=== PATIENT | male | born 1940 | race Caucasian/White ===

== ENCOUNTER 2016-07-15 13:26 | Emergency (ER) | payer MEDICARE, OTHER ==
[2016-07-15 13:46] VITALS: BP 129/63
[2016-07-15] MEDS ORDERED: Levofloxacin 250 MG Tab PO ONE (15:21)
--- NOTE | 2016-07-15 15:31 | EDM.PDOC ---
ED HPI GENERAL MEDICAL PROBLEM - General Chief Complaint: Respiratory Problem Stated Complaint: COUGHING UP BLOOD/FEVER/SOB Time Seen by Provider: 07/15/16 13:35 Source of Information: Reports: Patient, RN Notes Reviewed - History of Present Illness INITIAL COMMENTS - FREE TEXT/NARRATIVE: 76-year-old male comes in with cough, chills, possible low-grade fever. He states she's had no energy for the last 2 or 3 days. The coughing did start about 3 days ago occasionally productive of yellowish colored phlegm. He states she's had a lot of bronchitis in the past and sounds like he also has had some pneumonia in the past. He feels mildly short of breath with exertion but otherwise doing okay with that. No chest pain. No major nasal or sinus congestion. He denies sore throat. - Related Data Allergies Allergy/AdvReac Type Severity Reaction Status Date / Time Penicillins Allergy Swelling Verified 07/15/16 13:35 Home Meds: Home Meds Ezetimibe [Zetia] 10 mg PO DAILY 07/25/14 [History] Tiotropium [Spiriva HandiHaler] 1 cap INH DAILY 07/25/14 [History] amLODIPine [Norvasc] 10 mg PO DAILY 07/25/14 [History] atorvaSTATin [Lipitor] 20 mg PO DAILY 07/25/14 [History] Albuterol Sulfate 2.5 mg IH Q6HR 03/18/15 [History] sitaGLIPtin Phos/Metformin HCl [Janumet 50-500 MG] 50 - 500 mg PO ACDINNER 03/18 [History] Aspirin/Calcium Carbonate/Mag [Aspirin Buffered 325 mg Tab] 1 tab PO DAILY 02/09 [History] Benazepril HCl [Lotensin] 40 mg PO DAILY 02/10/16 [History] Hydrochlorothiazide 12.5 mg PO DAILY 02/10/16 [History] Kelp 1 tab PO DAILY 02/10/16 [History] Levalbuterol Tartrate [Xopenex Hfa] 15 gm IH Q4HR PRN 02/10/16 [History] Metoprolol Succinate 25 mg PO DAILY 02/10/16 [History] Tresiba 46 units SQ DAILY 02/10/16 [History] Past Medical History HEENT History: Reports: Hard of Hearing, Impaired Vision Cardiovascular History: Reports: High Cholesterol, Hypertension Respiratory History: Reports: COPD Gastrointestinal History: Reports: Chronic Constipation, Hemorrhoids Genitourinary History: Reports: Urinary Incontinence Musculoskeletal History: Reports: Osteoarthritis Other Musculoskeletal History: Hx. fx ribs; shoulder blade;hairline cervical fx. ;rt. thumb & wrist (casted); & coccyx. Neurological History: Reports: CVA, Other (See Below) Other Neuro History: hosp. last mar. for CVA symptoms; [facility] ([place]); question whether TIA vs CVA Psychiatric History: Reports: None Endocrine/Metabolic History: Reports: Diabetes, Type II Hematologic History: Reports: None Immunologic History: Reports: None Oncologic (Cancer) History: Reports: Prostate Dermatologic History: Reports: None - Infectious Disease History Infectious Disease History: Reports: Chicken Pox - Past Surgical History Head Surgeries/Procedures: Reports: None Dermatological Surgical History: Reports: None Social & Family History - Family History Family Medical History: Noncontributory - Tobacco Use Smoking Status *Q: Former Smoker Years of Tobacco use: 30 Packs/Tins Daily: 2 Used Tobacco, but Quit: Yes Month Tobacco Last Used: 1985 Second Hand Smoke Exposure: No - Caffeine Use Caffeine Use: Reports: Coffee, Soda - Recreational Drug Use Recreational Drug Use: No - Living Situation & Occupation Living situation: Reports: , with Spouse Occupation: Retired ED ROS GENERAL - Review of Systems Review Of Systems: See Below Constitutional: Reports: Fever, Chills HEENT: Denies: Sinus Problem, Throat Pain Respiratory: Reports: Shortness of Breath (Exertional), Wheezing (Okay she), Cough (Frequent for the past few days), Sputum Cardiovascular: Reports: Dyspnea on Exertion. Denies: Chest Pain, Edema Endocrine: Reports: Fatigue GI/Abdominal: Denies: Abdominal Pain, Nausea, Vomiting Musculoskeletal: Reports: No Symptoms Skin: Reports: No Symptoms Neurological: Reports: No Symptoms ED EXAM, GENERAL - Physical Exam Exam: See Below General Appearance: Alert, No Apparent Distress Nose: Normal Inspection Throat/Mouth: Normal Inspection, Normal Oropharynx Head: No: Facial Swelling Neck: Supple, Full Range of Motion, Other (No JVD) Respiratory/Chest: Lungs Clear. No: Rales, Rhonchi, Wheezing Cardiovascular: Regular Rate, Rhythm GI/Abdominal: Soft, Non-Tender Extremities: No: Pedal Edema, Leg Pain Neurological: Alert, Oriented, No Motor/Sensory Deficits Skin Exam: Warm, Dry, Normal Color Course - Vital Signs Last Recorded V/S: Last Vital Signs Temp 98.0 F 07/15/16 13:42 Pulse 80 07/15/16 13:42 Resp 20 07/15/16 13:42 BP 129/63 07/15/16 13:42 Pulse Ox 95 07/15/16 13:42 - Orders/Labs/Meds Orders: Active Orders 24 hr Category Date Time Status CXR [Chest 2V] [CR] Stat Exams 07/15/16 14:01 Taken Labs: Laboratory Tests 07/15/16 07/15/16 Range/Units 14:20 14:20 WBC 13.10 H (4.23-9.07) K/mm3 RBC 4.28 L (4.63-6.08) M/mm3 Hgb 12.7 L (13.7-17.5) gm/L Hct 38.9 L (40.1-51.0) % MCV 90.9 (79.0-92.2) fl MCH 29.7 (25.7-32.2) pg MCHC 32.6 (32.2-35.5) g/dl RDW Std Deviation 45.9 H (35.1-43.9) fL Plt Count 143 L (163-337) K/mm3 MPV 11.2 (9.4-12.3) fl Neut % (Auto) 77.9 H (34.0-67.9) % Lymph % (Auto) 13.7 L (21.8-53.1) % [place] % (Auto) 6.8 (5.3-12.2) % Eos % (Auto) 1.2 (0.8-7.0) Baso % (Auto) 0.2 (0.1-1.2) % Neut # (Auto) 10.19 H (1.78-5.38) K/mm3 Lymph # (Auto) 1.80 (1.32-3.57) K/mm3 [place] # (Auto) 0.89 H (0.30-0.82) K/mm3 Eos # (Auto) 0.16 (0.04-0.54) K/mm3 Baso # (Auto) 0.03 (0.01-0.08) K/mm3 C-Reactive Protein 20.2 H* (<1.0) mg/dL Meds: Medications Discontinued Medications Generic Name Dose Route Start Last Admin Trade Name Gaurang PRN Reason Stop Dose Admin Levofloxacin 750 mg 07/15/16 15:21 07/15/16 15:29 Levaquin PO 07/15/16 15:22 750 mg ONETIME ONE Administration - Re-Assessments/Exams Free Text/Narrative Re-Assessment/Exam: 07/15/16 15:29 Chest x-ray shows a small left lower lobe infiltrate. White blood count and C- reactive protein are elevated to support that diagnosis along with his current symptoms. His sats are good. He is resting and breathing comfortably. He does not want to be in the hospital. We will give him Levaquin 750 mg orally now and then have him continue 500 mg orally for 10 days. That prescription has been called to [place] [facility]. He will continue working with his nebulizer as needed and continue other meds as prescribed Departure - Departure Time of Disposition: 15:32 Disposition: Home, Self-Care 01 Condition: fair Clinical Impression: Pneumonia Qualifiers: Pneumonia type: due to unspecified organism Laterality: left Lung location: lower lobe of lung Qualified Code(s): J18.1 - Lobar pneumonia, unspecified organism - Discharge Information Referrals: Mary Augustin CARD FEEDER [Primary Care Provider] - Forms: ED Department Discharge Additional Instructions: Levaquin antibiotic as prescribed. He'll been giving her initial 750 mg dose orally while here in the ED today. Continue that 500 mg daily for the next 10 days. Your next dose should be around noon tomorrow. Continue with the nebulizer as needed. Continue other medications as prescribed. Rest. Drink 20 of water to maintain hydration. Followup clinic early next week for recheck, call for appointment. Return to ED as needed if symptoms worsening in any way. - My Orders Last 24 Hours: My Active Orders 07/15/16 14:01 CXR [Chest 2V] [CR] Stat - Assessment/Plan Last 24 Hours: My Active Orders 07/15/16 14:01 CXR [Chest 2V] [CR] Stat
--- NOTE | 2016-07-16 08:42 | CR ---
Chest: Two views of the chest were obtained. Comparison: Previous chest x-ray of 02/12/16. Increased density within the left lung base is seen. This appears fairly stable from prior study presumably chronic. Lungs otherwise are clear. Heart size and mediastinum are normal. Lungs are hyperinflated compatible with emphysematous change. Mild degenerative spurring noted within the spine and within both acromioclavicular joints. Impression: 1. Increased density within the left lung base which appears fairly stable from prior exam presumably representing scarring. Findings could also represent reappearance of pneumonia within the same area. 2. Other incidental findings. Diagnostic code #3
== END 2016-07-15 15:43 | disposition home or self-care (01) ==
LOC: JD.ED 13:26
DX: J18.9 Pneumonia, unspecified organism (principal); I10 Essential (primary) hypertension; E78.00 Pure hypercholesterolemia, unspecified; J44.9 Chronic obstructive pulmonary disease, unspecified; M19.90 Unspecified osteoarthritis, unspecified site; Z86.73 Personal history of transient ischemic attack (TIA), and cerebral infarction without residual deficits; E11.9 Type 2 diabetes mellitus without complications; Z85.46 Personal history of malignant neoplasm of prostate; Z87.891 Personal history of nicotine dependence; Z79.82 Long term (current) use of aspirin; Z79.899 Other long term (current) drug therapy; Z88.0 Allergy status to penicillin
CPT/HCPCS: 36415; 71020; 85025; 86140; 99283; A9270; 99284

== ENCOUNTER 2017-04-09 09:58 | Emergency (ER) | payer MEDICARE, OTHER ==
[2017-04-09] MEDS ORDERED: Albuterol/Ipratropium 3.0-0.5 MG/3 ML Neb Soln NEB ONE ×2 (10:20→11:34)
[2017-04-09] MEDS ORDERED: methylPREDNISolone Sodium Succinate 125 MG/2 ML SDV IVPUSH ONE (10:27)
[2017-04-09] MEDS ORDERED: Albuterol 0.083% 2.5 MG/3 ML Neb Soln NEB ONE (11:40)
[2017-04-09 12:38] VITALS: BP 97/53
--- NOTE | 2017-04-09 13:08 | EDM.PDOC ---
ED HPI GENERAL MEDICAL PROBLEM - General Chief Complaint: Respiratory Problem Stated Complaint: SOB Time Seen by Provider: 04/09/17 10:19 Source of Information: Reports: Patient, RN Notes Reviewed - History of Present Illness INITIAL COMMENTS - FREE TEXT/NARRATIVE: 77-year-old male comes in with cough, wheezing, difficulty breathing. 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 He does have chronic cough but became more ill about 45 days ago with some nasal and sinus congestion, worsening cough. He was seen [facility] at the [facility], started on Levaquin 750 mg daily 3 days ago. The cough continues, occasionally productive of colored phlegm. He feels very short of breath at rest and states he can hardly walk across a room due to the severe difficulty breathing and that is what brings him in this morning. He is on various inhalers at home and also does use nebulizer as needed. He's had some chills. No definite fever. No chest pain. No abdominal pain nausea or vomiting. Treatments ENTRY LEVEL ELECTRICIAN: Reports: Other (see below) Other Treatments ENTRY LEVEL ELECTRICIAN: antibiotic - Related Data Allergies Allergy/AdvReac Type Severity Reaction Status Date / Time Penicillins Allergy Swelling Verified 04/09/17 10:10 Home Meds: Home Meds Ezetimibe [Zetia] 10 mg PO DAILY 07/25/14 [History] Tiotropium [Spiriva HandiHaler] 1 cap INH DAILY 07/25/14 [History] amLODIPine [Norvasc] 15 mg PO DAILY 07/25/14 [History] atorvaSTATin [Lipitor] 20 mg PO DAILY 07/25/14 [History] Albuterol Sulfate 2.5 mg IH Q6HR 03/18/15 [History] sitaGLIPtin Phos/Metformin HCl [Janumet 50-500 MG] 50 - 500 mg PO ACDINNER 03/18 [History] Aspirin/Calcium Carbonate/Mag [Aspirin Buffered 325 mg Tab] 1 tab PO DAILY 02/09 [History] Benazepril HCl [Lotensin] 40 mg PO DAILY 02/10/16 [History] Hydrochlorothiazide 12.5 mg PO DAILY 02/10/16 [History] Levalbuterol Tartrate [Xopenex Hfa] 15 gm IH Q4HR PRN 02/10/16 [History] Metoprolol Succinate 25 mg PO DAILY 02/10/16 [History] Tresiba 46 units SQ DAILY 02/10/16 [History] Benzonatate 100 mg PO TID PRN 04/09/17 [History] Fexofenadine HCl [Marychuy Allergy] 60 mg PO DAILY 04/09/17 [History] Fluticasone/Vilanterol [Breo Ellipta 100-25 MCG Inhalation Kit] 1 each IH DAILY 04/09/17 [History] Levofloxacin [Levaquin] 750 mg PO ASDIRECTED 04/09/17 [History] guaiFENesin [Mucinex] 600 mg PO BID 04/09/17 [History] Past Medical History HEENT History: Reports: Hard of Hearing, Impaired Vision Cardiovascular History: Reports: High Cholesterol, Hypertension, SOB on Exertion Respiratory History: Reports: COPD, Other (See Below) Other Respiratory History: emphysema Gastrointestinal History: Reports: Chronic Constipation, Hemorrhoids Genitourinary History: Reports: Urinary Incontinence Musculoskeletal History: Reports: Osteoarthritis Other Musculoskeletal History: Hx. fx ribs, shoulder blade, hairline cervical fx , rt. thumb & wrist (casted) & coccyx. Neurological History: Reports: CVA, Other (See Below) Other Neuro History: hosp. mar 2016 for CVA symptoms, [facility] ([place]) question whether TIA vs CVA Psychiatric History: Reports: None Endocrine/Metabolic History: Reports: Diabetes, Type II Hematologic History: Reports: None Immunologic History: Reports: None Oncologic (Cancer) History: Reports: Prostate Dermatologic History: Reports: None - Infectious Disease History Infectious Disease History: Reports: Chicken Pox - Past Surgical History Head Surgeries/Procedures: Reports: None Dermatological Surgical History: Reports: None Social & Family History - Family History Family Medical History: Noncontributory - Tobacco Use Smoking Status *Q: Former Smoker Years of Tobacco use: 30 Packs/Tins Daily: 2 Used Tobacco, but Quit: Yes Month Tobacco Last Used: 1985 Second Hand Smoke Exposure: No - Caffeine Use Caffeine Use: Reports: Coffee - Recreational Drug Use Recreational Drug Use: No - Living Situation & Occupation Living situation: Reports: , with Spouse Occupation: Retired ED ROS GENERAL - Review of Systems Review Of Systems: See Below Constitutional: Reports: Chills. Denies: Fever HEENT: Reports: Sinus Problem (He does have nasal and sinus congestion, no major drainage), Throat Pain Respiratory: Reports: Shortness of Breath (Chronically, he does feel more short of breath today both at rest and with walking) Cardiovascular: Denies: Chest Pain GI/Abdominal: Denies: Abdominal Pain, Diarrhea, Nausea, Vomiting Musculoskeletal: Reports: Joint Pain (Chronic) Neurological: Reports: Dizziness (With ambulation). Denies: Trouble Speaking ED EXAM, GENERAL - Physical Exam Exam: See Below General Appearance: Alert, No Apparent Distress Throat/Mouth: Normal Inspection. No: Inflammation Head: Atraumatic Neck: Supple, Full Range of Motion, Other (No JVD) Respiratory/Chest: Respiratory Distress (Moderate tachypnea even at rest with oxygen), Wheezing (Mild). No: Rales, Rhonchi Cardiovascular: Regular Rate, Rhythm GI/Abdominal: Soft, Non-Tender Back Exam: No: CVA Tenderness (L), CVA Tenderness (R) Extremities: Normal Inspection. No: Pedal Edema, Leg Pain, Increased Warmth, Redness Neurological: Oriented, No Motor/Sensory Deficits Skin Exam: Warm, Dry, Normal Color Course - Vital Signs Last Recorded V/S: Last Vital Signs Temp 98.2 F 04/09/17 10:00 Pulse 74 04/09/17 12:37 Resp 18 04/09/17 12:37 BP 97/53 L 04/09/17 12:37 Pulse Ox 90 L 04/09/17 12:37 - Orders/Labs/Meds Labs: Laboratory Tests 04/09/17 04/09/17 04/09/17 Range/Units 10:20 10:20 10:20 WBC 7.20 (4.23-9.07) K/mm3 RBC 4.38 L (4.63-6.08) M/mm3 Hgb 13.0 L (13.7-17.5) gm/L Hct 39.3 L (40.1-51.0) % MCV 89.7 (79.0-92.2) fl MCH 29.7 (25.7-32.2) pg MCHC 33.1 (32.2-35.5) g/dl RDW Std Deviation 45.4 H (35.1-43.9) fL Plt Count 141 L (163-337) K/mm3 MPV 10.2 (9.4-12.3) fl Neut % (Auto) 68.0 H (34.0-67.9) % Lymph % (Auto) 17.2 L (21.8-53.1) % [place] % (Auto) 12.6 H (5.3-12.2) % Eos % (Auto) 1.5 (0.8-7.0) Baso % (Auto) 0.3 (0.1-1.2) % Neut # (Auto) 4.89 (1.78-5.38) K/mm3 Lymph # (Auto) 1.24 L (1.32-3.57) K/mm3 [place] # (Auto) 0.91 H (0.30-0.82) K/mm3 Eos # (Auto) 0.11 (0.04-0.54) K/mm3 Baso # (Auto) 0.02 (0.01-0.08) K/mm3 Sodium 137 (136-145) mEq/L Potassium 4.6 (3.5-5.1) mEq/L Chloride 100 (98-107) mEq/L Carbon Dioxide 25 (21-32) mEq/L Anion Gap 16.6 H (5-15) BUN 24 H (7-18) mg/dL Creatinine 1.3 (0.7-1.3) mg/dL Est Cr Clr Drug Dosing 52.23 mL/min Estimated GFR (MDRD) 54 (>60) mL/min BUN/Creatinine Ratio 18.5 H (14-18) Glucose 145 H (83-115) mg/dL Calcium 8.7 (8.5-10.1) mg/dL Total Bilirubin 0.6 (0.2-1.0) mg/dL AST 24 (15-37) U/L ALT 41 (16-63) U/L Alkaline Phosphatase 59 (46-116) U/L C-Reactive Protein 2.9 H* (<1.0) mg/dL NT-Pro-B Natriuret Pep 144 (0-450) pg/mL Total Protein 7.0 (6.4-8.2) g/dl Albumin 3.2 L (3.4-5.0) g/dl Globulin 3.8 gm/dL Albumin/Globulin Ratio 0.8 L (1-2) Meds: Medications Discontinued Medications Generic Name Dose Route Start Last Admin Trade Name Gaurang PRN Reason Stop Dose Admin Albuterol 2.5 mg 04/09/17 11:40 04/09/17 11:49 Proventil Neb Soln NEB 04/09/17 11:41 2.5 mg ONETIME ONE Administration Albuterol/Ipratropium 3 ml 04/09/17 10:20 04/09/17 10:31 Duoneb 3.0-0.5 Mg/3 Ml NEB 04/09/17 10:21 3 ml ONETIME ONE Administration Albuterol/Ipratropium 3 ml 04/09/17 11:34 04/09/17 11:50 Duoneb 3.0-0.5 Mg/3 Ml NEB 04/09/17 11:35 Not Given ONETIME ONE Methylprednisolone Sodium Succinate 125 mg 04/09/17 10:27 04/09/17 10:39 Solu-Medrol IVPUSH 04/09/17 10:28 125 mg ONETIME ONE Administration - Re-Assessments/Exams Free Text/Narrative Re-Assessment/Exam: 04/09/17 13:40 Chest x-ray does not show acute infiltrate or any sign for CHF. Labs are as documented. Sats were in the mid 80s on arrival room air. With oxygen and after 2 neb treatments he is running in the low 90s at 2 L nasal cannula. When we turned his oxygen off he dropped his sats back down to 84-86 sitting, resting. Ambulation he dropped to 82-83%, became very short of breath. Chest x- ray does not show pneumonia. White blood count was fine, C-reactive protein only very mildly elevated. He does not have pneumonia at this time. Not need hospital admission. He needs oxygen. We have called [employer] to help get him set up for home oxygen. Departure - Departure Time of Disposition: 12:59 Disposition: Home, Self-Care 01 Condition: Fair Clinical Impression: COPD exacerbation, Hypoxia, Bronchitis - Discharge Information Instructions: Chronic Obstructive Pulmonary Disease Exacerbation, [id number] , Acute Bronchitis, Adult Referrals: Mary Augustin SALVAGE DETERMINER [Primary Care Provider] - Forms: ED Department Discharge Additional Instructions: Portable oxygen concentrator, run that at 2-3 L 24/7 for now. As discussed your oxygen sats were only running in the mid 80s while here in the ED on room air which is too low. Chest x-ray does not show pneumonia, white blood count was normal. Continue the Levaquin antibiotic as prescribed. You have been given 1 dose of steroid medication, Solu-Medrol 125 mg IV while here in the ED so that should also help you. Continue albuterol neb treatments and other indications as previously prescribed. He Mary Tuesday at clinic for follow-up, call Tuesday morning for appointment. Return to ED as needed.
--- NOTE | 2017-04-09 14:04 | CR ---
Chest: Portable view of the chest was obtained. Comparison: Prior chest x-ray of 07/15/16. Prior chest CT of 02/10/16 was also utilized. Heart size and mediastinum are within normal limits. Incidental note of atherosclerotic calcification within the aortic knob. Lungs appear clear without acute parenchymal densities. Bony structures show degenerative endplate spurring within the spine. Slight deformity to several left-sided ribs are seen most likely due to old healed fractures. Impression: 1. Incidental findings. Nothing acute is identified on portable chest x-ray. Diagnostic code #2
== END 2017-04-09 14:40 | disposition home or self-care (01) ==
LOC: JD.ED 09:58
DX: J44.1 Chronic obstructive pulmonary disease with (acute) exacerbation (principal); E11.9 Type 2 diabetes mellitus without complications; E78.00 Pure hypercholesterolemia, unspecified; M19.90 Unspecified osteoarthritis, unspecified site; Z87.891 Personal history of nicotine dependence; Z79.82 Long term (current) use of aspirin; Z79.899 Other long term (current) drug therapy; Z88.0 Allergy status to penicillin
CPT/HCPCS: 36415; 71045; 80053; 83880; 85025; 86140; 87804; 94640; 96374; 99285; J2930; 99284

== ENCOUNTER 2017-10-06 09:33 | Emergency (ER) | payer MEDICARE, OTHER ==
[2017-10-06 09:54] VITALS: BP 133/59
[2017-10-06] MEDS ORDERED: Sodium Chloride 0.9% 10 ML Syringe FLUSH PRN (09:56)
[2017-10-06] MEDS ORDERED: Sodium Chloride 0.9% 1,000 ML IV SCH (10:00)
[2017-10-06] MEDS ORDERED: Albuterol/Ipratropium 3.0-0.5 MG/3 ML Neb Soln NEB ONE (10:38)
--- NOTE | 2017-10-06 11:45 | EDM.PDOC ---
ED HPI GENERAL MEDICAL PROBLEM - General Chief Complaint: Cardiovascular Problem Stated Complaint: LEG CRAMPS Time Seen by Provider: 10/06/17 09:50 Source of Information: Reports: Patient History Limitations: Reports: No Limitations - History of Present Illness INITIAL COMMENTS - FREE TEXT/NARRATIVE: The patient presents with leg cramps. This started last night. This happened about every hour last night. He took many potassium pills to help stop it. He says this has happened before but not this bad. He has some low back pain with it but that is chronic. He thinks he has been drinking enough. He has no fever , chills, chest pain, abdominal pain, nausea or vomiting. He has some cough and shortness of breath. He has COPD and has had a upper respiratory infection recently. He has no changes in his meds. Onset: Gradual Duration: Day(s): (Last night) Location: Reports: Lower Extremity, Left, Lower Extremity, Right Quality: Reports: Other (Cramping) Severity: Moderate Improves with: Reports: None Worsens with: Reports: None Associated Symptoms: Reports: Cough, Shortness of Breath - Related Data Allergies Allergy/AdvReac Type Severity Reaction Status Date / Time Penicillins Allergy Swelling Verified 10/06/17 09:49 Home Meds: Home Meds Ezetimibe [Zetia] 10 mg PO DAILY 07/25/14 [History] Tiotropium [Spiriva HandiHaler] 1 cap INH DAILY 07/25/14 [History] amLODIPine [Norvasc] 15 mg PO DAILY 07/25/14 [History] atorvaSTATin [Lipitor] 20 mg PO DAILY 07/25/14 [History] Albuterol Sulfate 2.5 mg IH Q6HR 03/18/15 [History] sitaGLIPtin Phos/Metformin HCl [Janumet 50-500 MG] 50 - 500 mg PO ACDINNER 03/18 [History] Aspirin/Calcium Carbonate/Mag [Aspirin Buffered 325 mg Tab] 1 tab PO DAILY 02/09 [History] Benazepril HCl [Lotensin] 40 mg PO DAILY 02/10/16 [History] Hydrochlorothiazide 12.5 mg PO DAILY 02/10/16 [History] Metoprolol Succinate 25 mg PO DAILY 02/10/16 [History] Tresiba 46 units SQ DAILY 02/10/16 [History] Fluticasone/Vilanterol [Breo Ellipta 100-25 MCG Inhalation Kit] 1 puff IH DAILY 04/09/17 [History] Cyclobenzaprine [Flexeril] 5 mg PO TID PRN #10 tab 10/06/17 [Rx] Past Medical History HEENT History: Reports: Hard of Hearing, Impaired Vision Cardiovascular History: Reports: High Cholesterol, Hypertension, SOB on Exertion Respiratory History: Reports: COPD, Other (See Below) Other Respiratory History: emphysema Gastrointestinal History: Reports: Chronic Constipation, Hemorrhoids Genitourinary History: Reports: Urinary Incontinence Musculoskeletal History: Reports: Osteoarthritis Other Musculoskeletal History: Hx. fx ribs, shoulder blade, hairline cervical fx , rt. thumb & wrist (casted) & coccyx. Neurological History: Reports: CVA, Other (See Below) Other Neuro History: hosp. mar 2016 for CVA symptoms, [facility] ([place]) question whether TIA vs CVA Psychiatric History: Reports: None Endocrine/Metabolic History: Reports: Diabetes, Type II Hematologic History: Reports: None Immunologic History: Reports: None Oncologic (Cancer) History: Reports: Prostate Dermatologic History: Reports: None - Infectious Disease History Infectious Disease History: Reports: Chicken Pox - Past Surgical History Head Surgeries/Procedures: Reports: None Dermatological Surgical History: Reports: None Social & Family History - Family History Family Medical History: Noncontributory - Tobacco Use Smoking Status *Q: Former Smoker Used Tobacco, but Quit: Yes Month/Year Tobacco Last Used: 1985 - Caffeine Use Caffeine Use: Reports: Coffee - Living Situation & Occupation Living situation: Reports: , with Spouse Occupation: Retired ED ROS GENERAL - Review of Systems Review Of Systems: See Below Constitutional: Reports: No Symptoms HEENT: Reports: No Symptoms Respiratory: Reports: Shortness of Breath, Cough Cardiovascular: Reports: No Symptoms Endocrine: Reports: No Symptoms GI/Abdominal: Reports: No Symptoms : Reports: No Symptoms Musculoskeletal: Reports: No Symptoms ED EXAM, GENERAL - Physical Exam Exam: See Below Exam Limited By: No Limitations General Appearance: Alert, No Apparent Distress Ears: Normal External Exam Nose: Normal Inspection Head: Atraumatic, Normocephalic Neck: Normal Inspection Respiratory/Chest: No Respiratory Distress, Decreased Breath Sounds Cardiovascular: Regular Rate, Rhythm, No Edema, No Murmur GI/Abdominal: Soft, Non-Tender, No Organomegaly, No Mass Back Exam: Normal Inspection Extremities: Normal Inspection Course - Vital Signs Last Recorded V/S: Last Vital Signs Temp 97.9 F 10/06/17 09:50 Pulse 68 10/06/17 09:50 Resp 18 10/06/17 09:50 BP 133/59 L 10/06/17 09:50 Pulse Ox 91 L 10/06/17 10:38 - Orders/Labs/Meds Orders: Active Orders 24 hr Category Date Time Status Cardiac Monitoring [RC] . DIRECTED Care 10/06/17 09:56 Active EKG Documentation Completion [RC] ASDIRECTED Care 10/06/17 09:57 Active Peripheral IV Care [RC] . DIRECTED Care 10/06/17 09:56 Active RT Aerosol Therapy [RC] ASDIRECTED Care 10/06/17 10:38 Active Chest 2V [CR] Stat Exams 10/06/17 09:56 Taken Sodium Chloride 0.9% [Normal Saline] 1,000 ml Med 10/06/17 10:00 Active IV ASDIRECTED Sodium Chloride 0.9% [Saline Flush] Med 10/06/17 09:56 Active 10 ml FLUSH ASDIRECTED PRN Peripheral IV Insertion Adult [OM.PC] Stat Oth 10/06/17 09:56 Ordered EKG 12 Lead [EK] Stat Ther 10/06/17 09:57 Ordered Medication Orders Sodium Chloride (Normal Saline) 1,000 mls @ 125 mls/hr IV ASDIRECTED SAY Last Admin: 10/06/17 10:15 Dose: 125 mls/hr Sodium Chloride (Saline Flush) 10 ml FLUSH ASDIRECTED PRN PRN Reason: Keep Vein Open Last Admin: 10/06/17 10:15 Dose: 10 ml Labs: Laboratory Tests 10/06/17 10/06/17 Range/Units 10:10 10:10 WBC 8.78 (4.23-9.07) K/mm3 RBC 4.80 (4.63-6.08) M/mm3 Hgb 14.3 (13.7-17.5) gm/L Hct 43.1 (40.1-51.0) % MCV 89.8 (79.0-92.2) fl MCH 29.8 (25.7-32.2) pg MCHC 33.2 (32.2-35.5) g/dl RDW Std Deviation 44.0 H (35.1-43.9) fL Plt Count 238 (163-337) K/mm3 MPV 10.4 (9.4-12.3) fl Neut % (Auto) 69.4 H (34.0-67.9) % Lymph % (Auto) 18.7 L (21.8-53.1) % [place] % (Auto) 6.8 (5.3-12.2) % Eos % (Auto) 3.9 (0.8-7.0) Baso % (Auto) 0.6 (0.1-1.2) % Neut # (Auto) 6.10 H (1.78-5.38) K/mm3 Lymph # (Auto) 1.64 (1.32-3.57) K/mm3 [place] # (Auto) 0.60 (0.30-0.82) K/mm3 Eos # (Auto) 0.34 (0.04-0.54) K/mm3 Baso # (Auto) 0.05 (0.01-0.08) K/mm3 Sodium 138 (136-145) mEq/L Potassium 4.9 (3.5-5.1) mEq/L Chloride 102 (98-107) mEq/L Carbon Dioxide 27 (21-32) mEq/L Anion Gap 13.9 (5-15) BUN 24 H (7-18) mg/dL Creatinine 1.1 (0.7-1.3) mg/dL Est Cr Clr Drug Dosing 61.73 mL/min Estimated GFR (MDRD) > 60 (>60) mL/min BUN/Creatinine Ratio 21.8 H (14-18) Glucose 120 H (83-115) mg/dL Calcium 9.3 (8.5-10.1) mg/dL Magnesium 2.1 (1.8-2.4) mg/dl Total Bilirubin 0.6 (0.2-1.0) mg/dL AST 39 H (15-37) U/L ALT 54 (16-63) U/L Alkaline Phosphatase 65 (46-116) U/L Creatine Kinase 258 (39-308) U/L Total Protein 7.4 (6.4-8.2) g/dl Albumin 3.3 L (3.4-5.0) g/dl Globulin 4.1 gm/dL Albumin/Globulin Ratio 0.8 L (1-2) Meds: Medications Generic Name Dose Route Start Last Admin Trade Name Freq PRN Reason Stop Dose Admin Sodium Chloride 1,000 mls @ 125 mls/hr 10/06/17 10:00 10/06/17 10:15 Normal Saline IV 125 mls/hr ASDIRECTED SAY Administration Sodium Chloride 10 ml 10/06/17 09:56 10/06/17 10:15 Saline Flush FLUSH 10 ml ASDIRECTED PRN Administration Keep Vein Open Discontinued Medications Generic Name Dose Route Start Last Admin Trade Name Freq PRN Reason Stop Dose Admin Albuterol/Ipratropium 3 ml 10/06/17 10:38 10/06/17 10:50 Duoneb 3.0-0.5 Mg/3 Ml NEB 10/06/17 10:39 3 ml ONETIME ONE Administration - Re-Assessments/Exams Free Text/Narrative Re-Assessment/Exam: 10/06/17 11:47 I ordered an IV NS at 150mL/hr, CXR and labs. His CXR shows no infiltrated. His CBC looks good. His BUN was elevated at 24. His BUN/creatinine ratio is elevated at 21.8. His glucose was 120. His AST was slightly elevated at 39. His oxygen saturations were a little low. I gave him a duoneb treatment and he did better. I will discharge him home. With some flexeril. Departure - Departure Time of Disposition: 11:50 Disposition: Home, Self-Care 01 Condition: Good Clinical Impression: Leg cramps Prescriptions: Cyclobenzaprine [Flexeril] 5 mg PO TID PRN #10 tab PRN Reason: Pain Referrals: Mary Augustin, [facility] [Primary Care Provider] - 1 Week Additional Instructions: Drink plenty of fluids. You should try to drink about 8 glasses of water per day or until you have pale yellow urine. Take the flexeril as needed for muscle cramps. Please return if you are worse. - My Orders Last 24 Hours: My Active Orders 10/06/17 09:56 Cardiac Monitoring [RC] . DIRECTED Peripheral IV Care [RC] . DIRECTED Chest 2V [CR] Stat Sodium Chloride 0.9% [Saline Flush] 10 ml FLUSH ASDIRECTED PRN Peripheral IV Insertion Adult [OM.PC] Stat 10/06/17 09:57 EKG Documentation Completion [RC] ASDIRECTED EKG 12 Lead [EK] Stat 10/06/17 10:00 Sodium Chloride 0.9% [Normal Saline] 1,000 ml IV ASDIRECTED 10/06/17 10:38 RT Aerosol Therapy [RC] ASDIRECTED - Assessment/Plan Last 24 Hours: My Active Orders 10/06/17 09:56 Cardiac Monitoring [RC] . DIRECTED Peripheral IV Care [RC] . DIRECTED Chest 2V [CR] Stat Sodium Chloride 0.9% [Saline Flush] 10 ml FLUSH ASDIRECTED PRN Peripheral IV Insertion Adult [OM.PC] Stat 10/06/17 09:57 EKG Documentation Completion [RC] ASDIRECTED EKG 12 Lead [EK] Stat 10/06/17 10:00 Sodium Chloride 0.9% [Normal Saline] 1,000 ml IV ASDIRECTED 10/06/17 10:38 RT Aerosol Therapy [RC] ASDIRECTED
--- NOTE | 2017-10-06 15:00 | CR ---
Chest: Two views of the chest were obtained. Comparison: Prior chest x-ray of 04/09/17. Heart size is normal. Tortuous thoracic aorta is seen. Degenerative spurring is noted within the spine. Diaphragms are slightly flattened suggesting emphysematous change. No acute parenchymal change is appreciated. Impression: 1. Probable emphysematous change. 2. Other incidental findings. Nothing acute is appreciated. Diagnostic code #2
== END 2017-10-06 12:13 | disposition home or self-care (01) ==
LOC: JD.ED 09:33
DX: R25.2 Cramp and spasm (principal); I10 Essential (primary) hypertension; E78.00 Pure hypercholesterolemia, unspecified; J44.9 Chronic obstructive pulmonary disease, unspecified; E11.9 Type 2 diabetes mellitus without complications; Z79.82 Long term (current) use of aspirin; Z79.899 Other long term (current) drug therapy; Z87.891 Personal history of nicotine dependence; Z88.0 Allergy status to penicillin
CPT/HCPCS: 36415; 71046; 80053; 82550; 83735; 85025; 93005; 94640; 96360; 96361; 99284; J7040; J7050; J7620-GY

== ENCOUNTER 2018-05-08 11:48 | Emergency (ER) | payer MEDICARE, OTHER ==
[2018-05-08 12:48] VITALS: BP 141/71
--- NOTE | 2018-05-08 13:00 | EDM.PDOC ---
ED HPI GENERAL MEDICAL PROBLEM - General Chief Complaint: General Stated Complaint: DULL HEADACHE NO ENERGY BODY ACHE X 5 DAYS Time Seen by Provider: 05/08/18 12:56 Source of Information: Reports: Patient History Limitations: Reports: No Limitations - History of Present Illness INITIAL COMMENTS - FREE TEXT/NARRATIVE: Patient is a 78-year-old male with a history of emphysema COPD who presents ED complaining of shortness of breath for the past 5 days with feeling rundown, feverish at times, low energy, and worsening productive cough. He has a history of pneumonia in the past. States she's had a poor appetite. Has been drinking plenty of fluids. Has not noticed an increase in weight or swelling to lower extremities. Has been no recent sick exposures or recent hospitalization. Denies any dysuria, rash, nuchal rigidity, headache, or red/hot/swollen joints, pain or swelling to lower extremities, or any additional complaints. He denies any chest pain or shortness of breath at rest. No PND or orthopnea. Headache Pain Score (Numeric/FACES): 2 - Related Data Allergies Allergy/AdvReac Type Severity Reaction Status Date / Time Penicillins Allergy Swelling Verified 05/08/18 12:53 Home Meds: Home Meds Ezetimibe [Zetia] 10 mg PO DAILY 07/25/14 [History] Tiotropium [Spiriva HandiHaler] 1 cap INH DAILY 07/25/14 [History] amLODIPine [Norvasc] 15 mg PO DAILY 07/25/14 [History] atorvaSTATin [Lipitor] 20 mg PO DAILY 07/25/14 [History] Albuterol Sulfate 2.5 mg IH Q6HR 03/18/15 [History] sitaGLIPtin Phos/Metformin HCl [Janumet 50-500 MG] 50 - 500 mg PO ACDINNER 03/18 [History] Aspirin/Calcium Carbonate/Mag [Aspirin Buffered 325 mg Tab] 1 tab PO DAILY 02/09 [History] Benazepril HCl [Lotensin] 40 mg PO DAILY 02/10/16 [History] Hydrochlorothiazide 12.5 mg PO DAILY 02/10/16 [History] Metoprolol Succinate 25 mg PO DAILY 02/10/16 [History] Tresiba 46 units SQ DAILY 02/10/16 [History] Fluticasone/Vilanterol [Breo Ellipta 100-25 MCG Inhalation Kit] 1 puff IH DAILY 04/09/17 [History] Cyclobenzaprine [Flexeril] 5 mg PO TID PRN #10 tab 10/06/17 [Rx] levoFLOXacin [Levaquin] 500 mg PO DAILY #10 tab 11/21/17 [Rx] levoFLOXacin [Levaquin] 750 mg PO DAILY #6 tab 05/08/18 [Rx] Past Medical History HEENT History: Reports: Hard of Hearing, Impaired Vision Cardiovascular History: Reports: High Cholesterol, Hypertension, SOB on Exertion Respiratory History: Reports: COPD, Other (See Below) Other Respiratory History: emphysema Gastrointestinal History: Reports: Chronic Constipation, Hemorrhoids Genitourinary History: Reports: Urinary Incontinence, Other (See Below) Musculoskeletal History: Reports: Osteoarthritis Other Musculoskeletal History: Hx. fx ribs, shoulder blade, hairline cervical fx , rt. thumb & wrist (casted) & coccyx. Neurological History: Reports: CVA, Other (See Below) Other Neuro History: hosp. mar 2016 for CVA symptoms, [facility] ([place]) question whether TIA vs CVA Psychiatric History: Reports: None Endocrine/Metabolic History: Reports: Diabetes, Type II Hematologic History: Reports: None Immunologic History: Reports: None Oncologic (Cancer) History: Reports: Prostate Dermatologic History: Reports: None - Infectious Disease History Infectious Disease History: Reports: Chicken Pox - Past Surgical History Head Surgeries/Procedures: Reports: None GI Surgical History: Reports: Cholecystectomy Male Surgical History: Reports: Prostatectomy Dermatological Surgical History: Reports: None Social & Family History - Family History Family Medical History: Noncontributory - Tobacco Use Smoking Status *Q: Never Smoker - Caffeine Use Caffeine Use: Reports: Coffee - Recreational Drug Use Recreational Drug Use: No - Living Situation & Occupation Living situation: Reports: , with Spouse Occupation: Retired ED ROS GENERAL - Review of Systems Review Of Systems: ROS reveals no pertinent complaints other than HPI. ED EXAM, GENERAL - Physical Exam Exam: See Below Exam Limited By: No Limitations General Appearance: Alert, WD/WN, No Apparent Distress Eye Exam: Bilateral Eye: Normal Inspection Ears: Hearing Grossly Normal Nose: Normal Inspection Throat/Mouth: Normal Inspection, Normal Oropharynx, Normal Voice, No Airway Compromise Head: Atraumatic, Normocephalic Neck: Normal Inspection, Supple, Non-Tender, Full Range of Motion Respiratory/Chest: No Respiratory Distress, Lungs Clear, Normal Breath Sounds, No Accessory Muscle Use, Chest Non-Tender Cardiovascular: Normal Peripheral Pulses, Regular Rate, Rhythm, Systolic Murmur (Faint) Peripheral Pulses: 2+: Radial (L), Radial (R) GI/Abdominal: Normal Bowel Sounds, Soft, Non-Tender, No Organomegaly, No Distention Extremities: Normal Inspection, Normal Range of Motion, Non-Tender. No: No Pedal Edema (Trace edema) Neurological: Alert, Oriented, CN II-XII Intact, Normal Cognition, No Motor/ Sensory Deficits Psychiatric: Normal Affect, Normal Mood Skin Exam: Warm, Dry, Intact, Normal Color, No Rash Course - Vital Signs Last Recorded V/S: Last Vital Signs Temp 98.6 F 05/08/18 12:47 Pulse 73 05/08/18 12:47 Resp 20 05/08/18 12:47 BP 141/71 H 05/08/18 12:47 Pulse Ox 90 L 05/08/18 12:47 - Orders/Labs/Meds Orders: Active Orders 24 hr Category Date Time Status EKG 12 Lead [EKG Documentation Completion] [RC] STAT Care 05/08/18 12:59 Active CULTURE BLOOD [BC] Stat Lab 05/08/18 13:20 Received CULTURE BLOOD [BC] Stat Lab 05/08/18 13:20 Received Blood Culture x2 Reflex Set [OM.PC] Stat Oth 05/08/18 12:59 Ordered Labs: Laboratory Tests 05/08/18 05/08/18 05/08/18 Range/Units 13:20 13:20 13:20 WBC 10.93 H (4.23-9.07) K/mm3 RBC 4.51 L (4.63-6.08) M/mm3 Hgb 13.4 L (13.7-17.5) gm/L Hct 41.1 (40.1-51.0) % MCV 91.1 (79.0-92.2) fl MCH 29.7 (25.7-32.2) pg MCHC 32.6 (32.2-35.5) g/dl RDW Std Deviation 45.1 H (35.1-43.9) fL Plt Count 221 (163-337) K/mm3 MPV 10.0 (9.4-12.3) fl Neutrophils % (Manual) 71 H (40-60) % Band Neutrophils % 6 (0-10) % Lymphocytes % (Manual) 15 L (20-40) % Atypical Lymphs % 0 % Monocytes % (Manual) 6 (2-10) % Eosinophils % (Manual) 2 (0.8-7.0) % Basophils % (Manual) 0 L (0.2-1.2) Platelet Estimate Adequate Poikilocytosis 2+ moderate Anisocytosis 2+ moderate RBC Morph Comment Not Reportable Sodium 138 (136-145) mEq/L Potassium 4.2 (3.5-5.1) mEq/L Chloride 102 (98-107) mEq/L Carbon Dioxide 26 (21-32) mEq/L Anion Gap 14.2 (5-15) BUN 20 H (7-18) mg/dL Creatinine 1.0 (0.7-1.3) mg/dL Est Cr Clr Drug Dosing 66.82 mL/min Estimated GFR (MDRD) > 60 (>60) mL/min BUN/Creatinine Ratio 20.0 H (14-18) Glucose 143 H (83-115) mg/dL Lactic Acid (0.4-2.0) mmol/L Calcium 9.5 (8.5-10.1) mg/dL Total Bilirubin 0.5 (0.2-1.0) mg/dL AST 25 (15-37) U/L ALT 40 (16-63) U/L Alkaline Phosphatase 64 (46-116) U/L Troponin I < 0.017 (0.00-0.056) ng/mL C-Reactive Protein 7.8 H* (<1.0) mg/dL NT-Pro-B Natriuret Pep 169 (0-450) pg/mL Total Protein 7.5 (6.4-8.2) g/dl Albumin 3.1 L (3.4-5.0) g/dl Globulin 4.4 gm/dL Albumin/Globulin Ratio 0.7 L (1-2) Mycoplasma pneumon IgM Negative (NEGATIVE) 05/08/18 Range/Units 13:20 WBC (4.23-9.07) K/mm3 RBC (4.63-6.08) M/mm3 Hgb (13.7-17.5) gm/L Hct (40.1-51.0) % MCV (79.0-92.2) fl MCH (25.7-32.2) pg MCHC (32.2-35.5) g/dl RDW Std Deviation (35.1-43.9) fL Plt Count (163-337) K/mm3 MPV (9.4-12.3) fl Neutrophils % (Manual) (40-60) % Band Neutrophils % (0-10) % Lymphocytes % (Manual) (20-40) % Atypical Lymphs % % Monocytes % (Manual) (2-10) % Eosinophils % (Manual) (0.8-7.0) % Basophils % (Manual) (0.2-1.2) Platelet Estimate Poikilocytosis Anisocytosis RBC Morph Comment Sodium (136-145) mEq/L Potassium (3.5-5.1) mEq/L Chloride (98-107) mEq/L Carbon Dioxide (21-32) mEq/L Anion Gap (5-15) BUN (7-18) mg/dL Creatinine (0.7-1.3) mg/dL Est Cr Clr Drug Dosing mL/min Estimated GFR (MDRD) (>60) mL/min BUN/Creatinine Ratio (14-18) Glucose (83-115) mg/dL Lactic Acid 0.9 (0.4-2.0) mmol/L Calcium (8.5-10.1) mg/dL Total Bilirubin (0.2-1.0) mg/dL AST (15-37) U/L ALT (16-63) U/L Alkaline Phosphatase (46-116) U/L Troponin I (0.00-0.056) ng/mL C-Reactive Protein (<1.0) mg/dL NT-Pro-B Natriuret Pep (0-450) pg/mL Total Protein (6.4-8.2) g/dl Albumin (3.4-5.0) g/dl Globulin gm/dL Albumin/Globulin Ratio (1-2) Mycoplasma pneumon IgM (NEGATIVE) Meds: Medications Discontinued Medications Generic Name Dose Route Start Last Admin Trade Name Freq PRN Reason Stop Dose Admin Levofloxacin/Dextrose 750 mg/ 150 mls @ 100 mls/hr 05/08/18 14:26 05/08/18 15 :06 Premix IV 05/08/18 15:55 100 mls/hr ONETIME ONE Administration - Re-Assessments/Exams Free Text/Narrative Re-Assessment/Exam: Patient complains of feeling rundown feverish at times. Slightly increase in shortness of breath with productive cough. Cough is chronic only slight worsening as of recent. He's had body aches, headache, and some chills noted as well. Vital signs are stable as documented. SPO2 92% on room air. EKG indicated sinus rhythm at a rate of [address] changes noted. X-ray of the chest did revealed a area of concern for possible infiltrate to the left lower lung. IV will be established. Initial labs and studies include: CBC, chem 14, blood cultures 2, influenza screen, lactic acid, mycoplasma, proBNP, troponin, chest x-ray, EKG. Labs reviewed: White blood cell count mildly elevated 10.93, hemoglobin 13.4, neutrophil percent is 71, bands 6. Sodium and potassium within normal limits. BUN mildly elevated at 20. Creatinine 1.0. Lactic acid 0.9. CRP elevated at 7.8. ProBNP was 69. Troponin normal. Influenza screen was negative. Mycoplasma was negative as well. I have ordered Levaquin 750 mg IV. Once completed patient will be discharged home with instructions for pneumonia. I have offered to admit the patient to the hospital to which he has refused. Return precautions were discussed with the patient. He had no further questions or concerns and agreed with plan. Departure - Departure Time of Disposition: 16:44 Disposition: Home, Self-Care 01 Condition: Good Clinical Impression: Pneumonia Qualifiers: Pneumonia type: due to unspecified organism Laterality: left Lung location: lower lobe of lung Qualified Code(s): J18.1 - Lobar pneumonia, unspecified organism - Discharge Information Prescriptions: levoFLOXacin [Levaquin] 750 mg PO DAILY #6 tab Instructions: Community-Acquired Pneumonia, Adult Referrals: PCP,None [Primary Care Provider] - Forms: ED Department Discharge Additional Instructions: Continue taking all your home medications as prescribed. In addition take Mucinex 600 mg one tab twice a day. Push the fluids. Will placeon Levaquin 750 mg by mouth. Take complete dose. See your PCP in the next 3 days for reevaluation. Please return back to the ED if you develop any new or worsening symptoms. - My Orders Last 24 Hours: My Active Orders 05/08/18 12:59 EKG 12 Lead [EKG Documentation Completion] [RC] STAT Blood Culture x2 Reflex Set [OM.PC] Stat 05/08/18 13:20 CULTURE BLOOD [BC] Stat CULTURE BLOOD [BC] Stat - Assessment/Plan Last 24 Hours: My Active Orders 05/08/18 12:59 EKG 12 Lead [EKG Documentation Completion] [RC] STAT Blood Culture x2 Reflex Set [OM.PC] Stat 05/08/18 13:20 CULTURE BLOOD [BC] Stat CULTURE BLOOD [BC] Stat
--- NOTE | 2018-05-08 13:47 | CR ---
Chest: Two views of the chest were obtained. Comparison: Prior chest x-ray of 10/06/17. Patchy increased lung markings are seen within the left mid and lower lung. Lungs otherwise are clear. Heart size and mediastinum are within normal limits. Diaphragms are flattened on the lateral view compatible with emphysematous change. Slight degenerative endplate spurring is scattered within the spine. Impression: 1. Findings suspicious for mild area of early pneumonia within the left base. 2. Emphysematous change and other incidental findings. Diagnostic code #3
[2018-05-08] MEDS ORDERED: Levofloxacin/Dextrose 5%-Water 750 MG in Premix Bag 1 BAG IV ONE (14:26)
== END 2018-05-08 17:08 | disposition home or self-care (01) ==
LOC: JD.ED 11:48
DX: J18.1 Lobar pneumonia, unspecified organism (principal); I10 Essential (primary) hypertension; E11.9 Type 2 diabetes mellitus without complications; Z86.73 Personal history of transient ischemic attack (TIA), and cerebral infarction without residual deficits; M19.90 Unspecified osteoarthritis, unspecified site; Z79.82 Long term (current) use of aspirin; Z79.899 Other long term (current) drug therapy; Z90.49 Acquired absence of other specified parts of digestive tract; Z88.0 Allergy status to penicillin
CPT/HCPCS: 36415; 71046; 80053; 83605; 83880; 84484; 85007; 85027; 86140; 86738; 87040; 87804; 93005; 96365; 99284; J1956

== ENCOUNTER 2018-06-01 10:14 | Emergency (ER) | payer MEDICARE, OTHER ==
[2018-06-01 10:24] VITALS: BP 144/68
--- NOTE | 2018-06-01 11:16 | EDM.PDOC ---
ED HPI GENERAL MEDICAL PROBLEM - General Chief Complaint: General Stated Complaint: SEVERE SORE THRAOT/STUFFED HEAD/SPEECH SLUR Time Seen by Provider: 06/01/18 10:27 Source of Information: Reports: Patient, Old Records History Limitations: Reports: No Limitations - History of Present Illness INITIAL COMMENTS - FREE TEXT/NARRATIVE: 78 yo M with PMH Impaired hearing/vision, HTN, HLD, COPD, OA, DM2, Prostate CA who comes in today for complaints of sore throat, MUNOZ, congestion and productive cough. He also states he has noticed his blood sugar has been "running rampant" all week (highest 186 and 132 this AM), even though he is watching his diet, so he knows this is a sign of illness for him. He was treated recently for PNA in the ED last month (05/08/18) with similar symptoms, was offered to be admitted but refused, received IV Levaquin x 1 and given Levaquin prescription, finished the entire prescription, felt better until today. He states he just got back last night from [place] for a and was most likely surrounded by other sick people, but he's unsure. He did not take a flight out to [place]. He is currently 88-90% on RA, unsure of baseline. He currently c/o dull MUNOZ "all over" , weakness, fatigue, productive cough (unsure of color), sore throat, pain with swallowing, runny nose with clear mucous, congestion, SOB, intermittent nausea. He denies F/C, sneezing, CP, V/D, constipation, abdominal pain, any GI/ symptoms. He is unsure if he has seasonal/environmental allergies, but "was told to start Marychuy", which he does take, but he states he feels it doesn't make a difference. He also tried [place] plus at home with some relief. Nothing seems to make his symptoms worse. He is a previous smoker; quit back in 1985. He did not have his flu shot this year. He does not currently have a PCP. He is a Full Code. Throat Pain Score (Numeric/FACES): 2 - Related Data Allergies Allergy/AdvReac Type Severity Reaction Status Date / Time Penicillins Allergy Swelling Verified 06/01/18 10:25 Home Meds: Home Meds Ezetimibe [Zetia] 10 mg PO DAILY 06/11/15 [History] Tiotropium [Spiriva HandiHaler] 1 cap INH DAILY 07/25/14 [History] amLODIPine [Norvasc] 15 mg PO DAILY 07/25/14 [History] atorvaSTATin [Lipitor] 20 mg PO DAILY 07/25/14 [History] Albuterol Sulfate 2.5 mg IH Q6HR 03/18/15 [History] sitaGLIPtin Phos/Metformin HCl [Janumet 50-500 MG] 50 - 500 mg PO ACDINNER 03/18 [History] Aspirin/Calcium Carbonate/Mag [Aspirin Buffered 325 mg Tab] 1 tab PO DAILY 02/09 [History] Benazepril HCl [Lotensin] 40 mg PO DAILY 02/10/16 [History] Hydrochlorothiazide 12.5 mg PO DAILY 02/10/16 [History] Metoprolol Succinate 25 mg PO DAILY 02/10/16 [History] Tresiba 46 units SQ DAILY 02/10/16 [History] Fluticasone/Vilanterol [Breo Ellipta 100-25 MCG Inhalation Kit] 1 puff IH DAILY 04/09/17 [History] Cyclobenzaprine [Flexeril] 5 mg PO TID PRN #10 tab 10/06/17 [Rx] Levofloxacin [Levaquin] 750 mg PO DAILY 6 Days #6 tablet 06/01/18 [Rx] Past Medical History HEENT History: Reports: Hard of Hearing, Impaired Vision Cardiovascular History: Reports: High Cholesterol, Hypertension, SOB on Exertion Respiratory History: Reports: COPD, Other (See Below) Other Respiratory History: emphysema Gastrointestinal History: Reports: Chronic Constipation, Hemorrhoids Genitourinary History: Reports: Urinary Incontinence, Other (See Below) Musculoskeletal History: Reports: Osteoarthritis Other Musculoskeletal History: Hx. fx ribs, shoulder blade, hairline cervical fx , rt. thumb & wrist (casted) & coccyx. Neurological History: Reports: CVA, Other (See Below) Other Neuro History: hosp. mar 2016 for CVA symptoms, [facility] question whether TIA vs CVA Psychiatric History: Reports: None Endocrine/Metabolic History: Reports: Diabetes, Type II Hematologic History: Reports: None Immunologic History: Reports: None Oncologic (Cancer) History: Reports: Prostate Dermatologic History: Reports: None - Infectious Disease History Infectious Disease History: Reports: Chicken Pox - Past Surgical History Head Surgeries/Procedures: Reports: None GI Surgical History: Reports: Cholecystectomy Male Surgical History: Reports: Prostatectomy Dermatological Surgical History: Reports: None Social & Family History - Family History Family Medical History: Noncontributory - Tobacco Use Smoking Status *Q: Former Smoker Used Tobacco, but Quit: Yes Month/Year Tobacco Last Used: 1985 - Caffeine Use Caffeine Use: Reports: Coffee, Soda - Recreational Drug Use Recreational Drug Use: No - Living Situation & Occupation Living situation: Reports: , with Spouse Occupation: Retired ED ROS GENERAL - Review of Systems Review Of Systems: See Below Constitutional: Reports: Weakness, Fatigue. Denies: Fever, Chills HEENT: Reports: Other (Wears hearing aids) Respiratory: Reports: Shortness of Breath, Cough, Sputum (unsure of color). Denies: Pleuritic Chest Pain, Hemoptysis Cardiovascular: Reports: Blood Pressure Problem, Orthopnea. Denies: Chest Pain , Edema Endocrine: Reports: Fatigue, High Glucose GI/Abdominal: Reports: Difficulty Swallowing (pain with swallowing). Denies: Abdominal Pain, Bloody Stool, Constipation, Diarrhea, Nausea, Vomiting : Reports: No Symptoms Musculoskeletal: Reports: No Symptoms Skin: Reports: No Symptoms Neurological: Reports: Headache (dull and "all over" head), Weakness. Denies: Confusion, Dizziness, Numbness, Trouble Speaking, Change in Speech, Gait Disturbance Psychiatric: Reports: No Symptoms Hematologic/Lymphatic: Reports: No Symptoms Immunologic: Reports: Environmental Allergy (possible; "told to take Marychuy"), Seasonal Allergy (possible; "told to take Marychuy") ED EXAM, GENERAL - Physical Exam Exam: See Below Exam Limited By: No Limitations General Appearance: Alert, WD/WN, No Apparent Distress Eye Exam: Bilateral Eye: EOMI, Normal Inspection, PERRL Ears: Normal External Exam, Normal Canal. No: Normal TMs (unable to see d/t impacted cerumen) Ear Exam: Bilateral Ear: Auricle Normal, Canal Normal Nose: Normal Inspection, Normal Mucosa, No Blood, Clear Rhinorrhea Throat/Mouth: Normal Inspection, Normal Lips, Normal Teeth, Normal Gums, Normal Oropharynx, Normal Voice, No Airway Compromise Head: Atraumatic, Normocephalic Neck: Normal Inspection, Supple, Non-Tender, Full Range of Motion Respiratory/Chest: No Respiratory Distress, Normal Breath Sounds, No Accessory Muscle Use, Chest Non-Tender, Rhonchi (throughout lung villanueva) Cardiovascular: Normal Peripheral Pulses, Regular Rate, Rhythm, No Edema, No Gallop, No JVD, No Murmur, No Rub Peripheral Pulses: 2+: Posterior Tibial (L), Posterior Tibial (R), Dorsalis Pedis (L), Dorsalis Pedis (R) GI/Abdominal: Normal Bowel Sounds, Soft, Non-Tender, No Organomegaly, No Distention, No Abnormal Bruit, No Mass Back Exam: Normal Inspection Extremities: Normal Inspection, Normal Range of Motion, Non-Tender, Normal Capillary Refill, No Pedal Edema Neurological: Alert, Oriented, CN II-XII Intact, Normal Cognition, Normal Gait, Normal Reflexes, No Motor/Sensory Deficits Psychiatric: Normal Affect, Normal Mood Skin Exam: Warm, Dry, Intact, Normal Color, No Rash Course - Vital Signs Last Recorded V/S: Last Vital Signs Temp 98.3 F 06/01/18 10:21 Pulse 77 06/01/18 10:21 Resp 18 06/01/18 10:21 BP 144/68 H 06/01/18 10:21 Pulse Ox 99 06/01/18 13:17 - Orders/Labs/Meds Orders: Active Orders 24 hr Category Date Time Status Oxygen Therapy, ED [RC] ASDIRECTED Care 06/01/18 11:27 Active RT Aerosol Therapy [RC] ASDIRECTED Care 06/01/18 11:59 Active RT Aerosol Therapy [RC] ASDIRECTED Care 06/01/18 13:17 Active CULTURE SPUTUM + SMEAR [RM] Stat Lab 06/01/18 11:03 Ordered Rapid Strep w/culture conf [STREP SCRN A RAPID W CULT Lab 06/01/18 11:25 Results CONF] [] Stat Labs: Laboratory Tests 06/01/18 06/01/18 Range/Units 11:18 11:18 WBC 10.14 H (4.23-9.07) K/mm3 RBC 4.50 L (4.63-6.08) M/mm3 Hgb 13.5 L (13.7-17.5) gm/L Hct 41.2 (40.1-51.0) % MCV 91.6 (79.0-92.2) fl MCH 30.0 (25.7-32.2) pg MCHC 32.8 (32.2-35.5) g/dl RDW Std Deviation 47.3 H (35.1-43.9) fL Plt Count 138 L (163-337) K/mm3 MPV 10.8 (9.4-12.3) fl Neut % (Auto) 78.5 H (34.0-67.9) % Lymph % (Auto) 11.5 L (21.8-53.1) % [place] % (Auto) 6.9 (5.3-12.2) % Eos % (Auto) 2.6 (0.8-7.0) Baso % (Auto) 0.3 (0.1-1.2) % Neut # (Auto) 7.96 H (1.78-5.38) K/mm3 Lymph # (Auto) 1.17 L (1.32-3.57) K/mm3 [place] # (Auto) 0.70 (0.30-0.82) K/mm3 Eos # (Auto) 0.26 (0.04-0.54) K/mm3 Baso # (Auto) 0.03 (0.01-0.08) K/mm3 Sodium 140 (136-145) mEq/L Potassium 4.2 (3.5-5.1) mEq/L Chloride 104 (98-107) mEq/L Carbon Dioxide 26 (21-32) mEq/L Anion Gap 14.2 (5-15) BUN 24 H (7-18) mg/dL Creatinine 1.0 (0.7-1.3) mg/dL Est Cr Clr Drug Dosing 66.82 mL/min Estimated GFR (MDRD) > 60 (>60) mL/min BUN/Creatinine Ratio 24.0 H (14-18) Glucose 146 H (83-115) mg/dL Calcium 9.1 (8.5-10.1) mg/dL Total Bilirubin 0.5 (0.2-1.0) mg/dL AST 21 (15-37) U/L ALT 38 (16-63) U/L Alkaline Phosphatase 45 L (46-116) U/L C-Reactive Protein 1.4 H* (<1.0) mg/dL Total Protein 6.8 (6.4-8.2) g/dl Albumin 3.3 L (3.4-5.0) g/dl Globulin 3.5 gm/dL Albumin/Globulin Ratio 0.9 L (1-2) Mycoplasma pneumon IgM Negative (NEGATIVE) Meds: Medications Discontinued Medications Generic Name Dose Route Start Last Admin Trade Name Freq PRN Reason Stop Dose Admin Albuterol/Ipratropium 3 ml 06/01/18 11:59 06/01/18 12:09 Duoneb 3.0-0.5 Mg/3 Ml NEB 06/01/18 12:00 3 ml ONETIME ONE Administration Albuterol/Ipratropium 3 ml 06/01/18 13:17 06/01/18 13:41 Duoneb 3.0-0.5 Mg/3 Ml NEB 06/01/18 13:18 3 ml ONETIME ONE Administration - Re-Assessments/Exams Free Text/Narrative Re-Assessment/Exam: 06/01/18 11:05 Ordered CBC, CMP, CRP, Sputum Culture, Mycoplasma, Strep Pneumonia, Influenza, Strep screen CXR 2V also ordered O2 sat 88-90% RA--> per previous records, he was O2 sat 92% on RA on 05/08/18. Will Give O2 via NC. 06/01/18 12:03 CBC remarkable for WBC 10.14, RBC 4.5, Hgb 13.5, RDW 47.5, Plt 138, Neut 78.5%, Lymph 11.5% CMP remarkable for BUN 24, Glu 146, Alk Phos 45, Albumin 3.3 CRP 1.4 CXR reviewed by myself and Dr. Payton. Seems improved from previous CXR, nothing acute seen. O2 sat 95-96% on 2.5L O2. Have ordered Duoneb treatment. Mycoplasma, Strep Pneumo, Influenza and Strep screen pending. 06/01/18 13:18 Mycoplasma, Influenza, and Strep screen negative. Pt has yet to urinate for Strep Pneumo test and cannot produce a sputum culture. 97% on 2.5L O2 after 1 Duoneb. Will order another Duoneb. CURB 65 Score is 2 points; moderate risk, 6.8% 30-day mortality. Consider inpt treatment or outpt with close followup. Currently trying to wean pt off O2. Offered admission,but he would like to go home. This may be COPD exacerbation vs. Bronchitis vs. PNA. Will consider giving Abx at discharge. 06/01/18 14:00 Dr. Kendrick has read the CXR as: 1. Improved parenchymal density within the left base with prior CXR 2. Emphysematous change 3. Nothing acute is appreciated 06/01/18 14:23 Pt states he is feeling much better after the 2nd nebulizer treatment. He also states he has this at home and can use it there if needed. Will take the O2 off to see how he does. If he is able to maintain 92% on RA, he will be discharged home. 06/01/18 14:32 He is now 94% on RA. Will D/C home. To cover for possible PNA, as pt states he does feel sick and has elevated WBC, will follow guidelines for PNA with recent antibiotic use and give Levaquin 750mg PO here and send home with Levaquin 750mg Daily for 6 days. Departure - Departure Time of Disposition: 14:32 Disposition: Home, Self-Care 01 Condition: Good Clinical Impression: Pneumonia, COPD exacerbation - Discharge Information *PRESCRIPTION DRUG MONITORING PROGRAM REVIEWED*: Not Applicable *COPY OF PRESCRIPTION DRUG MONITORING REPORT IN PATIENT BRANDYN: Not Applicable Prescriptions: Levofloxacin [Levaquin] 750 mg PO DAILY 6 Days #6 tablet Instructions: Community-Acquired Pneumonia, Adult, Chronic Obstructive Pulmonary Disease Exacerbation, [id number], How to Use a Nebulizer, Adult Referrals: PCP,None [Primary Care Provider] - Forms: ED Department Discharge Additional Instructions: You were seen in the ED today for congestion, sore throat, headache and productive cough. You also had low oxygen saturation while here and were given oxygen and nebulizing treatments x2 with improvement. At this time, your labs show that you may have a slight infection, but they look much better than your last visit when you were diagnosed with pneumonia. Influenza, Strep, and viral PNA were negative. Your Chest Xray also looks improved. However, due to your labs, low oxygen, recent pneumonia, recent travel, and feeling sick, we will go ahead and treat you with antibiotics. You will receive one dose of Levaquin here and will be sent home with a prescription for Levaquin for 6 more days. Please take all pills as prescribed. Recommend follow up with primary care provider. Please return to ED if new or worsening symptoms. - My Orders Last 24 Hours: My Active Orders 06/01/18 11:03 CULTURE SPUTUM + SMEAR [RM] Stat 06/01/18 11:25 Rapid Strep w/culture conf [STREP SCRN A RAPID W CULT CONF] [RM] Stat 06/01/18 11:27 Oxygen Therapy, ED [RC] ASDIRECTED 06/01/18 11:59 RT Aerosol Therapy [RC] ASDIRECTED 06/01/18 13:17 RT Aerosol Therapy [RC] ASDIRECTED - Assessment/Plan Last 24 Hours: My Active Orders 06/01/18 11:03 CULTURE SPUTUM + SMEAR [RM] Stat 06/01/18 11:25 Rapid Strep w/culture conf [STREP SCRN A RAPID W CULT CONF] [RM] Stat 06/01/18 11:27 Oxygen Therapy, ED [RC] ASDIRECTED 06/01/18 11:59 RT Aerosol Therapy [RC] ASDIRECTED 06/01/18 13:17 RT Aerosol Therapy [RC] ASDIRECTED
[2018-06-01] MEDS ORDERED: Albuterol/Ipratropium 3.0-0.5 MG/3 ML Neb Soln NEB ONE ×2 (11:59→13:17)
--- NOTE | 2018-06-01 13:57 | CR ---
Chest: Two views of the chest were obtained. Comparison: Prior chest x-ray of 05/08/18. Improved appearance of the left base from previous chest x-ray. Lungs otherwise are clear. Heart size and mediastinum are normal. Bony structures appear within normal limits for the patient's age. Diaphragms are flattened compatible with emphysematous change. Impression: 1. Improved parenchymal density within the left base with prior chest x-ray. 2. Emphysematous change. 3. Nothing acute is appreciated. Diagnostic code #2
[2018-06-01] MEDS ORDERED: cefTRIAXone 1 GM Vial IM ONE (14:06)
[2018-06-01] MEDS ORDERED: Lidocaine 1% PF 2 ML SDV INJECT ONE (14:11)
[2018-06-01] MEDS ORDERED: Levofloxacin 750 MG Tab PO ONE (14:16)
== END 2018-06-01 14:40 | disposition home or self-care (01) ==
LOC: JD.ED 10:14
DX: J18.9 Pneumonia, unspecified organism (principal); J44.1 Chronic obstructive pulmonary disease with (acute) exacerbation; E78.00 Pure hypercholesterolemia, unspecified; I10 Essential (primary) hypertension; E11.9 Type 2 diabetes mellitus without complications; Z87.891 Personal history of nicotine dependence; Z88.0 Allergy status to penicillin; Z79.899 Other long term (current) drug therapy
CPT/HCPCS: 36415; 71046; 80053; 85025; 86140; 86738; 87081; 87430; 87804; 94640; 99283; A9270; 99284; J7620-GY

== ENCOUNTER 2018-07-17 16:44 | Observation (INO) | payer MEDICARE, OTHER ==
[2018-07-17] MEDS ORDERED: Albuterol 0.083% 2.5 MG/3 ML Neb Soln NEB ONE (17:38)
[2018-07-17] MEDS ORDERED: guaiFENesin 600 MG Tab.ER PO ONE (17:47)
--- NOTE | 2018-07-17 17:47 | EDM.PDOC ---
ED HPI GENERAL MEDICAL PROBLEM - General Chief Complaint: Respiratory Problem Stated Complaint: MIGHT HAVE PNEUMONIA Time Seen by Provider: 07/17/18 17:24 Source of Information: Reports: Patient History Limitations: Reports: No Limitations - History of Present Illness INITIAL COMMENTS - FREE TEXT/NARRATIVE: Patient is a 78-year-old male presents ED complaining of shortness of breath, productive cough, and increased blood sugars. Patient states he feels like he is getting pneumonia again. States symptoms started approximate 4 days ago and have progressively got worse. He has felt warm at times. There has been no nausea or vomiting although there is has been a few episodes of diarrhea. No chest pain, no increased swelling to lower extremities, no PND, and/or orthopnea. He carries a history of COPD, hypercholesteremia, hypertension, shortness of breath with exertion, type 2 diabetes, and CVA. Patient states he's had no changes to his current medication regimen. - Related Data Allergies Allergy/AdvReac Type Severity Reaction Status Date / Time Penicillins Allergy Swelling Verified 07/17/18 17:05 Home Meds: Home Meds Ezetimibe [Zetia] 10 mg PO DAILY 07/25/14 [History] atorvaSTATin [Lipitor] 20 mg PO DAILY 07/25/14 [History] sitaGLIPtin Phos/Metformin HCl [Janumet 50-500 MG] 50 - 500 mg PO DAILY [History] Tresiba 54 units SQ BEDTIME 02/10/16 [History] Aspirin [Aspirin EC] 325 mg PO DAILY 07/17/18 [History] Benazepril HCl [Lotensin] 40 tab PO DAILY 07/17/18 [History] Dextromethorphan/guaiFENesin [Mucinex DM ER 600-30 MG] 1 tab PO DAILY 07/17/18 [ History] Fexofenadine HCl [Marychuy Allergy] 100 mg PO DAILY 07/17/18 [History] Metoprolol Succinate [Toprol Xl] 25 mg PO DAILY 07/17/18 [History] Non-Formulary Medication [NF Drug] 1 puff INH Q6HR PRN 07/17/18 [History] Non-Formulary Medication [NF Drug] 1 puff INH Q6HR PRN 07/17/18 [History] Tiotropium [Spiriva HandiHaler] 1 inh INH DAILY 07/17/18 [History] amLODIPine Besylate [Amlodipine Besylate] 10 mg PO DAILY 07/17/18 [History] Albuterol [Proventil Neb Soln] 2.5 mg NEB Q6HRRT neb 07/18/18 [Rx] levoFLOXacin [Levaquin] 500 mg PO DAILY 07/18/18 [History] levoFLOXacin [Levaquin] 500 mg PO DAILY 14 Days #14 tab 07/18/18 [Rx] predniSONE 10 mg PO .TAPER 6 Days tab 07/18/18 [Rx] Past Medical History HEENT History: Reports: Hard of Hearing, Impaired Vision Cardiovascular History: Reports: High Cholesterol, Hypertension, SOB on Exertion Respiratory History: Reports: COPD, Other (See Below) Other Respiratory History: emphysema Gastrointestinal History: Reports: Chronic Constipation, Hemorrhoids Genitourinary History: Reports: Urinary Incontinence, Other (See Below) Musculoskeletal History: Reports: Osteoarthritis Other Musculoskeletal History: Hx. fx ribs, shoulder blade, hairline cervical fx , rt. thumb & wrist (casted) & coccyx. Neurological History: Reports: CVA, Other (See Below) Other Neuro History: hosp. mar 2016 for CVA symptoms, [facility] ([place] question whether TIA vs CVA Psychiatric History: Reports: None Endocrine/Metabolic History: Reports: Diabetes, Type II Hematologic History: Reports: None Immunologic History: Reports: None Oncologic (Cancer) History: Reports: Prostate Dermatologic History: Reports: None - Infectious Disease History Infectious Disease History: Reports: Chicken Pox - Past Surgical History Head Surgeries/Procedures: Reports: None GI Surgical History: Reports: Cholecystectomy Male Surgical History: Reports: Prostatectomy Dermatological Surgical History: Reports: None Social & Family History - Family History Family Medical History: Noncontributory - Tobacco Use Smoking Status *Q: Never Smoker - Caffeine Use Caffeine Use: Reports: Coffee, Soda - Recreational Drug Use Recreational Drug Use: No - Living Situation & Occupation Living situation: Reports: , with Spouse Occupation: Retired ED ROS GENERAL - Review of Systems Review Of Systems: ROS reveals no pertinent complaints other than HPI. ED EXAM, GENERAL - Physical Exam Exam: See Below Exam Limited By: No Limitations General Appearance: Alert, WD/WN, No Apparent Distress Ears: Hearing Grossly Normal Nose: Normal Inspection Throat/Mouth: Normal Voice, No Airway Compromise Head: Atraumatic, Normocephalic Neck: Normal Inspection, Supple Respiratory/Chest: No Accessory Muscle Use, Chest Non-Tender, Rhonchi ( throughout all lung villanueva), Wheezing (throughout all lung villanueva), Prolonged Expiration Cardiovascular: Normal Peripheral Pulses, Regular Rate, Rhythm, No Murmur Peripheral Pulses: 2+: Radial (L), Radial (R), Posterior Tibial (L), Posterior Tibial (R) GI/Abdominal: Normal Bowel Sounds, Soft, Non-Tender, No Organomegaly, No Distention Extremities: Normal Inspection, Normal Range of Motion, Non-Tender, Pedal Edema (trace) Neurological: Alert, Oriented, CN II-XII Intact, Normal Cognition, No Motor/ Sensory Deficits Psychiatric: Normal Affect, Normal Mood Skin Exam: Warm, Dry, Intact, Normal Color, No Rash Course - Vital Signs Last Recorded V/S: Last Vital Signs Temp 98.1 F 07/18/18 08:16 Pulse 71 07/18/18 08:16 Resp 16 07/18/18 08:16 BP 156/57 H 07/18/18 08:16 Pulse Ox 94 L 07/18/18 08:22 - Orders/Labs/Meds Labs: Laboratory Tests 07/17/18 07/17/18 07/17/18 Range/Units 17:20 17:20 17:20 WBC 8.82 (4.23-9.07) K/mm3 RBC 4.42 L (4.63-6.08) M/mm3 Hgb 13.3 L (13.7-17.5) gm/L Hct 41.4 (40.1-51.0) % MCV 93.7 H (79.0-92.2) fl MCH 30.1 (25.7-32.2) pg MCHC 32.1 L (32.2-35.5) g/dl RDW Std Deviation 47.5 H (35.1-43.9) fL Plt Count 176 (163-337) K/mm3 MPV 10.9 (9.4-12.3) fl Neut % (Auto) 71.5 H (34.0-67.9) % Lymph % (Auto) 17.9 L (21.8-53.1) % [place] % (Auto) 6.9 (5.3-12.2) % Eos % (Auto) 3.2 (0.8-7.0) Baso % (Auto) 0.3 (0.1-1.2) % Neut # (Auto) 6.30 H (1.78-5.38) K/mm3 Lymph # (Auto) 1.58 (1.32-3.57) K/mm3 [place] # (Auto) 0.61 (0.30-0.82) K/mm3 Eos # (Auto) 0.28 (0.04-0.54) K/mm3 Baso # (Auto) 0.03 (0.01-0.08) K/mm3 Sodium 140 (136-145) mEq/L Potassium 4.5 (3.5-5.1) mEq/L Chloride 105 (98-107) mEq/L Carbon Dioxide 26 (21-32) mEq/L Anion Gap 13.5 (5-15) BUN 22 H (7-18) mg/dL Creatinine 1.3 (0.7-1.3) mg/dL Est Cr Clr Drug Dosing 51.40 mL/min Estimated GFR (MDRD) 53 (>60) mL/min BUN/Creatinine Ratio 16.9 (14-18) Glucose 266 H (83-115) mg/dL Calcium 9.0 (8.5-10.1) mg/dL Total Bilirubin 0.4 (0.2-1.0) mg/dL AST 23 (15-37) U/L ALT 40 (16-63) U/L Alkaline Phosphatase 61 (46-116) U/L Troponin I < 0.017 (0.00-0.056) ng/mL C-Reactive Protein 2.3 H* (<1.0) mg/dL Total Protein 6.7 (6.4-8.2) g/dl Albumin 3.5 (3.4-5.0) g/dl Globulin 3.2 gm/dL Albumin/Globulin Ratio 1.1 (1-2) Mycoplasma pneumon IgM Negative (NEGATIVE) Meds: Medications Discontinued Medications Generic Name Dose Route Start Last Admin Trade Name Freq PRN Reason Stop Dose Admin Albuterol 2.5 mg 07/17/18 17:38 07/17/18 17:50 Proventil Neb Soln NEB 07/17/18 17:39 2.5 mg ONETIME ONE Administration Albuterol 2.5 mg 07/18/18 03:00 07/18/18 08:20 Proventil Neb Soln NEB 2.5 mg Q6HRRT SAY Administration Albuterol/Ipratropium 3 ml 07/17/18 17:48 07/17/18 18:05 Duoneb 3.0-0.5 Mg/3 Ml NEB 3 ml ONETIME PRN Administration Dyspnea Guaifenesin 1,200 mg 07/17/18 17:47 07/17/18 18:17 Mucinex PO 07/17/18 17:48 1,200 mg ONETIME ONE Administration Levofloxacin/Dextrose 750 mg/ 150 mls @ 100 mls/hr 07/17/18 19:22 07/17/18 19 :29 Premix IV 07/17/18 20:51 100 mls/hr ONETIME ONE Administration Insulin Human Lispro 0 unit 07/17/18 22:00 07/18/18 14:09 Humalog SUBCUT Not Given [facility] Protocol Levofloxacin 500 mg 07/18/18 12:00 07/18/18 11:43 Levaquin PO 500 mg Q24H SAY Administration Methylprednisolone Sodium Succinate 125 mg 07/17/18 19:22 07/17/18 19:30 Solu-Medrol IVPUSH 07/17/18 19:23 125 mg ONETIME ONE Administration - Re-Assessments/Exams Free Text/Narrative Re-Assessment/Exam: Reviewed previous ED visit 06/01/2018: Chest x-ray revealed improved with equal density within the left base with prior chest x-ray. Patient was treated for COPD exacerbation and pneumonia with Levaquin 750 mg by mouth. Patient states he has a trip planned for [place] this tuesday that he cannot miss it. Vital signs blood pressure 143/59, heart rate 76, temperature 100.6, O2 sats 85% on room air. Patient was placed on O2 via nasal cannula 2 L/ m and sating at 95%. Temperature recheck was 99.2 F. IV has been established. Initial labs and studies will include: CBC, chem 14, CRP, mycoplasma, troponin, EKG, and chest x-ray two-view. I also ordered for albuterol neb treatment and Mucinex 1200 mg by mouth. There is also order for DuoNeb when necessary 1. 07/17/18 17:[address] Friedman. Reviewed previous CXR's from May and April. No significant findings. EKG: Sinus rhythm rate 71 with [place] interval 196 and QTC 400. No acute ST changes noted. Labs reviewed: White blood cell count 8.82, hemoglobin 13.3, platelet count 176 , neutrophil percentage is 71.5 with lymphocyte percentage of 17.9 neutrophil number of 6.3. Sodium and potassium are normal. Creatinine 1.3. Glucose 266. Troponin less than 0.017. CRP normal. Mycoplasma negative. Patient continues to requires supplemental O2 to maintain O2 sats >90%. I believe patient would benefit to be admitted for further management of exacerbation of COPD. Per Up To Date recommends fluoroquinole with history of hospitalization or abx within the past 3 months. I have ordered Levaquin 750mg IV. Patient is in agreement for admission. I will speak with Dr. Wilkes aircraft avionics technician Hospitalists. Dr. Rubio has agreed to admit patient. Bridge orders completed. Departure - Departure Time of Disposition: 18:48 Disposition: Refer to Observation Condition: Fair Clinical Impression: COPD exacerbation, Hypoxia - Discharge Information
[2018-07-17] MEDS ORDERED: Albuterol/Ipratropium 3.0-0.5 MG/3 ML Neb Soln NEB PRN (17:48)
[2018-07-17] MEDS ORDERED: methylPREDNISolone Sodium Succinate 125 MG/2 ML SDV IVPUSH ONE (19:22)
[2018-07-17] MEDS ORDERED: Levofloxacin/Dextrose 5%-Water 750 MG in Premix Bag 1 BAG IV ONE (19:22)
[2018-07-17] MEDS: Insulin Lispro 100 Units/ML 3 ML Vial SUBCUT SCH (23:23)
[2018-07-18] MEDS: Albuterol 0.083% 2.5 MG/3 ML Neb Soln NEB SCH ×2 (02:45→08:20)
[2018-07-18 08:18] VITALS: BP 156/57
[2018-07-18] MEDS: Insulin Lispro 100 Units/ML 3 ML Vial SUBCUT SCH ×2 (08:33→14:09)
--- NOTE | 2018-07-18 09:48 | CR ---
Chest: Two views of the chest were obtained. Comparison: Prior chest x-ray at 06/01/18. Heart size and mediastinum are within normal limits. Slight scarring is seen within the left base. No acute parenchymal change is appreciated. Lungs are slightly hyperinflated compatible with emphysematous change. Mild scoliosis is noted within the spine with mild degenerative change. Impression: 1. Nothing acute is appreciated. Findings as noted above. Diagnostic code #2
--- NOTE | 2018-07-18 09:58 | PCM.DCSUM1 ---
Discharge Summary - Hospital Course HPI Initial Comments: 78 yo WM with h/o COPD admitted through ED with 5 days h/o diarrhea, cough with sputum and hypoxia recorded in ED. Improved overnight. D/c in good condition with steroid taper and 14 days of levofloxacin. Diagnosis: Stroke: No - Discharge Data Discharge Date: 07/18/18 Discharge Disposition: Home, Self-Care 01 Condition: Good - Patient Instructions Diet: Heart Healthy Diet Activity: As Tolerated Driving: May Drive Today Showering/Bathing: May Shower - Discharge Plan *PRESCRIPTION DRUG MONITORING PROGRAM REVIEWED*: No *COPY OF PRESCRIPTION DRUG MONITORING REPORT IN PATIENT BRANDYN: No Home Medications: Home Meds Ezetimibe [Zetia] 10 mg PO DAILY 07/25/14 [History] atorvaSTATin [Lipitor] 20 mg PO DAILY 07/25/14 [History] sitaGLIPtin Phos/Metformin HCl [Janumet 50-500 MG] 50 - 500 mg PO DAILY [History] Tresiba 54 units SQ BEDTIME 02/10/16 [History] Aspirin [Aspirin EC] 1 tab OP DAILY 07/17/18 [History] Benazepril HCl [Lotensin] 1 tab PO DAILY 07/17/18 [History] Dextromethorphan/guaiFENesin [Mucinex DM ER 600-30 MG] 1 tab PO DAILY 07/17/18 [ History] Fexofenadine HCl [Marychuy Allergy] 100 mg PO DAILY 07/17/18 [History] Metoprolol Succinate [Toprol Xl] 25 mg PO DAILY 07/17/18 [History] Non-Formulary Medication [NF Drug] 1 puff INH Q6HR PRN 07/17/18 [History] Non-Formulary Medication [NF Drug] 1 puff INH Q6HR PRN 07/17/18 [History] Tiotropium [Spiriva HandiHaler] 1 inh INH DAILY 07/17/18 [History] amLODIPine Besylate [Amlodipine Besylate] 10 mg PO DAILY 07/17/18 [History] Albuterol [Proventil Neb Soln] 2.5 mg NEB Q6HRRT neb 07/18/18 [Rx] Insulin Lispro [HumaLOG] 0 unit SUBCUT QIDACANDBED vial 07/18/18 [Rx] Forms: ED Department Discharge Referrals: PCP,None [Primary Care Provider] - - Discharge Summary/Plan Comment DC Time >30 min.: No - Patient Data Vitals - Most Recent: Last Vital Signs Temp 98.1 F 07/18/18 08:16 Pulse 71 07/18/18 08:16 Resp 16 07/18/18 08:16 BP 156/57 H 07/18/18 08:16 Pulse Ox 94 L 07/18/18 08:22 Weight - Most Recent: 242 lb 4.8 oz I&O - Last 24 hours: Intake & Output 07/17/18 07/18/18 07/18/18 19:59 03:59 11:59 Intake Total 300 Output Total 700 Balance -700 300 Lab Results - Last 24 hrs: Laboratory Results - last 24 hr 07/17/18 07/17/18 07/17/18 Range/Units 17:20 17:20 17:20 WBC 8.82 (4.23-9.07) K/mm3 RBC 4.42 L (4.63-6.08) M/mm3 Hgb 13.3 L (13.7-17.5) gm/L Hct 41.4 (40.1-51.0) % MCV 93.7 H (79.0-92.2) fl MCH 30.1 (25.7-32.2) pg MCHC 32.1 L (32.2-35.5) g/dl RDW Std Deviation 47.5 H (35.1-43.9) fL Plt Count 176 (163-337) K/mm3 MPV 10.9 (9.4-12.3) fl Neut % (Auto) 71.5 H (34.0-67.9) % Lymph % (Auto) 17.9 L (21.8-53.1) % [place] % (Auto) 6.9 (5.3-12.2) % Eos % (Auto) 3.2 (0.8-7.0) Baso % (Auto) 0.3 (0.1-1.2) % Neut # (Auto) 6.30 H (1.78-5.38) K/mm3 Lymph # (Auto) 1.58 (1.32-3.57) K/mm3 [place] # (Auto) 0.61 (0.30-0.82) K/mm3 Eos # (Auto) 0.28 (0.04-0.54) K/mm3 Baso # (Auto) 0.03 (0.01-0.08) K/mm3 Sodium 140 (136-145) mEq/L Potassium 4.5 (3.5-5.1) mEq/L Chloride 105 (98-107) mEq/L Carbon Dioxide 26 (21-32) mEq/L Anion Gap 13.5 (5-15) BUN 22 H (7-18) mg/dL Creatinine 1.3 (0.7-1.3) mg/dL Est Cr Clr Drug Dosing 51.40 mL/min Estimated GFR (MDRD) 53 (>60) mL/min BUN/Creatinine Ratio 16.9 (14-18) Glucose 266 H (83-115) mg/dL POC Glucose (83-110) mg/dL Calcium 9.0 (8.5-10.1) mg/dL Total Bilirubin 0.4 (0.2-1.0) mg/dL AST 23 (15-37) U/L ALT 40 (16-63) U/L Alkaline Phosphatase 61 (46-116) U/L Troponin I < 0.017 (0.00-0.056) ng/mL C-Reactive Protein 2.3 H* (<1.0) mg/dL Total Protein 6.7 (6.4-8.2) g/dl Albumin 3.5 (3.4-5.0) g/dl Globulin 3.2 gm/dL Albumin/Globulin Ratio 1.1 (1-2) Mycoplasma pneumon IgM Negative (NEGATIVE) 07/17/18 07/17/18 07/18/18 Range/Units 21:13 22:51 06:10 WBC (4.23-9.07) K/mm3 RBC (4.63-6.08) M/mm3 Hgb (13.7-17.5) gm/L Hct (40.1-51.0) % MCV (79.0-92.2) fl MCH (25.7-32.2) pg MCHC (32.2-35.5) g/dl RDW Std Deviation (35.1-43.9) fL Plt Count (163-337) K/mm3 MPV (9.4-12.3) fl Neut % (Auto) (34.0-67.9) % Lymph % (Auto) (21.8-53.1) % [place] % (Auto) (5.3-12.2) % Eos % (Auto) (0.8-7.0) Baso % (Auto) (0.1-1.2) % Neut # (Auto) (1.78-5.38) K/mm3 Lymph # (Auto) (1.32-3.57) K/mm3 [place] # (Auto) (0.30-0.82) K/mm3 Eos # (Auto) (0.04-0.54) K/mm3 Baso # (Auto) (0.01-0.08) K/mm3 Sodium (136-145) mEq/L Potassium (3.5-5.1) mEq/L Chloride (98-107) mEq/L Carbon Dioxide (21-32) mEq/L Anion Gap (5-15) BUN (7-18) mg/dL Creatinine (0.7-1.3) mg/dL Est Cr Clr Drug Dosing mL/min Estimated GFR (MDRD) (>60) mL/min BUN/Creatinine Ratio (14-18) Glucose (83-115) mg/dL POC Glucose 270 H 230 H 295 H (83-110) mg/dL Calcium (8.5-10.1) mg/dL Total Bilirubin (0.2-1.0) mg/dL AST (15-37) U/L ALT (16-63) U/L Alkaline Phosphatase (46-116) U/L Troponin I (0.00-0.056) ng/mL C-Reactive Protein (<1.0) mg/dL Total Protein (6.4-8.2) g/dl Albumin (3.4-5.0) g/dl Globulin gm/dL Albumin/Globulin Ratio (1-2) Mycoplasma pneumon IgM (NEGATIVE) Med Orders - Current: Current Medications Albuterol (Proventil Neb Soln) 2.5 mg NEB Q6HRRT [facility] Last Admin: 07/18/18 08:20 Dose: 2.5 mg Insulin Human Lispro (Humalog) 0 unit SUBCUT QIDACANDBED [facility]; Protocol Last Admin: 07/18/18 08:33 Dose: 3 units Discontinued Medications Albuterol (Proventil Neb Soln) 2.5 mg NEB ONETIME ONE Stop: 07/17/18 17:39 Last Admin: 07/17/18 17:50 Dose: 2.5 mg Albuterol/Ipratropium (Duoneb 3.0-0.5 Mg/3 Ml) 3 ml NEB ONETIME PRN PRN Reason: Dyspnea Last Admin: 07/17/18 18:05 Dose: 3 ml Guaifenesin (Mucinex) 1,200 mg PO ONETIME ONE Stop: 07/17/18 17:48 Last Admin: 07/17/18 18:17 Dose: 1,200 mg Levofloxacin/Dextrose 750 mg/ (Premix) 150 mls @ 100 mls/hr IV ONETIME ONE Stop: 07/17/18 20:51 Last Admin: 07/17/18 19:29 Dose: 100 mls/hr Methylprednisolone Sodium Succinate (Solu-Medrol) 125 mg IVPUSH ONETIME ONE Stop: 07/17/18 19:23 Last Admin: 07/17/18 19:30 Dose: 125 mg
[2018-07-18] MEDS ORDERED: Levofloxacin 500 MG Tab PO SCH (12:00)
--- NOTE | 2018-07-18 12:18 | PCM.SN ---
- Free Text/Narrative Note: 1215 I was contacted by the Utilization Review Nurse in regards to this patient's level of care. I reviewed the patient medical record and recommend that outpatient services is the appropriate level of care. I contacted the admitting physician and discussed with him this recommendation. Dr. Morrison is in agreement. The utilization review nurse was notified to proceed with patient notification as outlined in our code 44 policy. Pamela Banks MD
== END 2018-07-18 12:30 ==
LOC: JD.ED 16:44 → INTOOBSV 20:33 → JD.MS 20:33
PROVIDERS: ADMIT Internal Medicine; ATTEND Internal Medicine
DX: J43.9 Emphysema, unspecified (principal); R09.02 Hypoxemia; R19.7 Diarrhea, unspecified; I10 Essential (primary) hypertension; E11.9 Type 2 diabetes mellitus without complications; E78.00 Pure hypercholesterolemia, unspecified; Z88.0 Allergy status to penicillin; Z86.73 Personal history of transient ischemic attack (TIA), and cerebral infarction without residual deficits; Z79.82 Long term (current) use of aspirin; Z79.4 Long term (current) use of insulin; Z79.899 Other long term (current) drug therapy
CPT/HCPCS: 36415; 71046; 80053; 82962; 84484; 85025; 86140; 86738; 93005; 94640; 94760; 96365; 96375; 99285; A9270; J1815; J1956; J2930; J7620-GY

== ENCOUNTER 2018-11-02 09:05 | Emergency (ER) | payer MEDICARE, OTHER ==
[2018-11-02 09:19] VITALS: BP 127/54; PULSE 75
[2018-11-02] MEDS ORDERED: Acetaminophen 325 MG Tab PO ONE (09:29)
--- NOTE | 2018-11-02 09:29 | EDM.PDOC ---
ED HPI GENERAL MEDICAL PROBLEM - General Chief Complaint: Respiratory Problem Stated Complaint: SOB,CHILLS Time Seen by Provider: 11/02/18 09:23 Source of Information: Reports: Patient History Limitations: Reports: No Limitations - History of Present Illness INITIAL COMMENTS - FREE TEXT/NARRATIVE: 78-year-old male presents to the ED in the accompaniment of his . He said he developed fairly sudden worsening shortness of breath yesterday morning with an increased productive cough of yellowish sputum. Overnight she developed fever and chills to the point that he had rigors or teeth cheek shaking. Blood sugars are elevated this morning as well. Patient states he believes he had pneumonia about 3 months ago. He was treated with a course of Levaquin which worked well for him. On examination this morning he does have a fever. He's not eaten yet today and taken any medications. Patient does not use oxygen at home. He has a home nebulizer but he rarely uses it. Onset: Sudden Onset Date: 11/01/18 Duration: Day(s):, Getting Worse Location: Reports: Chest (Productive sounding cough shortness of breath wheezing and dyspnea on minimal exertion.) Quality: Reports: Other (Feels weak.) Severity: Moderate (Feels diffusely achy. Decreased appetite) Improves with: Reports: None Worsens with: Reports: Other Context: Denies: Activity, Exercise (Worse on exertion.), Sick Contact, Trauma, Other Associated Symptoms: Reports: Cough, cough w sputum, Fever/Chills, Loss of Appetite, Malaise, Shortness of Breath, Weakness. Denies: No Other Symptoms, Confusion (No pleuritic chest pain), Chest Pain, Diaphoresis, Headaches, Nausea/ Vomiting, Rash, Seizure, Syncope Treatments ROUNDSMAN: Reports: Other (see below) (None at home.) - Related Data Allergies Allergy/AdvReac Type Severity Reaction Status Date / Time Penicillins Allergy Swelling Verified 11/02/18 09:20 Home Meds: Home Meds Ezetimibe [Zetia] 10 mg PO DAILY 07/25/14 [History] atorvaSTATin [Lipitor] 20 mg PO DAILY 07/25/14 [History] sitaGLIPtin Phos/Metformin HCl [Janumet 50-500 MG] 1 tab PO DAILY 03/18/15 [ History] Aspirin [Aspirin EC] 325 mg PO DAILY 07/17/18 [History] Benazepril HCl [Lotensin] 40 tab PO DAILY 07/17/18 [History] Fexofenadine HCl [Marychuy Allergy] 100 mg PO DAILY 07/17/18 [History] Metoprolol Succinate [Toprol Xl] 25 mg PO DAILY 07/17/18 [History] Tiotropium [Spiriva HandiHaler] 1 inh INH DAILY 07/17/18 [History] amLODIPine Besylate [Amlodipine Besylate] 10 mg PO DAILY 07/17/18 [History] Fluticasone/Vilanterol [Breo Ellipta 100-25 MCG Inhalation Kit] 1 puff INH DAILY 09/13/18 [History] Hydrochlorothiazide [Microzide] 12.5 mg PO DAILY 09/13/18 [History] Insulin Degludec [Tresiba] 50 unit SQ DAILY 09/13/18 [History] Albuterol/Ipratropium [DuoNeb 3.0-0.5 MG/3 ML] 3 ml .XX QID #30 neb 11/02/18 [Rx ] levoFLOXacin [Levaquin] 500 mg PO DAILY #9 tab 11/02/18 [Rx] Past Medical History HEENT History: Reports: Hard of Hearing, Impaired Vision Other HEENT History: Wears hearing aides bilaterally, and reading glasses Cardiovascular History: Reports: High Cholesterol, Hypertension, SOB on Exertion Respiratory History: Reports: COPD, Other (See Below) Other Respiratory History: emphysema Gastrointestinal History: Reports: Chronic Constipation, Hemorrhoids Genitourinary History: Reports: Urinary Incontinence, Other (See Below) Other Genitourinary History: Minimal incontinence noted Musculoskeletal History: Reports: Osteoarthritis Other Musculoskeletal History: Hx. fx ribs, shoulder blade, hairline cervical fx , rt. thumb & wrist (casted) & coccyx. Neurological History: Reports: CVA, Other (See Below) Other Neuro History: hosp. mar 2016 for CVA symptoms, [facility] ([place]) question whether TIA vs CVA Psychiatric History: Reports: None Endocrine/Metabolic History: Reports: Diabetes, Type II Hematologic History: Reports: None Immunologic History: Reports: None Oncologic (Cancer) History: Reports: Prostate Dermatologic History: Reports: None - Infectious Disease History Infectious Disease History: Reports: Chicken Pox - Past Surgical History Head Surgeries/Procedures: Reports: None GI Surgical History: Reports: Cholecystectomy Male Surgical History: Reports: Prostatectomy Dermatological Surgical History: Reports: None Social & Family History - Family History Family Medical History: Noncontributory - Tobacco Use Smoking Status *Q: Never Smoker - Caffeine Use Caffeine Use: Reports: Coffee, Soda Other Caffeine Use: diet Caffeine Use Comment: 6-8 cups per day, 1-2 cans pop per dy - Recreational Drug Use Recreational Drug Use: No - Living Situation & Occupation Living situation: Reports: , with Spouse Occupation: Retired ED ROS GENERAL - Review of Systems Review Of Systems: See Below Constitutional: Reports: Fever, Chills, Malaise, Weakness, Fatigue, Decreased Appetite, Other (Fever and chills during the night. Associated rigors.). Denies : Weight Loss HEENT: Reports: No Symptoms Respiratory: Reports: Shortness of Breath, Wheezing, Sputum. Denies: Hemoptysis , Other Cardiovascular: Reports: Dyspnea on Exertion. Denies: Chest Pain, Blood Pressure Problem, Claudication, Edema, Lightheadedness, Orthopnea, Palpitations Endocrine: Reports: Fatigue GI/Abdominal: Reports: Decreased Appetite : Reports: Frequency, Other (Nocturia 2 or 3 years.) Musculoskeletal: Reports: Back Pain, Joint Pain (Easing up since neck at times.) Skin: Reports: No Symptoms Neurological: Reports: No Symptoms Psychiatric: Reports: No Symptoms Hematologic/Lymphatic: Reports: No Symptoms Immunologic: Reports: No Symptoms ED EXAM, GENERAL - Physical Exam Exam: See Below Exam Limited By: No Limitations General Appearance: Alert, WD/WN, No Apparent Distress, Other (Does feel warm to palpation. O2 sats only 80% on room air. Respiratory to 20 BP 03/12/53 pulse is 75 temperatures 37.3.) Eye Exam: Bilateral Eye: Normal Inspection Ears: Normal TMs Throat/Mouth: Normal Inspection, Normal Lips, Normal Oropharynx Head: Atraumatic, Normocephalic Neck: Normal Inspection, Supple, Non-Tender, Full Range of Motion. No: Lymphadenopathy (L), Lymphadenopathy (R) Respiratory/Chest: Chest Non-Tender, Respiratory Distress (Mild tachypnea at rest with O2 sats of 80% on room air.), Decreased Breath Sounds (Breath sounds are diminished to the lower 30% of lung villanueva bilaterally.), Rhonchi, Wheezing (Chi both upper lobes of lungs worse on the right as compared to the left. Scattered wheezing particularly from left lung base.) Cardiovascular: Regular Rate, Rhythm, No Edema, No Gallop, No Murmur, No Rub Peripheral Pulses: 1+: Posterior Tibial (L), Posterior Tibial (R), Dorsalis Pedis (L), Dorsalis Pedis (R) GI/Abdominal: Normal Bowel Sounds, Soft, Non-Tender, No Abnormal Bruit (Mildly obese), No Mass, Other Extremities: Normal Inspection, Normal Range of Motion, Non-Tender Neurological: Alert, Oriented, CN II-XII Intact, Normal Cognition Psychiatric: Normal Affect, Normal Mood Skin Exam: Warm, Dry, Intact, Normal Color, No Rash EKG INTERPRETATION EKG Date: 11/02/18 Time: 09:32 Rhythm: NSR Rate (Beats/Min): 71 [place]: Normal P-Wave: Present QRS: Normal ST-T: Normal QT: Normal EKG Interpretation Comments: Normal ECG Course - Vital Signs Last Recorded V/S: Last Vital Signs Temp 37.3 C 11/02/18 09:49 Pulse 75 11/02/18 09:15 Resp 20 11/02/18 09:15 BP 127/54 L 11/02/18 09:15 Pulse Ox 93 L 11/02/18 09:59 - Orders/Labs/Meds Orders: Active Orders 24 hr Category Date Time Status EKG Documentation Completion [RC] STAT Care 11/02/18 09:30 Active Oxygen Therapy [RC] ASDIRECTED Care 11/02/18 09:30 Active RT Aerosol Therapy [RC] ASDIRECTED Care 11/02/18 09:35 Active Chest 1V Frontal [CR] Stat Exams 11/02/18 09:29 Taken CULTURE BLOOD [BC] Stat Lab 11/02/18 09:50 Received CULTURE BLOOD [BC] Stat Lab 11/02/18 09:50 Received Blood Culture x2 Reflex Set [OM.PC] Stat Oth 11/02/18 09:30 Ordered Labs: Laboratory Tests 11/02/18 11/02/18 11/02/18 Range/Units 09:46 09:46 09:46 WBC 21.79 H (4.23-9.07) K/mm3 RBC 4.51 L (4.63-6.08) M/mm3 Hgb 13.9 (13.7-17.5) gm/dl Hct 40.8 (40.1-51.0) % MCV 90.5 D (79.0-92.2) fl MCH 30.8 (25.7-32.2) pg MCHC 34.1 (32.2-35.5) g/dl RDW Std Deviation 44.7 H (35.1-43.9) fL Plt Count 150 L (163-337) K/mm3 MPV 10.8 (9.4-12.3) fl Neutrophils % (Manual) 77 H (40-60) % Band Neutrophils % 5 (0-10) % Lymphocytes % (Manual) 10 L (20-40) % Atypical Lymphs % 0 % Monocytes % (Manual) 7 (2-10) % Eosinophils % (Manual) 0 L (0.8-7.0) % Basophils % (Manual) 1 (0.2-1.2) Platelet Estimate Adequate RBC Morph Comment Normal PT 11.2 (9.7-12.0) SECONDS INR 1.03 Sodium 137 (136-145) mEq/L Potassium 4.0 (3.5-5.1) mEq/L Chloride 102 (98-107) mEq/L Carbon Dioxide 25 (21-32) mEq/L Anion Gap 14.0 (5-15) BUN 24 H (7-18) mg/dL Creatinine 1.2 (0.7-1.3) mg/dL Est Cr Clr Drug Dosing 55.69 mL/min Estimated GFR (MDRD) 59 (>60) mL/min BUN/Creatinine Ratio 20.0 H (14-18) Glucose 144 H (83-115) mg/dL Lactic Acid (0.4-2.0) mmol/L Calcium 9.3 (8.5-10.1) mg/dL Magnesium 1.8 (1.8-2.4) mg/dl Total Bilirubin 1.1 H (0.2-1.0) mg/dL AST 15 (15-37) U/L ALT 38 (16-63) U/L Alkaline Phosphatase 50 (46-116) U/L Troponin I < 0.017 (0.00-0.056) ng/mL C-Reactive Protein 11.2 H* (<1.0) mg/dL NT-Pro-B Natriuret Pep (0-450) pg/mL Total Protein 7.0 (6.4-8.2) g/dl Albumin 3.5 (3.4-5.0) g/dl Globulin 3.5 gm/dL Albumin/Globulin Ratio 1.0 (1-2) 11/02/18 11/02/18 Range/Units 09:46 09:46 WBC (4.23-9.07) K/mm3 RBC (4.63-6.08) M/mm3 Hgb (13.7-17.5) gm/dl Hct (40.1-51.0) % MCV (79.0-92.2) fl MCH (25.7-32.2) pg MCHC (32.2-35.5) g/dl RDW Std Deviation (35.1-43.9) fL Plt Count (163-337) K/mm3 MPV (9.4-12.3) fl Neutrophils % (Manual) (40-60) % Band Neutrophils % (0-10) % Lymphocytes % (Manual) (20-40) % Atypical Lymphs % % Monocytes % (Manual) (2-10) % Eosinophils % (Manual) (0.8-7.0) % Basophils % (Manual) (0.2-1.2) Platelet Estimate RBC Morph Comment PT (9.7-12.0) SECONDS INR Sodium (136-145) mEq/L Potassium (3.5-5.1) mEq/L Chloride (98-107) mEq/L Carbon Dioxide (21-32) mEq/L Anion Gap (5-15) BUN (7-18) mg/dL Creatinine (0.7-1.3) mg/dL Est Cr Clr Drug Dosing mL/min Estimated GFR (MDRD) (>60) mL/min BUN/Creatinine Ratio (14-18) Glucose (83-115) mg/dL Lactic Acid 1.0 (0.4-2.0) mmol/L Calcium (8.5-10.1) mg/dL Magnesium (1.8-2.4) mg/dl Total Bilirubin (0.2-1.0) mg/dL AST (15-37) U/L ALT (16-63) U/L Alkaline Phosphatase (46-116) U/L Troponin I (0.00-0.056) ng/mL C-Reactive Protein (<1.0) mg/dL NT-Pro-B Natriuret Pep 168 (0-450) pg/mL Total Protein (6.4-8.2) g/dl Albumin (3.4-5.0) g/dl Globulin gm/dL Albumin/Globulin Ratio (1-2) Meds: Medications Discontinued Medications Generic Name Dose Route Start Last Admin Trade Name Gaurang PRN Reason Stop Dose Admin Acetaminophen 975 mg 11/02/18 09:29 11/02/18 09:49 Tylenol PO 11/02/18 09:30 975 mg ONETIME ONE Administration Albuterol/Ipratropium 3 ml 11/02/18 09:35 11/02/18 09:55 Duoneb 3.0-0.5 Mg/3 Ml NEB 11/02/18 09:36 3 ml ONETIME ONE Administration Sodium Chloride 1,000 mls @ 150 mls/hr 11/02/18 09:30 11/02/18 09:49 Normal Saline IV 150 mls/hr ASDIRECTED SAY Administration Levofloxacin/Dextrose 750 mg/ 150 mls @ 100 mls/hr 11/02/18 10:26 11/02/18 10 :30 Premix IV 11/02/18 11:55 100 mls/hr ONETIME ONE Administration - Radiology Interpretation Free Text/Narrative:: 70-year-old male attends the ED due to development of gradually worsening dyspnea over the last 2 days. Associated fever chills and rigors developing during the night. Pneumonia about 3 months ago. He has known COPD but does not use home oxygen therapy. He does have a home nebulizer which he does not use. He was treated for pneumonia about 3 months ago with Levaquin. Has a very productive sounding cough. O2 sats only 88% on room air. Plan DuoNeb. Chest x- ray. ECG. Routine labs including blood cultures 2. He will be given Tylenol 975 mg by mouth for fever relief. Oxygen was started at 2 L/m by nasal cannula. - Re-Assessments/Exams Free Text/Narrative Re-Assessment/Exam: 11/02/18 10:27 chest x-ray done portably suggests an infiltrate developing throughout the right middle lobe and right lower lobe and left lower lobe likely bilateral pneumonia. Patient will be given Levaquin 750 mg IV at this time. O2 sats are 92% on 2 L/m. 11/02/18 11:06 Labs are back and reveal a markedly elevated white count at 21.79. Differential is 77% neutrophils and 5% bands. Hemoglobin is 13.9 with hematocrit of 40.8. MCV is slightly elevated and 90.5. Platelet count 150,000. PT is 11.2 and INR is 1.03. Sodium 137 with potassium of 4.0. Chloride 102 with a bicarbonate 25. Anion gap is 14.0. BUN is 24. Creatinine is 1.2. GFR is 59. Glucose is 144. Lactic acid is 1.0. Calcium is 9.3. Magnesium is 1.8. Total bilirubin minimally elevated at 1.1. Liver function otherwise normal. Troponin I is less than 0.017. C-reactive protein is 11.2 --markedly elevated. BNP is 168. Total protein is 7.0 with albumin fraction of 3.5. 11/02/18 11:45: Discussed the findings with the patient today and he adamantly refuses to stay in the hospital. He has oxygen at home and advised that he will need two liters at all times and 3 L at nighttime to sleep. Has a home nebulizer and I'm going to place him on DuoNeb 4 times daily for the next week. He will be placed on antibiotic Levaquin 500 mg once daily every morning for the next 9 days. Ice follow-up with his personal care physician in 10 days' time. Can always come back into the hospital if he feels he is getting worse. Departure - Departure Time of Disposition: 11:57 Disposition: Home, Self-Care 01 Condition: Poor Clinical Impression: Hypoxemia requiring supplemental oxygen Bilateral pneumonia Qualifiers: Pneumonia type: due to unspecified organism Lung location: lower lobe of lung Qualified Code(s): J18.1 - Lobar pneumonia, unspecified organism - Discharge Information *PRESCRIPTION DRUG MONITORING PROGRAM REVIEWED*: Not Applicable *COPY OF PRESCRIPTION DRUG MONITORING REPORT IN PATIENT BRANDYN: Not Applicable Prescriptions: Albuterol/Ipratropium [DuoNeb 3.0-0.5 MG/3 ML] 3 ml .XX QID #30 neb levoFLOXacin [Levaquin] 500 mg PO DAILY #9 tab Instructions: Community-Acquired Pneumonia, Adult, Chkg-qs-Mibd Referrals: Alena Singh MD [Primary Care Provider] - Forms: ED Department Discharge Additional Instructions: Evaluation the emergency room this morning in regards to development of gradually worsening shortness of breath over the last 48 hours with development of productive cough ,fever and chills with rigors earlier this morning. O2 sats only 88% on arrival arrival. He will therefore require oxygen supplementation. Suggest 2 L at all times during the day and 3 L at nighttime for the next 3-5 days. Suggest use of nebulizer with DuoNeb treatment 1 albuterol 4 times daily for the next 7 days to help make sure the phlegm comes up on a lungs. Initial dose of antibiotic was given in the ED Levaquin 750 mg. You need a tablet of 500 mg once daily every morning for the next 9 days. Suggest Tylenol 650 mg every 4-6 hours needed for fever relief. Encourage plenty of fluids and diet as tolerated. He can return to the hospital at any time if you feel your condition is worsening. Suggest follow-up with her personal care physician in 10 days' time. Sooner if any other problems occur. - My Orders Last 24 Hours: My Active Orders 11/02/18 09:29 Chest 1V Frontal [CR] Stat 11/02/18 09:30 EKG Documentation Completion [RC] STAT Oxygen Therapy [RC] ASDIRECTED Blood Culture x2 Reflex Set [OM.PC] Stat 11/02/18 09:35 RT Aerosol Therapy [RC] ASDIRECTED 11/02/18 09:50 CULTURE BLOOD [BC] Stat CULTURE BLOOD [BC] Stat - Assessment/Plan Last 24 Hours: My Active Orders 11/02/18 09:29 Chest 1V Frontal [CR] Stat 11/02/18 09:30 EKG Documentation Completion [RC] STAT Oxygen Therapy [RC] ASDIRECTED Blood Culture x2 Reflex Set [OM.PC] Stat 11/02/18 09:35 RT Aerosol Therapy [RC] ASDIRECTED 11/02/18 09:50 CULTURE BLOOD [BC] Stat CULTURE BLOOD [BC] Stat
[2018-11-02] MEDS ORDERED: Sodium Chloride 0.9% 1,000 ML IV SCH (09:30)
[2018-11-02] MEDS ORDERED: Albuterol/Ipratropium 3.0-0.5 MG/3 ML Neb Soln NEB ONE (09:35)
[2018-11-02] MEDS ORDERED: Levofloxacin/Dextrose 5%-Water 750 MG in Premix Bag 1 BAG IV ONE (10:26)
--- NOTE | 2018-11-03 09:25 | CR ---
Chest: Portable view of the chest was obtained. Comparison: Prior chest x-ray of 07/17/18. Linear densities are noted within both lung bases. Lungs otherwise are clear. Bony structures are grossly intact. Impression: 1. Linear densities within both lung bases most likely representing areas of atelectasis. Diagnostic code #3
== END 2018-11-02 12:23 | disposition home or self-care (01) ==
LOC: JD.ED 09:05
DX: J18.1 Lobar pneumonia, unspecified organism (principal); R09.02 Hypoxemia; I10 Essential (primary) hypertension; E78.00 Pure hypercholesterolemia, unspecified; E11.9 Type 2 diabetes mellitus without complications; M19.90 Unspecified osteoarthritis, unspecified site; Z88.0 Allergy status to penicillin; Z79.4 Long term (current) use of insulin; Z79.82 Long term (current) use of aspirin; Z79.899 Other long term (current) drug therapy; Z90.49 Acquired absence of other specified parts of digestive tract; Z86.73 Personal history of transient ischemic attack (TIA), and cerebral infarction without residual deficits
CPT/HCPCS: 36415; 71045; 80053; 83605; 83735; 83880; 84484; 85007; 85027; 85610; 86140; 87040; 93005; 94640; 94762; 96361; 96365; 99285; A9270; J1956; J7040; 93010; J7620-GY

== ENCOUNTER 2019-02-20 14:33 | Emergency (ER) | payer MEDICARE, OTHER ==
--- NOTE | 2019-02-20 15:24 | EDM.PDOC ---
ED HPI GENERAL MEDICAL PROBLEM - General Chief Complaint: Respiratory Problem Stated Complaint: POSS PNEUMONIA Time Seen by Provider: 02/20/19 15:24 - History of Present Illness INITIAL COMMENTS - FREE TEXT/NARRATIVE: 79-year-old male presents the emergency room with a worsening cough. This started a couple of days ago over the last 24 hours the cough became productive bringing up off colored sputum and he started to notice some chills. Patient states he gets pneumonia periodically. He also has a history of COPD. Patient denies any high fevers. No nausea no vomiting no other symptoms at this point he is not having any chest pain chest pressure and he does not believe he is short of breath at this time. - Related Data Allergies Allergy/AdvReac Type Severity Reaction Status Date / Time Penicillins Allergy Swelling Verified 11/02/18 09:20 Home Meds: Home Meds Ezetimibe [Zetia] 10 mg PO DAILY 07/25/14 [History] atorvaSTATin [Lipitor] 20 mg PO DAILY 07/25/14 [History] sitaGLIPtin Phos/Metformin HCl [Janumet 50-500 MG] 1 tab PO DAILY 03/18/15 [ History] Aspirin [Aspirin EC] 325 mg PO DAILY 07/17/18 [History] Benazepril HCl [Lotensin] 40 tab PO DAILY 07/17/18 [History] Fexofenadine HCl [Marychuy Allergy] 100 mg PO DAILY 07/17/18 [History] Metoprolol Succinate [Toprol Xl] 25 mg PO DAILY 07/17/18 [History] Tiotropium [Spiriva HandiHaler] 1 inh INH DAILY 07/17/18 [History] amLODIPine Besylate [Amlodipine Besylate] 10 mg PO DAILY 07/17/18 [History] Fluticasone/Vilanterol [Breo Ellipta 100-25 MCG Inhalation Kit] 1 puff INH DAILY 09/13/18 [History] Hydrochlorothiazide [Microzide] 12.5 mg PO DAILY 09/13/18 [History] Insulin Degludec [Tresiba] 50 unit SQ DAILY 09/13/18 [History] Albuterol/Ipratropium [DuoNeb 3.0-0.5 MG/3 ML] 3 ml .XX QID #30 neb 11/02/18 [Rx ] Albuterol [Ventolin HFA] 2 puff .XX Q4H #1 inhaler 02/20/19 [Rx] Doxycycline Hyclate 100 mg PO Q12H #14 capsule 02/20/19 [Rx] Past Medical History HEENT History: Reports: Hard of Hearing, Impaired Vision Other HEENT History: Wears hearing aides bilaterally, and reading glasses Cardiovascular History: Reports: High Cholesterol, Hypertension, SOB on Exertion Respiratory History: Reports: COPD, Other (See Below) Other Respiratory History: emphysema Gastrointestinal History: Reports: Chronic Constipation, Hemorrhoids Genitourinary History: Reports: Urinary Incontinence, Other (See Below) Other Genitourinary History: Minimal incontinence noted Musculoskeletal History: Reports: Osteoarthritis Other Musculoskeletal History: Hx. fx ribs, shoulder blade, hairline cervical fx , rt. thumb & wrist (casted) & coccyx. Neurological History: Reports: CVA, Other (See Below) Other Neuro History: hosp. mar 2016 for CVA symptoms, [facility] ([place]) question whether TIA vs CVA Psychiatric History: Reports: None Endocrine/Metabolic History: Reports: Diabetes, Type II Hematologic History: Reports: None Immunologic History: Reports: None Oncologic (Cancer) History: Reports: Prostate Dermatologic History: Reports: None - Infectious Disease History Infectious Disease History: Reports: Chicken Pox - Past Surgical History Head Surgeries/Procedures: Reports: None GI Surgical History: Reports: Cholecystectomy Male Surgical History: Reports: Prostatectomy Dermatological Surgical History: Reports: None Social & Family History - Family History Family Medical History: Noncontributory - Tobacco Use Smoking Status *Q: Former Smoker Used Tobacco, but Quit: Yes Month/Year Tobacco Last Used: 33 yrs - Caffeine Use Caffeine Use: Reports: Coffee, Soda Other Caffeine Use: diet soda Caffeine Use Comment: 6-8 cups per day, 1-2 cans pop per dy - Recreational Drug Use Recreational Drug Use: No - Living Situation & Occupation Living situation: Reports: , with Spouse Occupation: Retired ED ROS GENERAL - Review of Systems Review Of Systems: See Below Constitutional: Reports: No Symptoms HEENT: Reports: No Symptoms Respiratory: Reports: Cough, Sputum. Denies: No Symptoms, Shortness of Breath, Wheezing Cardiovascular: Reports: No Symptoms Endocrine: Reports: No Symptoms GI/Abdominal: Reports: No Symptoms ED EXAM, GENERAL - Physical Exam Exam: See Below Exam Limited By: No Limitations General Appearance: Alert, No Apparent Distress Eye Exam: Bilateral Eye: Normal Inspection Ears: Normal External Exam, Normal Canal, Hearing Grossly Normal Nose: Normal Inspection, Normal Mucosa, No Blood Throat/Mouth: Normal Inspection, Normal Lips, Normal Teeth, Normal Gums, Normal Oropharynx, Normal Voice Head: Atraumatic, Normocephalic Neck: Normal Inspection, Supple, Non-Tender, Full Range of Motion. No: Lymphadenopathy (L), Lymphadenopathy (R) Respiratory/Chest: No Respiratory Distress, Other (The patient has bibasilar crackles fairly mild worse on the left compared to the right) Cardiovascular: Regular Rate, Rhythm, No Edema, Bradycardia GI/Abdominal: Normal Bowel Sounds, Soft, Non-Tender Course - Vital Signs Last Recorded V/S: Last Vital Signs Temp 36.6 C 02/20/19 14:47 Pulse 61 02/20/19 14:47 Resp 14 02/20/19 14:47 BP 158/64 H 02/20/19 14:47 Pulse Ox 91 L 02/20/19 14:47 - Re-Assessments/Exams Free Text/Narrative Re-Assessment/Exam: 02/20/19 16:22 Recommended labs and chest x-ray the patient declines this at this point will give him an albuterol inhaler he is not sure if he has one at home and given a prescription for doxycycline. Departure - Departure Time of Disposition: 16:22 Disposition: Home, Self-Care 01 Clinical Impression: Pneumonia Qualifiers: Pneumonia type: due to unspecified organism Laterality: left Lung location: lower lobe of lung Qualified Code(s): J18.1 - Lobar pneumonia, unspecified organism - Discharge Information Prescriptions: Albuterol [Ventolin HFA] 2 puff .XX Q4H #1 inhaler Doxycycline Hyclate 100 mg PO Q12H #14 capsule Referrals: Alena Singh MD [Primary Care Provider] - Forms: ED Department Discharge Additional Instructions: Return to the emergency room with any questions problems or worsening symptoms. Follow-up in the clinic early next week, sooner if needed. Take medications as directed. Sepsis Event Note - Evaluation Sepsis Screening Result: No Definite Risk - Focused Exam Vital Signs: Vital Signs Temp Pulse Resp BP Pulse Ox 02/20/19 14:47 36.6 C 61 14 158/64 H 91 L Date Exam was Performed: 02/20/19 Time Exam was Performed: 16:00
[2019-02-20 16:52] VITALS: BP 150/63; PULSE 59
== END 2019-02-20 16:45 | disposition home or self-care (01) ==
LOC: JD.ED 14:33
DX: J18.9 Pneumonia, unspecified organism (principal); J43.9 Emphysema, unspecified; I10 Essential (primary) hypertension; E11.9 Type 2 diabetes mellitus without complications; E78.00 Pure hypercholesterolemia, unspecified; Z79.4 Long term (current) use of insulin; Z79.51 Long term (current) use of inhaled steroids; Z79.82 Long term (current) use of aspirin; Z79.899 Other long term (current) drug therapy; Z88.0 Allergy status to penicillin; Z86.73 Personal history of transient ischemic attack (TIA), and cerebral infarction without residual deficits; Z87.891 Personal history of nicotine dependence
CPT/HCPCS: 99283; 99283-25

== ENCOUNTER 2019-04-30 11:00 | Emergency (ER) | payer MEDICARE, OTHER ==
[2019-04-30 11:45] VITALS: BP 101/56; PULSE 69
[2019-04-30] MEDS ORDERED: Sodium Chloride 0.9% 10 ML Syringe FLUSH PRN (11:56)
[2019-04-30] MEDS ORDERED: Albuterol/Ipratropium 3.0-0.5 MG/3 ML Neb Soln NEB ONE (11:57)
--- NOTE | 2019-04-30 13:37 | CT ---
CT chest Technique: Multiple axial sections through the chest were obtained. Intravenous contrast was not utilized. Comparison: Previous chest x-ray of 11/13/18. Chest CT of 11/01/12. Findings: Scattered lymph nodes within the mediastinum are seen which are felt to be stable from previous exam. Atherosclerotic change is noted within the thoracic aorta without aneurysm. Coronary artery calcification is seen. No pericardial thickening is seen. Visualized upper abdominal structures show prior cholecystectomy. Increased interstitial change is noted within the right middle lobe and within both lung bases as well as lingula from prior chest CT. Diffuse emphysematous change is noted. Bone window settings show scattered degenerative change within the spine. No acute osseous finding is appreciated. Impression: 1. Scattered lymph nodes with the mediastinum which are felt to be stable from prior chest CT. 2. Increasing interstitial change within both lung bases as well as right middle lobe and lingula. Findings most likely represent pneumonia. 3. Emphysematous change. Diagnostic code #3 This report was dictated in MDT
--- NOTE | 2019-04-30 13:51 | EDM.PDOC ---
ED HPI GENERAL MEDICAL PROBLEM - General Chief Complaint: General Stated Complaint: CHILLS,DIARRHEA,COUGH Time Seen by Provider: 04/30/19 11:44 Source of Information: Reports: Patient History Limitations: Reports: No Limitations - History of Present Illness INITIAL COMMENTS - FREE TEXT/NARRATIVE: The patient presents with a cough, diarrhea and chills. This started yesterday. He has a productive cough. He has no fever that he knows of. He has no dysuria, abdominal pain, nausea or vomiting. He is coughing up some blood at times. Onset: Gradual Duration: Day(s): Severity: Moderate Improves with: Reports: None Worsens with: Reports: None Associated Symptoms: Reports: Cough, Fever/Chills, Shortness of Breath. Denies : Chest Pain, Headaches, Nausea/Vomiting - Related Data Allergies Allergy/AdvReac Type Severity Reaction Status Date / Time Penicillins Allergy Swelling Verified 11/02/18 09:20 Home Meds: Home Meds Ezetimibe [Zetia] 10 mg PO DAILY 07/25/14 [History] atorvaSTATin [Lipitor] 20 mg PO DAILY 07/25/14 [History] sitaGLIPtin Phos/Metformin HCl [Janumet 50-500 MG] 1 tab PO DAILY 03/18/15 [ History] Aspirin [Aspirin EC] 325 mg PO DAILY 07/17/18 [History] Benazepril HCl [Lotensin] 40 tab PO DAILY 07/17/18 [History] Fexofenadine HCl [Marychuy Allergy] 100 mg PO DAILY 07/17/18 [History] Metoprolol Succinate [Toprol Xl] 25 mg PO DAILY 07/17/18 [History] Tiotropium [Spiriva HandiHaler] 1 inh INH DAILY 07/17/18 [History] amLODIPine Besylate [Amlodipine Besylate] 10 mg PO DAILY 07/17/18 [History] Fluticasone/Vilanterol [Breo Ellipta 100-25 MCG Inhalation Kit] 1 puff INH DAILY 09/13/18 [History] Insulin Degludec [Tresiba] 50 unit SQ DAILY 09/13/18 [History] hydroCHLOROthiazide [Microzide] 12.5 mg PO DAILY 09/13/18 [History] Albuterol/Ipratropium [DuoNeb 3.0-0.5 MG/3 ML] 3 ml .XX QID #30 neb 11/02/18 [Rx ] Albuterol [Ventolin HFA] 2 puff .XX Q4H #1 inhaler 02/20/19 [Rx] Doxycycline Hyclate 100 mg PO Q12H #14 capsule 02/20/19 [Rx] Doxycycline [Vibramycin] 100 mg PO BID #14 cap 04/30/19 [Rx] Past Medical History HEENT History: Reports: Hard of Hearing, Impaired Vision Other HEENT History: Wears hearing aides bilaterally, and reading glasses Cardiovascular History: Reports: High Cholesterol, Hypertension, SOB on Exertion Respiratory History: Reports: COPD, Other (See Below) Other Respiratory History: emphysema Gastrointestinal History: Reports: Chronic Constipation, Hemorrhoids Genitourinary History: Reports: Urinary Incontinence, Other (See Below) Other Genitourinary History: Minimal incontinence noted Musculoskeletal History: Reports: Osteoarthritis Other Musculoskeletal History: Hx. fx ribs, shoulder blade, hairline cervical fx , rt. thumb & wrist (casted) & coccyx. Neurological History: Reports: CVA, Other (See Below) Other Neuro History: hosp. mar 2016 for CVA symptoms, [facility] ([place]) question whether TIA vs CVA Psychiatric History: Reports: None Endocrine/Metabolic History: Reports: Diabetes, Type II Hematologic History: Reports: None Immunologic History: Reports: None Oncologic (Cancer) History: Reports: Prostate Dermatologic History: Reports: None - Infectious Disease History Infectious Disease History: Reports: Chicken Pox - Past Surgical History Head Surgeries/Procedures: Reports: None GI Surgical History: Reports: Cholecystectomy Male Surgical History: Reports: Prostatectomy Dermatological Surgical History: Reports: None Social & Family History - Family History Family Medical History: Noncontributory - Tobacco Use Smoking Status *Q: Former Smoker Used Tobacco, but Quit: Yes Month/Year Tobacco Last Used: 33 yrs - Caffeine Use Caffeine Use: Reports: Coffee, Soda Other Caffeine Use: diet soda Caffeine Use Comment: 6-8 cups per day, 1-2 cans pop per dy - Recreational Drug Use Recreational Drug Use: No - Living Situation & Occupation Living situation: Reports: , with Spouse Occupation: Retired ED ROS GENERAL - Review of Systems Review Of Systems: See Below Constitutional: Reports: Chills. Denies: Fever HEENT: Reports: No Symptoms Respiratory: Reports: Shortness of Breath, Cough Cardiovascular: Reports: No Symptoms Endocrine: Reports: No Symptoms GI/Abdominal: Reports: Diarrhea. Denies: Abdominal Pain, Nausea, Vomiting : Reports: No Symptoms Musculoskeletal: Reports: No Symptoms ED EXAM, GENERAL - Physical Exam Exam: See Below Exam Limited By: No Limitations General Appearance: Alert, No Apparent Distress Ears: Normal External Exam Nose: Normal Inspection Head: Atraumatic, Normocephalic Neck: Normal Inspection Respiratory/Chest: No Respiratory Distress, Rhonchi Cardiovascular: Regular Rate, Rhythm, No Edema, No Murmur GI/Abdominal: Soft, Non-Tender, No Organomegaly, No Mass Back Exam: Normal Inspection Extremities: Normal Inspection Course - Vital Signs Last Recorded V/S: Last Vital Signs Temp 97.8 F 04/30/19 11:43 Pulse 69 04/30/19 11:43 Resp 20 04/30/19 11:43 BP 101/56 L 04/30/19 11:43 Pulse Ox 95 04/30/19 11:57 - Orders/Labs/Meds Orders: Active Orders 24 hr Category Date Time Status Cardiac Monitoring [RC] . DIRECTED Care 04/30/19 11:56 Active Oxygen Therapy [RC] PRN Care 04/30/19 11:56 Active Peripheral IV Care [RC] . DIRECTED Care 04/30/19 11:57 Active RT Aerosol Therapy [RC] ASDIRECTED Care 04/30/19 11:57 Active Sodium Chloride 0.9% [Saline Flush] Med 04/30/19 11:56 Active 10 ml FLUSH ASDIRECTED PRN Isolation [COMM] Routine Oth 04/30/19 12:13 Ordered Peripheral IV Insertion Adult [OM.PC] Stat Oth 04/30/19 11:56 Ordered Medication Orders Sodium Chloride (Saline Flush) 10 ml FLUSH ASDIRECTED PRN PRN Reason: Keep Vein Open Labs: Laboratory Tests 04/30/19 04/30/19 04/30/19 Range/Units 12:11 12:11 12:11 WBC 18.14 H (4.23-9.07) K/mm3 RBC 4.29 L (4.63-6.08) M/mm3 Hgb 13.0 L (13.7-17.5) gm/dl Hct 40.4 (40.1-51.0) % MCV 94.2 H D (79.0-92.2) fl MCH 30.3 (25.7-32.2) pg MCHC 32.2 (32.2-35.5) g/dl RDW Std Deviation 48.2 H (35.1-43.9) fL Plt Count 157 L (163-337) K/mm3 MPV 10.6 (9.4-12.3) fl Neut % (Auto) 84.5 H (34.0-67.9) % Lymph % (Auto) 9.8 L (21.8-53.1) % Dickenson % (Auto) 5.1 L (5.3-12.2) % Eos % (Auto) 0.1 L (0.8-7.0) Baso % (Auto) 0.1 (0.1-1.2) % Neut # (Auto) 15.34 H (1.78-5.38) K/mm3 Lymph # (Auto) 1.78 (1.32-3.57) K/mm3 Dickenson # (Auto) 0.92 H (0.30-0.82) K/mm3 Eos # (Auto) 0.02 L (0.04-0.54) K/mm3 Baso # (Auto) 0.01 (0.01-0.08) K/mm3 Manual Slide Review Normal smear PT 11.0 (9.7-12.0) SECONDS INR 1.01 APTT 29 (22-31) SECONDS Sodium 139 (136-145) mEq/L Potassium 4.9 (3.5-5.1) mEq/L Chloride 103 (98-107) mEq/L Carbon Dioxide 25 (21-32) mEq/L Anion Gap 15.9 H (5-15) BUN 31 H (7-18) mg/dL Creatinine 1.6 H (0.7-1.3) mg/dL Est Cr Clr Drug Dosing 41.09 mL/min Estimated GFR (MDRD) 42 (>60) mL/min BUN/Creatinine Ratio 19.4 H (14-18) Glucose 108 (83-115) mg/dL Lactic Acid (0.4-2.0) mmol/L Calcium 9.1 (8.5-10.1) mg/dL Total Bilirubin 0.7 (0.2-1.0) mg/dL AST 32 (15-37) U/L ALT 45 (16-63) U/L Alkaline Phosphatase 43 L (46-116) U/L C-Reactive Protein 10.0 H* (<1.0) mg/dL Total Protein 6.9 (6.4-8.2) g/dl Albumin 3.5 (3.4-5.0) g/dl Globulin 3.4 gm/dL Albumin/Globulin Ratio 1.0 (1-2) 04/30/19 Range/Units 12:28 WBC (4.23-9.07) K/mm3 RBC (4.63-6.08) M/mm3 Hgb (13.7-17.5) gm/dl Hct (40.1-51.0) % MCV (79.0-92.2) fl MCH (25.7-32.2) pg MCHC (32.2-35.5) g/dl RDW Std Deviation (35.1-43.9) fL Plt Count (163-337) K/mm3 MPV (9.4-12.3) fl Neut % (Auto) (34.0-67.9) % Lymph % (Auto) (21.8-53.1) % Dickenson % (Auto) (5.3-12.2) % Eos % (Auto) (0.8-7.0) Baso % (Auto) (0.1-1.2) % Neut # (Auto) (1.78-5.38) K/mm3 Lymph # (Auto) (1.32-3.57) K/mm3 Dickenson # (Auto) (0.30-0.82) K/mm3 Eos # (Auto) (0.04-0.54) K/mm3 Baso # (Auto) (0.01-0.08) K/mm3 Manual Slide Review PT (9.7-12.0) SECONDS INR APTT (22-31) SECONDS Sodium (136-145) mEq/L Potassium (3.5-5.1) mEq/L Chloride (98-107) mEq/L Carbon Dioxide (21-32) mEq/L Anion Gap (5-15) BUN (7-18) mg/dL Creatinine (0.7-1.3) mg/dL Est Cr Clr Drug Dosing mL/min Estimated GFR (MDRD) (>60) mL/min BUN/Creatinine Ratio (14-18) Glucose (83-115) mg/dL Lactic Acid 1.5 (0.4-2.0) mmol/L Calcium (8.5-10.1) mg/dL Total Bilirubin (0.2-1.0) mg/dL AST (15-37) U/L ALT (16-63) U/L Alkaline Phosphatase (46-116) U/L C-Reactive Protein (<1.0) mg/dL Total Protein (6.4-8.2) g/dl Albumin (3.4-5.0) g/dl Globulin gm/dL Albumin/Globulin Ratio (1-2) Meds: Medications Generic Name Dose Route Start Last Admin Trade Name Freq PRN Reason Stop Dose Admin Sodium Chloride 10 ml 04/30/19 11:56 Saline Flush FLUSH ASDIRECTED PRN Keep Vein Open Discontinued Medications Generic Name Dose Route Start Last Admin Trade Name Freq PRN Reason Stop Dose Admin Albuterol/Ipratropium 3 ml 04/30/19 11:57 04/30/19 12:11 Duoneb 3.0-0.5 Mg/3 Ml NEB 04/30/19 11:58 3 ml ONETIME ONE Administration - Re-Assessments/Exams Free Text/Narrative Re-Assessment/Exam: 04/30/19 13:48 I ordered an IV saline lock, labs, and a CT of his chest. His WBC was elevated at 18.14. His PT and INR look good. His creatinine is elevated at 1.6. His CRP is 10. his CT shows scattered lymph nodes with the mediastinum which are felt to be stable from prior chest CT. Increasing interstitial change within both lung bases as well as right middle lobe and lingula. Findings most likely represent pneumonia. Emphysematous change. 04/30/19 13:53 He has pneumonia. He would like to go home. I will get him on some doxycycline. He does have oxygen at home. Departure - Departure Time of Disposition: 13:55 Disposition: Home, Self-Care 01 Condition: Good Clinical Impression: Pneumonia, Hypoxia - Discharge Information *PRESCRIPTION DRUG MONITORING PROGRAM REVIEWED*: Not Applicable *COPY OF PRESCRIPTION DRUG MONITORING REPORT IN PATIENT BRANDYN: Not Applicable Prescriptions: Doxycycline [Vibramycin] 100 mg PO BID #14 cap Referrals: Alena Singh MD [Primary Care Provider] - 1 Week Forms: ED Department Discharge Additional Instructions: Take your medication as prescribed. Take the doxycycline 2 times per day for 7 days. Use your oxygen at home. Please return if you are worse. Sepsis Event Note - Evaluation Sepsis Screening Result: No Definite Risk - Focused Exam Vital Signs: Vital Signs Temp Pulse Resp BP Pulse Ox Pulse Ox 04/30/19 11:57 95 04/30/19 11:43 97.8 F 69 20 101/56 L 87 L Date Exam was Performed: 04/30/19 Time Exam was Performed: 13:53 - My Orders Last 24 Hours: My Active Orders 04/30/19 11:56 Cardiac Monitoring [RC] . DIRECTED Oxygen Therapy [RC] PRN Sodium Chloride 0.9% [Saline Flush] 10 ml FLUSH ASDIRECTED PRN Peripheral IV Insertion Adult [OM.PC] Stat 04/30/19 11:57 Peripheral IV Care [RC] . DIRECTED RT Aerosol Therapy [RC] ASDIRECTED 04/30/19 12:13 Isolation [COMM] Routine - Assessment/Plan Last 24 Hours: My Active Orders 04/30/19 11:56 Cardiac Monitoring [RC] . DIRECTED Oxygen Therapy [RC] PRN Sodium Chloride 0.9% [Saline Flush] 10 ml FLUSH ASDIRECTED PRN Peripheral IV Insertion Adult [OM.PC] Stat 04/30/19 11:57 Peripheral IV Care [RC] . DIRECTED RT Aerosol Therapy [RC] ASDIRECTED 04/30/19 12:13 Isolation [COMM] Routine
== END 2019-04-30 14:35 | disposition home or self-care (01) ==
LOC: JD.ED 11:00
DX: J18.9 Pneumonia, unspecified organism (principal); R09.02 Hypoxemia; I10 Essential (primary) hypertension; E78.00 Pure hypercholesterolemia, unspecified; J44.9 Chronic obstructive pulmonary disease, unspecified; M19.90 Unspecified osteoarthritis, unspecified site; Z86.73 Personal history of transient ischemic attack (TIA), and cerebral infarction without residual deficits; E11.9 Type 2 diabetes mellitus without complications; Z90.49 Acquired absence of other specified parts of digestive tract; Z87.891 Personal history of nicotine dependence; Z79.899 Other long term (current) drug therapy; Z79.82 Long term (current) use of aspirin; Z79.4 Long term (current) use of insulin; Z88.0 Allergy status to penicillin
CPT/HCPCS: 36415; 71250; 71250-26; 80053; 83605; 85025; 85610; 85730; 86140; 94640; 99285-25; J7620-GY

== ENCOUNTER 2019-08-21 16:55 | Emergency (ER) | payer MEDICARE, OTHER ==
[2019-08-21] MEDS ORDERED: Lidocaine 1% 10 ML MDV INJECT ONE (18:35)
--- NOTE | 2019-08-21 18:43 | EDM.PDOC ---
<Geremias Ortiz - Last Filed: 08/21/19 18:50> ED HPI GENERAL MEDICAL PROBLEM - General Chief Complaint: Lower Extremity Injury/Pain Stated Complaint: L FOOT TOE PROBLEM Time Seen by Provider: 08/21/19 18:15 Source of Information: Reports: Patient History Limitations: Reports: No Limitations - History of Present Illness INITIAL COMMENTS - FREE TEXT/NARRATIVE: Mateusz is a 79 YO male that presents to the ED with an injury to the toenail of the first digit of the left foot. He states that the toenail was intact this morning but when he took his boot off this afternoon he noticed bleeding. Experiencing associated intermittent stabbing pain when toenail is touched. Admits to being unable to bend over to perform hygiene on his feet. Denies memorable injury or event to the effected digit. Onset: Today, Sudden Onset Date: 08/21/19 Duration: Hour(s): Location: Reports: Lower Extremity, Left Quality: Reports: Stabbing Severity: Mild Improves with: Reports: Rest Worsens with: Reports: Movement Associated Symptoms: Reports: No Other Symptoms Left Toe-Hailux Pain Score (Numeric/FACES): 0 - Related Data Allergies Allergy/AdvReac Type Severity Reaction Status Date / Time Penicillins Allergy Swelling Verified 11/02/18 09:20 Home Meds: Home Meds Ezetimibe [Zetia] 10 mg PO DAILY 07/25/14 [History] atorvaSTATin [Lipitor] 20 mg PO DAILY 07/25/14 [History] sitaGLIPtin Phos/Metformin HCl [Janumet 50-500 MG] 1 tab PO DAILY 03/18/15 [History] Aspirin [Aspirin EC] 325 mg PO DAILY 07/17/18 [History] Benazepril HCl [Lotensin] 40 tab PO DAILY 07/17/18 [History] Fexofenadine HCl [Marychuy Allergy] 100 mg PO DAILY 07/17/18 [History] Metoprolol Succinate [Toprol Xl] 25 mg PO DAILY 07/17/18 [History] Tiotropium [Spiriva HandiHaler] 1 inh INH DAILY 07/17/18 [History] amLODIPine Besylate [Amlodipine Besylate] 10 mg PO DAILY 07/17/18 [History] Fluticasone/Vilanterol [Breo Ellipta 100-25 MCG Inhalation Kit] 1 puff INH DAILY 09/13/18 [History] Insulin Degludec [Tresiba] 50 unit SQ DAILY 09/13/18 [History] hydroCHLOROthiazide [Microzide] 12.5 mg PO DAILY 09/13/18 [History] Albuterol/Ipratropium [DuoNeb 3.0-0.5 MG/3 ML] 3 ml .XX QID #30 neb 11/02/18 [Rx] Albuterol [Ventolin HFA] 2 puff .XX Q4H #1 inhaler 02/20/19 [Rx] Doxycycline Hyclate 100 mg PO Q12H #14 capsule 02/20/19 [Rx] Doxycycline [Vibramycin] 100 mg PO BID #14 cap 04/30/19 [Rx] cephALEXin [Keflex] 500 mg PO QID #28 capsule 08/21/19 [Rx] Past Medical History HEENT History: Reports: Hard of Hearing, Impaired Vision Other HEENT History: Wears hearing aides bilaterally, and reading glasses Cardiovascular History: Reports: High Cholesterol, Hypertension, SOB on Exertion Respiratory History: Reports: COPD, Other (See Below) Other Respiratory History: emphysema Gastrointestinal History: Reports: Chronic Constipation, Hemorrhoids Genitourinary History: Reports: Urinary Incontinence, Other (See Below) Other Genitourinary History: Minimal incontinence noted Musculoskeletal History: Reports: Osteoarthritis Other Musculoskeletal History: Hx. fx ribs, shoulder blade, hairline cervical fx, rt. thumb & wrist (casted) & coccyx. Neurological History: Reports: CVA, Other (See Below) Other Neuro History: hosp. mar 2016 for CVA symptoms, [facility] ([place]) question whether TIA vs CVA Psychiatric History: Reports: None Endocrine/Metabolic History: Reports: Diabetes, Type II Hematologic History: Reports: None Immunologic History: Reports: None Oncologic (Cancer) History: Reports: Prostate Dermatologic History: Reports: None - Infectious Disease History Infectious Disease History: Reports: Chicken Pox - Past Surgical History Head Surgeries/Procedures: Reports: None GI Surgical History: Reports: Cholecystectomy Male Surgical History: Reports: Prostatectomy Dermatological Surgical History: Reports: None Social & Family History - Family History Family Medical History: Noncontributory - Tobacco Use Smoking Status *Q: Never Smoker Second Hand Smoke Exposure: No - Caffeine Use Caffeine Use: Reports: Coffee, Soda Other Caffeine Use: diet soda Caffeine Use Comment: 6-8 cups per day, 1-2 cans pop per dy - Living Situation & Occupation Living situation: Reports: , with Spouse Occupation: Retired Review of Systems - Review of Systems Review Of Systems: See Below Musculoskeletal: Reports: Foot Pain ED EXAM, GENERAL - Physical Exam Exam: See Below Exam Limited By: No Limitations General Appearance: Alert, No Apparent Distress Extremities: Other (Toe nail on first digit of left foot avulsed to middle of nail bed. Bruising and blood noted at the eponychium.) Departure - Departure Disposition: Home, Self-Care 01 Clinical Impression: Nail avulsion, toe Qualifiers: Encounter type: initial encounter Qualified Code(s): S91.209A - Unspecified open wound of unspecified toe(s) with damage to nail, initial encounter - Discharge Information Prescriptions: cephALEXin [Keflex] 500 mg PO QID #28 capsule Referrals: Alena Singh MD [Primary Care Provider] - 1 Week Forms: ED Department Discharge Additional Instructions: Soak your foot in warm soapy water 2 times per day and apply antibiotic ointment after for about 5 days. Please return if you are worse. Sepsis Event Note (ED) - Evaluation Sepsis Screening Result: No Definite Risk <Dusty Payton - Last Filed: 08/21/19 20:16> Course - Vital Signs Last Recorded V/S: Last Vital Signs Temp 98.0 F 08/21/19 17:30 Pulse 64 08/21/19 17:30 Resp 16 08/21/19 17:30 BP 134/46 L 08/21/19 17:30 Pulse Ox 92 L 08/21/19 17:30 - Orders/Labs/Meds Meds: Medications Discontinued Medications Generic Name Dose Route Start Last Admin Trade Name Freq PRN Reason Stop Dose Admin Lidocaine HCl 10 ml 08/21/19 18:35 08/21/19 19:06 Xylocaine 1% INJECT 08/21/19 18:36 10 ml ONETIME ONE Administration - Re-Assessments/Exams Free Text/Narrative Re-Assessment/Exam: 08/21/19 20:09 I examined the patient and I agree with Geremias's assessment and plan. 08/21/19 20:12 I used lidocaine to do a ring block on his right great toe. I then removed his nail. There was some purelent drainage. I will get him on some keflex. Departure - Departure Time of Disposition: 20:15 Condition: Good - Discharge Information *PRESCRIPTION DRUG MONITORING PROGRAM REVIEWED*: Not Applicable *COPY OF PRESCRIPTION DRUG MONITORING REPORT IN PATIENT BRANDYN: Not Applicable Sepsis Event Note (ED) - Focused Exam Vital Signs: Vital Signs Temp Pulse Resp BP Pulse Ox 08/21/19 17:30 98.0 F 64 16 134/46 L 92 L
[2019-08-21 20:45] VITALS: BP 141/70; PULSE 67
== END 2019-08-21 20:40 | disposition home or self-care (01) ==
LOC: JD.ED 16:55
DX: S91.202A Unspecified open wound of left great toe with damage to nail, initial encounter (principal); E78.00 Pure hypercholesterolemia, unspecified; I10 Essential (primary) hypertension; J44.9 Chronic obstructive pulmonary disease, unspecified; M19.90 Unspecified osteoarthritis, unspecified site; E11.9 Type 2 diabetes mellitus without complications; Z79.82 Long term (current) use of aspirin; Z79.4 Long term (current) use of insulin; Z79.899 Other long term (current) drug therapy; Z88.0 Allergy status to penicillin; Z86.73 Personal history of transient ischemic attack (TIA), and cerebral infarction without residual deficits; X58.XXXA Exposure to other specified factors, initial encounter
CPT/HCPCS: 11730; 99283; J2001

== ENCOUNTER 2020-02-11 11:27 | Inpatient (IN) | payer MEDICARE, OTHER ==
[2020-02-11] MEDS ORDERED: Sodium Chloride 0.9% 10 ML Syringe FLUSH PRN (12:06)
--- NOTE | 2020-02-11 12:12 | EDM.PDOC ---
ED HPI GENERAL MEDICAL PROBLEM - General Chief Complaint: Fever Stated Complaint: COVID + Time Seen by Provider: 02/11/20 11:56 Source of Information: Reports: Patient, RN Notes Reviewed History Limitations: Reports: No Limitations - History of Present Illness INITIAL COMMENTS - FREE TEXT/NARRATIVE: Patient is a 79-year-old male who presents to the ED for his ongoing COVID-19 s ymptoms. Patient was diagnosed with Covid 5 days ago, but notes he was sick 2 days prior to the diagnosis. He notes since then he has not been feeling well, with fevers, cough, nausea/gas/diarrhea and brain fog. Patient's O2 sats while being evaluated in the room, are 87% on room air. This is while he was sitting in a calm quiet state. They range from 87-90 on room air. Respiratory rate is roughly 16 breaths minute, blood pressure is 106/74, temperature is 98.1 F, pulse is 71 bpm. He is not complaining of any chest pain. He states that he is been trying to eat and drink as much as he can to keep himself hydrated. But he just feels rather "crummy". Patient has a history of prior lung disease, and diabetes, he is obese. His primary care provider is Dr. Alena Singh. - Related Data Allergies Allergy/AdvReac Type Severity Reaction Status Date / Time Penicillins Allergy Swelling Verified 11/02/18 09:20 Home Meds: Home Meds Ezetimibe [Zetia] 10 mg PO DAILY 07/25/14 [History] atorvaSTATin [Lipitor] 20 mg PO DAILY 07/25/14 [History] sitaGLIPtin Phos/Metformin HCl [Janumet 50-500 MG] 1 tab PO DAILY 03/18/15 [History] Aspirin [Aspirin EC] 325 mg PO DAILY 07/17/18 [History] Benazepril HCl [Lotensin] 40 tab PO DAILY 07/17/18 [History] Fexofenadine HCl [Marychuy Allergy] 100 mg PO DAILY 07/17/18 [History] Metoprolol Succinate [Toprol Xl] 25 mg PO DAILY 07/17/18 [History] Tiotropium [Spiriva HandiHaler] 1 inh INH DAILY 07/17/18 [History] amLODIPine Besylate [Amlodipine Besylate] 10 mg PO DAILY 07/17/18 [History] Fluticasone/Vilanterol [Breo Ellipta 100-25 MCG Inhalation Kit] 1 puff INH DAILY 09/13/18 [History] Insulin Degludec [Tresiba] 50 unit SQ DAILY 09/13/18 [History] hydroCHLOROthiazide [Microzide] 12.5 mg PO DAILY 09/13/18 [History] Albuterol/Ipratropium [DuoNeb 3.0-0.5 MG/3 ML] 3 ml .XX QID #30 neb 11/02/18 [Rx] Albuterol [Ventolin HFA] 2 puff .XX Q4H #1 inhaler 02/20/19 [Rx] Doxycycline Hyclate 100 mg PO Q12H #14 capsule 02/20/19 [Rx] Doxycycline [Vibramycin] 100 mg PO BID #14 cap 04/30/19 [Rx] cephALEXin [Keflex] 500 mg PO QID #28 capsule 08/21/19 [Rx] Past Medical History HEENT History: Reports: Hard of Hearing, Impaired Vision Other HEENT History: Wears hearing aides bilaterally, and reading glasses Cardiovascular History: Reports: High Cholesterol, Hypertension, SOB on Exertion Respiratory History: Reports: COPD (emphysema) Gastrointestinal History: Reports: Chronic Constipation, Hemorrhoids Genitourinary History: Reports: Urinary Incontinence, Other (See Below) Other Genitourinary History: Minimal incontinence noted Musculoskeletal History: Reports: Osteoarthritis Other Musculoskeletal History: Hx. fx ribs, shoulder blade, hairline cervical fx, rt. thumb & wrist (casted) & coccyx. Neurological History: Reports: CVA, Other (See Below) Other Neuro History: hosp. mar 2016 for CVA symptoms, [facility] ([place]) question whether TIA vs CVA Endocrine/Metabolic History: Reports: Diabetes, Type II, Obesity/BMI 30+ Oncologic (Cancer) History: Reports: Prostate - Infectious Disease History Infectious Disease History: Reports: Chicken Pox - Past Surgical History GI Surgical History: Reports: Cholecystectomy Male Surgical History: Reports: Prostatectomy Other Oncologic Surgeries/Procedures: Prostatectomy Social & Family History - Family History Family Medical History: No Pertinent Family History - Tobacco Use Tobacco Use Status *Q: Former Tobacco User Used Tobacco, but Quit: Yes Month/Year Tobacco Last Used: 1985 - Caffeine Use Caffeine Use: Reports: Coffee Other Caffeine Use: diet soda Caffeine Use Comment: 6-8 cups per day, 1-2 cans pop per dy - Recreational Drug Use Recreational Drug Use: No - Living Situation & Occupation Living situation: Reports: , with Spouse Occupation: Retired ED ROS GENERAL - Review of Systems Review Of Systems: Comprehensive ROS is negative, except as noted in HPI. ED EXAM, GENERAL - Physical Exam Exam: See Below Exam Limited By: No Limitations General Appearance: Alert, WD/WN, No Apparent Distress Respiratory/Chest: No Respiratory Distress, Lungs Clear, Normal Breath Sounds, No Accessory Muscle Use, Chest Non-Tender Cardiovascular: Normal Peripheral Pulses, Regular Rate, Rhythm, No Edema Peripheral Pulses: 2+: Radial (L), Radial (R) GI/Abdominal: Normal Bowel Sounds, Soft, Non-Tender, No Distention, No Mass Extremities: Normal Inspection, Normal Capillary Refill Neurological: Alert, Oriented, Normal Cognition, No Motor/Sensory Deficits Psychiatric: Normal Affect, Normal Mood Skin Exam: Warm, Dry, Intact, Normal Color, No Rash #1 Interpretation EKG Date: 02/11/20 Time: 11:50 Rhythm: NSR Rate (Beats/Min): 71 [place]: Normal P-Wave: Present QRS: Normal ST-T: Normal QT: Normal Comparison: No Change (reviwed from 11/02/18) EKG Interpretation Comments: No obvious ischemia or acute ST changes noted, reviewed by myself and Dr. Dayana myles. Course - Vital Signs Last Recorded V/S: Last Vital Signs Temp 98.1 F 02/11/20 11:49 Pulse 67 02/11/20 13:15 Resp 14 02/11/20 13:15 BP 78/45 L 02/11/20 13:30 Pulse Ox 88 L 02/11/20 13:25 - Orders/Labs/Meds Orders: Active Orders 24 hr Category Date Time Status Admission Status [Patient Status] [ADT] Routine ADT 02/11/20 14:00 Ordered EKG 12 Lead [EKG Documentation Completion] [RC] ROUTINE Care 02/11/20 11:50 Active Peripheral IV Care [RC] . DIRECTED Care 02/11/20 12:06 Active Sodium Chloride 0.9% [Saline Flush] Med 02/11/20 12:06 Active 10 ml FLUSH ASDIRECTED PRN Peripheral IV Insertion Adult [OM.PC] Routine Oth 02/11/20 12:06 Ordered Medication Orders Sodium Chloride (Saline Flush) 10 ml FLUSH ASDIRECTED PRN PRN Reason: Keep Vein Open Last Admin: 02/11/20 12:12 Dose: 10 ml Documented by: BRADLEY Labs: Laboratory Tests 02/11/20 02/11/20 02/11/20 Range/Units 12:30 12:30 12:30 WBC 7.85 (4.23-9.07) K/mm3 RBC 4.56 L (4.63-6.08) M/mm3 Hgb 13.5 L (13.7-17.5) gm/dl Hct 41.6 (40.1-51.0) % MCV 91.2 (79.0-92.2) fl MCH 29.6 (25.7-32.2) pg MCHC 32.5 (32.2-35.5) g/dl RDW Std Deviation 47.0 H (35.1-43.9) fL Plt Count 192 (163-337) K/mm3 MPV 10.8 (9.4-12.3) fl Neutrophils % (Manual) 74 H (40-60) % Band Neutrophils % 0 (0-10) % Lymphocytes % (Manual) 17 L (20-40) % Atypical Lymphs % 0 % Monocytes % (Manual) 9 (2-10) % Eosinophils % (Manual) 0 L (0.8-7.0) % Basophils % (Manual) 0 L (0.2-1.2) Platelet Estimate Adequate RBC Morph Comment Normal PT 11.1 (9.7-12.0) SECONDS INR 1.04 APTT 29.1 (21.7-31.4) SECONDS D-Dimer, Quantitative 0.81 H (0.19-0.50) mg/L Puncture Site ABG pH (7.35-7.45) ABG pCO2 (35.0-45.0) mmHg ABG pO2 (80.0-100.0) mmHg ABG HCO3 (22.0-26.0) meq/L ABG O2 Saturation (96.0-97.0) % ABG Base Excess (-2-2.0) Micky Test A-a Gradient mmHg O2 Delivery Device Oxygen Flow Rate FiO2 (21.00-100.00) % Sodium (136-145) mEq/L Potassium (3.5-5.1) mEq/L Chloride (98-107) mEq/L Carbon Dioxide (21-32) mEq/L Anion Gap (5-15) BUN (7-18) mg/dL Creatinine (0.7-1.3) mg/dL Est Cr Clr Drug Dosing mL/min Estimated GFR (MDRD) (>60) mL/min BUN/Creatinine Ratio (14-18) Glucose (83-115) mg/dL Lactic Acid (0.4-2.0) mmol/L Calcium (8.5-10.1) mg/dL Magnesium (1.8-2.4) mg/dl Ferritin (26-388) ng/ml Total Bilirubin (0.2-1.0) mg/dL AST (15-37) U/L ALT (16-63) U/L Alkaline Phosphatase (46-116) U/L Lactate Dehydrogenase (85-227) U/L Troponin I (0.00-0.056) ng/mL C-Reactive Protein 4.2 H* (<1.0) mg/dL NT-Pro-B Natriuret Pep (0-450) pg/mL Total Protein (6.4-8.2) g/dl Albumin (3.4-5.0) g/dl Globulin gm/dL Albumin/Globulin Ratio (1-2) 02/11/20 02/11/20 02/11/20 Range/Units 12:30 12:30 12:30 WBC (4.23-9.07) K/mm3 RBC (4.63-6.08) M/mm3 Hgb (13.7-17.5) gm/dl Hct (40.1-51.0) % MCV (79.0-92.2) fl MCH (25.7-32.2) pg MCHC (32.2-35.5) g/dl RDW Std Deviation (35.1-43.9) fL Plt Count (163-337) K/mm3 MPV (9.4-12.3) fl Neutrophils % (Manual) (40-60) % Band Neutrophils % (0-10) % Lymphocytes % (Manual) (20-40) % Atypical Lymphs % % Monocytes % (Manual) (2-10) % Eosinophils % (Manual) (0.8-7.0) % Basophils % (Manual) (0.2-1.2) Platelet Estimate RBC Morph Comment PT (9.7-12.0) SECONDS INR APTT (21.7-31.4) SECONDS D-Dimer, Quantitative (0.19-0.50) mg/L Puncture Site ABG pH (7.35-7.45) ABG pCO2 (35.0-45.0) mmHg ABG pO2 (80.0-100.0) mmHg ABG HCO3 (22.0-26.0) meq/L ABG O2 Saturation (96.0-97.0) % ABG Base Excess (-2-2.0) Micky Test A-a Gradient mmHg O2 Delivery Device Oxygen Flow Rate FiO2 (21.00-100.00) % Sodium 133 L (136-145) mEq/L Potassium 4.9 (3.5-5.1) mEq/L Chloride 99 (98-107) mEq/L Carbon Dioxide 22 (21-32) mEq/L Anion Gap 16.9 H (5-15) BUN 53 H (7-18) mg/dL Creatinine 2.4 H D (0.7-1.3) mg/dL Est Cr Clr Drug Dosing 27.39 mL/min Estimated GFR (MDRD) 26 (>60) mL/min BUN/Creatinine Ratio 22.1 H (14-18) Glucose 174 H (83-115) mg/dL Lactic Acid (0.4-2.0) mmol/L Calcium 9.1 (8.5-10.1) mg/dL Magnesium 2.1 (1.8-2.4) mg/dl Ferritin (26-388) ng/ml Total Bilirubin 0.6 (0.2-1.0) mg/dL AST 51 H (15-37) U/L ALT 49 (16-63) U/L Alkaline Phosphatase 70 (46-116) U/L Lactate Dehydrogenase 297 H (85-227) U/L Troponin I 0.018 (0.00-0.056) ng/mL C-Reactive Protein (<1.0) mg/dL NT-Pro-B Natriuret Pep 110 (0-450) pg/mL Total Protein 7.5 (6.4-8.2) g/dl Albumin 3.0 L (3.4-5.0) g/dl Globulin 4.5 gm/dL Albumin/Globulin Ratio 0.7 L (1-2) 02/11/20 02/11/20 Range/Units 12:30 12:43 WBC (4.23-9.07) K/mm3 RBC (4.63-6.08) M/mm3 Hgb (13.7-17.5) gm/dl Hct (40.1-51.0) % MCV (79.0-92.2) fl MCH (25.7-32.2) pg MCHC (32.2-35.5) g/dl RDW Std Deviation (35.1-43.9) fL Plt Count (163-337) K/mm3 MPV (9.4-12.3) fl Neutrophils % (Manual) (40-60) % Band Neutrophils % (0-10) % Lymphocytes % (Manual) (20-40) % Atypical Lymphs % % Monocytes % (Manual) (2-10) % Eosinophils % (Manual) (0.8-7.0) % Basophils % (Manual) (0.2-1.2) Platelet Estimate RBC Morph Comment PT (9.7-12.0) SECONDS INR APTT (21.7-31.4) SECONDS D-Dimer, Quantitative (0.19-0.50) mg/L Puncture Site Lt radial ABG pH 7.39 (7.35-7.45) ABG pCO2 33.9 L (35.0-45.0) mmHg ABG pO2 63.0 L (80.0-100.0) mmHg ABG HCO3 20.0 L (22.0-26.0) meq/L ABG O2 Saturation 88.3 L (96.0-97.0) % ABG Base Excess -3.7 L (-2-2.0) Micky Test Positive A-a Gradient 44 mmHg O2 Delivery Device Room air Oxygen Flow Rate 0.0 FiO2 21.00 (21.00-100.00) % Sodium (136-145) mEq/L Potassium (3.5-5.1) mEq/L Chloride (98-107) mEq/L Carbon Dioxide (21-32) mEq/L Anion Gap (5-15) BUN (7-18) mg/dL Creatinine (0.7-1.3) mg/dL Est Cr Clr Drug Dosing mL/min Estimated GFR (MDRD) (>60) mL/min BUN/Creatinine Ratio (14-18) Glucose (83-115) mg/dL Lactic Acid 1.4 (0.4-2.0) mmol/L Calcium (8.5-10.1) mg/dL Magnesium (1.8-2.4) mg/dl Ferritin (26-388) ng/ml Total Bilirubin (0.2-1.0) mg/dL AST (15-37) U/L ALT (16-63) U/L Alkaline Phosphatase (46-116) U/L Lactate Dehydrogenase (85-227) U/L Troponin I (0.00-0.056) ng/mL C-Reactive Protein (<1.0) mg/dL NT-Pro-B Natriuret Pep (0-450) pg/mL Total Protein (6.4-8.2) g/dl Albumin (3.4-5.0) g/dl Globulin gm/dL Albumin/Globulin Ratio (1-2) Meds: Medications Generic Name Dose Route Start Last Admin Trade Name Freq PRN Reason Stop Dose Admin Sodium Chloride 10 ml 02/11/20 12:06 02/11/20 12:12 Saline Flush FLUSH 10 ml ASDIRECTED PRN Administration Keep Vein Open Discontinued Medications Generic Name Dose Route Start Last Admin Trade Name Freq PRN Reason Stop Dose Admin Sodium Chloride Confirm 02/11/20 12:43 02/11/20 12:54 Normal Saline Administered 02/11/20 12:44 Not Given Dose 1,000 mls @ as directed .ROUTE .STK-MED ONE Sodium Chloride 500 mls @ 1,000 mls/hr 02/11/20 12:43 02/11/20 12:45 Normal Saline IV 02/11/20 13:12 1,000 mls/hr .BOLUS ONE Administration - Re-Assessments/Exams Free Text/Narrative Re-Assessment/Exam: 02/11/20 12:11 Patient presents to the ED for his ongoing COVID-19 symptoms. Due to his oxygen saturations being lowto borderline low on room air, it is likely that he will need hospitalization due to his underlying lung disease, diabetes, obesity. We are going to get chest x-ray, baseline labs for evaluation with the hopes to admit to the hospital for IV therapy. 12/28/20 13:06 The patient's chest x-ray has been performed, there were no acute changes noted by Dr. Kendrick, the blood gas shows a PO2 of 63 on room air, but his O2 sats have been steadily again in the high 80s. Nurse reported that the patient's blood pressure was a little bit low at the last recheck at 80 systolically, he will get a 500 mill fluid bolus for ongoing management. 02/11/20 14:01 As blood pressure has still remained low, he did get the second 500 mL for fluid bolus. Nurse has placed him on 2 L nasal oxygen and his O2 sats are 94%. With this information, I did call Dr. Sotomayor and he graciously accepted for admission to the hospital for ongoing hypoxia/Covid 19 disease/hypotension. Departure - Departure Time of Disposition: 14:02 Disposition: Home, Self-Care 01 Condition: Fair Clinical Impression: COVID-19, Hypoxia Hypotension Qualifiers: Hypotension type: other hypotension type Qualified Code(s): I95.89 - Other hypotension - Discharge Information Forms: ED Department Discharge Sepsis Event Note (ED) - Evaluation Sepsis Screening Result: No Definite Risk - Focused Exam Vital Signs: Vital Signs Temp Pulse Resp BP Pulse Ox 02/11/20 13:30 78/45 L 02/11/20 13:25 88 L 02/11/20 13:15 67 14 100/45 L 89 L 02/11/20 12:45 69 18 90/41 L 89 L 02/11/20 11:49 98.1 F 71 13 106/74 92 L - My Orders Last 24 Hours: My Active Orders 02/11/20 11:50 EKG 12 Lead [EKG Documentation Completion] [RC] ROUTINE 02/11/20 12:06 Peripheral IV Care [RC] . DIRECTED Sodium Chloride 0.9% [Saline Flush] 10 ml FLUSH ASDIRECTED PRN Peripheral IV Insertion Adult [OM.PC] Routine 02/11/20 14:00 Admission Status [Patient Status] [ADT] Routine - Assessment/Plan Last 24 Hours: My Active Orders 02/11/20 11:50 EKG 12 Lead [EKG Documentation Completion] [RC] ROUTINE 02/11/20 12:06 Peripheral IV Care [RC] . DIRECTED Sodium Chloride 0.9% [Saline Flush] 10 ml FLUSH ASDIRECTED PRN Peripheral IV Insertion Adult [OM.PC] Routine 02/11/20 14:00 Admission Status [Patient Status] [ADT] Routine
[2020-02-11] MEDS ORDERED: Sodium Chloride 0.9% 500 ML IV ONE (12:43)
[2020-02-11] MEDS ORDERED: Sodium Chloride 0.9% 1,000 ML ONE (12:43)
--- NOTE | 2020-02-11 12:54 | CR ---
Chest: Portable view of the chest was obtained. Comparison: Prior chest x-ray of 11/13/18. Findings: Heart size and mediastinum are within normal limits. Lung markings are slightly increased which appear to be chronic. No acute parenchymal change is appreciated. Bony structures show nothing acute. Impression: 1. Nothing acute is appreciated on current portable chest x-ray. Diagnostic code #2
--- NOTE | 2020-02-11 14:49 | PCM.HP.2 ---
H&P History of Present Illness - General Date of Service: 02/11/20 Admit Problem/Dx: Admission Diagnosis/Problem Admission Diagnosis/Problem Hypoxia Source of Information: Patient, Old Records, Provider, RN, RN Notes Reviewed History Limitations: Reports: No Limitations - History of Present Illness Initial Comments - Free Text/Narative: This is a 79 yo male who presents to ED on 02/11/2020 with fevers, cough, nausea, diarrhea, brain fog, and generalized feelings of unwell. He is noted to be 87% on room air. Respiratory rate is 16 breaths/min and blood pressure is 106/72. Temperature is 98.1 and pulse is 71 bpm. He states he has been trying to eat and drink as much as he can try to keep himself hydrated but he has not been feeling well. He reports prior lung disease and diabetes. He is also noted to be obese. He reports he was diagnosed with Covid approximately 5 days prior although he reports he had symptoms 2 days before diagnoses. In the ED twelve-lead EKG is obtained showing sinus rhythm at 71 bpm with no change from prior twelve-lead EKG obtained on 11/02/2018. Vital signs are as noted above. Labs are obtained showing a WBC of 7.5. Hemoglobin 13.5. Hematocrit 41.6. Platelets 192. Neutrophils are elevated at 74%. There is no bandemia. PT is 11.1. INR is 1.04. aPTT is 29.1. D-dimer is mildly elevated at 0.81. CRP is 4.2. Sodium is low at 133. Potassium 4.9. Chloride 99. Carbon dioxide 22. Anion gap is high at 16.9. BUN is high at 53. Creatinine is high at 2.4. GFR is low at 26. Glucose is high at 174. Calcium is 9.1. Ma gnesium 2.1. Bilirubin is 0.6. AST is 51, ALT 49, alkaline phosphatase 70. LDH is 297. Troponin 0 0.018. proBNP is 110. Protein 7.5. Albumin 3.0. Lactic acid is 1.4. ABG is obtained in the left radial showing a pH of 7.39 with a PCO2 of 33.9, PO2 of 63, HCO3 of 20, O2 saturation of 88.3. A-a gradient 44. This is obtained on room air. Chest x-ray is obtained showing nothing acute. He is noted to have a blood pressure of 80 systolic on recheck and is given a 500 mL fluid bolus. He is given a second 500 mL fluid bolus and placed on 2 L of oxygen which improved saturations to 94%. He carries a history of HLD, HTN, COPD, chronic constipation, urinary incontinence, osteoarthritis, CVA, type II DM, obesity, prostate cancer. He is a former smoker. He is a full code. He subsequently admitted to the medical floor on telemetry for continuing management of his COVID-19 symptoms and hypovolemia. - Related Data Allergies/Adverse Reactions: Allergies Allergy/AdvReac Type Severity Reaction Status Date / Time Penicillins Allergy Swelling Verified 02/11/20 15:47 Home Medications: Home Meds Ezetimibe [Zetia] 10 mg PO DAILY 07/25/14 [History] atorvaSTATin [Lipitor] 20 mg PO DAILY 07/25/14 [History] sitaGLIPtin Phos/Metformin HCl [Janumet 50-500 MG] 1 tab PO BID 03/18/15 [History] Aspirin [Aspirin EC] 325 mg PO DAILY 07/17/18 [History] Benazepril HCl [Lotensin] 40 tab PO DAILY 07/17/18 [History] Fexofenadine HCl [Marychuy Allergy] 100 mg PO DAILY 07/17/18 [History] Metoprolol Succinate [Toprol Xl] 25 mg PO DAILY 07/17/18 [History] Tiotropium [Spiriva HandiHaler] 1 inh INH DAILY 07/17/18 [History] amLODIPine Besylate [Amlodipine Besylate] 10 mg PO DAILY 07/17/18 [History] Insulin Degludec [Tresiba] 50 unit SQ DAILY 09/13/18 [History] hydroCHLOROthiazide [Microzide] 12.5 mg PO DAILY 09/13/18 [History] Albuterol/Ipratropium [DuoNeb 3.0-0.5 MG/3 ML] 3 ml .XX QID #30 neb 11/02/18 [Rx] Albuterol [Ventolin HFA] 2 puff .XX Q4H #1 inhaler 02/20/19 [Rx] Ergocalciferol (Vitamin D2) [Vitamin D2] 1 tab PO ASDIRECTED 02/11/20 [History] Fluticasone/Vilanterol [Breo Ellipta 200-25 MCG Inhalation Kit] 1 inhalation IH DAILY 02/11/20 [History] Insulin Degludec [Tresiba] 70 units SQ DAILY 02/11/20 [History] Past Medical History HEENT History: Reports: Hard of Hearing, Impaired Vision Other HEENT History: Wears hearing aides bilaterally, and reading glasses Cardiovascular History: Reports: High Cholesterol, Hypertension, SOB on Exertion Respiratory History: Reports: COPD (emphysema) Other Respiratory History: emphysema Gastrointestinal History: Reports: Chronic Constipation, Hemorrhoids Genitourinary History: Reports: Urinary Incontinence, Other (See Below) Other Genitourinary History: Minimal incontinence noted Musculoskeletal History: Reports: Osteoarthritis Other Musculoskeletal History: Hx. fx ribs, shoulder blade, hairline cervical fx, rt. thumb & wrist (casted) & coccyx. Neurological History: Reports: CVA, Other (See Below) Other Neuro History: hosp. mar 2016 for CVA symptoms, [facility] ([place]) question whether TIA vs CVA Psychiatric History: Reports: None Endocrine/Metabolic History: Reports: Diabetes, Type II, Obesity/BMI 30+ Hematologic History: Reports: None Immunologic History: Reports: None Oncologic (Cancer) History: Reports: Prostate Dermatologic History: Reports: None - Infectious Disease History Infectious Disease History: Reports: Chicken Pox - Past Surgical History GI Surgical History: Reports: Cholecystectomy Male Surgical History: Reports: Prostatectomy Other Oncologic Surgeries/Procedures: Prostatectomy Social & Family History - Family History Family Medical History: No Pertinent Family History - Tobacco Use Tobacco Use Status *Q: Former Tobacco User Used Tobacco, but Quit: Yes Month/Year Tobacco Last Used: 1985 - Caffeine Use Caffeine Use: Reports: Coffee Other Caffeine Use: diet soda Caffeine Use Comment: 6-8 cups per day, 1-2 cans pop per dy - Recreational Drug Use Recreational Drug Use: No - Living Situation & Occupation Living situation: Reports: , with Spouse Occupation: Retired H&P Review of Systems - Review of Systems: Review Of Systems: See Below General: Reports: No Symptoms, Fever, Malaise, Weakness, Fatigue, Decreased Appetite. Denies: Chills, Night Sweats HEENT: Reports: No Symptoms. Denies: Headaches, Sore Throat Pulmonary: Reports: Shortness of Breath, Cough, Sputum. Denies: Wheezing, Pleuritic Chest Pain Cardiovascular: Reports: No Symptoms, Dyspnea on Exertion. Denies: Chest Pain, Edema, Lightheadedness Gastrointestinal: Reports: Diarrhea, Flatus, Nausea, Vomiting. Denies: Ab dominal Pain, Constipation Genitourinary: Reports: Incontinence (chronic ) Musculoskeletal: Reports: No Symptoms Skin: Reports: No Symptoms. Denies: Cyanosis Psychiatric: Reports: No Symptoms. Denies: Confusion Neurological: Reports: Weakness. Denies: Confusion, Pre-Existing Deficit, Difficulty Walking, Gait Disturbance Hematologic/Lymphatic: Reports: No Symptoms Immunologic: Reports: No Symptoms Exam - Exam Exam: See Below - Vital Signs Vital Signs: Last Vital Signs Temp 98.1 F 02/11/20 11:49 Pulse 66 02/11/20 14:00 Resp 14 02/11/20 14:00 BP 95/52 L 02/11/20 14:00 Pulse Ox 95 02/11/20 14:00 Weight: 255 lb - Exam Quality Assessment: Supplemental Oxygen (2L), DVT Prophylaxis. No: Urinary Catheter General: Alert, Oriented, Cooperative. No: Mild Distress HEENT: Conjunctiva Clear, EACs Clear, Mucosa Moist & [place] Neck: Supple, Trachea Midline Lungs: Clear to Auscultation, Normal Respiratory Effort, Decreased Breath Sounds Cardiovascular: Regular Rate, Regular Rhythm GI/Abdominal Exam: Normal Bowel Sounds, Soft, Non-Tender, No Distention (Male) Exam: Deferred Rectal (Males) Exam: Deferred Back Exam: Normal Inspection, Full Range of Motion Extremities: Normal Inspection, Normal Range of Motion, Non-Tender, No Pedal Edema, Normal Capillary Refill Skin: Warm, Dry, Intact Neurological: Cranial Nerves Intact (grossly ) Neuro Extensive - Mental Status: Alert, Oriented x3, Normal Mood/Affect - Patient Data Lab Results Last 24 hrs: Laboratory Results - last 24 hr 02/11/20 02/11/20 02/11/20 Range/Units 12:30 12:30 12:30 WBC 7.85 (4.23-9.07) K/mm3 RBC 4.56 L (4.63-6.08) M/mm3 Hgb 13.5 L (13.7-17.5) gm/dl Hct 41.6 (40.1-51.0) % MCV 91.2 (79.0-92.2) fl MCH 29.6 (25.7-32.2) pg MCHC 32.5 (32.2-35.5) g/dl RDW Std Deviation 47.0 H (35.1-43.9) fL Plt Count 192 (163-337) K/mm3 MPV 10.8 (9.4-12.3) fl Neutrophils % (Manual) 74 H (40-60) % Band Neutrophils % 0 (0-10) % Lymphocytes % (Manual) 17 L (20-40) % Atypical Lymphs % 0 % Monocytes % (Manual) 9 (2-10) % Eosinophils % (Manual) 0 L (0.8-7.0) % Basophils % (Manual) 0 L (0.2-1.2) Platelet Estimate Adequate RBC Morph Comment Normal PT 11.1 (9.7-12.0) SECONDS INR 1.04 APTT 29.1 (21.7-31.4) SECONDS D-Dimer, Quantitative 0.81 H (0.19-0.50) mg/L Puncture Site ABG pH (7.35-7.45) ABG pCO2 (35.0-45.0) mmHg ABG pO2 (80.0-100.0) mmHg ABG HCO3 (22.0-26.0) meq/L ABG O2 Saturation (96.0-97.0) % ABG Base Excess (-2-2.0) Micky Test A-a Gradient mmHg O2 Delivery Device Oxygen Flow Rate FiO2 (21.00-100.00) % Sodium (136-145) mEq/L Potassium (3.5-5.1) mEq/L Chloride (98-107) mEq/L Carbon Dioxide (21-32) mEq/L Anion Gap (5-15) BUN (7-18) mg/dL Creatinine (0.7-1.3) mg/dL Est Cr Clr Drug Dosing mL/min Estimated GFR (MDRD) (>60) mL/min BUN/Creatinine Ratio (14-18) Glucose (83-115) mg/dL Lactic Acid (0.4-2.0) mmol/L Calcium (8.5-10.1) mg/dL Magnesium (1.8-2.4) mg/dl Ferritin (26-388) ng/ml Total Bilirubin (0.2-1.0) mg/dL AST (15-37) U/L ALT (16-63) U/L Alkaline Phosphatase (46-116) U/L Lactate Dehydrogenase (85-227) U/L Troponin I (0.00-0.056) ng/mL C-Reactive Protein 4.2 H* (<1.0) mg/dL NT-Pro-B Natriuret Pep (0-450) pg/mL Total Protein (6.4-8.2) g/dl Albumin (3.4-5.0) g/dl Globulin gm/dL Albumin/Globulin Ratio (1-2) 02/11/20 02/11/20 02/11/20 Range/Units 12:30 12:30 12:30 WBC (4.23-9.07) K/mm3 RBC (4.63-6.08) M/mm3 Hgb (13.7-17.5) gm/dl Hct (40.1-51.0) % MCV (79.0-92.2) fl MCH (25.7-32.2) pg MCHC (32.2-35.5) g/dl RDW Std Deviation (35.1-43.9) fL Plt Count (163-337) K/mm3 MPV (9.4-12.3) fl Neutrophils % (Manual) (40-60) % Band Neutrophils % (0-10) % Lymphocytes % (Manual) (20-40) % Atypical Lymphs % % Monocytes % (Manual) (2-10) % Eosinophils % (Manual) (0.8-7.0) % Basophils % (Manual) (0.2-1.2) Platelet Estimate RBC Morph Comment PT (9.7-12.0) SECONDS INR APTT (21.7-31.4) SECONDS D-Dimer, Quantitative (0.19-0.50) mg/L Puncture Site ABG pH (7.35-7.45) ABG pCO2 (35.0-45.0) mmHg ABG pO2 (80.0-100.0) mmHg ABG HCO3 (22.0-26.0) meq/L ABG O2 Saturation (96.0-97.0) % ABG Base Excess (-2-2.0) Micky Test A-a Gradient mmHg O2 Delivery Device Oxygen Flow Rate FiO2 (21.00-100.00) % Sodium 133 L (136-145) mEq/L Potassium 4.9 (3.5-5.1) mEq/L Chloride 99 (98-107) mEq/L Carbon Dioxide 22 (21-32) mEq/L Anion Gap 16.9 H (5-15) BUN 53 H (7-18) mg/dL Creatinine 2.4 H D (0.7-1.3) mg/dL Est Cr Clr Drug Dosing 27.39 mL/min Estimated GFR (MDRD) 26 (>60) mL/min BUN/Creatinine Ratio 22.1 H (14-18) Glucose 174 H (83-115) mg/dL Lactic Acid (0.4-2.0) mmol/L Calcium 9.1 (8.5-10.1) mg/dL Magnesium 2.1 (1.8-2.4) mg/dl Ferritin 1836 H (26-388) ng/ml Total Bilirubin 0.6 (0.2-1.0) mg/dL AST 51 H (15-37) U/L ALT 49 (16-63) U/L Alkaline Phosphatase 70 (46-116) U/L Lactate Dehydrogenase 297 H (85-227) U/L Troponin I 0.018 (0.00-0.056) ng/mL C-Reactive Protein (<1.0) mg/dL NT-Pro-B Natriuret Pep 110 (0-450) pg/mL Total Protein 7.5 (6.4-8.2) g/dl Albumin 3.0 L (3.4-5.0) g/dl Globulin 4.5 gm/dL Albumin/Globulin Ratio 0.7 L (1-2) 02/11/20 02/11/20 Range/Units 12:30 12:43 WBC (4.23-9.07) K/mm3 RBC (4.63-6.08) M/mm3 Hgb (13.7-17.5) gm/dl Hct (40.1-51.0) % MCV (79.0-92.2) fl MCH (25.7-32.2) pg MCHC (32.2-35.5) g/dl RDW Std Deviation (35.1-43.9) fL Plt Count (163-337) K/mm3 MPV (9.4-12.3) fl Neutrophils % (Manual) (40-60) % Band Neutrophils % (0-10) % Lymphocytes % (Manual) (20-40) % Atypical Lymphs % % Monocytes % (Manual) (2-10) % Eosinophils % (Manual) (0.8-7.0) % Basophils % (Manual) (0.2-1.2) Platelet Estimate RBC Morph Comment PT (9.7-12.0) SECONDS INR APTT (21.7-31.4) SECONDS D-Dimer, Quantitative (0.19-0.50) mg/L Puncture Site Lt radial ABG pH 7.39 (7.35-7.45) ABG pCO2 33.9 L (35.0-45.0) mmHg ABG pO2 63.0 L (80.0-100.0) mmHg ABG HCO3 20.0 L (22.0-26.0) meq/L ABG O2 Saturation 88.3 L (96.0-97.0) % ABG Base Excess -3.7 L (-2-2.0) Micky Test Positive A-a Gradient 44 mmHg O2 Delivery Device Room air Oxygen Flow Rate 0.0 FiO2 21.00 (21.00-100.00) % Sodium (136-145) mEq/L Potassium (3.5-5.1) mEq/L Chloride (98-107) mEq/L Carbon Dioxide (21-32) mEq/L Anion Gap (5-15) BUN (7-18) mg/dL Creatinine (0.7-1.3) mg/dL Est Cr Clr Drug Dosing mL/min Estimated GFR (MDRD) (>60) mL/min BUN/Creatinine Ratio (14-18) Glucose (83-115) mg/dL Lactic Acid 1.4 (0.4-2.0) mmol/L Calcium (8.5-10.1) mg/dL Magnesium (1.8-2.4) mg/dl Ferritin (26-388) ng/ml Total Bilirubin (0.2-1.0) mg/dL AST (15-37) U/L ALT (16-63) U/L Alkaline Phosphatase (46-116) U/L Lactate Dehydrogenase (85-227) U/L Troponin I (0.00-0.056) ng/mL C-Reactive Protein (<1.0) mg/dL NT-Pro-B Natriuret Pep (0-450) pg/mL Total Protein (6.4-8.2) g/dl Albumin (3.4-5.0) g/dl Globulin gm/dL Albumin/Globulin Ratio (1-2) Result Diagrams: 02/11/20 12:30 02/11/20 12:30 Sepsis Event Note - Evaluation Sepsis Screening Result: No Definite Risk - Focused Exam Vital Signs: Vital Signs Temp Pulse Resp BP Pulse Ox 02/11/20 14:00 66 14 95/52 L 95 02/11/20 13:30 78/45 L 02/11/20 13:25 88 L 02/11/20 13:15 67 14 100/45 L 89 L 02/11/20 12:45 69 18 90/41 L 89 L 02/11/20 11:49 98.1 F 71 13 106/74 92 L - Problem List (1) COVID-19 SNOMED Code(s): 528133284 ICD Code: U07.1 - COVID-19 Status: Acute Priority: High Current Visit: Yes (2) Hypotension SNOMED Code(s): 09232939 ICD Code: I95.9 - HYPOTENSION, UNSPECIFIED Status: Acute Priority: High Current Visit: Yes Qualifiers: Hypotension type: other hypotension type Qualified Code(s): I95.89 - Other hypotension (3) Hypoxemia requiring supplemental oxygen SNOMED Code(s): 527018376 ICD Code: R09.02 - HYPOXEMIA; Z99.81 - DEPENDENCE ON SUPPLEMENTAL OXYGEN Status: Acute Priority: High Current Visit: Yes (4) Generalized weakness SNOMED Code(s): 18697167 ICD Code: R53.1 - WEAKNESS Status: Acute Priority: High Current Visit: Yes (5) COPD (chronic obstructive pulmonary disease) SNOMED Code(s): 57087931 ICD Code: J44.9 - CHRONIC OBSTRUCTIVE PULMONARY DISEASE, UNSPECIFIED Status: Chronic Priority: Medium Current Visit: No Qualifiers: COPD type: emphysema Emphysema type: unspecified Qualified Code(s): J43.9 - Emphysema, unspecified (6) Type II diabetes mellitus SNOMED Code(s): 13711492 ICD Code: E11.9 - TYPE 2 DIABETES MELLITUS WITHOUT COMPLICATIONS Status: Chronic Priority: Medium Current Visit: No Qualifiers: Diabetes mellitus intermediate insulin use: with rat exterminator use Diabetes mellitus complication status: with other specified complication Qualified Code(s): E11.69 - Type 2 diabetes mellitus with other specified complication; Z79.4 - MCC (current) use of insulin Problem List Initiated/Reviewed/Updated: Yes Orders Last 24hrs: Active Orders 24 hr Category Date Time Status Admission Status [Patient Status] [ADT] Routine ADT 02/11/20 14:00 Active EKG 12 Lead [EKG Documentation Completion] [RC] ROUTINE Care 02/11/20 11:50 Active Peripheral IV Care [RC] . DIRECTED Care 02/11/20 12:06 Active UA W/MICROSCOPIC [URIN] Stat Lab 02/11/20 14:02 Ordered Sodium Chloride 0.9% [Saline Flush] Med 02/11/20 12:06 Active 10 ml FLUSH ASDIRECTED PRN Peripheral IV Insertion Adult [OM.PC] Routine Oth 02/11/20 12:06 Ordered Medication Orders Sodium Chloride (Saline Flush) 10 ml FLUSH ASDIRECTED PRN PRN Reason: Keep Vein Open Last Admin: 02/11/20 12:12 Dose: 10 ml Documented by: BRADLEY Assessment/Plan Comment:: Assessment: Day of admission 02/11/2020 * 79 yo male who presents to the ED with weakness, fevers, cough, nausea, gas, diarrhea, brain fog, and general unwell feeling * Reportedly diagnosed with COVID-19 on 02/06/2020 - reports symptoms began 2 days prior * Oxygen saturations of 87% on RA in ED - started on 2L oxygen * History of emphysema and diabetes * Noted to have episode of hypotension in ED with BP of 80s systolic * Given 500ml fluid bolus x2 * 12-Lead EKG in ED shows sinus rhythm at 71 BPM with no signs of ischemia * 1-view chest x-ray in ED shows nothing acute * Labs in ED: * WBC 7.85 * Hgb 13.5 * Plt 192 * Neutrophils elevated at 74% with no bandemia * INR 1.04 * D-dimer 0.81 * CRP 4.2 * Sodium 133 * Potassium 4.9 * Anion gap 16.9 * BUN 53 * Creatinine 2.4 * GFR 26 * Magnesium 2.1 * Pro-BNP 110 * Troponin 0.018 * Lactic acid 1.4 * AGB: pH 7.39, PCO2 33.9, PO2 63, HCO3 20, O2 saturation 88.3, base excess -3.7, A-a 44 * UA: Concentrated urine with 2+ protein, trace ketones, 1+ bilirubin, 5-10 squamous epithelial cells, few amorphous sediment, many bacteria * Admitted to hospital floor on telemetry for management of COVID-19 symptoms, hypoxia, and hypotension PLAN: COVID-19 Hypotension Hypoxemia requiring supplemental oxygen Generalized weakness COPD (chronic obstructive pulmonary disease) * IS/Acapella * Start dexamethasone 6mg day 02/23 * RT consultation * O2 as needed - attempt to wean * PT/OT * CM/SW for discharge planning * IV fluids as ordered - caution with COVID-19 * Continuous pulse ox * Telemetry * Encourage proning and ambulating in room * Airborne and droplet precautions * Tylenol as needed for pain/fever * Daily labs as ordered * D-Dimer Q48 hours * Check procalcitonin * Check Vitamin D * Supplement zinc and vitamin D if needed * Home medications as ordered * Start famotidine BID Type II diabetes mellitus * Hold home Tresiba and Janumet * Start p.o. alogliptin * Sliding scale insulin as ordered * Monitor blood sugars 4 times daily before meals and bedtime * Diabetic diet * Obtain A1c PCP: Dr. Alena Singh DVT prophylaxis: Heparin Code status: Full code [place] Disposition: Patient admitted to M/S/P with telemetry for management of COVID-19 symptoms, hypoxia, hypotension. LOS anticipated 3-4 days Prognosis: Good - Mortality Measure Prognosis:: Good
[2020-02-11] MEDS ORDERED: Acetaminophen 325 MG Tab PO PRN (15:10)
[2020-02-11] MEDS ORDERED: Ondansetron 4 MG/2 ML SDV IV PRN (15:10)
[2020-02-11] MEDS ORDERED: Cholecalciferol (Vitamin D3) 5,000 UNIT Cap PO SCH (15:30)
[2020-02-11] MEDS ORDERED: Dexamethasone 4 MG Tab PO SCH (15:30)
[2020-02-11] MEDS ORDERED: Zinc Sulfate 220 MG Cap PO SCH (15:30)
[2020-02-11] MEDS ORDERED: Lactated Ringers 1,000 ML IV SCH (15:30)
[2020-02-11 15:50] LABS: HEMOGLOBIN A1C 7.1 % (4.50-6.20)
[2020-02-11] MEDS ORDERED: Albuterol 6.7 GM Inhaler INH PRN (17:03)
[2020-02-11] MEDS: Zinc Sulfate 220 MG Cap PO SCH (17:32)
[2020-02-11] MEDS: Dexamethasone 4 MG Tab PO SCH (17:33)
[2020-02-11] MEDS: Heparin Sodium 5,000 Units/ML Vial SUBCUT SCH (17:34)
[2020-02-11] MEDS ORDERED: Famotidine 20 MG Tab PO SCH (21:00)
[2020-02-12] MEDS: Heparin Sodium 5,000 Units/ML Vial SUBCUT SCH ×3 (00:31→16:52)
--- NOTE | 2020-02-12 07:41 | PCM.PN ---
- General Info Date of Service: 02/12/20 Admission Dx/Problem (Free Text): Admission Diagnosis/Problem Admission Diagnosis/Problem Hypoxia Functional Status: Reports: Pain Controlled, Tolerating Diet, Ambulating, Urinating, Incentive Spirometry, Other (acapella ). Denies: New Symptoms - Review of Systems General: Reports: Weakness (improved ), Fatigue (improved ). Denies: Fever, Malaise, Chills HEENT: Denies: Headaches, Sore Throat Pulmonary: Reports: Shortness of Breath (improved ), Cough. Denies: Pleuritic Chest Pain, Sputum, Wheezing Cardiovascular: Reports: Dyspnea on Exertion, Orthopnea. Denies: Chest Pain, Palpitations, Edema, Lightheadedness Gastrointestinal: Reports: No Symptoms. Denies: Abdominal Pain, Constipation, Diarrhea, Nausea, Vomiting Genitourinary: Reports: No Symptoms. Denies: Pain Musculoskeletal: Reports: No Symptoms Skin: Reports: No Symptoms Neurological: Reports: No Symptoms. Denies: Confusion, Dizziness, Headache, Numbness, Tingling, Difficulty Walking, Weakness, Gait Disturbance Psychiatric: Reports: No Symptoms - Patient Data Vitals - Most Recent: Last Vital Signs Temp 97.0 F 02/12/20 04:04 Pulse 51 L 02/12/20 04:04 Resp 16 02/12/20 04:04 BP 116/47 L 02/12/20 04:04 Pulse Ox 94 L 02/12/20 06:11 Weight - Most Recent: 239 lb 14.4 oz I&O - Last 24 Hours: Intake & Output 02/11/20 02/12/20 02/12/20 22:59 06:59 14:59 Intake Total 900 Output Total 500 Balance -500 900 Lab Results Last 24 Hours: Laboratory Results - last 24 hr 02/11/20 02/11/20 02/11/20 Range/Units 12:30 12:30 12:30 WBC 7.85 (4.23-9.07) K/mm3 RBC 4.56 L (4.63-6.08) M/mm3 Hgb 13.5 L (13.7-17.5) gm/dl Hct 41.6 (40.1-51.0) % MCV 91.2 (79.0-92.2) fl MCH 29.6 (25.7-32.2) pg MCHC 32.5 (32.2-35.5) g/dl RDW Std Deviation 47.0 H (35.1-43.9) fL Plt Count 192 (163-337) K/mm3 MPV 10.8 (9.4-12.3) fl Neut % (Auto) (34.0-67.9) % Lymph % (Auto) (21.8-53.1) % [place] % (Auto) (5.3-12.2) % Eos % (Auto) (0.8-7.0) Baso % (Auto) (0.1-1.2) % Neut # (Auto) (1.78-5.38) K/mm3 Lymph # (Auto) (1.32-3.57) K/mm3 [place] # (Auto) (0.30-0.82) K/mm3 Eos # (Auto) (0.04-0.54) K/mm3 Baso # (Auto) (0.01-0.08) K/mm3 Neutrophils % (Manual) 74 H (40-60) % Band Neutrophils % 0 (0-10) % Lymphocytes % (Manual) 17 L (20-40) % Atypical Lymphs % 0 % Monocytes % (Manual) 9 (2-10) % Eosinophils % (Manual) 0 L (0.8-7.0) % Basophils % (Manual) 0 L (0.2-1.2) Manual Slide Review Platelet Estimate Adequate RBC Morph Comment Normal PT 11.1 (9.7-12.0) SECONDS INR 1.04 APTT 29.1 (21.7-31.4) SECONDS D-Dimer, Quantitative 0.81 H (0.19-0.50) mg/L Puncture Site ABG pH (7.35-7.45) ABG pCO2 (35.0-45.0) mmHg ABG pO2 (80.0-100.0) mmHg ABG HCO3 (22.0-26.0) meq/L ABG O2 Saturation (96.0-97.0) % ABG Base Excess (-2-2.0) Micky Test A-a Gradient mmHg O2 Delivery Device Oxygen Flow Rate FiO2 (21.00-100.00) % Sodium (136-145) mEq/L Potassium (3.5-5.1) mEq/L Chloride (98-107) mEq/L Carbon Dioxide (21-32) mEq/L Anion Gap (5-15) BUN (7-18) mg/dL Creatinine (0.7-1.3) mg/dL Est Cr Clr Drug Dosing mL/min Estimated GFR (MDRD) (>60) mL/min BUN/Creatinine Ratio (14-18) Glucose (83-115) mg/dL POC Glucose (83-110) mg/dL Hemoglobin A1c (4.50-6.20) % Lactic Acid (0.4-2.0) mmol/L Calcium (8.5-10.1) mg/dL Magnesium (1.8-2.4) mg/dl Ferritin (26-388) ng/ml Total Bilirubin (0.2-1.0) mg/dL AST (15-37) U/L ALT (16-63) U/L Alkaline Phosphatase (46-116) U/L Lactate Dehydrogenase (85-227) U/L Troponin I (0.00-0.056) ng/mL C-Reactive Protein 4.2 H* (<1.0) mg/dL NT-Pro-B Natriuret Pep (0-450) pg/mL Total Protein (6.4-8.2) g/dl Albumin (3.4-5.0) g/dl Globulin gm/dL Albumin/Globulin Ratio (1-2) Vitamin D 25-Hydroxy (30.0-100.0) ng/ml Urine Color (Yellow) Urine Appearance (Clear) Urine pH (5.0-8.0) Ur Specific [place] (1.005-1.030) Urine Protein (Negative) Urine Glucose (UA) (Negative) Urine Ketones (Negative) Urine Occult Blood (Negative) Urine Nitrite (Negative) Urine Bilirubin (Negative) Urine Urobilinogen (0.2-1.0) Ur Leukocyte Esterase (Negative) U Hyaline Cast (Auto) (0-5) /lpf Urine RBC (0-5) /hpf Urine WBC (0-5) /hpf Ur Squamous Epith Cells (0-5) /hpf Amorphous Sediment (NOT SEEN) /hpf Urine Bacteria (FEW) /hpf Urine Mucus (FEW) /hpf 02/11/20 02/11/20 02/11/20 Range/Units 12:30 12:30 12:30 WBC (4.23-9.07) K/mm3 RBC (4.63-6.08) M/mm3 Hgb (13.7-17.5) gm/dl Hct (40.1-51.0) % MCV (79.0-92.2) fl MCH (25.7-32.2) pg MCHC (32.2-35.5) g/dl RDW Std Deviation (35.1-43.9) fL Plt Count (163-337) K/mm3 MPV (9.4-12.3) fl Neut % (Auto) (34.0-67.9) % Lymph % (Auto) (21.8-53.1) % [place] % (Auto) (5.3-12.2) % Eos % (Auto) (0.8-7.0) Baso % (Auto) (0.1-1.2) % Neut # (Auto) (1.78-5.38) K/mm3 Lymph # (Auto) (1.32-3.57) K/mm3 [place] # (Auto) (0.30-0.82) K/mm3 Eos # (Auto) (0.04-0.54) K/mm3 Baso # (Auto) (0.01-0.08) K/mm3 Neutrophils % (Manual) (40-60) % Band Neutrophils % (0-10) % Lymphocytes % (Manual) (20-40) % Atypical Lymphs % % Monocytes % (Manual) (2-10) % Eosinophils % (Manual) (0.8-7.0) % Basophils % (Manual) (0.2-1.2) Manual Slide Review Platelet Estimate RBC Morph Comment PT (9.7-12.0) SECONDS INR APTT (21.7-31.4) SECONDS D-Dimer, Quantitative (0.19-0.50) mg/L Puncture Site ABG pH (7.35-7.45) ABG pCO2 (35.0-45.0) mmHg ABG pO2 (80.0-100.0) mmHg ABG HCO3 (22.0-26.0) meq/L ABG O2 Saturation (96.0-97.0) % ABG Base Excess (-2-2.0) Micky Test A-a Gradient mmHg O2 Delivery Device Oxygen Flow Rate FiO2 (21.00-100.00) % Sodium 133 L (136-145) mEq/L Potassium 4.9 (3.5-5.1) mEq/L Chloride 99 (98-107) mEq/L Carbon Dioxide 22 (21-32) mEq/L Anion Gap 16.9 H (5-15) BUN 53 H (7-18) mg/dL Creatinine 2.4 H D (0.7-1.3) mg/dL Est Cr Clr Drug Dosing 27.39 mL/min Estimated GFR (MDRD) 26 (>60) mL/min BUN/Creatinine Ratio 22.1 H (14-18) Glucose 174 H (83-115) mg/dL POC Glucose (83-110) mg/dL Hemoglobin A1c (4.50-6.20) % Lactic Acid (0.4-2.0) mmol/L Calcium 9.1 (8.5-10.1) mg/dL Magnesium 2.1 (1.8-2.4) mg/dl Ferritin 1836 H (26-388) ng/ml Total Bilirubin 0.6 (0.2-1.0) mg/dL AST 51 H (15-37) U/L ALT 49 (16-63) U/L Alkaline Phosphatase 70 (46-116) U/L Lactate Dehydrogenase 297 H (85-227) U/L Troponin I 0.018 (0.00-0.056) ng/mL C-Reactive Protein (<1.0) mg/dL NT-Pro-B Natriuret Pep 110 (0-450) pg/mL Total Protein 7.5 (6.4-8.2) g/dl Albumin 3.0 L (3.4-5.0) g/dl Globulin 4.5 gm/dL Albumin/Globulin Ratio 0.7 L (1-2) Vitamin D 25-Hydroxy (30.0-100.0) ng/ml Urine Color (Yellow) Urine Appearance (Clear) Urine pH (5.0-8.0) Ur Specific [place] (1.005-1.030) Urine Protein (Negative) Urine Glucose (UA) (Negative) Urine Ketones (Negative) Urine Occult Blood (Negative) Urine Nitrite (Negative) Urine Bilirubin (Negative) Urine Urobilinogen (0.2-1.0) Ur Leukocyte Esterase (Negative) U Hyaline Cast (Auto) (0-5) /lpf Urine RBC (0-5) /hpf Urine WBC (0-5) /hpf Ur Squamous Epith Cells (0-5) /hpf Amorphous Sediment (NOT SEEN) /hpf Urine Bacteria (FEW) /hpf Urine Mucus (FEW) /hpf 02/11/20 02/11/20 02/11/20 Range/Units 12:30 12:30 12:30 WBC (4.23-9.07) K/mm3 RBC (4.63-6.08) M/mm3 Hgb (13.7-17.5) gm/dl Hct (40.1-51.0) % MCV (79.0-92.2) fl MCH (25.7-32.2) pg MCHC (32.2-35.5) g/dl RDW Std Deviation (35.1-43.9) fL Plt Count (163-337) K/mm3 MPV (9.4-12.3) fl Neut % (Auto) (34.0-67.9) % Lymph % (Auto) (21.8-53.1) % [place] % (Auto) (5.3-12.2) % Eos % (Auto) (0.8-7.0) Baso % (Auto) (0.1-1.2) % Neut # (Auto) (1.78-5.38) K/mm3 Lymph # (Auto) (1.32-3.57) K/mm3 [place] # (Auto) (0.30-0.82) K/mm3 Eos # (Auto) (0.04-0.54) K/mm3 Baso # (Auto) (0.01-0.08) K/mm3 Neutrophils % (Manual) (40-60) % Band Neutrophils % (0-10) % Lymphocytes % (Manual) (20-40) % Atypical Lymphs % % Monocytes % (Manual) (2-10) % Eosinophils % (Manual) (0.8-7.0) % Basophils % (Manual) (0.2-1.2) Manual Slide Review Platelet Estimate RBC Morph Comment PT (9.7-12.0) SECONDS INR APTT (21.7-31.4) SECONDS D-Dimer, Quantitative (0.19-0.50) mg/L Puncture Site ABG pH (7.35-7.45) ABG pCO2 (35.0-45.0) mmHg ABG pO2 (80.0-100.0) mmHg ABG HCO3 (22.0-26.0) meq/L ABG O2 Saturation (96.0-97.0) % ABG Base Excess (-2-2.0) Micky Test A-a Gradient mmHg O2 Delivery Device Oxygen Flow Rate FiO2 (21.00-100.00) % Sodium (136-145) mEq/L Potassium (3.5-5.1) mEq/L Chloride (98-107) mEq/L Carbon Dioxide (21-32) mEq/L Anion Gap (5-15) BUN (7-18) mg/dL Creatinine (0.7-1.3) mg/dL Est Cr Clr Drug Dosing mL/min Estimated GFR (MDRD) (>60) mL/min BUN/Creatinine Ratio (14-18) Glucose (83-115) mg/dL POC Glucose (83-110) mg/dL Hemoglobin A1c 7.10 H (4.50-6.20) % Lactic Acid 1.4 (0.4-2.0) mmol/L Calcium (8.5-10.1) mg/dL Magnesium (1.8-2.4) mg/dl Ferritin (26-388) ng/ml Total Bilirubin (0.2-1.0) mg/dL AST (15-37) U/L ALT (16-63) U/L Alkaline Phosphatase (46-116) U/L Lactate Dehydrogenase (85-227) U/L Troponin I (0.00-0.056) ng/mL C-Reactive Protein (<1.0) mg/dL NT-Pro-B Natriuret Pep (0-450) pg/mL Total Protein (6.4-8.2) g/dl Albumin (3.4-5.0) g/dl Globulin gm/dL Albumin/Globulin Ratio (1-2) Vitamin D 25-Hydroxy 75.7 (30.0-100.0) ng/ml Urine Color (Yellow) Urine Appearance (Clear) Urine pH (5.0-8.0) Ur Specific [place] (1.005-1.030) Urine Protein (Negative) Urine Glucose (UA) (Negative) Urine Ketones (Negative) Urine Occult Blood (Negative) Urine Nitrite (Negative) Urine Bilirubin (Negative) Urine Urobilinogen (0.2-1.0) Ur Leukocyte Esterase (Negative) U Hyaline Cast (Auto) (0-5) /lpf Urine RBC (0-5) /hpf Urine WBC (0-5) /hpf Ur Squamous Epith Cells (0-5) /hpf Amorphous Sediment (NOT SEEN) /hpf Urine Bacteria (FEW) /hpf Urine Mucus (FEW) /hpf 02/11/20 02/11/20 02/11/20 Range/Units 12:43 14:30 17:19 WBC (4.23-9.07) K/mm3 RBC (4.63-6.08) M/mm3 Hgb (13.7-17.5) gm/dl Hct (40.1-51.0) % MCV (79.0-92.2) fl MCH (25.7-32.2) pg MCHC (32.2-35.5) g/dl RDW Std Deviation (35.1-43.9) fL Plt Count (163-337) K/mm3 MPV (9.4-12.3) fl Neut % (Auto) (34.0-67.9) % Lymph % (Auto) (21.8-53.1) % [place] % (Auto) (5.3-12.2) % Eos % (Auto) (0.8-7.0) Baso % (Auto) (0.1-1.2) % Neut # (Auto) (1.78-5.38) K/mm3 Lymph # (Auto) (1.32-3.57) K/mm3 [place] # (Auto) (0.30-0.82) K/mm3 Eos # (Auto) (0.04-0.54) K/mm3 Baso # (Auto) (0.01-0.08) K/mm3 Neutrophils % (Manual) (40-60) % Band Neutrophils % (0-10) % Lymphocytes % (Manual) (20-40) % Atypical Lymphs % % Monocytes % (Manual) (2-10) % Eosinophils % (Manual) (0.8-7.0) % Basophils % (Manual) (0.2-1.2) Manual Slide Review Platelet Estimate RBC Morph Comment PT (9.7-12.0) SECONDS INR APTT (21.7-31.4) SECONDS D-Dimer, Quantitative (0.19-0.50) mg/L Puncture Site Lt radial ABG pH 7.39 (7.35-7.45) ABG pCO2 33.9 L (35.0-45.0) mmHg ABG pO2 63.0 L (80.0-100.0) mmHg ABG HCO3 20.0 L (22.0-26.0) meq/L ABG O2 Saturation 88.3 L (96.0-97.0) % ABG Base Excess -3.7 L (-2-2.0) Micky Test Positive A-a Gradient 44 mmHg O2 Delivery Device Room air Oxygen Flow Rate 0.0 FiO2 21.00 (21.00-100.00) % Sodium (136-145) mEq/L Potassium (3.5-5.1) mEq/L Chloride (98-107) mEq/L Carbon Dioxide (21-32) mEq/L Anion Gap (5-15) BUN (7-18) mg/dL Creatinine (0.7-1.3) mg/dL Est Cr Clr Drug Dosing mL/min Estimated GFR (MDRD) (>60) mL/min BUN/Creatinine Ratio (14-18) Glucose (83-115) mg/dL POC Glucose 111 H (83-110) mg/dL Hemoglobin A1c (4.50-6.20) % Lactic Acid (0.4-2.0) mmol/L Calcium (8.5-10.1) mg/dL Magnesium (1.8-2.4) mg/dl Ferritin (26-388) ng/ml Total Bilirubin (0.2-1.0) mg/dL AST (15-37) U/L ALT (16-63) U/L Alkaline Phosphatase (46-116) U/L Lactate Dehydrogenase (85-227) U/L Troponin I (0.00-0.056) ng/mL C-Reactive Protein (<1.0) mg/dL NT-Pro-B Natriuret Pep (0-450) pg/mL Total Protein (6.4-8.2) g/dl Albumin (3.4-5.0) g/dl Globulin gm/dL Albumin/Globulin Ratio (1-2) Vitamin D 25-Hydroxy (30.0-100.0) ng/ml Urine Color Dark yellow (Yellow) Urine Appearance Slt cloudy H (Clear) Urine pH 5.5 (5.0-8.0) Ur Specific [place] > or = 1.030 (1.005-1.030) Urine Protein 2+ H (Negative) Urine Glucose (UA) Negative (Negative) Urine Ketones Trace H (Negative) Urine Occult Blood Negative (Negative) Urine Nitrite Negative (Negative) Urine Bilirubin 1+ H (Negative) Urine Urobilinogen 0.2 (0.2-1.0) Ur Leukocyte Esterase Negative (Negative) U Hyaline Cast (Auto) 0-5 (0-5) /lpf Urine RBC 0-5 (0-5) /hpf Urine WBC 0-5 (0-5) /hpf Ur Squamous Epith Cells 5-10 H (0-5) /hpf Amorphous Sediment Few H (NOT SEEN) /hpf Urine Bacteria Many H (FEW) /hpf Urine Mucus Few (FEW) /hpf 02/11/20 02/12/20 02/12/20 Range/Units 21:20 05:37 06:40 WBC 4.55 (4.23-9.07) K/mm3 RBC 4.43 L (4.63-6.08) M/mm3 Hgb 13.0 L (13.7-17.5) gm/dl Hct 40.5 (40.1-51.0) % MCV 91.4 (79.0-92.2) fl MCH 29.3 (25.7-32.2) pg MCHC 32.1 L (32.2-35.5) g/dl RDW Std Deviation 46.8 H (35.1-43.9) fL Plt Count 185 (163-337) K/mm3 MPV 11.0 (9.4-12.3) fl Neut % (Auto) 78.1 H (34.0-67.9) % Lymph % (Auto) 15.8 L (21.8-53.1) % [place] % (Auto) 5.5 (5.3-12.2) % Eos % (Auto) 0.2 L (0.8-7.0) Baso % (Auto) 0.2 (0.1-1.2) % Neut # (Auto) 3.55 (1.78-5.38) K/mm3 Lymph # (Auto) 0.72 L (1.32-3.57) K/mm3 [place] # (Auto) 0.25 L (0.30-0.82) K/mm3 Eos # (Auto) 0.01 L (0.04-0.54) K/mm3 Baso # (Auto) 0.01 (0.01-0.08) K/mm3 Neutrophils % (Manual) (40-60) % Band Neutrophils % (0-10) % Lymphocytes % (Manual) (20-40) % Atypical Lymphs % % Monocytes % (Manual) (2-10) % Eosinophils % (Manual) (0.8-7.0) % Basophils % (Manual) (0.2-1.2) Manual Slide Review Normal smear Platelet Estimate RBC Morph Comment PT (9.7-12.0) SECONDS INR APTT (21.7-31.4) SECONDS D-Dimer, Quantitative (0.19-0.50) mg/L Puncture Site ABG pH (7.35-7.45) ABG pCO2 (35.0-45.0) mmHg ABG pO2 (80.0-100.0) mmHg ABG HCO3 (22.0-26.0) meq/L ABG O2 Saturation (96.0-97.0) % ABG Base Excess (-2-2.0) Micky Test A-a Gradient mmHg O2 Delivery Device Oxygen Flow Rate FiO2 (21.00-100.00) % Sodium (136-145) mEq/L Potassium (3.5-5.1) mEq/L Chloride (98-107) mEq/L Carbon Dioxide (21-32) mEq/L Anion Gap (5-15) BUN (7-18) mg/dL Creatinine (0.7-1.3) mg/dL Est Cr Clr Drug Dosing mL/min Estimated GFR (MDRD) (>60) mL/min BUN/Creatinine Ratio (14-18) Glucose (83-115) mg/dL POC Glucose 221 H 210 H (83-110) mg/dL Hemoglobin A1c (4.50-6.20) % Lactic Acid (0.4-2.0) mmol/L Calcium (8.5-10.1) mg/dL Magnesium (1.8-2.4) mg/dl Ferritin (26-388) ng/ml Total Bilirubin (0.2-1.0) mg/dL AST (15-37) U/L ALT (16-63) U/L Alkaline Phosphatase (46-116) U/L Lactate Dehydrogenase (85-227) U/L Troponin I (0.00-0.056) ng/mL C-Reactive Protein (<1.0) mg/dL NT-Pro-B Natriuret Pep (0-450) pg/mL Total Protein (6.4-8.2) g/dl Albumin (3.4-5.0) g/dl Globulin gm/dL Albumin/Globulin Ratio (1-2) Vitamin D 25-Hydroxy (30.0-100.0) ng/ml Urine Color (Yellow) Urine Appearance (Clear) Urine pH (5.0-8.0) Ur Specific [place] (1.005-1.030) Urine Protein (Negative) Urine Glucose (UA) (Negative) Urine Ketones (Negative) Urine Occult Blood (Negative) Urine Nitrite (Negative) Urine Bilirubin (Negative) Urine Urobilinogen (0.2-1.0) Ur Leukocyte Esterase (Negative) U Hyaline Cast (Auto) (0-5) /lpf Urine RBC (0-5) /hpf Urine WBC (0-5) /hpf Ur Squamous Epith Cells (0-5) /hpf Amorphous Sediment (NOT SEEN) /hpf Urine Bacteria (FEW) /hpf Urine Mucus (FEW) /hpf Med Orders - Current: Current Medications Acetaminophen (Tylenol) 650 mg PO Q4H PRN PRN Reason: Pain (Mild 1-3)/fever Albuterol (Proventil Hfa) 0 gm INH Q6H PRN PRN Reason: SOB/Wheezine Alogliptin Benzoate (Alogliptin) 25 mg PO DAILY [facility] Dexamethasone (Dexamethasone) 6 mg PO DAILY@1700 [facility] Stop: 02/20/20 17:01 Last Admin: 02/11/20 17:33 Dose: 6 mg Documented by: Ezetimibe (Zetia) 10 mg PO DAILY [facility] Famotidine (Pepcid) 20 mg PO BID [facility] Last Admin: 02/11/20 21:28 Dose: 20 mg Documented by: Heparin Sodium (Porcine) (Heparin Sodium) 5,000 units SUBCUT Q8H [facility] Last Admin: 02/12/20 00:31 Dose: 5,000 units Documented by: Insulin Human Lispro (Humalog) 0 unit SUBCUT QIDACANDBED [facility]; Protocol Last Admin: 02/11/20 21:28 Dose: 2 units Documented by: Metoprolol Succinate (Toprol Xl) 25 mg PO DAILY [facility] Mometasone Furoate/Formoterol Fumar (Dulera 200-5 Mcg) 2 puff IH BID [facility] Ondansetron HCl (Zofran) 4 mg IV Q6H PRN PRN Reason: Nausea/Vomiting Simvastatin (Zocor) 20 mg PO BEDTIME [facility] Sodium Chloride (Saline Flush) 10 ml FLUSH ASDIRECTED PRN PRN Reason: Keep Vein Open Last Admin: 02/11/20 12:12 Dose: 10 ml Documented by: Tiotropium [place] (Spiriva Respimat) 0 gm INH DAILY [facility] Zinc Sulfate (Zincate) 220 mg PO DAILY@1700 [facility] Last Admin: 02/11/20 17:32 Dose: 220 mg Documented by: Discontinued Medications Cholecalciferol (Vitamin D3) 5,000 unit PO DAILY [facility] Last Admin: 02/11/20 17:10 Dose: Not Given Documented by: Dexamethasone (Dexamethasone) 6 mg PO DAILY [facility] Stop: 02/20/20 09:01 Last Admin: 02/11/20 17:10 Dose: Not Given Documented by: Sodium Chloride (Normal Saline) Confirm Administered Dose 1,000 mls @ as directed .ROUTE .STK-MED ONE Stop: 02/11/20 12:44 Last Admin: 02/11/20 12:54 Dose: Not Given Documented by: Sodium Chloride (Normal Saline) 500 mls @ 1,000 mls/hr IV .BOLUS ONE Stop: 02/11/20 13:12 Last Admin: 02/11/20 12:45 Dose: 1,000 mls/hr Documented by: Lactated Ringer's (Ringers, Lactated) 1,000 mls @ 75 mls/hr IV ASDIRECTED [facility] Stop: 02/12/20 04:49 Last Admin: 02/11/20 17:52 Dose: 75 mls/hr Documented by: Zinc Sulfate (Zincate) 220 mg PO DAILY [facility] Last Admin: 02/11/20 17:11 Dose: Not Given Documented by: - Exam Quality Assessment: DVT Prophylaxis General: Alert, Oriented, Cooperative, No Acute Distress HEENT: Pupils Reactive, Mucous Membr. Moist/[place] Neck: Supple, Trachea Midline Lungs: Clear to Auscultation, Normal Respiratory Effort, Decreased Breath Sounds Cardiovascular: Regular Rate, Regular Rhythm GI/Abdominal Exam: Normal Bowel Sounds, Soft, Non-Tender, No Distention (Male) Exam: Deferred Back Exam: Normal Inspection, Full Range of Motion Extremities: Normal Inspection, Normal Range of Motion, Non-Tender, No Pedal Edema, Normal Capillary Refill Skin: Warm, Dry, Intact Neurological: No New Focal Deficit Psy/Mental Status: Alert Sepsis Event Note - Evaluation Sepsis Screening Result: No Definite Risk - Focused Exam Vital Signs: Vital Signs Temp Pulse Resp BP Pulse Ox Pulse Ox 02/12/20 06:11 94 L 02/12/20 04:04 97.0 F 51 L 16 116/47 L 84 L 02/11/20 23:45 98.8 F 58 L 16 141/60 H 92 L 02/11/20 19:48 99.0 F 63 16 101/36 L 93 L - Problem List & Annotations (1) COVID-19 SNOMED Code(s): 432788075 Code(s): U07.1 - COVID-19 Status: Acute Priority: High Current Visit: Yes (2) Hypotension SNOMED Code(s): 95928743 Code(s): I95.9 - HYPOTENSION, UNSPECIFIED Status: Acute Priority: High Current Visit: Yes Qualifiers: Hypotension type: other hypotension type Qualified Code(s): I95.89 - Other hypotension (3) Hypoxemia requiring supplemental oxygen SNOMED Code(s): 521436274 Code(s): R09.02 - HYPOXEMIA; Z99.81 - DEPENDENCE ON SUPPLEMENTAL OXYGEN Status: Acute Priority: High Current Visit: Yes (4) Generalized weakness SNOMED Code(s): 72850573 Code(s): R53.1 - WEAKNESS Status: Acute Priority: High Current Visit: Yes (5) COPD (chronic obstructive pulmonary disease) SNOMED Code(s): 01678619 Code(s): J44.9 - CHRONIC OBSTRUCTIVE PULMONARY DISEASE, UNSPECIFIED Status: Chronic Priority: Medium Current Visit: No Qualifiers: COPD type: emphysema Emphysema type: unspecified Qualified Code(s): J43.9 - Emphysema, unspecified (6) Type II diabetes mellitus SNOMED Code(s): 39447886 Code(s): E11.9 - TYPE 2 DIABETES MELLITUS WITHOUT COMPLICATIONS Status: Chronic Priority: Medium Current Visit: No Qualifiers: Diabetes mellitus predatory animal exterminator insulin use: with predatory animal exterminator use Diabetes mellitus complication status: with other specified complication Qualified Code (s): E11.69 - Type 2 diabetes mellitus with other specified complication; Z79.4 - senior living (current) use of insulin - Problem List Review Problem List Initiated/Reviewed/Updated: Yes - My Orders Last 24 Hours: My Active Orders 02/11/20 Lunch Consistent Carbohydrate Diet [DIET] 02/11/20 12:30 PROCALCITONIN [REF] Routine 02/11/20 15:10 Cardiac Monitoring [RC] CONTINUOUS Height and Weight [RC] 06 Intake and Output [RC] 04,16 Oxygen Therapy [RC] PRN Pulse Oximetry [RC] CONTINUOUS Up With Assistance [RC] BID VTE/DVT Education [RC] DAILY Vital Signs [RC] Q4HR Consult to Case Management/Fulfillment Representative [CONS] Routine OT Evaluation and Treatment [CONS] Routine PT Evaluation and Treatment [CONS] Routine Respiratory Care Assess and Treatment [CONS] Routine Acetaminophen [TylenoL] 650 mg PO Q4H PRN Ondansetron [Zofran] 4 mg IV Q6H PRN 02/11/20 15:12 Nurse Communication: Isolation [RC] ASDIRECTED Isolation [COMM] Routine 02/11/20 15:18 Accu Check [Blood Glucose Check, Bedside] [RC] QIDACANDBED 02/11/20 15:19 Positioning, Patient [RC] ASDIRECTED RT Incentive Spirometry [RC] ASDIRECTED 02/11/20 16:27 Code Status [Resuscitation Status] Routine 02/11/20 17:00 Heparin Sodium 5,000 units SUBCUT Q8H Insulin Lispro [HumaLOG] See Protocol SUBCUT QIDACANDBED Zinc Sulfate [Zincate] 220 mg PO DAILY@1700 dexAMETHasone 6 mg PO DAILY@1700 02/11/20 17:03 Albuterol [Proventil HFA] See Dose Instructions INH Q6H PRN 02/11/20 17:04 RT Post Treatment Assessment [RC] Click to Edit RT Pre-Treatment Assessment [RC] Click to Edit 02/11/20 21:00 Famotidine [Pepcid] 20 mg PO BID 02/12/20 06:40 CMP [COMPREHENSIVE METABOLIC PN,CMP] [CHEM] AM CRP [C-REACTIVE PROTEIN] [CHEM] AM MAGNESIUM [CHEM] AM PHOSPHORUS [CHEM] AM 02/12/20 09:00 Alogliptin Benzoate [Alogliptin] 25 mg PO DAILY Ezetimibe [Zetia] 10 mg PO DAILY Metoprolol Succinate [Toprol XL] 25 mg PO DAILY Mometasone/Formoterol [Dulera 200-5 MCG] 2 puff IH BID Tiotropium [place] [Spiriva Respimat] 0 gm INH DAILY 02/12/20 21:00 Simvastatin [Zocor] 20 mg PO BEDTIME 02/13/20 05:11 CBC WITH AUTO DIFF [HEME] AM CMP [COMPREHENSIVE METABOLIC PN,CMP] [CHEM] AM CRP [C-REACTIVE PROTEIN] [CHEM] AM MAGNESIUM [CHEM] AM 02/13/20 15:14 DD [D-DIMER QUANTITATIVE] [COAG] Q24H 02/14/20 05:11 CBC WITH AUTO DIFF [HEME] AM CMP [COMPREHENSIVE METABOLIC PN,CMP] [CHEM] AM CRP [C-REACTIVE PROTEIN] [CHEM] AM MAGNESIUM [CHEM] AM 02/14/20 15:14 DD [D-DIMER QUANTITATIVE] [COAG] Q24H 02/15/20 05:11 CBC WITH AUTO DIFF [HEME] AM CMP [COMPREHENSIVE METABOLIC PN,CMP] [CHEM] AM CRP [C-REACTIVE PROTEIN] [CHEM] AM MAGNESIUM [CHEM] AM - Assessment Assessment:: Assessment: Day of admission 02/11/2020 * 79 yo male who presents to the ED with weakness, fevers, cough, nausea, gas, diarrhea, brain fog, and general unwell feeling * Reportedly diagnosed with COVID-19 on 02/06/2020 - reports symptoms began 2 days prior * Oxygen saturations of 87% on RA in ED - started on 2L oxygen * History of emphysema and diabetes * Noted to have episode of hypotension in ED with BP of 80s systolic * Given 500ml fluid bolus x2 * 12-Lead EKG in ED shows sinus rhythm at 71 BPM with no signs of ischemia * 1-view chest x-ray in ED shows nothing acute * Labs in ED: * WBC 7.85 * Hgb 13.5 * Plt 192 * Neutrophils elevated at 74% with no bandemia * INR 1.04 * D-dimer 0.81 * CRP 4.2 * Sodium 133 * Potassium 4.9 * Anion gap 16.9 * BUN 53 * Creatinine 2.4 * GFR 26 * Magnesium 2.1 * Pro-BNP 110 * Troponin 0.018 * Lactic acid 1.4 * AGB: pH 7.39, PCO2 33.9, PO2 63, HCO3 20, O2 saturation 88.3, base excess - 3.7, A-a 44 * UA: Concentrated urine with 2+ protein, trace ketones, 1+ bilirubin, 5-10 squamous epithelial cells, few amorphous sediment, many bacteria * Admitted to hospital floor on telemetry for management of COVID-19 symptoms, hypoxia, and hypotension 02/12/2020 * Reports he feels much better * On 2L but SpO2 is 97% - will work on weaning down * Has been utilizing IS and acapella in room * Moved insulin protocol from low to medium intensity * Labs: * WBC 4.55 * Hemoglobin 13.0 * Platelet 185 * Neutrophils 78.1% * Sodium 136 * Potassium 4.9 * Anion gap 13.9 * BUN 48 * Creatinine 1.8 * GFR 37 * CRP 5.7 * Albumin 2.7 * Vitamin D 75.7 * A1C 7.10 * Vital signs remain stable * Continue to attempt to wean oxygen * Hopeful for discharge in next 24-48 hours. - Plan Plan:: COVID-19 Hypotension Hypoxemia requiring supplemental oxygen Generalized weakness COPD (chronic obstructive pulmonary disease) * IS/Acapella * Dexamethasone 6mg day 03/26 * RT consultation * O2 as needed - attempt to wean * PT/OT * CM/SW for discharge planning * Continuous pulse ox * Telemetry * Encourage proning and ambulating in room * Airborne and droplet precautions * Tylenol as needed for pain/fever * Daily labs as ordered * D-Dimer Q48 hours * Check procalcitonin * Supplement zinc and vitamin D if needed * Home medications as ordered * Start famotidine BID Type II diabetes mellitus * Hold home Tresiba and Janumet * Start p.o. alogliptin * Sliding scale insulin as ordered * Monitor blood sugars 4 times daily before meals and bedtime * Diabetic diet PCP: Dr. lAena Singh DVT prophylaxis: Heparin Code status: Full code [place] Disposition: Patient admitted to M/S/P with telemetry for management of COVID-19 symptoms, hypoxia, hypotension. LOS anticipated 3-4 days Prognosis: Good
[2020-02-12] MEDS: Tiotropium Bromide 4 GM Inhalation Spray (2.5mcg/1 dose; 10 doses) INH SCH (08:31)
[2020-02-12] MEDS: Formoterol/Mometasone 200-5 MCG 8.8 GM Inhaler IH SCH ×2 (08:31→20:59)
[2020-02-12] MEDS: Metoprolol Succinate 25 MG Tab.ER PO SCH (08:55)
[2020-02-12] MEDS: Ezetimibe 10 MG Tab PO SCH (08:55)
[2020-02-12] MEDS: Dexamethasone 4 MG Tab PO SCH (16:53)
[2020-02-12] MEDS: Zinc Sulfate 220 MG Cap PO SCH (16:53)
[2020-02-12] MEDS ORDERED: Famotidine 20 MG Tab PO SCH (21:00)
[2020-02-12] MEDS ORDERED: Simvastatin 20 MG Tab PO SCH (21:00)
[2020-02-13] MEDS: Heparin Sodium 5,000 Units/ML Vial SUBCUT SCH ×2 (01:21→08:07)
--- NOTE | 2020-02-13 07:11 | PCM.PN ---
- General Info Date of Service: 02/13/20 Admission Dx/Problem (Free Text): Admission Diagnosis/Problem Admission Diagnosis/Problem Hypoxia - Patient Data Vitals - Most Recent: Last Vital Signs Temp 98.1 F 02/13/20 06:06 Pulse 60 02/13/20 06:06 Resp 14 02/13/20 06:06 BP 134/56 L 02/13/20 06:06 Pulse Ox 93 L 02/13/20 06:06 Weight - Most Recent: 235 lb 14.4 oz I&O - Last 24 Hours: Intake & Output 02/12/20 02/13/20 02/13/20 22:59 06:59 14:59 Intake Total 1556 300 Output Total 500 Balance 1056 300 Lab Results Last 24 Hours: Laboratory Results - last 24 hr 02/11/20 02/12/20 02/12/20 Range/Units 12:30 06:40 06:40 WBC (4.23-9.07) K/mm3 RBC (4.63-6.08) M/mm3 Hgb (13.7-17.5) gm/dl Hct (40.1-51.0) % MCV (79.0-92.2) fl MCH (25.7-32.2) pg MCHC (32.2-35.5) g/dl RDW Std Deviation (35.1-43.9) fL Plt Count (163-337) K/mm3 MPV (9.4-12.3) fl Neut % (Auto) (34.0-67.9) % Lymph % (Auto) (21.8-53.1) % Saunders % (Auto) (5.3-12.2) % Eos % (Auto) (0.8-7.0) Baso % (Auto) (0.1-1.2) % Neut # (Auto) (1.78-5.38) K/mm3 Lymph # (Auto) (1.32-3.57) K/mm3 Saunders # (Auto) (0.30-0.82) K/mm3 Eos # (Auto) (0.04-0.54) K/mm3 Baso # (Auto) (0.01-0.08) K/mm3 Manual Slide Review Normal smear D-Dimer, Quantitative (0.19-0.50) mg/L Sodium 136 (136-145) mEq/L Potassium 4.9 (3.5-5.1) mEq/L Chloride 103 (98-107) mEq/L Carbon Dioxide 24 (21-32) mEq/L Anion Gap 13.9 (5-15) BUN 48 H (7-18) mg/dL Creatinine 1.8 H (0.7-1.3) mg/dL Est Cr Clr Drug Dosing 38.69 mL/min Estimated GFR (MDRD) 37 (>60) mL/min BUN/Creatinine Ratio 26.7 H (14-18) Glucose 208 H (83-115) mg/dL POC Glucose (83-110) mg/dL Calcium 8.9 (8.5-10.1) mg/dL Phosphorus 4.3 (2.6-4.7) mg/dL Magnesium 2.2 (1.8-2.4) mg/dl Total Bilirubin 0.5 (0.2-1.0) mg/dL AST 37 (15-37) U/L ALT 39 (16-63) U/L Alkaline Phosphatase 63 (46-116) U/L C-Reactive Protein 5.7 H* (<1.0) mg/dL Total Protein 7.1 (6.4-8.2) g/dl Albumin 2.7 L (3.4-5.0) g/dl Globulin 4.4 gm/dL Albumin/Globulin Ratio 0.6 L (1-2) Procalcitonin 0.14 H ng/mL 02/12/20 02/12/20 02/12/20 Range/Units 11:48 16:50 20:34 WBC (4.23-9.07) K/mm3 RBC (4.63-6.08) M/mm3 Hgb (13.7-17.5) gm/dl Hct (40.1-51.0) % MCV (79.0-92.2) fl MCH (25.7-32.2) pg MCHC (32.2-35.5) g/dl RDW Std Deviation (35.1-43.9) fL Plt Count (163-337) K/mm3 MPV (9.4-12.3) fl Neut % (Auto) (34.0-67.9) % Lymph % (Auto) (21.8-53.1) % Saunders % (Auto) (5.3-12.2) % Eos % (Auto) (0.8-7.0) Baso % (Auto) (0.1-1.2) % Neut # (Auto) (1.78-5.38) K/mm3 Lymph # (Auto) (1.32-3.57) K/mm3 Saunders # (Auto) (0.30-0.82) K/mm3 Eos # (Auto) (0.04-0.54) K/mm3 Baso # (Auto) (0.01-0.08) K/mm3 Manual Slide Review D-Dimer, Quantitative (0.19-0.50) mg/L Sodium (136-145) mEq/L Potassium (3.5-5.1) mEq/L Chloride (98-107) mEq/L Carbon Dioxide (21-32) mEq/L Anion Gap (5-15) BUN (7-18) mg/dL Creatinine (0.7-1.3) mg/dL Est Cr Clr Drug Dosing mL/min Estimated GFR (MDRD) (>60) mL/min BUN/Creatinine Ratio (14-18) Glucose (83-115) mg/dL POC Glucose 301 H 188 H 196 H (83-110) mg/dL Calcium (8.5-10.1) mg/dL Phosphorus (2.6-4.7) mg/dL Magnesium (1.8-2.4) mg/dl Total Bilirubin (0.2-1.0) mg/dL AST (15-37) U/L ALT (16-63) U/L Alkaline Phosphatase (46-116) U/L C-Reactive Protein (<1.0) mg/dL Total Protein (6.4-8.2) g/dl Albumin (3.4-5.0) g/dl Globulin gm/dL Albumin/Globulin Ratio (1-2) Procalcitonin ng/mL 02/13/20 02/13/20 02/13/20 Range/Units 05:50 05:50 05:50 WBC 7.71 (4.23-9.07) K/mm3 RBC 4.37 L (4.63-6.08) M/mm3 Hgb 12.8 L (13.7-17.5) gm/dl Hct 39.6 L (40.1-51.0) % MCV 90.6 (79.0-92.2) fl MCH 29.3 (25.7-32.2) pg MCHC 32.3 (32.2-35.5) g/dl RDW Std Deviation 44.7 H (35.1-43.9) fL Plt Count 216 (163-337) K/mm3 MPV 11.2 (9.4-12.3) fl Neut % (Auto) 86.3 H (34.0-67.9) % Lymph % (Auto) 8.8 L (21.8-53.1) % Saunders % (Auto) 4.5 L (5.3-12.2) % Eos % (Auto) 0 L (0.8-7.0) Baso % (Auto) 0.1 (0.1-1.2) % Neut # (Auto) 6.65 H (1.78-5.38) K/mm3 Lymph # (Auto) 0.68 L (1.32-3.57) K/mm3 Saunders # (Auto) 0.35 (0.30-0.82) K/mm3 Eos # (Auto) 0.00 L (0.04-0.54) K/mm3 Baso # (Auto) 0.01 (0.01-0.08) K/mm3 Manual Slide Review Normal smear D-Dimer, Quantitative 0.61 H (0.19-0.50) mg/L Sodium 136 (136-145) mEq/L Potassium 4.8 (3.5-5.1) mEq/L Chloride 102 (98-107) mEq/L Carbon Dioxide 22 (21-32) mEq/L Anion Gap 16.8 H (5-15) BUN 40 H (7-18) mg/dL Creatinine 1.4 H (0.7-1.3) mg/dL Est Cr Clr Drug Dosing 46.96 mL/min Estimated GFR (MDRD) 49 (>60) mL/min BUN/Creatinine Ratio 28.6 H (14-18) Glucose 267 H (83-115) mg/dL POC Glucose (83-110) mg/dL Calcium 9.0 (8.5-10.1) mg/dL Phosphorus (2.6-4.7) mg/dL Magnesium 2.2 (1.8-2.4) mg/dl Total Bilirubin 0.4 (0.2-1.0) mg/dL AST 27 (15-37) U/L ALT 38 (16-63) U/L Alkaline Phosphatase 58 (46-116) U/L C-Reactive Protein 3.1 H* (<1.0) mg/dL Total Protein 7.0 (6.4-8.2) g/dl Albumin 2.7 L (3.4-5.0) g/dl Globulin 4.3 gm/dL Albumin/Globulin Ratio 0.6 L (1-2) Procalcitonin ng/mL 02/13/20 Range/Units 06:09 WBC (4.23-9.07) K/mm3 RBC (4.63-6.08) M/mm3 Hgb (13.7-17.5) gm/dl Hct (40.1-51.0) % MCV (79.0-92.2) fl MCH (25.7-32.2) pg MCHC (32.2-35.5) g/dl RDW Std Deviation (35.1-43.9) fL Plt Count (163-337) K/mm3 MPV (9.4-12.3) fl Neut % (Auto) (34.0-67.9) % Lymph % (Auto) (21.8-53.1) % Saunders % (Auto) (5.3-12.2) % Eos % (Auto) (0.8-7.0) Baso % (Auto) (0.1-1.2) % Neut # (Auto) (1.78-5.38) K/mm3 Lymph # (Auto) (1.32-3.57) K/mm3 Saunders # (Auto) (0.30-0.82) K/mm3 Eos # (Auto) (0.04-0.54) K/mm3 Baso # (Auto) (0.01-0.08) K/mm3 Manual Slide Review D-Dimer, Quantitative (0.19-0.50) mg/L Sodium (136-145) mEq/L Potassium (3.5-5.1) mEq/L Chloride (98-107) mEq/L Carbon Dioxide (21-32) mEq/L Anion Gap (5-15) BUN (7-18) mg/dL Creatinine (0.7-1.3) mg/dL Est Cr Clr Drug Dosing mL/min Estimated GFR (MDRD) (>60) mL/min BUN/Creatinine Ratio (14-18) Glucose (83-115) mg/dL POC Glucose 259 H (83-110) mg/dL Calcium (8.5-10.1) mg/dL Phosphorus (2.6-4.7) mg/dL Magnesium (1.8-2.4) mg/dl Total Bilirubin (0.2-1.0) mg/dL AST (15-37) U/L ALT (16-63) U/L Alkaline Phosphatase (46-116) U/L C-Reactive Protein (<1.0) mg/dL Total Protein (6.4-8.2) g/dl Albumin (3.4-5.0) g/dl Globulin gm/dL Albumin/Globulin Ratio (1-2) Procalcitonin ng/mL Med Orders - Current: Current Medications Acetaminophen (Tylenol) 650 mg PO Q4H PRN PRN Reason: Pain (Mild 1-3)/fever Albuterol (Proventil Hfa) 0 gm INH Q6H PRN PRN Reason: SOB/Wheezine Alogliptin Benzoate (Alogliptin) 12.5 mg PO DAILY [facility] Last Admin: 02/12/20 08:53 Dose: 12.5 mg Documented by: Dexamethasone (Dexamethasone) 6 mg PO DAILY@1700 [facility] Stop: 02/20/20 17:01 Last Admin: 02/12/20 16:53 Dose: 6 mg Documented by: Ezetimibe (Zetia) 10 mg PO DAILY [facility] Last Admin: 02/12/20 08:55 Dose: 10 mg Documented by: Famotidine (Pepcid) 20 mg PO BEDTIME [facility] Last Admin: 02/12/20 20:37 Dose: 20 mg Documented by: Heparin Sodium (Porcine) (Heparin Sodium) 5,000 units SUBCUT Q8H [facility] Last Admin: 02/13/20 01:21 Dose: 5,000 units Documented by: Insulin Human Lispro (Humalog) 0 unit SUBCUT QIDACANDBED [facility]; Protocol Last Admin: 02/12/20 21:04 Dose: 2 units Documented by: Metoprolol Succinate (Toprol Xl) 25 mg PO DAILY [facility] Last Admin: 02/12/20 08:55 Dose: 25 mg Documented by: Mometasone Furoate/Formoterol Fumar (Dulera 200-5 Mcg) 2 puff IH BID [facility] Last Admin: 02/12/20 20:59 Dose: 2 inhalation Documented by: Ondansetron HCl (Zofran) 4 mg IV Q6H PRN PRN Reason: Nausea/Vomiting Simvastatin (Zocor) 20 mg PO BEDTIME [facility] Last Admin: 02/12/20 20:37 Dose: 20 mg Documented by: Sodium Chloride (Saline Flush) 10 ml FLUSH ASDIRECTED PRN PRN Reason: Keep Vein Open Last Admin: 02/11/20 12:12 Dose: 10 ml Documented by: Tiotropium Anthony (Spiriva Respimat) 0 gm INH DAILY [facility] Last Admin: 02/12/20 08:31 Dose: 4 gm Documented by: Zinc Sulfate (Zincate) 220 mg PO DAILY@1700 [facility] Last Admin: 02/12/20 16:53 Dose: 220 mg Documented by: Discontinued Medications Cholecalciferol (Vitamin D3) 5,000 unit PO DAILY [facility] Last Admin: 02/11/20 17:10 Dose: Not Given Documented by: Dexamethasone (Dexamethasone) 6 mg PO DAILY [facility] Stop: 02/20/20 09:01 Last Admin: 02/11/20 17:10 Dose: Not Given Documented by: Famotidine (Pepcid) 20 mg PO BID [facility] Last Admin: 02/11/20 21:28 Dose: 20 mg Documented by: Sodium Chloride (Normal Saline) Confirm Administered Dose 1,000 mls @ as directed .ROUTE .STK-MED ONE Stop: 02/11/20 12:44 Last Admin: 02/11/20 12:54 Dose: Not Given Documented by: Sodium Chloride (Normal Saline) 500 mls @ 1,000 mls/hr IV .BOLUS ONE Stop: 02/11/20 13:12 Last Admin: 02/11/20 12:45 Dose: 1,000 mls/hr Documented by: Lactated Ringer's (Ringers, Lactated) 1,000 mls @ 75 mls/hr IV ASDIRECTED [facility] Stop: 02/12/20 04:49 Last Admin: 02/11/20 17:52 Dose: 75 mls/hr Documented by: Zinc Sulfate (Zincate) 220 mg PO DAILY [facility] Last Admin: 02/11/20 17:11 Dose: Not Given Documented by: Sepsis Event Note - Evaluation Sepsis Screening Result: No Definite Risk - Focused Exam Vital Signs: Vital Signs Temp Pulse Resp BP Pulse Ox Pulse Ox 02/13/20 06:06 98.1 F 60 14 134/56 L 93 L 02/13/20 01:23 98.4 F 62 16 119/65 94 L 02/12/20 21:00 96 02/12/20 20:35 98.8 F 62 16 148/83 H 93 L - Problem List & Annotations (1) COVID-19 SNOMED Code(s): 376246413 Code(s): U07.1 - COVID-19 Status: Acute Priority: High Current Visit: Yes (2) Hypotension SNOMED Code(s): 76632225 Code(s): I95.9 - HYPOTENSION, UNSPECIFIED Status: Acute Priority: High Current Visit: Yes Qualifiers: Hypotension type: other hypotension type Qualified Code(s): I95.89 - Other hypotension (3) Hypoxemia requiring supplemental oxygen SNOMED Code(s): 716174598 Code(s): R09.02 - HYPOXEMIA; Z99.81 - DEPENDENCE ON SUPPLEMENTAL OXYGEN Status: Acute Priority: High Current Visit: Yes (4) Generalized weakness SNOMED Code(s): 78719191 Code(s): R53.1 - WEAKNESS Status: Acute Priority: High Current Visit: Yes (5) COPD (chronic obstructive pulmonary disease) SNOMED Code(s): 05135167 Code(s): J44.9 - CHRONIC OBSTRUCTIVE PULMONARY DISEASE, UNSPECIFIED Status: Chronic Priority: Medium Current Visit: No Qualifiers: COPD type: emphysema Emphysema type: unspecified Qualified Code(s): J43.9 - Emphysema, unspecified (6) Type II diabetes mellitus SNOMED Code(s): 23972595 Code(s): E11.9 - TYPE 2 DIABETES MELLITUS WITHOUT COMPLICATIONS Status: Chronic Priority: Medium Current Visit: No Qualifiers: Diabetes mellitus terminal clerk insulin use: with terminal clerk use Diabetes mellitus complication status: with other specified complication Qualified Code(s): E11.69 - Type 2 diabetes mellitus with other specified complication; Z79.4 - joint terminal attack controller (current) use of insulin - My Orders Last 24 Hours: My Active Orders 02/12/20 09:00 Alogliptin Benzoate [Alogliptin] 12.5 mg PO DAILY Ezetimibe [Zetia] 10 mg PO DAILY Metoprolol Succinate [Toprol XL] 25 mg PO DAILY Mometasone/Formoterol [Dulera 200-5 MCG] 2 puff IH BID Tiotropium Anthony [Spiriva Respimat] 0 gm INH DAILY 02/12/20 Dinner Consistent Carbohydrate Diet [DIET] 02/12/20 21:00 Famotidine [Pepcid] 20 mg PO BEDTIME Simvastatin [Zocor] 20 mg PO BEDTIME 02/14/20 05:11 CBC WITH AUTO DIFF [HEME] AM CMP [COMPREHENSIVE METABOLIC PN,CMP] [CHEM] AM CRP [C-REACTIVE PROTEIN] [CHEM] AM MAGNESIUM [CHEM] AM 02/14/20 15:14 DD [D-DIMER QUANTITATIVE] [COAG] Q24H 02/15/20 05:11 CBC WITH AUTO DIFF [HEME] AM CMP [COMPREHENSIVE METABOLIC PN,CMP] [CHEM] AM CRP [C-REACTIVE PROTEIN] [CHEM] AM MAGNESIUM [CHEM] AM - Assessment Assessment:: Assessment: Day of admission 02/11/2020 * 79 yo male who presents to the ED with weakness, fevers, cough, nausea, gas, diarrhea, brain fog, and general unwell feeling * Reportedly diagnosed with COVID-19 on 02/06/2020 - reports symptoms began 2 days prior * Oxygen saturations of 87% on RA in ED - started on 2L oxygen * History of emphysema and diabetes * Noted to have episode of hypotension in ED with BP of 80s systolic * Given 500ml fluid bolus x2 * 12-Lead EKG in ED shows sinus rhythm at 71 BPM with no signs of ischemia * 1-view chest x-ray in ED shows nothing acute * Labs in ED: * WBC 7.85 * Hgb 13.5 * Plt 192 * Neutrophils elevated at 74% with no bandemia * INR 1.04 * D-dimer 0.81 * CRP 4.2 * Sodium 133 * Potassium 4.9 * Anion gap 16.9 * BUN 53 * Creatinine 2.4 * GFR 26 * Magnesium 2.1 * Pro-BNP 110 * Troponin 0.018 * Lactic acid 1.4 * AGB: pH 7.39, PCO2 33.9, PO2 63, HCO3 20, O2 saturation 88.3, base excess - 3.7, A-a 44 * UA: Concentrated urine with 2+ protein, trace ketones, 1+ bilirubin, 5-10 squamous epithelial cells, few amorphous sediment, many bacteria * Admitted to hospital floor on telemetry for management of COVID-19 symptoms, hypoxia, and hypotension 02/12/2020 * Reports he feels much better * On 2L but SpO2 is 97% - will work on weaning down * Has been utilizing IS and acapella in room * Moved insulin protocol from low to medium intensity * Labs: * WBC 4.55 * Hemoglobin 13.0 * Platelet 185 * Neutrophils 78.1% * Sodium 136 * Potassium 4.9 * Anion gap 13.9 * BUN 48 * Creatinine 1.8 * GFR 37 * CRP 5.7 * Albumin 2.7 * Vitamin D 75.7 * A1C 7.10 * Vital signs remain stable * Continue to attempt to wean oxygen * Hopeful for discharge in next 24-48 hours. - Plan Plan:: COVID-19 Hypotension Hypoxemia requiring supplemental oxygen Generalized weakness COPD (chronic obstructive pulmonary disease) * IS/Acapella * Dexamethasone 6mg day 03/26 * RT consultation * O2 as needed - attempt to wean * PT/OT * CM/SW for discharge planning * Continuous pulse ox * Telemetry * Encourage proning and ambulating in room * Airborne and droplet precautions * Tylenol as needed for pain/fever * Daily labs as ordered * D-Dimer Q48 hours * Check procalcitonin * Supplement zinc and vitamin D if needed * Home medications as ordered * Start famotidine BID Type II diabetes mellitus * Hold home Tresiba and Janumet * Start p.o. alogliptin * Sliding scale insulin as ordered * Monitor blood sugars 4 times daily before meals and bedtime * Diabetic diet PCP: Dr. Alena Singh DVT prophylaxis: Heparin Code status: Full code [place] Disposition: Patient admitted to M/S/P with telemetry for management of COVID-19 symptoms, hypoxia, hypotension. LOS anticipated 3-4 days Prognosis: Good
[2020-02-13] MEDS: Metoprolol Succinate 25 MG Tab.ER PO SCH (08:08)
[2020-02-13] MEDS: Ezetimibe 10 MG Tab PO SCH (08:08)
[2020-02-13 08:10] VITALS: BP 141/72; PULSE 69
[2020-02-13] MEDS: Formoterol/Mometasone 200-5 MCG 8.8 GM Inhaler IH SCH (08:35)
[2020-02-13] MEDS: Tiotropium Bromide 4 GM Inhalation Spray (2.5mcg/1 dose; 10 doses) INH SCH (08:36)
--- NOTE | 2020-02-13 09:57 | PCM.DCSUM1 ---
<Dick Camarillo - Last Filed: 02/13/20 14:34> Discharge Summary - Hospital Course HPI Initial Comments: This is a 79 yo male who presents to ED on 02/11/2020 with fevers, cough, nausea, diarrhea, brain fog, and generalized feelings of unwell. He is noted to be 87% on room air. Respiratory rate is 16 breaths/min and blood pressure is 106/72. Temperature is 98.1 and pulse is 71 bpm. He states he has been trying to eat and drink as much as he can try to keep himself hydrated but he has not been feeling well. He reports prior lung disease and diabetes. He is also noted to be obese. He reports he was diagnosed with Covid approximately 5 days prior although he reports he had symptoms 2 days before diagnoses. In the ED twelve-lead EKG is obtained showing sinus rhythm at 71 bpm with no change from prior twelve-lead EKG obtained on 11/02/2018. Vital signs are as noted above. Labs are obtained showing a WBC of 7.5. Hemoglobin 13.5. Hematocrit 41.6. Platelets 192. Neutrophils are elevated at 74%. There is no bandemia. PT is 11.1. INR is 1.04. aPTT is 29.1. D-dimer is mildly elevated at 0.81. CRP is 4.2. Sodium is low at 133. Potassium 4.9. Chloride 99. Carbon dioxide 22. Anion gap is high at 16.9. BUN is high at 53. Creatinine is high at 2.4. GFR is low at 26. Glucose is high at 174. Calcium is 9.1. Magnesium 2.1. Bilirubin is 0.6. AST is 51, ALT 49, alkaline phosphatase 70. LDH is 297. Troponin 0 0.018. proBNP is 110. Protein 7.5. Albumin 3.0. Lactic acid is 1.4. ABG is obtained in the left radial showing a pH of 7.39 with a PCO2 of 33.9, PO2 of 63, HCO3 of 20, O2 saturation of 88.3. A-a gradient 44. This is obtained on room air. Chest x-ray is obtained showing nothing acute. He is noted to have a blood pressure of 80 systolic on recheck and is given a 500 mL fluid bolus. He is given a second 500 mL fluid bolus and placed on 2 L of oxygen which improved saturations to 94%. He carries a history of HLD, HTN, COPD, chronic constipation, urinary incontinence, osteoarthritis, CVA, type II DM, obesity, prostate cancer. He is a former smoker. He is a full code. He subsequently admitted to the medical floor on telemetry for continuing management of his COVID-19 symptoms and hypovolemia. Diagnosis: Stroke: No - Discharge Data Discharge Date: 02/13/20 (Admit date: 02/11/2020) Discharge Disposition: Home, Self-Care 01 Condition: Good - Referral to Home Health Primary Care Physician: PCP None - Discharge Diagnosis/Problem(s) (1) COVID-19 SNOMED Code(s): 353023824 ICD Code: U07.1 - COVID-19 Status: Acute Priority: High (2) Hypotension SNOMED Code(s): 26509123 ICD Code: I95.9 - HYPOTENSION, UNSPECIFIED Status: Acute Priority: High Qualifiers: Hypotension type: other hypotension type Qualified Code(s): I95.89 - Other hypotension (3) Hypoxemia requiring supplemental oxygen SNOMED Code(s): 433716894 ICD Code: R09.02 - HYPOXEMIA; Z99.81 - DEPENDENCE ON SUPPLEMENTAL OXYGEN Status: Acute Priority: High (4) Generalized weakness SNOMED Code(s): 85083292 ICD Code: R53.1 - WEAKNESS Status: Acute Priority: High (5) COPD (chronic obstructive pulmonary disease) SNOMED Code(s): 33975601 ICD Code: J44.9 - CHRONIC OBSTRUCTIVE PULMONARY DISEASE, UNSPECIFIED Status: Chronic Priority: Medium Qualifiers: COPD type: emphysema Emphysema type: unspecified Qualified Code(s): J43.9 - Emphysema, unspecified (6) Type II diabetes mellitus SNOMED Code(s): 69446099 ICD Code: E11.9 - TYPE 2 DIABETES MELLITUS WITHOUT COMPLICATIONS Status: Chronic Priority: Medium Qualifiers: Diabetes mellitus intermission coordinator insulin use: with intermission coordinator use Diabetes mellitus complication status: with other specified complication Qualified Code(s): E11.69 - Type 2 diabetes mellitus with other specified complication; Z 79.4 - skilled nursing (current) use of insulin - Patient Summary/Data Consults: Consultations 02/11/20 15:10 Consult to Case Management/[employer] [CONS] Routine OT Evaluation and Treatment [CONS] Routine PT Evaluation and Treatment [CONS] Routine Respiratory Care Assess and Treatment [CONS] Routine Labs Pending at D/C: None Recommended Follow-up Testing/Procedures: Follow-up with primary care provider within 7-10 days of discharge, sooner if needed. Hospital Course: Mateusz was admitted to the hospital floor due to continued COVID-19 symptoms including weakness, fever, cough, nausea, gas, diarrhea, brain fog and generalized feeling of unwell. He was formally diagnosed with Covid on 02/06/2020 although he reports symptoms began approximately 2 days prior. Saturations in the ED were noted to be 87% and he was started on 2 L. He was also noted to be hypotensive and he was given IV fluids. On the floor he was started on 6 mg dexamethasone. He was encouraged to prone and ambulate around the room. He was utilizing incentive spirometer and Acapella frequently. He was able to be weaned off of oxygen and reported that he felt much better. Labs remained grossly stable. D-dimer was very minimal at 0.8 and this trended down to 0.6. CRP trended down as well. Procalcitonin was obtained and was 0.14. ET/OT evaluated the patient and determined him safe to return home independently. He was instructed to continue isolation for 20 days, with day 1 being onset of symptoms. He was notified that he may be contacted by the [facility] regarding his infection, as they often have caseworkers follow- up with the patient. Instructed to follow there rules should it be different. He was prescribed 3 more days of 6 mg p.o. dexamethasone, due to concerns over patient's baseline diabetes. He was prescribed 20 days of p.o. zinc supplementation. Instructed to follow-up with his primary care provider within 7 to 10 days of discharge, sooner if needed. Recommend recheck CBC, CMP, magnesium, and consider chest x-ray at that visit. He was instructed to continue to utilize his incentive spirometer and Acapella for 1 to 2 weeks or until symptoms resolve. We did discuss concerns over him spreading the virus to his , who lives with him and is quite frail. He was advised to follow-up with his primary care provider or return the emergency room should symptoms return or worsen. Discharged home today. No change in prior home medications with the exception of new dexamethasone and zinc as noted prior. - Patient Instructions Diet: Diabetic Diet Activity: As Tolerated Driving: Do Not Drive (today) Showering/Bathing: May Shower Notify Provider of: Fever, Increased Pain, Nausea and/or Vomiting Other/Special Instructions: Follow-up with primary care provider within 7-10 days of discharge, sooner if needed. Resume home medications as prescribed. Take your blood sugar readings three times a day before meals and at bedtime. Continue to utilize your incentive spirometer (clear/blue device you inhale through) and acapella (green tube you blow through) for 1-2 more weeks or until symptoms develop. Continue to isolate/quarantine for a total of 20 days from symptom onset. You may recieve a call from the [facility]. If so, follow their insturctions. Take all new medicatoins as prescribed. Should symptoms return or worsen contact primary care provider or return to the Emergency Department. - Discharge Plan *PRESCRIPTION DRUG MONITORING PROGRAM REVIEWED*: No *COPY OF PRESCRIPTION DRUG MONITORING REPORT IN PATIENT BRANDYN: No Prescriptions/Med Rec: dexAMETHasone [Dexamethasone] 6 mg PO DAILY@1700 #3 tablet Zinc Sulfate [Zincate] 220 mg PO DAILY@1700 #20 cap Home Medications: Home Meds Ezetimibe [Zetia] 10 mg PO DAILY 07/25/14 [History] atorvaSTATin [Lipitor] 20 mg PO DAILY 07/25/14 [History] sitaGLIPtin Phos/Metformin HCl [Janumet 50-500 MG] 1 tab PO BID 03/18/15 [History] Aspirin [Aspirin EC] 325 mg PO DAILY 07/17/18 [History] Benazepril HCl [Lotensin] 40 tab PO DAILY 07/17/18 [History] Fexofenadine HCl [Marychuy Allergy] 100 mg PO DAILY 07/17/18 [History] Metoprolol Succinate [Toprol Xl] 25 mg PO DAILY 07/17/18 [History] Tiotropium [Spiriva HandiHaler] 1 inh INH DAILY 07/17/18 [History] amLODIPine Besylate [Amlodipine Besylate] 10 mg PO DAILY 07/17/18 [History] Insulin Degludec [Tresiba] 50 unit SQ DAILY 09/13/18 [History] hydroCHLOROthiazide [Microzide] 12.5 mg PO DAILY 09/13/18 [History] Ergocalciferol (Vitamin D2) [Vitamin D2] 1 tab PO ASDIRECTED 02/11/20 [History] Fluticasone/Vilanterol [Breo Ellipta 200-25 MCG Inhalation Kit] 1 inhalation IH DAILY 02/11/20 [History] Insulin Degludec [Tresiba] 70 units SQ DAILY 02/11/20 [History] Albuterol [Ventolin HFA] 2 puff INH Q4H PRN 02/12/20 [History] Albuterol/Ipratropium [DuoNeb 3.0-0.5 MG/3 ML] 3 ml NEB QID PRN 02/12/20 [History] Zinc Sulfate [Zincate] 220 mg PO DAILY@1700 #20 cap 02/13/20 [Rx] dexAMETHasone [Dexamethasone] 6 mg PO DAILY@1700 #3 tablet 02/13/20 [Rx] Oxygen Therapy Mode: Room Air Patient Handouts: COVID-19 Frequently Asked Questions, Diabetes Mellitus and Sick Day Management, COVID-19: How to Protect Yourself and Others - CDC, Type 2 Diabetes Mellitus, Self Care, Adult, [id number], Diabetes Mellitus and Exercise, Prevent the Spread of COVID-19 if You Are Sick - CDC, Sepsis, Self Care, Adult Referrals: Alena Singh MD [Physician] - 02/21/20 10:30 am - Discharge Summary/Plan Comment DC Time >30 min.: Yes (45 mins ) - General Info Date of Service: 02/13/20 Functional Status: Reports: Pain Controlled, Tolerating Diet, Ambulating, Urin ating, Incentive Spirometry, Other (Acapella ). Denies: New Symptoms - Review of Systems General: Reports: No Symptoms. Denies: Fever, Weakness, Fatigue, Malaise, Chills HEENT: Reports: No Symptoms. Denies: Headaches, Sore Throat Pulmonary: Reports: No Symptoms. Denies: Shortness of Breath, Cough, Sputum, Wheezing Cardiovascular: Reports: No Symptoms. Denies: Chest Pain, Palpitations, Dyspnea on Exertion Gastrointestinal: Reports: No Symptoms. Denies: Abdominal Pain, Constipation, Diarrhea, Nausea, Vomiting Genitourinary: Reports: No Symptoms. Denies: Pain Musculoskeletal: Reports: No Symptoms Skin: Reports: No Symptoms. Denies: Cyanosis Neurological: Reports: No Symptoms. Denies: Confusion, Numbness, Pre-Existing Deficit, Tingling, Difficulty Walking, Weakness, Gait Disturbance Psychiatric: Reports: No Symptoms - Patient Data Vitals - Most Recent: Last Vital Signs Temp 98.1 F 02/13/20 06:06 Pulse 69 02/13/20 08:08 Resp 20 02/13/20 08:01 BP 141/72 H 02/13/20 08:08 Pulse Ox 99 02/13/20 08:36 Weight - Most Recent: 107.002 kg I&O - Last 24 hours: Intake & Output 02/12/20 02/13/20 02/13/20 22:59 06:59 14:59 Intake Total 2176 300 Output Total 500 Balance 1676 300 Lab Results - Last 24 hrs: Laboratory Results - last 24 hr 02/11/20 02/12/20 02/12/20 Range/Units 12:30 11:48 16:50 WBC (4.23-9.07) K/mm3 RBC (4.63-6.08) M/mm3 Hgb (13.7-17.5) gm/dl Hct (40.1-51.0) % MCV (79.0-92.2) fl MCH (25.7-32.2) pg MCHC (32.2-35.5) g/dl RDW Std Deviation (35.1-43.9) fL Plt Count (163-337) K/mm3 MPV (9.4-12.3) fl Neut % (Auto) (34.0-67.9) % Lymph % (Auto) (21.8-53.1) % Bladen % (Auto) (5.3-12.2) % Eos % (Auto) (0.8-7.0) Baso % (Auto) (0.1-1.2) % Neut # (Auto) (1.78-5.38) K/mm3 Lymph # (Auto) (1.32-3.57) K/mm3 Bladen # (Auto) (0.30-0.82) K/mm3 Eos # (Auto) (0.04-0.54) K/mm3 Baso # (Auto) (0.01-0.08) K/mm3 Manual Slide Review D-Dimer, Quantitative (0.19-0.50) mg/L Sodium (136-145) mEq/L Potassium (3.5-5.1) mEq/L Chloride (98-107) mEq/L Carbon Dioxide (21-32) mEq/L Anion Gap (5-15) BUN (7-18) mg/dL Creatinine (0.7-1.3) mg/dL Est Cr Clr Drug Dosing mL/min Estimated GFR (MDRD) (>60) mL/min BUN/Creatinine Ratio (14-18) Glucose (83-115) mg/dL POC Glucose 301 H 188 H (83-110) mg/dL Calcium (8.5-10.1) mg/dL Magnesium (1.8-2.4) mg/dl Total Bilirubin (0.2-1.0) mg/dL AST (15-37) U/L ALT (16-63) U/L Alkaline Phosphatase (46-116) U/L C-Reactive Protein (<1.0) mg/dL Total Protein (6.4-8.2) g/dl Albumin (3.4-5.0) g/dl Globulin gm/dL Albumin/Globulin Ratio (1-2) Procalcitonin 0.14 H ng/mL 02/12/20 02/13/20 02/13/20 Range/Units 20:34 05:50 05:50 WBC 7.71 (4.23-9.07) K/mm3 RBC 4.37 L (4.63-6.08) M/mm3 Hgb 12.8 L (13.7-17.5) gm/dl Hct 39.6 L (40.1-51.0) % MCV 90.6 (79.0-92.2) fl MCH 29.3 (25.7-32.2) pg MCHC 32.3 (32.2-35.5) g/dl RDW Std Deviation 44.7 H (35.1-43.9) fL Plt Count 216 (163-337) K/mm3 MPV 11.2 (9.4-12.3) fl Neut % (Auto) 86.3 H (34.0-67.9) % Lymph % (Auto) 8.8 L (21.8-53.1) % Bladen % (Auto) 4.5 L (5.3-12.2) % Eos % (Auto) 0 L (0.8-7.0) Baso % (Auto) 0.1 (0.1-1.2) % Neut # (Auto) 6.65 H (1.78-5.38) K/mm3 Lymph # (Auto) 0.68 L (1.32-3.57) K/mm3 Bladen # (Auto) 0.35 (0.30-0.82) K/mm3 Eos # (Auto) 0.00 L (0.04-0.54) K/mm3 Baso # (Auto) 0.01 (0.01-0.08) K/mm3 Manual Slide Review Normal smear D-Dimer, Quantitative (0.19-0.50) mg/L Sodium 136 (136-145) mEq/L Potassium 4.8 (3.5-5.1) mEq/L Chloride 102 (98-107) mEq/L Carbon Dioxide 22 (21-32) mEq/L Anion Gap 16.8 H (5-15) BUN 40 H (7-18) mg/dL Creatinine 1.4 H (0.7-1.3) mg/dL Est Cr Clr Drug Dosing 46.96 mL/min Estimated GFR (MDRD) 49 (>60) mL/min BUN/Creatinine Ratio 28.6 H (14-18) Glucose 267 H (83-115) mg/dL POC Glucose 196 H (83-110) mg/dL Calcium 9.0 (8.5-10.1) mg/dL Magnesium 2.2 (1.8-2.4) mg/dl Total Bilirubin 0.4 (0.2-1.0) mg/dL AST 27 (15-37) U/L ALT 38 (16-63) U/L Alkaline Phosphatase 58 (46-116) U/L C-Reactive Protein 3.1 H* (<1.0) mg/dL Total Protein 7.0 (6.4-8.2) g/dl Albumin 2.7 L (3.4-5.0) g/dl Globulin 4.3 gm/dL Albumin/Globulin Ratio 0.6 L (1-2) Procalcitonin ng/mL 02/13/20 02/13/20 Range/Units 05:50 06:09 WBC (4.23-9.07) K/mm3 RBC (4.63-6.08) M/mm3 Hgb (13.7-17.5) gm/dl Hct (40.1-51.0) % MCV (79.0-92.2) fl MCH (25.7-32.2) pg MCHC (32.2-35.5) g/dl RDW Std Deviation (35.1-43.9) fL Plt Count (163-337) K/mm3 MPV (9.4-12.3) fl Neut % (Auto) (34.0-67.9) % Lymph % (Auto) (21.8-53.1) % Bladen % (Auto) (5.3-12.2) % Eos % (Auto) (0.8-7.0) Baso % (Auto) (0.1-1.2) % Neut # (Auto) (1.78-5.38) K/mm3 Lymph # (Auto) (1.32-3.57) K/mm3 Bladen # (Auto) (0.30-0.82) K/mm3 Eos # (Auto) (0.04-0.54) K/mm3 Baso # (Auto) (0.01-0.08) K/mm3 Manual Slide Review D-Dimer, Quantitative 0.61 H (0.19-0.50) mg/L Sodium (136-145) mEq/L Potassium (3.5-5.1) mEq/L Chloride (98-107) mEq/L Carbon Dioxide (21-32) mEq/L Anion Gap (5-15) BUN (7-18) mg/dL Creatinine (0.7-1.3) mg/dL Est Cr Clr Drug Dosing mL/min Estimated GFR (MDRD) (>60) mL/min BUN/Creatinine Ratio (14-18) Glucose (83-115) mg/dL POC Glucose 259 H (83-110) mg/dL Calcium (8.5-10.1) mg/dL Magnesium (1.8-2.4) mg/dl Total Bilirubin (0.2-1.0) mg/dL AST (15-37) U/L ALT (16-63) U/L Alkaline Phosphatase (46-116) U/L C-Reactive Protein (<1.0) mg/dL Total Protein (6.4-8.2) g/dl Albumin (3.4-5.0) g/dl Globulin gm/dL Albumin/Globulin Ratio (1-2) Procalcitonin ng/mL Med Orders - Current: Current Medications Acetaminophen (Tylenol) 650 mg PO Q4H PRN PRN Reason: Pain (Mild 1-3)/fever Albuterol (Proventil Hfa) 0 gm INH Q6H PRN PRN Reason: SOB/Wheezine Alogliptin Benzoate (Alogliptin) 12.5 mg PO DAILY [facility] Last Admin: 02/13/20 08:08 Dose: 12.5 mg Documented by: Dexamethasone (Dexamethasone) 6 mg PO DAILY@1700 [facility] Stop: 02/20/20 17:01 Last Admin: 02/12/20 16:53 Dose: 6 mg Documented by: Ezetimibe (Zetia) 10 mg PO DAILY [facility] Last Admin: 02/13/20 08:08 Dose: 10 mg Documented by: Famotidine (Pepcid) 20 mg PO BEDTIME [facility] Last Admin: 02/12/20 20:37 Dose: 20 mg Documented by: Heparin Sodium (Porcine) (Heparin Sodium) 5,000 units SUBCUT Q8H [facility] Last Admin: 02/13/20 08:07 Dose: 5,000 units Documented by: Insulin Human Lispro (Humalog) 0 unit SUBCUT QIDACANDBED [facility]; Protocol Last Admin: 02/13/20 08:06 Dose: 6 units Documented by: Metoprolol Succinate (Toprol Xl) 25 mg PO DAILY [facility] Last Admin: 02/13/20 08:08 Dose: 25 mg Documented by: Mometasone Furoate/Formoterol Fumar (Dulera 200-5 Mcg) 2 puff IH BID [facility] Last Admin: 02/13/20 08:35 Dose: 2 inhalation Documented by: Ondansetron HCl (Zofran) 4 mg IV Q6H PRN PRN Reason: Nausea/Vomiting Simvastatin (Zocor) 20 mg PO BEDTIME [facility] Last Admin: 02/12/20 20:37 Dose: 20 mg Documented by: Sodium Chloride (Saline Flush) 10 ml FLUSH ASDIRECTED PRN PRN Reason: Keep Vein Open Last Admin: 02/11/20 12:12 Dose: 10 ml Documented by: Tiotropium [place] (Spiriva Respimat) 0 gm INH DAILY [facility] Last Admin: 02/13/20 08:36 Dose: 4 gm Documented by: Zinc Sulfate (Zincate) 220 mg PO DAILY@1700 [facility] Last Admin: 02/12/20 16:53 Dose: 220 mg Documented by: Discontinued Medications Cholecalciferol (Vitamin D3) 5,000 unit PO DAILY [facility] Last Admin: 02/11/20 17:10 Dose: Not Given Documented by: Dexamethasone (Dexamethasone) 6 mg PO DAILY [facility] Stop: 02/20/20 09:01 Last Admin: 02/11/20 17:10 Dose: Not Given Documented by: Famotidine (Pepcid) 20 mg PO BID [facility] Last Admin: 02/11/20 21:28 Dose: 20 mg Documented by: Sodium Chloride (Normal Saline) Confirm Administered Dose 1,000 mls @ as directed .ROUTE .STK-MED ONE Stop: 02/11/20 12:44 Last Admin: 02/11/20 12:54 Dose: Not Given Documented by: Sodium Chloride (Normal Saline) 500 mls @ 1,000 mls/hr IV .BOLUS ONE Stop: 02/11/20 13:12 Last Admin: 02/11/20 12:45 Dose: 1,000 mls/hr Documented by: Lactated Ringer's (Ringers, Lactated) 1,000 mls @ 75 mls/hr IV ASDIRECTED [facility] Stop: 02/12/20 04:49 Last Admin: 02/11/20 17:52 Dose: 75 mls/hr Documented by: Zinc Sulfate (Zincate) 220 mg PO DAILY [facility] Last Admin: 02/11/20 17:11 Dose: Not Given Documented by: - Exam Quality Assessment: Reports: DVT Prophylaxis. Denies: Supplemental Oxygen, Urine Catheter General: Reports: Alert, Oriented, Cooperative, No Acute Distress HEENT: Reports: Pupils Equal, Pupils Reactive, Mucous Membr. Moist/[place] Neck: Reports: Supple, Trachea Midline Lungs: Reports: Clear to Auscultation, Normal Respiratory Effort, Decreased Breath Sounds Cardiovascular: Reports: Regular Rate, Regular Rhythm GI/Abdominal Exam: Normal Bowel Sounds, Soft, Non-Tender, No Distention (Male) Exam: Deferred Rectal (Males) Exam: Deferred Back Exam: Reports: Normal Inspection, Full Range of Motion Extremities: Normal Inspection, Normal Range of Motion, Non-Tender, No Pedal Edema, Normal Capillary Refill Skin: Reports: Warm, Dry, Intact Neurological: Reports: No New Focal Deficit Psy/Mental Status: Reports: Alert, Normal Affect, Normal Mood <Sam Timmons - Last Filed: 02/13/20 16:16> Discharge Summary - Referral to Home Health Primary Care Physician: PCP None - Patient Summary/Data Consults: Consultations 02/11/20 15:10 Consult to Case Management/[employer] [CONS] Routine OT Evaluation and Treatment [CONS] Routine PT Evaluation and Treatment [CONS] Routine Respiratory Care Assess and Treatment [CONS] Routine Hospital Course: I have seen and evaluated the patient independently of Dick Camarillo PA-C. I have reviewed and agree with the plan of care as outlined by him for this patient. Please see orders. - Patient Data Vitals - Most Recent: Last Vital Signs Temp 36.7 C 02/13/20 06:06 Pulse 69 02/13/20 08:08 Resp 20 02/13/20 08:01 BP 141/72 H 02/13/20 08:08 Pulse Ox 99 02/13/20 08:36 I&O - Last 24 hours: Intake & Output 02/13/20 02/13/20 02/13/20 06:59 14:59 22:59 Intake Total 300 180 Balance 300 180 Lab Results - Last 24 hrs: Laboratory Results - last 24 hr 02/11/20 02/12/20 02/12/20 Range/Units 12:30 16:50 20:34 WBC (4.23-9.07) K/mm3 RBC (4.63-6.08) M/mm3 Hgb (13.7-17.5) gm/dl Hct (40.1-51.0) % MCV (79.0-92.2) fl MCH (25.7-32.2) pg MCHC (32.2-35.5) g/dl RDW Std Deviation (35.1-43.9) fL Plt Count (163-337) K/mm3 MPV (9.4-12.3) fl Neut % (Auto) (34.0-67.9) % Lymph % (Auto) (21.8-53.1) % Bladen % (Auto) (5.3-12.2) % Eos % (Auto) (0.8-7.0) Baso % (Auto) (0.1-1.2) % Neut # (Auto) (1.78-5.38) K/mm3 Lymph # (Auto) (1.32-3.57) K/mm3 Bladen # (Auto) (0.30-0.82) K/mm3 Eos # (Auto) (0.04-0.54) K/mm3 Baso # (Auto) (0.01-0.08) K/mm3 Manual Slide Review D-Dimer, Quantitative (0.19-0.50) mg/L Sodium (136-145) mEq/L Potassium (3.5-5.1) mEq/L Chloride (98-107) mEq/L Carbon Dioxide (21-32) mEq/L Anion Gap (5-15) BUN (7-18) mg/dL Creatinine (0.7-1.3) mg/dL Est Cr Clr Drug Dosing mL/min Estimated GFR (MDRD) (>60) mL/min BUN/Creatinine Ratio (14-18) Glucose (83-115) mg/dL POC Glucose 188 H 196 H (83-110) mg/dL Calcium (8.5-10.1) mg/dL Magnesium (1.8-2.4) mg/dl Total Bilirubin (0.2-1.0) mg/dL AST (15-37) U/L ALT (16-63) U/L Alkaline Phosphatase (46-116) U/L C-Reactive Protein (<1.0) mg/dL Total Protein (6.4-8.2) g/dl Albumin (3.4-5.0) g/dl Globulin gm/dL Albumin/Globulin Ratio (1-2) Procalcitonin 0.14 H ng/mL 02/13/20 02/13/20 02/13/20 Range/Units 05:50 05:50 05:50 WBC 7.71 (4.23-9.07) K/mm3 RBC 4.37 L (4.63-6.08) M/mm3 Hgb 12.8 L (13.7-17.5) gm/dl Hct 39.6 L (40.1-51.0) % MCV 90.6 (79.0-92.2) fl MCH 29.3 (25.7-32.2) pg MCHC 32.3 (32.2-35.5) g/dl RDW Std Deviation 44.7 H (35.1-43.9) fL Plt Count 216 (163-337) K/mm3 MPV 11.2 (9.4-12.3) fl Neut % (Auto) 86.3 H (34.0-67.9) % Lymph % (Auto) 8.8 L (21.8-53.1) % Bladen % (Auto) 4.5 L (5.3-12.2) % Eos % (Auto) 0 L (0.8-7.0) Baso % (Auto) 0.1 (0.1-1.2) % Neut # (Auto) 6.65 H (1.78-5.38) K/mm3 Lymph # (Auto) 0.68 L (1.32-3.57) K/mm3 Bladen # (Auto) 0.35 (0.30-0.82) K/mm3 Eos # (Auto) 0.00 L (0.04-0.54) K/mm3 Baso # (Auto) 0.01 (0.01-0.08) K/mm3 Manual Slide Review Normal smear D-Dimer, Quantitative 0.61 H (0.19-0.50) mg/L Sodium 136 (136-145) mEq/L Potassium 4.8 (3.5-5.1) mEq/L Chloride 102 (98-107) mEq/L Carbon Dioxide 22 (21-32) mEq/L Anion Gap 16.8 H (5-15) BUN 40 H (7-18) mg/dL Creatinine 1.4 H (0.7-1.3) mg/dL Est Cr Clr Drug Dosing 46.96 mL/min Estimated GFR (MDRD) 49 (>60) mL/min BUN/Creatinine Ratio 28.6 H (14-18) Glucose 267 H (83-115) mg/dL POC Glucose (83-110) mg/dL Calcium 9.0 (8.5-10.1) mg/dL Magnesium 2.2 (1.8-2.4) mg/dl Total Bilirubin 0.4 (0.2-1.0) mg/dL AST 27 (15-37) U/L ALT 38 (16-63) U/L Alkaline Phosphatase 58 (46-116) U/L C-Reactive Protein 3.1 H* (<1.0) mg/dL Total Protein 7.0 (6.4-8.2) g/dl Albumin 2.7 L (3.4-5.0) g/dl Globulin 4.3 gm/dL Albumin/Globulin Ratio 0.6 L (1-2) Procalcitonin ng/mL 02/13/20 Range/Units 06:09 WBC (4.23-9.07) K/mm3 RBC (4.63-6.08) M/mm3 Hgb (13.7-17.5) gm/dl Hct (40.1-51.0) % MCV (79.0-92.2) fl MCH (25.7-32.2) pg MCHC (32.2-35.5) g/dl RDW Std Deviation (35.1-43.9) fL Plt Count (163-337) K/mm3 MPV (9.4-12.3) fl Neut % (Auto) (34.0-67.9) % Lymph % (Auto) (21.8-53.1) % Bladen % (Auto) (5.3-12.2) % Eos % (Auto) (0.8-7.0) Baso % (Auto) (0.1-1.2) % Neut # (Auto) (1.78-5.38) K/mm3 Lymph # (Auto) (1.32-3.57) K/mm3 Bladen # (Auto) (0.30-0.82) K/mm3 Eos # (Auto) (0.04-0.54) K/mm3 Baso # (Auto) (0.01-0.08) K/mm3 Manual Slide Review D-Dimer, Quantitative (0.19-0.50) mg/L Sodium (136-145) mEq/L Potassium (3.5-5.1) mEq/L Chloride (98-107) mEq/L Carbon Dioxide (21-32) mEq/L Anion Gap (5-15) BUN (7-18) mg/dL Creatinine (0.7-1.3) mg/dL Est Cr Clr Drug Dosing mL/min Estimated GFR (MDRD) (>60) mL/min BUN/Creatinine Ratio (14-18) Glucose (83-115) mg/dL POC Glucose 259 H (83-110) mg/dL Calcium (8.5-10.1) mg/dL Magnesium (1.8-2.4) mg/dl Total Bilirubin (0.2-1.0) mg/dL AST (15-37) U/L ALT (16-63) U/L Alkaline Phosphatase (46-116) U/L C-Reactive Protein (<1.0) mg/dL Total Protein (6.4-8.2) g/dl Albumin (3.4-5.0) g/dl Globulin gm/dL Albumin/Globulin Ratio (1-2) Procalcitonin ng/mL Med Orders - Current: Current Medications Discontinued Medications Acetaminophen (Tylenol) 650 mg PO Q4H PRN PRN Reason: Pain (Mild 1-3)/fever Albuterol (Proventil Hfa) 0 gm INH Q6H PRN PRN Reason: SOB/Wheezine Alogliptin Benzoate (Alogliptin) 12.5 mg PO DAILY [facility] Last Admin: 02/13/20 08:08 Dose: 12.5 mg Documented by: Cholecalciferol (Vitamin D3) 5,000 unit PO DAILY [facility] Last Admin: 02/11/20 17:10 Dose: Not Given Documented by: Dexamethasone (Dexamethasone) 6 mg PO DAILY [facility] Stop: 02/20/20 09:01 Last Admin: 02/11/20 17:10 Dose: Not Given Documented by: Dexamethasone (Dexamethasone) 6 mg PO DAILY@1700 [facility] Stop: 02/20/20 17:01 Last Admin: 02/12/20 16:53 Dose: 6 mg Documented by: Ezetimibe (Zetia) 10 mg PO DAILY [facility] Last Admin: 02/13/20 08:08 Dose: 10 mg Documented by: Famotidine (Pepcid) 20 mg PO BID [facility] Last Admin: 02/11/20 21:28 Dose: 20 mg Documented by: Famotidine (Pepcid) 20 mg PO BEDTIME [facility] Last Admin: 02/12/20 20:37 Dose: 20 mg Documented by: Heparin Sodium (Porcine) (Heparin Sodium) 5,000 units SUBCUT Q8H [facility] Last Admin: 02/13/20 08:07 Dose: 5,000 units Documented by: Sodium Chloride (Normal Saline) Confirm Administered Dose 1,000 mls @ as directed .ROUTE .STK-MED ONE Stop: 02/11/20 12:44 Last Admin: 02/11/20 12:54 Dose: Not Given Documented by: Sodium Chloride (Normal Saline) 500 mls @ 1,000 mls/hr IV .BOLUS ONE Stop: 02/11/20 13:12 Last Admin: 02/11/20 12:45 Dose: 1,000 mls/hr Documented by: Lactated Ringer's (Ringers, Lactated) 1,000 mls @ 75 mls/hr IV ASDIRECTED [facility] Stop: 02/12/20 04:49 Last Admin: 02/11/20 17:52 Dose: 75 mls/hr Documented by: Insulin Human Lispro (Humalog) 0 unit SUBCUT QIDACANDBED [facility]; Protocol Last Admin: 02/13/20 12:04 Dose: Not Given Documented by: Metoprolol Succinate (Toprol Xl) 25 mg PO DAILY [facility] Last Admin: 02/13/20 08:08 Dose: 25 mg Documented by: Mometasone Furoate/Formoterol Fumar (Dulera 200-5 Mcg) 2 puff IH BID [facility] Last Admin: 02/13/20 08:35 Dose: 2 inhalation Documented by: Ondansetron HCl (Zofran) 4 mg IV Q6H PRN PRN Reason: Nausea/Vomiting Simvastatin (Zocor) 20 mg PO BEDTIME [facility] Last Admin: 02/12/20 20:37 Dose: 20 mg Documented by: Sodium Chloride (Saline Flush) 10 ml FLUSH ASDIRECTED PRN PRN Reason: Keep Vein Open Last Admin: 02/11/20 12:12 Dose: 10 ml Documented by: Tiotropium [place] (Spiriva Respimat) 0 gm INH DAILY [facility] Last Admin: 02/13/20 08:36 Dose: 4 gm Documented by: Zinc Sulfate (Zincate) 220 mg PO DAILY [facility] Last Admin: 02/11/20 17:11 Dose: Not Given Documented by: Zinc Sulfate (Zincate) 220 mg PO DAILY@1700 [facility] Last Admin: 02/12/20 16:53 Dose: 220 mg Documented by:
== END 2020-02-13 13:25 | disposition home or self-care (01) | DRG 178 ==
LOC: JD.ED 11:27 → JD.MS 14:00
PROVIDERS: ADMIT Family Medicine; ATTEND Family Medicine
PROC: 8E0ZXY6 Isolation (ICD-10-PCS; principal; 2020-02-11)
DX: U07.1 COVID-19 (principal); N17.9 Acute kidney failure, unspecified; I95.89 Other hypotension; J43.9 Emphysema, unspecified; H91.93 Unspecified hearing loss, bilateral; R09.02 Hypoxemia; K59.09 Other constipation; R32 Unspecified urinary incontinence; H91.90 Unspecified hearing loss, unspecified ear; H54.7 Unspecified visual loss; E78.00 Pure hypercholesterolemia, unspecified; E86.1 Hypovolemia; E66.9 Obesity, unspecified; N18.30 Chronic kidney disease, stage 3 unspecified; I12.9 Hypertensive chronic kidney disease with stage 1 through stage 4 chronic kidney disease, or unspecified chronic kidney disease; E11.22 Type 2 diabetes mellitus with diabetic chronic kidney disease; M19.90 Unspecified osteoarthritis, unspecified site; Z86.73 Personal history of transient ischemic attack (TIA), and cerebral infarction without residual deficits; Z87.891 Personal history of nicotine dependence; Z85.46 Personal history of malignant neoplasm of prostate; Z88.0 Allergy status to penicillin; Z79.82 Long term (current) use of aspirin; Z79.4 Long term (current) use of insulin; Z79.899 Other long term (current) drug therapy; Z99.81 Dependence on supplemental oxygen; Z90.49 Acquired absence of other specified parts of digestive tract; Z68.32 Body mass index [BMI] 32.0-32.9, adult
CPT/HCPCS: 36415; 36600; 71045; 80053; 82306; 82728; 82803; 83036; 83605; 83615; 83735; 83880; 84145; 84484; 85007; 85027; 85379; 85610; 85730; 86140; 93005; 99285; J7030; 81001; 82962; 84100; 85025; 93010; 94640; 94667; 94668; 94761; 97110-GP; 97162-GP; 97165-GO; 99222; 99232; 99239; 99284; A9270-GY; J1644; J1815-GY; J7120; J8540

== ENCOUNTER 2020-02-22 15:57 | Emergency (ER) | payer MEDICARE, OTHER ==
[2020-02-22] MEDS ORDERED: Sodium Chloride 0.9% 500 ML IV STA ×2 (16:48→17:50)
[2020-02-22] MEDS ORDERED: Ketorolac 30 MG/ML SDV IVPUSH ONE (16:52)
--- NOTE | 2020-02-22 18:11 | EDM.PDOC ---
ED HPI GENERAL MEDICAL PROBLEM - General Chief Complaint: Lower Extremity Injury/Pain Stated Complaint: KNEE PAIN Time Seen by Provider: 02/22/20 16:05 Source of Information: Reports: Patient, RN Notes Reviewed History Limitations: Reports: No Limitations - History of Present Illness INITIAL COMMENTS - FREE TEXT/NARRATIVE: Patient is an 80-year-old male presenting to the emergency department complaints of left knee pain. He states that this morning he was walking and became "winded "and fell to his knee. Initially he was doing quite well, however as the day went on he had increasing pain. After the fall, he went out to check traps in the field. He did not do excessive amount of walking but states he was moving around quite a bit. Patient is post Covid. States that he still has ongoing shortness of breath with exertion. He was seen by his primary care provider, Dr. Singh, in the clinic yesterday and stated that everything has been going well. She did start him on home oxygen that he may use as needed. He did not have his oxygen on at the time of the fall. On triage, his blood pressure was noted to be slightly lower than it is normally. Blood pressure was 104/48. Blood pressures for him normally range in the 130s to 140s. States he did take his blood pressure medications today but admits that he has not drinking much fluid throughout the day. He does occasionally get lightheaded upon standing, but states that if he stands for moment this resolves. He denies any chest pain, shortness of breath at rest, fever, chills, nausea, vomiting, or diarrhea. He has no headache. Treatments [employer]ACEUTICAL PLANT OPERATOR: Reports: Other (see below) Other Treatments [employer]ARMACEUTICAL PLANT OPERATOR: 3 xtra strength tylenol Left Knee Pain Score (Numeric/FACES): 7 - Related Data Allergies Allergy/AdvReac Type Severity Reaction Status Date / Time Penicillins Allergy Severe Swelling Verified 02/22/20 16:22 Home Meds: Home Meds Ezetimibe [Zetia] 10 mg PO DAILY 07/25/14 [History] atorvaSTATin [Lipitor] 20 mg PO DAILY 07/25/14 [History] sitaGLIPtin Phos/Metformin HCl [Janumet 50-500 MG] 1 tab PO BID 03/18/15 [History] Aspirin [Aspirin EC] 325 mg PO DAILY 07/17/18 [History] Benazepril HCl [Lotensin] 40 tab PO DAILY 07/17/18 [History] Fexofenadine HCl [Marychuy Allergy] 100 mg PO DAILY 07/17/18 [History] Metoprolol Succinate [Toprol Xl] 25 mg PO DAILY 07/17/18 [History] Tiotropium [Spiriva HandiHaler] 1 inh INH DAILY 07/17/18 [History] amLODIPine Besylate [Amlodipine Besylate] 10 mg PO DAILY 07/17/18 [History] Insulin Degludec [Tresiba] 50 unit SQ DAILY 09/13/18 [History] hydroCHLOROthiazide [Microzide] 12.5 mg PO DAILY 09/13/18 [History] Ergocalciferol (Vitamin D2) [Vitamin D2] 1 tab PO ASDIRECTED 02/11/20 [History] Fluticasone/Vilanterol [Breo Ellipta 200-25 MCG Inhalation Kit] 1 inhalation IH DAILY 02/11/20 [History] Insulin Degludec [Tresiba] 70 units SQ DAILY 02/11/20 [History] Albuterol [Ventolin HFA] 2 puff INH Q4H PRN 02/12/20 [History] Albuterol/Ipratropium [DuoNeb 3.0-0.5 MG/3 ML] 3 ml NEB QID PRN 02/12/20 [History] Zinc Sulfate [Zincate] 220 mg PO DAILY@1700 #20 cap 02/13/20 [Rx] dexAMETHasone [Dexamethasone] 6 mg PO DAILY@1700 #3 tablet 02/13/20 [Rx] Past Medical History HEENT History: Reports: Hard of Hearing, Impaired Vision Other HEENT History: Wears hearing aides bilaterally, and reading glasses Cardiovascular History: Reports: High Cholesterol, Hypertension, SOB on Exertion Respiratory History: Reports: COPD Other Respiratory History: emphysema Gastrointestinal History: Reports: Chronic Constipation, Hemorrhoids Genitourinary History: Reports: Urinary Incontinence, Other (See Below) Other Genitourinary History: Minimal incontinence noted Musculoskeletal History: Reports: Osteoarthritis Other Musculoskeletal History: Hx. fx ribs, shoulder blade, hairline cervical fx, rt. thumb & wrist (casted) & coccyx. Neurological History: Reports: CVA, Other (See Below) Other Neuro History: hosp. mar 2016 for CVA symptoms, [facility] ([place]) question whether TIA vs CVA Psychiatric History: Reports: None Endocrine/Metabolic History: Reports: Diabetes, Type II, Obesity/BMI 30+ Hematologic History: Reports: None Immunologic History: Reports: None Oncologic (Cancer) History: Reports: Prostate Dermatologic History: Reports: None - Infectious Disease History Infectious Disease History: Reports: Chicken Pox, Novel Coronavirus, Other (See Below) Other Infectious Disease History: Covid-19 - Past Surgical History Head Surgeries/Procedures: Reports: None HEENT Surgical History: Reports: None Cardiovascular Surgical History: Reports: None Respiratory Surgical History: Reports: None GI Surgical History: Reports: Cholecystectomy Male Surgical History: Reports: Prostatectomy Endocrine Surgical History: Reports: None Neurological Surgical History: Reports: None Musculoskeletal Surgical History: Reports: None Oncologic Surgical History: Reports: None Other Oncologic Surgeries/Procedures: Prostatectomy Dermatological Surgical History: Reports: None Social & Family History - Family History Family Medical History: No Pertinent Family History - Tobacco Use Tobacco Use Status *Q: Former Tobacco User Used Tobacco, but Quit: Yes Month/Year Tobacco Last Used: 1985 - Caffeine Use Caffeine Use: Reports: Coffee, Soda Other Caffeine Use: diet soda Caffeine Use Comment: 6-8 cups per day, 1-2 cans pop per dy - Recreational Drug Use Recreational Drug Use: No - Living Situation & Occupation Living situation: Reports: , with Spouse Occupation: Retired Review of Systems - Review of Systems Review Of Systems: See Below Constitutional: Reports: Weakness. Denies: Chills Eyes: Reports: No Symptoms Ears: Reports: No Symptoms Nose: Reports: No Symptoms Mouth/Throat: Reports: No Symptoms Respiratory: Reports: Shortness of Breath (With exertion). Denies: Pleuritic Chest Pain, Cough Cardiovascular: Denies: Chest Pain, Palpitations, Syncope GI/Abdominal: Reports: No Symptoms Genitourinary: Reports: No Symptoms Musculoskeletal: Reports: Other (Left knee pain) Skin: Reports: No Symptoms Neurological: Reports: No Symptoms. Denies: Confusion, Dizziness, Headache Psychiatric: Reports: No Symptoms ED EXAM, GENERAL - Physical Exam Exam: See Below General Appearance: Alert, WD/WN, No Apparent Distress Respiratory/Chest: No Respiratory Distress, Lungs Clear, Normal Breath Sounds, No Accessory Muscle Use, Chest Non-Tender Cardiovascular: Normal Peripheral Pulses, Regular Rate, Rhythm, No Edema, No Gallop, No JVD, No Murmur, No Rub GI/Abdominal: Normal Bowel Sounds, Soft, Non-Tender, No Organomegaly, No Distention, No Abnormal Bruit, No Mass Extremities: Normal Inspection, Normal Range of Motion, No Pedal Edema, Normal Capillary Refill, Other (Tenderness to the anterior portion of the left knee overlying the patella. No redness, warmth, swelling, or deformity noted.) Neurological: Alert, Oriented, CN II-XII Intact, Normal Cognition, Normal Gait, Normal Reflexes, No Motor/Sensory Deficits Psychiatric: Normal Affect, Normal Mood Skin Exam: Warm, Dry, Intact, Normal Color, No Rash #1 Interpretation EKG Date: 02/22/20 Time: 17:10 Rhythm: NSR Rate (Beats/Min): 61 [place]: Normal P-Wave: Present QRS: Normal ST-T: Normal QT: Normal Course - Vital Signs Last Recorded V/S: Last Vital Signs Temp 97.7 F 02/22/20 16:23 Pulse 62 02/22/20 18:15 Resp 18 02/22/20 18:15 BP 124/53 L 02/22/20 18:15 Pulse Ox 93 L 02/22/20 18:15 Orthostatic Blood Pressure [ 89/49 Standing] Orthostatic Blood Pressure [ 111/56 Sitting] Orthostatic Blood Pressure [ 109/49 Supine] - Orders/Labs/Meds Orders: Active Orders 24 hr Category Date Time Status Chest 1V Frontal [CR] Stat Exams 02/22/20 16:49 Taken Knee 3V Lt [CR] Stat Exams 02/22/20 16:40 Taken Labs: Laboratory Tests 02/22/20 02/22/20 02/22/20 Range/Units 17:00 17:00 18:06 WBC 13.23 H (4.23-9.07) K/mm3 RBC 3.93 L (4.63-6.08) M/mm3 Hgb 11.6 L (13.7-17.5) gm/dl Hct 36.2 L (40.1-51.0) % MCV 92.1 (79.0-92.2) fl MCH 29.5 (25.7-32.2) pg MCHC 32.0 L (32.2-35.5) g/dl RDW Std Deviation 45.4 H (35.1-43.9) fL Plt Count 232 (163-337) K/mm3 MPV 10.7 (9.4-12.3) fl Neut % (Auto) 81.6 H (34.0-67.9) % Lymph % (Auto) 9.4 L (21.8-53.1) % [place] % (Auto) 7.6 (5.3-12.2) % Eos % (Auto) 0.5 L (0.8-7.0) Baso % (Auto) 0.1 (0.1-1.2) % Neut # (Auto) 10.79 H (1.78-5.38) K/mm3 Lymph # (Auto) 1.24 L (1.32-3.57) K/mm3 [place] # (Auto) 1.01 H (0.30-0.82) K/mm3 Eos # (Auto) 0.07 (0.04-0.54) K/mm3 Baso # (Auto) 0.01 (0.01-0.08) K/mm3 Manual Slide Review Abnormal smear Sodium 136 (136-145) mEq/L Potassium 4.6 (3.5-5.1) mEq/L Chloride 102 (98-107) mEq/L Carbon Dioxide 25 (21-32) mEq/L Anion Gap 13.6 (5-15) BUN 32 H (7-18) mg/dL Creatinine 2.2 H (0.7-1.3) mg/dL Est Cr Clr Drug Dosing 29.39 mL/min Estimated GFR (MDRD) 29 (>60) mL/min BUN/Creatinine Ratio 14.5 (14-18) Glucose 104 (83-115) mg/dL Calcium 9.4 (8.5-10.1) mg/dL Total Bilirubin 0.5 (0.2-1.0) mg/dL AST 18 (15-37) U/L ALT 34 (16-63) U/L Alkaline Phosphatase 62 (46-116) U/L Troponin I < 0.017 (0.00-0.056) ng/mL C-Reactive Protein 5.1 H* (<1.0) mg/dL Total Protein 6.9 (6.4-8.2) g/dl Albumin 2.7 L (3.4-5.0) g/dl Globulin 4.2 gm/dL Albumin/Globulin Ratio 0.6 L (1-2) Urine Color Dark yellow (Yellow) Urine Appearance Clear (Clear) Urine pH 5.0 (5.0-8.0) Ur Specific [place] > or = 1.030 (1.005-1.030) Urine Protein 1+ H (Negative) Urine Glucose (UA) Negative (Negative) Urine Ketones 1+ H (Negative) Urine Occult Blood Negative (Negative) Urine Nitrite Negative (Negative) Urine Bilirubin 1+ H (Negative) Urine Urobilinogen 0.2 (0.2-1.0) Ur Leukocyte Esterase Negative (Negative) U Hyaline Cast (Auto) 30-40 H (0-5) /lpf Urine RBC 0-5 (0-5) /hpf Urine WBC 0-5 (0-5) /hpf Ur Squamous Epith Cells 0-5 (0-5) /hpf Urine Bacteria Few (FEW) /hpf Urine Mucus Few (FEW) /hpf Meds: Medications Discontinued Medications Generic Name Dose Route Start Last Admin Trade Name Gaurang PRN Reason Stop Dose Admin Sodium Chloride 500 mls @ 999 mls/hr 02/22/20 16:48 02/22/20 17:14 Normal Saline IV 02/22/20 17:18 999 mls/hr NOW STA Administration Sodium Chloride 500 mls @ 999 mls/hr 02/22/20 17:50 02/22/20 17:53 Normal Saline IV 02/22/20 18:20 999 mls/hr NOW STA Administration Ketorolac Tromethamine 30 mg 02/22/20 16:52 02/22/20 17:14 Toradol IVPUSH 02/22/20 16:53 30 mg ONETIME ONE Administration - Re-Assessments/Exams Free Text/Narrative Re-Assessment/Exam: Patient is an 80-year-old male presenting to the emergency department with complaints of left knee pain after falling onto his knee earlier this morning. Pain has been getting progressively worse throughout the day. Denies any history of previous injuries or surgeries to this knee. Patient is post Covid and was recently started on oxygen that he may use at home as needed. His blood pressure in the ER today is lower than it normally is. Initial blood pressure in triage was 104/48, however subsequent blood pressure was 98/52. I have ordered orthostatic blood pressures. We will do a cardiac work-up noting CBC, CMP, CRP, troponin, chest x-ray, EKG, and a 3 view x-ray of his left knee. We will give him a 500 ml bolus of normal saline as well as Toradol 30 mg IV for pain. 02/22/20 18:23 Hematology was significant for a WBC elevated at 13.23, hemoglobin low at 11.6, BUN 32, creatinine 2.2, CRP 5.1. Urinalysis was negative for infection. Patient's kidney function is decreased from yesterday, likely due to dehydration. He has received a 1 L bolus of normal saline. Blood pressure has improved to 124/53. Of applied a Yayo wrap to his left knee. He will go home with a walker. Recommend routine Tylenol administration as well as icing. Follow-up with his primary care if pain not improved by Tuesday. Return to ER as needed. Discharge instructions as documented. Departure - Departure Time of Disposition: 18:36 Disposition: Home, Self-Care 01 Condition: Good Clinical Impression: Contusion of knee - Discharge Information *PRESCRIPTION DRUG MONITORING PROGRAM REVIEWED*: No *COPY OF PRESCRIPTION DRUG MONITORING REPORT IN PATIENT BRANDYN: No Instructions: Contusion, [id number] Referrals: Alena Singh MD [Primary Care Provider] - Forms: ED Department Discharge Additional Instructions: You were seen in the emergency department today for left knee pain after falling on the knee earlier today. X-rays are completed and showed no evidence of acute fracture. You do have significant arthritis in that knee however. You have likely bruised the knee and aggravated your arthritis. While in the ER, you did receive a liter of IV fluids because your blood pressure was slightly low. This did improve your blood pressure. Labs were completed and were found to be overall normal and consistent with lab work done yesterday. Recommend that you ensure you are taking an adequate amount of fluid. An Yayo wrap has been applied to the knee for comfort. Wear this for the next few days as needed. You have been provided with a walker. Recommend minimal weightbearing the leg until pain improves. You may use Tylenol 1000 mg every 6 hours for pain. Do not exceed 4000 mg in a 24-hour period. Recommend ice and elevation of the extremity intermittently for the next few days. If you are still having significant pain by early next week, recommend follow-up with your primary care provider or return to the ER as needed. Sepsis Event Note (ED) - Evaluation Sepsis Screening Result: No Definite Risk - Focused Exam Vital Signs: Vital Signs Temp Pulse Resp BP Pulse Ox 02/22/20 18:15 62 18 124/53 L 93 L 02/22/20 16:23 97.7 F 66 16 104/48 L 91 L - My Orders Last 24 Hours: My Active Orders 02/22/20 16:40 Knee 3V Lt [CR] Stat 02/22/20 16:49 Chest 1V Frontal [CR] Stat - Assessment/Plan Last 24 Hours: My Active Orders 02/22/20 16:40 Knee 3V Lt [CR] Stat 02/22/20 16:49 Chest 1V Frontal [CR] Stat
[2020-02-22 18:33] VITALS: BP 124/53; PULSE 62
--- NOTE | 2020-02-23 14:45 | CR ---
Left knee: AP, lateral and slight oblique view was obtained. Comparison: No prior knee study is available. Severe medial joint space narrowing is seen. Mild lateral joint space narrowing is noted. There is small joint effusion present. Osteophytes are noted off the patella as well as off the medial tibia. No definite acute bony abnormality is appreciated. Impression: 1. Degenerative change as noted above. 2. Joint effusion. Diagnostic code #3
--- NOTE | 2020-02-23 14:45 | CR ---
Chest: Portable view of the chest was obtained. Comparison: Prior chest x-ray of 02/21/20. Heart size and mediastinum are within normal limits for portable technique. Lungs are clear with no acute parenchymal change. No acute bony abnormality is appreciated. Impression: 1. Nothing acute is seen on portable chest x-ray. Diagnostic code #1
== END 2020-02-22 19:15 | disposition home or self-care (01) ==
LOC: JD.ED 15:57
DX: S80.02XA Contusion of left knee, initial encounter (principal); E78.00 Pure hypercholesterolemia, unspecified; I10 Essential (primary) hypertension; J44.9 Chronic obstructive pulmonary disease, unspecified; M19.90 Unspecified osteoarthritis, unspecified site; E11.9 Type 2 diabetes mellitus without complications; E66.9 Obesity, unspecified; Z68.32 Body mass index [BMI] 32.0-32.9, adult; Z88.0 Allergy status to penicillin; Z79.82 Long term (current) use of aspirin; Z86.73 Personal history of transient ischemic attack (TIA), and cerebral infarction without residual deficits; Z87.891 Personal history of nicotine dependence; W19.XXXA Unspecified fall, initial encounter
CPT/HCPCS: 36415; 71045; 73562; 80053; 81001; 84484; 85025; 86140; 93005; 96374; 99285; J1885; J7030; 99282

== ENCOUNTER 2020-07-16 10:06 | Emergency (ER) | payer MEDICARE, OTHER ==
[2020-07-16 10:20] VITALS: BP 154/74; PULSE 77
[2020-07-16] MEDS ORDERED: Sodium Chloride 0.9% 10 ML Syringe FLUSH PRN (10:33)
[2020-07-16] MEDS ORDERED: Albuterol/Ipratropium 3.0-0.5 MG/3 ML Neb Soln NEB ONE (10:35)
[2020-07-16] MEDS ORDERED: methylPREDNISolone Sodium Succinate 125 MG/2 ML SDV IVPUSH ONE (10:35)
--- NOTE | 2020-07-16 11:16 | CR ---
Chest: Portable view of the chest was obtained. Comparison: Prior chest x-ray of 02/22/20. Heart size and mediastinum are normal. Lungs are clear with no acute parenchymal change. Inferior spurring is noted within the right acromioclavicular joint. Endplate spurring is also noted within the thoracic spine. Impression: 1. Findings as noted above. 2. Nothing acute is seen on portable chest x-ray. Diagnostic code #2
--- NOTE | 2020-07-16 11:43 | EDM.PDOC ---
ED HPI GENERAL MEDICAL PROBLEM - General Chief Complaint: General Stated Complaint: WEAK/MUSCLE CRAMPS Time Seen by Provider: 07/16/20 10:15 Source of Information: Reports: Patient History Limitations: Reports: No Limitations - History of Present Illness INITIAL COMMENTS - FREE TEXT/NARRATIVE: The patient presents with lightheadedness, shortness of breath and muscle pain. This started a few days ago. He rested all day and did fine. It started again a few days ago. He has no chest pain. He has a slight cough. He denies having a fever or chills. He did have COVID 19 in January and for a couple weeks after he felt like this and needed oxygen at home. He still has oxygen but has not needed it since January. He has no abdominal pain, nausea or vomiting. He says at times it feels like he is going to pass out. He lays down and it goes away. Onset: Gradual Duration: Week(s): Severity: Moderate Improves with: Reports: None Worsens with: Reports: None Associated Symptoms: Reports: Cough, Shortness of Breath. Denies: Chest Pain, Fever/Chills, Headaches, Nausea/Vomiting - Related Data Allergies Allergy/AdvReac Type Severity Reaction Status Date / Time Penicillins Allergy Severe Swelling Verified 07/16/20 10:20 Home Meds: Home Meds Ezetimibe [Zetia] 10 mg PO DAILY 07/25/14 [History] atorvaSTATin [Lipitor] 20 mg PO DAILY 07/25/14 [History] sitaGLIPtin Phos/Metformin HCl [Janumet 50-500 MG] 1 tab PO BID 03/18/15 [History] Aspirin [Aspirin EC] 325 mg PO DAILY 07/17/18 [History] Benazepril HCl [Lotensin] 40 tab PO DAILY 07/17/18 [History] Fexofenadine HCl [Marychuy Allergy] 100 mg PO DAILY 07/17/18 [History] Metoprolol Succinate [Toprol Xl] 25 mg PO DAILY 07/17/18 [History] Tiotropium [Spiriva HandiHaler] 1 inh INH DAILY 07/17/18 [History] amLODIPine Besylate [Amlodipine Besylate] 10 mg PO DAILY 07/17/18 [History] hydroCHLOROthiazide [Microzide] 12.5 mg PO DAILY 09/13/18 [History] Ergocalciferol (Vitamin D2) [Vitamin D2] 1 tab PO ASDIRECTED 02/11/20 [History] Fluticasone/Vilanterol [Breo Ellipta 200-25 MCG Inhalation Kit] 1 inhalation IH DAILY 02/11/20 [History] Insulin Degludec [Tresiba] 70 units SQ DAILY 02/11/20 [History] Albuterol [Ventolin HFA] 2 puff INH Q4H PRN 02/12/20 [History] Albuterol/Ipratropium [DuoNeb 3.0-0.5 MG/3 ML] 3 ml NEB QID PRN 02/12/20 [History] Zinc Sulfate [Zincate] 220 mg PO DAILY@1700 #20 cap 02/13/20 [Rx] Dapagliflozin Propanediol [Farxiga] 10 mg PO DAILY 07/16/20 [History] Ergocalciferol (Vitamin D2) [Vitamin D2] 1 cap PO ASDIRECTED 07/16/20 [History] predniSONE [Prednisone] 40 mg PO DAILY #10 tablet 07/16/20 [Rx] Past Medical History HEENT History: Reports: Hard of Hearing, Impaired Vision Other HEENT History: Wears hearing aides bilaterally, and reading glasses Cardiovascular History: Reports: High Cholesterol, Hypertension, SOB on Exertion Respiratory History: Reports: COPD Other Respiratory History: emphysema Gastrointestinal History: Reports: Chronic Constipation, Hemorrhoids Genitourinary History: Reports: Urinary Incontinence, Other (See Below) Other Genitourinary History: Minimal incontinence noted Musculoskeletal History: Reports: Osteoarthritis Other Musculoskeletal History: Hx. fx ribs, shoulder blade, hairline cervical fx, rt. thumb & wrist (casted) & coccyx. Neurological History: Reports: CVA, Other (See Below) Other Neuro History: hosp. mar 2016 for CVA symptoms, [facility] ([place]) question whether TIA vs CVA Psychiatric History: Reports: None Endocrine/Metabolic History: Reports: Diabetes, Type II, Obesity/BMI 30+ Hematologic History: Reports: None Immunologic History: Reports: None Oncologic (Cancer) History: Reports: Prostate Dermatologic History: Reports: None - Infectious Disease History Infectious Disease History: Reports: Chicken Pox, Novel Coronavirus, Other (See Below) Other Infectious Disease History: Covid-19 - Past Surgical History Head Surgeries/Procedures: Reports: None HEENT Surgical History: Reports: None Cardiovascular Surgical History: Reports: None Respiratory Surgical History: Reports: None GI Surgical History: Reports: Cholecystectomy Male Surgical History: Reports: Prostatectomy Endocrine Surgical History: Reports: None Neurological Surgical History: Reports: None Musculoskeletal Surgical History: Reports: None Oncologic Surgical History: Reports: None Other Oncologic Surgeries/Procedures: Prostatectomy Dermatological Surgical History: Reports: None Social & Family History - Family History Family Medical History: No Pertinent Family History - Tobacco Use Tobacco Use Status *Q: Former Tobacco User Used Tobacco, but Quit: Yes Month/Year Tobacco Last Used: 07/1985 - Caffeine Use Caffeine Use: Reports: Coffee Other Caffeine Use: diet soda Caffeine Use Comment: 6-8 cups per day, 1-2 cans pop per dy - Recreational Drug Use Recreational Drug Use: No - Living Situation & Occupation Living situation: Reports: , with Spouse Occupation: Retired ED ROS GENERAL - Review of Systems Review Of Systems: See Below Constitutional: Reports: No Symptoms HEENT: Reports: No Symptoms Respiratory: Reports: Shortness of Breath, Cough Cardiovascular: Reports: Lightheadedness. Denies: Chest Pain Endocrine: Reports: No Symptoms GI/Abdominal: Reports: No Symptoms : Reports: No Symptoms ED EXAM, GENERAL - Physical Exam Exam: See Below Exam Limited By: No Limitations General Appearance: Alert, No Apparent Distress Ears: Normal External Exam Nose: Normal Inspection Head: Atraumatic, Normocephalic Neck: Normal Inspection Respiratory/Chest: No Respiratory Distress, Decreased Breath Sounds, Wheezing Cardiovascular: Regular Rate, Rhythm, No Edema, No Murmur GI/Abdominal: Soft, Non-Tender, No Organomegaly, No Mass Back Exam: Normal Inspection Extremities: Normal Inspection Neurological: Alert, Oriented, No Motor/Sensory Deficits #1 Interpretation EKG Date: 07/16/20 Time: 11:12 Rhythm: NSR Rate (Beats/Min): 65 [place]: Normal P-Wave: Present QRS: Normal ST-T: Elevated (slight elevation lateral leads) QT: Normal Comparison: No Change Course - Vital Signs Last Recorded V/S: Last Vital Signs Temp 97.5 F 07/16/20 10:15 Pulse 77 07/16/20 10:15 Resp 18 07/16/20 10:15 BP 154/74 H 07/16/20 10:15 Pulse Ox 96 07/16/20 10:35 - Orders/Labs/Meds Orders: Active Orders 24 hr Category Date Time Status Cardiac Monitoring [RC] . DIRECTED Care 07/16/20 10:33 Active EKG Documentation Completion [RC] STAT Care 07/16/20 10:33 Active Oxygen Therapy [RC] PRN Care 07/16/20 10:33 Active Peripheral IV Care [RC] . DIRECTED Care 07/16/20 10:34 Active RT Aerosol Therapy [RC] ASDIRECTED Care 07/16/20 10:35 Active CULTURE BLOOD [BC] Stat Lab 07/16/20 10:55 Received CULTURE BLOOD [BC] Stat Lab 07/16/20 11:10 Received Sodium Chloride 0.9% [Saline Flush] Med 07/16/20 10:33 Active 10 ml FLUSH ASDIRECTED PRN Blood Culture x2 Reflex Set [OM.PC] Stat Oth 07/16/20 10:34 Ordered Peripheral IV Insertion Adult [OM.PC] Stat Oth 07/16/20 10:33 Ordered Medication Orders Sodium Chloride (Sodium Chloride 0.9% 10 Ml Syringe) 10 ml FLUSH ASDIRECTED PRN PRN Reason: Keep Vein Open Last Admin: 07/16/20 11:00 Dose: 10 ml Documented by: HERMMIC Labs: Laboratory Tests 07/16/20 07/16/20 07/16/20 Range/Units 10:55 10:55 10:55 WBC 7.01 (4.23-9.07) K/mm3 RBC 4.72 (4.63-6.08) M/mm3 Hgb 14.2 (13.7-17.5) gm/dl Hct 42.9 (40.1-51.0) % MCV 90.9 (79.0-92.2) fl MCH 30.1 (25.7-32.2) pg MCHC 33.1 (32.2-35.5) g/dl RDW Std Deviation 45.3 H (35.1-43.9) fL Plt Count 170 (163-337) K/mm3 MPV 10.8 (9.4-12.3) fl Neut % (Auto) 69.2 H (34.0-67.9) % Lymph % (Auto) 21.5 L (21.8-53.1) % [place] % (Auto) 6.3 (5.3-12.2) % Eos % (Auto) 2.6 (0.8-7.0) Baso % (Auto) 0.3 (0.1-1.2) % Neut # (Auto) 4.85 (1.78-5.38) K/mm3 Lymph # (Auto) 1.51 (1.32-3.57) K/mm3 [place] # (Auto) 0.44 (0.30-0.82) K/mm3 Eos # (Auto) 0.18 (0.04-0.54) K/mm3 Baso # (Auto) 0.02 (0.01-0.08) K/mm3 PT 10.8 (9.7-12.0) SECONDS INR 1.01 APTT 25.3 (21.7-31.4) SECONDS Sodium 140 (136-145) mEq/L Potassium 4.4 (3.5-5.1) mEq/L Chloride 104 (98-107) mEq/L Carbon Dioxide 24 (21-32) mEq/L Anion Gap 16.4 H (5-15) BUN 33 H (7-18) mg/dL Creatinine 1.6 H (0.7-1.3) mg/dL Est Cr Clr Drug Dosing 40.42 mL/min Estimated GFR (MDRD) 42 (>60) mL/min BUN/Creatinine Ratio 20.6 H (14-18) Glucose 92 (70-99) mg/dL Lactic Acid (0.4-2.0) mmol/L Calcium 9.0 (8.5-10.1) mg/dL Total Bilirubin 0.4 (0.2-1.0) mg/dL AST 30 (15-37) U/L ALT 42 (16-63) U/L Alkaline Phosphatase 47 (46-116) U/L Troponin I < 0.017 (0.00-0.056) ng/mL C-Reactive Protein 0.2 (<1.0) mg/dL Total Protein 7.0 (6.4-8.2) g/dl Albumin 3.7 (3.4-5.0) g/dl Globulin 3.3 gm/dL Albumin/Globulin Ratio 1.1 (1-2) SARS-CoV-2 RNA (AGUSTIN) (NEGATIVE) 07/16/20 07/16/20 Range/Units 10:55 11:10 WBC (4.23-9.07) K/mm3 RBC (4.63-6.08) M/mm3 Hgb (13.7-17.5) gm/dl Hct (40.1-51.0) % MCV (79.0-92.2) fl MCH (25.7-32.2) pg MCHC (32.2-35.5) g/dl RDW Std Deviation (35.1-43.9) fL Plt Count (163-337) K/mm3 MPV (9.4-12.3) fl Neut % (Auto) (34.0-67.9) % Lymph % (Auto) (21.8-53.1) % [place] % (Auto) (5.3-12.2) % Eos % (Auto) (0.8-7.0) Baso % (Auto) (0.1-1.2) % Neut # (Auto) (1.78-5.38) K/mm3 Lymph # (Auto) (1.32-3.57) K/mm3 [place] # (Auto) (0.30-0.82) K/mm3 Eos # (Auto) (0.04-0.54) K/mm3 Baso # (Auto) (0.01-0.08) K/mm3 PT (9.7-12.0) SECONDS INR APTT (21.7-31.4) SECONDS Sodium (136-145) mEq/L Potassium (3.5-5.1) mEq/L Chloride (98-107) mEq/L Carbon Dioxide (21-32) mEq/L Anion Gap (5-15) BUN (7-18) mg/dL Creatinine (0.7-1.3) mg/dL Est Cr Clr Drug Dosing mL/min Estimated GFR (MDRD) (>60) mL/min BUN/Creatinine Ratio (14-18) Glucose (70-99) mg/dL Lactic Acid 1.4 (0.4-2.0) mmol/L Calcium (8.5-10.1) mg/dL Total Bilirubin (0.2-1.0) mg/dL AST (15-37) U/L ALT (16-63) U/L Alkaline Phosphatase (46-116) U/L Troponin I (0.00-0.056) ng/mL C-Reactive Protein (<1.0) mg/dL Total Protein (6.4-8.2) g/dl Albumin (3.4-5.0) g/dl Globulin gm/dL Albumin/Globulin Ratio (1-2) SARS-CoV-2 RNA (AGUSTIN) Negative (NEGATIVE) Meds: Medications Generic Name Dose Route Start Last Admin Trade Name Freq PRN Reason Stop Dose Admin Sodium Chloride 10 ml 07/16/20 10:33 07/16/20 11:00 Sodium Chloride 0.9% 10 Ml Syringe FLUSH 10 ml ASDIRECTED PRN Administration Keep Vein Open Discontinued Medications Generic Name Dose Route Start Last Admin Trade Name Freq PRN Reason Stop Dose Admin Albuterol/Ipratropium 3 ml 07/16/20 10:35 07/16/20 11:16 Albuterol/Ipratropium 3.0-0.5 Mg/3 Ml Neb Soln NEB 07/16/20 10:36 3 ml ONETIME ONE Administration Methylprednisolone Sodium Succinate 125 mg 07/16/20 10:35 07/16/20 11:00 Methylprednisolone Sodium Succinate 125 Mg/2 Ml Sdv IVPUSH 07/16/20 10:36 125 mg ONETIME ONE Administration - Re-Assessments/Exams Free Text/Narrative Re-Assessment/Exam: 07/16/20 12:44 I ordered oxygen, EKG, CXR, labs, Duoneb, and solu-medrol 125mg IV. His EKG shows a NSR with no acute changes. His CXR shows nothing acute. His CBC looks good. His creatinine was slightly elevated at 1.6. His troponin is negative. He has a COPD exacerbation. I will give him some steroids at home and have him wear his oxygen here. He does not want to be admitted. Departure - Departure Time of Disposition: 12:50 Disposition: Home, Self-Care 01 Condition: Good Clinical Impression: COPD exacerbation, Hypoxia - Discharge Information *PRESCRIPTION DRUG MONITORING PROGRAM REVIEWED*: Not Applicable *COPY OF PRESCRIPTION DRUG MONITORING REPORT IN PATIENT BRANDYN: Not Applicable Prescriptions: predniSONE [Prednisone] 40 mg PO DAILY #10 tablet Referrals: Alena Singh MD [Primary Care Provider] - 1 Week Forms: ED Department Discharge Additional Instructions: Take your medication as prescribed. Take the prednisone daily for 5 days. Wear your oxygen continuously for a week and then try to wean yourself off. Please return if you are worse. Sepsis Event Note (ED) - Evaluation Sepsis Screening Result: No Definite Risk - Focused Exam Vital Signs: Vital Signs Temp Pulse Resp BP Pulse Ox Pulse Ox 07/16/20 10:35 96 07/16/20 10:15 97.5 F 77 18 154/74 H 90 L - My Orders Last 24 Hours: My Active Orders 07/16/20 10:33 Cardiac Monitoring [RC] . DIRECTED EKG Documentation Completion [RC] STAT Oxygen Therapy [RC] PRN Sodium Chloride 0.9% [Saline Flush] 10 ml FLUSH ASDIRECTED PRN Peripheral IV Insertion Adult [OM.PC] Stat 07/16/20 10:34 Peripheral IV Care [RC] . DIRECTED Blood Culture x2 Reflex Set [OM.PC] Stat 07/16/20 10:35 RT Aerosol Therapy [RC] ASDIRECTED 07/16/20 10:55 CULTURE BLOOD [BC] Stat 07/16/20 11:10 CULTURE BLOOD [BC] Stat - Assessment/Plan Last 24 Hours: My Active Orders 07/16/20 10:33 Cardiac Monitoring [RC] . DIRECTED EKG Documentation Completion [RC] STAT Oxygen Therapy [RC] PRN Sodium Chloride 0.9% [Saline Flush] 10 ml FLUSH ASDIRECTED PRN Peripheral IV Insertion Adult [OM.PC] Stat 07/16/20 10:34 Peripheral IV Care [RC] . DIRECTED Blood Culture x2 Reflex Set [OM.PC] Stat 07/16/20 10:35 RT Aerosol Therapy [RC] ASDIRECTED 07/16/20 10:55 CULTURE BLOOD [BC] Stat 07/16/20 11:10 CULTURE BLOOD [BC] Stat
== END 2020-07-16 13:00 | disposition home or self-care (01) ==
LOC: JD.ED 10:06
DX: J44.1 Chronic obstructive pulmonary disease with (acute) exacerbation (principal); E78.00 Pure hypercholesterolemia, unspecified; I10 Essential (primary) hypertension; J44.9 Chronic obstructive pulmonary disease, unspecified; E11.9 Type 2 diabetes mellitus without complications; E66.9 Obesity, unspecified; Z68.30 Body mass index [BMI] 30.0-30.9, adult; Z79.4 Long term (current) use of insulin; Z79.899 Other long term (current) drug therapy; Z87.891 Personal history of nicotine dependence; Z20.822 Contact with and (suspected) exposure to COVID-19
CPT/HCPCS: 36415; 71045; 80053; 83605; 84484; 85025; 85610; 85730; 86140; 87040; 93005; 94640; 96374; 99285; J2930; U0002; 93010; 99284; J7620-GY

== ENCOUNTER 2020-08-08 08:32 | Emergency (ER) | payer MEDICARE, OTHER ==
[2020-08-08 09:04] VITALS: BP 118/76; PULSE 73
--- NOTE | 2020-08-08 09:27 | EDM.PDOC ---
ED HPI GENERAL MEDICAL PROBLEM - General Chief Complaint: Respiratory Problem Stated Complaint: SOB, WEAK, TIRED, DIARRHEA Time Seen by Provider: 08/08/20 09:27 - History of Present Illness INITIAL COMMENTS - FREE TEXT/NARRATIVE: 80-year-old male returns the emergency room with shortness of breath being weak and tired. This is been going on the last several days. He had 1 day where he had 2 loose stools but this did not return. His appetite is diminished somewhat but he believes he is drinking adequate fluids. He notices most of his symptoms when he gets up and moves around he just gets short of breath really quick. He has not had any chest pain chest pressure or palpitations. He has not had any worsening swelling. He is not aware of any fevers or chills. At times he brings up a small amount of sputum when he coughs. He has not had any abdominal pain or discomfort no nausea or vomiting no constipation Headache Pain Score (Numeric/FACES): 3 - Related Data Allergies Allergy/AdvReac Type Severity Reaction Status Date / Time Penicillins Allergy Severe Swelling Verified 08/08/20 09:05 Home Meds: Home Meds Acetaminophen [Tylenol] 325 mg PO DAILY PRN 08/08/20 [History] Benazepril HCl 40 mg PO DAILY 08/08/20 [History] Dapagliflozin Propanediol [Farxiga] 10 mg PO DAILY 08/08/20 [History] Doxycycline [Vibramycin] 100 mg PO BID #14 tab 08/08/20 [Rx] Ergocalciferol (Vitamin D2) [Vitamin D2] 1.25 mg PO TUTH 08/08/20 [History] Ezetimibe 10 mg PO DAILY 08/08/20 [History] Fluticasone/Vilanterol [Breo Ellipta 200-25 MCG Inhalation Kit] 1 puff INH DAILY 08/08/20 [History] Insulin Degludec [Tresiba] 70 units SQ DAILY 08/08/20 [History] Metoprolol Succinate [Toprol XL] 25 mg PO DAILY 08/08/20 [History] Tiotropium [Spiriva HandiHaler] 18 mcg INH DAILY 08/08/20 [History] amLODIPine Besylate [Amlodipine Besylate] 10 mg PO DAILY 08/08/20 [History] atorvaSTATin Calcium [Atorvastatin Calcium] 20 mg PO DAILY 08/08/20 [History] hydroCHLOROthiazide [Hydrochlorothiazide] 12.5 mg PO DAILY 08/08/20 [History] predniSONE 30 mg PO DAILY #15 tab 08/08/20 [Rx] sitaGLIPtin Phos/Metformin HCl [Janumet Xr 50-1,000 mg Tablet] 1 tab PO BID 08/08/20 [History] Past Medical History HEENT History: Reports: Hard of Hearing, Impaired Vision Other HEENT History: Wears hearing aides bilaterally, and reading glasses Cardiovascular History: Reports: High Cholesterol, Hypertension, SOB on Exertion Respiratory History: Reports: COPD Other Respiratory History: emphysema Gastrointestinal History: Reports: Chronic Constipation, Hemorrhoids Genitourinary History: Reports: Urinary Incontinence, Other (See Below) Other Genitourinary History: Minimal incontinence noted Musculoskeletal History: Reports: Osteoarthritis Other Musculoskeletal History: Hx. fx ribs, shoulder blade, hairline cervical fx, rt. thumb & wrist (casted) & coccyx. Neurological History: Reports: CVA, Other (See Below) Other Neuro History: hosp. mar 2016 for CVA symptoms, [facility] ([place]) question whether TIA vs CVA Psychiatric History: Reports: None Endocrine/Metabolic History: Reports: Diabetes, Type II, Obesity/BMI 30+ Hematologic History: Reports: None Immunologic History: Reports: None Oncologic (Cancer) History: Reports: Prostate Dermatologic History: Reports: None - Infectious Disease History Infectious Disease History: Reports: Chicken Pox, Novel Coronavirus, Other (See Below) Other Infectious Disease History: Covid-19 - Past Surgical History Head Surgeries/Procedures: Reports: None HEENT Surgical History: Reports: None Cardiovascular Surgical History: Reports: None Respiratory Surgical History: Reports: None GI Surgical History: Reports: Cholecystectomy Male Surgical History: Reports: Prostatectomy Endocrine Surgical History: Reports: None Neurological Surgical History: Reports: None Musculoskeletal Surgical History: Reports: None Oncologic Surgical History: Reports: None Other Oncologic Surgeries/Procedures: Prostatectomy Dermatological Surgical History: Reports: None Social & Family History - Family History Family Medical History: No Pertinent Family History - Tobacco Use Tobacco Use Status *Q: Never Tobacco User Second Hand Smoke Exposure: No - Caffeine Use Caffeine Use: Reports: Coffee Other Caffeine Use: diet soda Caffeine Use Comment: 6-8 cups per day, 1-2 cans pop per dy - Recreational Drug Use Recreational Drug Use: No - Living Situation & Occupation Living situation: Reports: , with Spouse Occupation: Retired ED ROS GENERAL - Review of Systems Review Of Systems: See Below Constitutional: Denies: Fever, Chills HEENT: Reports: No Symptoms Respiratory: Reports: Shortness of Breath, Cough, Sputum. Denies: Pleuritic Chest Pain, Hemoptysis Cardiovascular: Denies: Chest Pain Endocrine: Reports: No Symptoms GI/Abdominal: Reports: No Symptoms, Other (He had 2 loose stools a couple of days ago but this seems to have resolved.) : Reports: No Symptoms Musculoskeletal: Reports: No Symptoms Neurological: Reports: No Symptoms ED EXAM, GENERAL - Physical Exam Exam: See Below Exam Limited By: No Limitations General Appearance: Alert, No Apparent Distress Eye Exam: Bilateral Eye: Normal Inspection Ears: Normal External Exam, Normal Canal, Hearing Grossly Normal, Normal TMs, Other (Patient has some nonobstructing cerumen in the canals) Nose: Normal Inspection, Normal Mucosa, No Blood Throat/Mouth: Normal Inspection, Normal Lips, Normal Gums, Normal Oropharynx, Normal Voice, No Airway Compromise Respiratory/Chest: No Respiratory Distress, Lungs Clear, Other (Breath sounds are slightly diminished) Cardiovascular: Normal Peripheral Pulses, Regular Rate, Rhythm, No Edema GI/Abdominal: Normal Bowel Sounds, Soft, Non-Tender Back Exam: Normal Inspection. No: CVA Tenderness (L), CVA Tenderness (R) Extremities: Normal Inspection, No Pedal Edema Neurological: Alert, Oriented, Normal Cognition Course - Vital Signs Last Recorded V/S: Last Vital Signs Temp 36.7 C 08/08/20 09:03 Pulse 73 08/08/20 09:03 Resp 20 08/08/20 09:03 BP 118/76 08/08/20 09:03 Pulse Ox 92 L 08/08/20 09:03 - Orders/Labs/Meds Orders: Active Orders 24 hr Category Date Time Status EKG Documentation Completion [RC] ASDIRECTED Care 08/08/20 09:27 Active RT Aerosol Therapy [RC] ASDIRECTED Care 08/08/20 09:40 Active EKG 12 Lead [EK] Stat Ther 08/08/20 09:27 Ordered Labs: Laboratory Tests 08/08/20 08/08/20 08/08/20 Range/Units 09:17 10:05 10:05 WBC 19.07 H (4.23-9.07) K/mm3 RBC 4.15 L (4.63-6.08) M/mm3 Hgb 12.5 L D (13.7-17.5) gm/dl Hct 38.3 L (40.1-51.0) % MCV 92.3 H (79.0-92.2) fl MCH 30.1 (25.7-32.2) pg MCHC 32.6 (32.2-35.5) g/dl RDW Std Deviation 46.9 H (35.1-43.9) fL Plt Count 170 (163-337) K/mm3 MPV 10.1 (9.4-12.3) fl Neut % (Auto) 86.7 H (34.0-67.9) % Lymph % (Auto) 9.3 L (21.8-53.1) % [place] % (Auto) 3.5 L (5.3-12.2) % Eos % (Auto) 0.2 L (0.8-7.0) Baso % (Auto) 0.1 (0.1-1.2) % Neut # (Auto) 16.53 H (1.78-5.38) K/mm3 Lymph # (Auto) 1.77 (1.32-3.57) K/mm3 [place] # (Auto) 0.67 (0.30-0.82) K/mm3 Eos # (Auto) 0.04 (0.04-0.54) K/mm3 Baso # (Auto) 0.02 (0.01-0.08) K/mm3 Manual Slide Review Abnormal smear Sodium 142 (136-145) mEq/L Potassium 4.2 (3.5-5.1) mEq/L Chloride 107 (98-107) mEq/L Carbon Dioxide 24 (21-32) mEq/L Anion Gap 15.2 H (5-15) BUN 21 H (7-18) mg/dL Creatinine 1.3 (0.7-1.3) mg/dL Est Cr Clr Drug Dosing 49.74 mL/min Estimated GFR (MDRD) 53 (>60) mL/min BUN/Creatinine Ratio 16.2 (14-18) Glucose 132 H (70-99) mg/dL Calcium 8.7 (8.5-10.1) mg/dL Total Bilirubin 1.0 (0.2-1.0) mg/dL AST 14 L (15-37) U/L ALT 24 (16-63) U/L Alkaline Phosphatase 45 L (46-116) U/L Troponin I < 0.017 (0.00-0.056) ng/mL Total Protein 6.6 (6.4-8.2) g/dl Albumin 3.0 L (3.4-5.0) g/dl Globulin 3.6 gm/dL Albumin/Globulin Ratio 0.8 L (1-2) Influenza Type A RNA Negative (NEGATIVE) Influenza Type B RNA Negative (NEGATIVE) SARS-CoV-2 RNA (AGUSTIN) Negative (NEGATIVE) Meds: Medications Discontinued Medications Generic Name Dose Route Start Last Admin Trade Name Freq PRN Reason Stop Dose Admin Albuterol/Ipratropium 3 ml 08/08/20 09:37 08/08/20 09:51 Albuterol/Ipratropium 3.0-0.5 Mg/3 Ml Neb Soln NEB 08/08/20 09:38 3 ml ONETIME ONE Administration Methylprednisolone Sodium Succinate 125 mg 08/08/20 09:47 08/08/20 10:08 Methylprednisolone Sodium Succinate 125 Mg/2 Ml Sdv IVPUSH 08/08/20 09:48 125 mg ONETIME ONE Administration - Re-Assessments/Exams Free Text/Narrative Re-Assessment/Exam: 08/08/20 09:47 Labs ordered we will give him some Solu-Medrol DuoNeb treatment. Sounds like his COPD is getting worse. 08/08/20 12:48 Patient is doing much better at this point after nebulizer and receiving the Solu-Medrol. Patient voices some concerns about being on prednisone but agrees to take it. He does not want to stay in the hospital. We will put him on prednisone 30 mg a day for 5 days he has an albuterol nebulizer at home we have him uses up to 4 times a day as needed. His white count is awfully high we will start him on doxycycline 100 mg twice daily for 7 days. Departure - Departure Time of Disposition: 12:49 Disposition: Home, Self-Care 01 Clinical Impression: COPD with exacerbation - Discharge Information Referrals: Alena Singh MD [Primary Care Provider] - Forms: ED Department Discharge Additional Instructions: Return to the emergency room with any questions problems or worsening symptoms. You have been started on doxycycline, this is an antibiotic take 1 twice daily starting today take until gone. You have also been started on prednisone you will take 30 mg, 3 10 mg tablets every morning starting tomorrow morning you will take this for 5 days. It is my understanding you have an albuterol nebulizer at home use this 4 times a day as needed. Use your oxygen as needed. The prednisone and doxycycline have been sent electronically to the pharmacy in [place]. Follow-up with your regular physician early next week if needed. Sepsis Event Note (ED) - Evaluation Sepsis Screening Result: No Definite Risk - Focused Exam Vital Signs: Vital Signs Temp Pulse Resp BP Pulse Ox 08/08/20 09:03 36.7 C 73 20 118/76 92 L - My Orders Last 24 Hours: My Active Orders 08/08/20 09:27 EKG Documentation Completion [RC] ASDIRECTED EKG 12 Lead [EK] Stat 08/08/20 09:40 RT Aerosol Therapy [RC] ASDIRECTED - Assessment/Plan Last 24 Hours: My Active Orders 08/08/20 09:27 EKG Documentation Completion [RC] ASDIRECTED EKG 12 Lead [EK] Stat 08/08/20 09:40 RT Aerosol Therapy [RC] ASDIRECTED
[2020-08-08] MEDS ORDERED: Albuterol/Ipratropium 3.0-0.5 MG/3 ML Neb Soln NEB ONE (09:37)
[2020-08-08] MEDS ORDERED: methylPREDNISolone Sodium Succinate 125 MG/2 ML SDV IVPUSH ONE (09:47)
[2020-08-08 10:18] LABS: CORONAVIRUS COVID-19 NAA NEGATIVE (NEGATIVE)
--- NOTE | 2020-08-08 10:23 | CR ---
Chest: Portable view of the chest was obtained. Comparison: Prior chest x-ray 07/16/20. Heart size and mediastinum are normal. Lungs are clear with no acute parenchymal change. Degenerative change is noted within both acromioclavicular joints. Mild degenerative change is scattered within the visualized spine. Impression: 1. Stable findings as noted above. 2. Nothing acute is appreciated on portable chest x-ray. Diagnostic code #2
== END 2020-08-08 13:12 | disposition home or self-care (01) ==
LOC: JD.ED 08:32
DX: J44.1 Chronic obstructive pulmonary disease with (acute) exacerbation (principal); E78.00 Pure hypercholesterolemia, unspecified; I10 Essential (primary) hypertension; E11.9 Type 2 diabetes mellitus without complications; E66.9 Obesity, unspecified; Z68.30 Body mass index [BMI] 30.0-30.9, adult; Z20.822 Contact with and (suspected) exposure to COVID-19; Z88.0 Allergy status to penicillin; Z79.4 Long term (current) use of insulin; Z79.899 Other long term (current) drug therapy
CPT/HCPCS: 0240U; 36415; 71045; 80053; 84484; 85025; 93005; 94640; 96374; 99285; J2930; 93010; 99284; J7620-GY

== ENCOUNTER 2020-09-18 09:10 | Day surgery (SDC) | payer MEDICARE, OTHER ==
[~2020-09-18 09:10] MED LIST: Albuterol 0.083% 2.5 MG/3 ML Neb Soln NEB SCH; Lactated Ringers 1,000 ML IV SCH; Lidocaine 1%/Sod Bicarbonate in NS 8.4% 1 ML Syringe IDERM PRN; Sodium Chloride 0.9% 10 ML Syringe FLUSH PRN
--- NOTE | 2020-09-18 10:41 | PCM.PREANE ---
Preanesthetic Assessment - Procedure Proposed Procedure: Diagnostic Colonoscopy - Anesthesia/Transfusion/Family Hx Anesthesia History: Prior Anesthesia Without Reaction Family History of Anesthesia Reaction: No Transfusion History: No Prior Transfusion(s) Intubation History: Unknown - Review of Systems General: Fatigue Pulmonary: No Symptoms (History of ETOH abuse/quit smoking 1985, COPD/ Covid + last winter 2019./Recently on steroids for COPD.), Shortness of Breath Cardiovascular: No Symptoms (HTN, elevated cholesterol), Palpitations, Lightheadedness (since covid exposure in January 2020) Gastrointestinal: No Symptoms (GERD), Other (rectal bleeding that has stopped.) Neurological: No Symptoms (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 Back pain on occasion with chiropractor treatment noted with warranted.) Other: Reports: None (prostate Cancer), Easy Bleeding, Easy Bruising, Diabetes (am blood sugar=88, 0630.), Neck Pain, Depression (patient denies.) - Physical Assessment NPO Status Date: 09/18/20 NPO Status Time: 04:00 Vital Signs: Last Vital Signs Temp Pulse Resp BP Pulse Ox 95 09/18/20 09:40 Temp: 97.5 B/P: 133/48 Resp: 18 HR: 69 Sat: 91%/95% post nebulizer. Height: 1.83 m Weight: 110 kg ASA Class: 3 Mental Status: Alert & Oriented x3 Airway Class: Mallampati = 3 Dentition: Reports: Normal Dentition, Caries Thyro-Mental Finger Breadths: 3 Mouth Opening Finger Breadths: 3 ROM/Head Extension: Full Lungs: Clear to Auscultation, Normal Respiratory Effort, Decreased Breath Sounds Cardiovascular: Regular Rate, Regular Rhythm, No Murmurs - Lab Values: Above labs reviewed and noted and within acceptable ranges to proceed with scheduled procedure. - Imaging/EKG Impressions: EKG: SR rate=72, borderline ST elevation inferior leads. CXR: emphysema changes Echocardiogram: EF= 60-65% - Allergies Allergies/Adverse Reactions: Allergies Allergy/AdvReac Type Severity Reaction Status Date / Time Penicillins Allergy Severe Swelling Verified 09/17/20 16:02 - Anesthesia Plan Pre-Op Medication Ordered: Beta Enoch Beta Enoch: Metoprolol Med Last Dose Date: 09/18/20 Med Last Dose Time: 06:30 - Acknowledgements Anesthesia Type Planned: MAC Pt an Appropriate Candidate for the Planned Anesthesia: Yes Alternatives and Risks of Anesthesia Discussed w Pt/Guardian: Yes Pt/Guardian Understands and Agrees with Anesthesia Plan: Yes PreAnesthesia Questionnaire HEENT History: Reports: Hard of Hearing, Impaired Vision Other HEENT History: Wears hearing aides bilaterally, and reading glasses Cardiovascular History: Reports: High Cholesterol, Hypertension, SOB on Exertion Respiratory History: Reports: COPD, Pneumonia, Recurrent Other Respiratory History: emphysema Gastrointestinal History: Reports: Chronic Constipation, GERD, Hemorrhoids, Other (See Below) Other Gastrointestinal History: bright red rectal bleeding Genitourinary History: Reports: Urinary Incontinence, Other (See Below) Other Genitourinary History: acute kidney injury, UTI, flank pain, prostate surgery EXAMINATION GRADER History: Reports: None Musculoskeletal History: Reports: Arthritis, Osteoarthritis Other Musculoskeletal History: Hx. fx ribs, shoulder blade, hairline cervical fx, rt. thumb & wrist (casted) & coccyx. Neurological History: Reports: CVA, Other (See Below) Other Neuro History: hosp. mar 2016 for CVA symptoms, [facility] ([place]) question whether TIA vs CVA Psychiatric History: Reports: Depression, Other (See Below) Other Psychiatric History: fatigue, ETOH abx Endocrine/Metabolic History: Reports: Diabetes, Type II, Obesity/BMI 30+, Vitamin D Deficiency Hematologic History: Reports: None Immunologic History: Reports: None Oncologic (Cancer) History: Reports: Prostate Dermatologic History: Reports: Other (See Below) Other Dermatologic History: thickened nails - Infectious Disease History Infectious Disease History: Reports: Chicken Pox, Novel Coronavirus, Other (See Below) Other Infectious Disease History: Covid-19 - Past Surgical History Head Surgeries/Procedures: Reports: None HEENT Surgical History: Reports: None Cardiovascular Surgical History: Reports: None Respiratory Surgical History: Reports: None GI Surgical History: Reports: Cholecystectomy Female Surgical History: Reports: None Male Surgical History: Reports: None, Prostatectomy Endocrine Surgical History: Reports: None Neurological Surgical History: Reports: None Musculoskeletal Surgical History: Reports: None Oncologic Surgical History: Reports: None Other Oncologic Surgeries/Procedures: Prostatectomy Dermatological Surgical History: Reports: None - SUBSTANCE USE Tobacco Use Status *Q: Former Tobacco User Recreational Drug Use History: No - HOME MEDS Home Medications: Home Meds Benazepril HCl 40 mg PO DAILY 08/08/20 [History] Dapagliflozin Propanediol [Farxiga] 10 mg PO DAILY 08/08/20 [History] Ergocalciferol (Vitamin D2) [Vitamin D2] 1.25 mg PO TUTH 08/08/20 [History] Ezetimibe 10 mg PO DAILY 08/08/20 [History] Fluticasone/Vilanterol [Breo Ellipta 200-25 MCG Inhalation Kit] 1 puff INH DAILY 08/08/20 [History] Insulin Degludec [Tresiba] 70 units SQ DAILY 08/08/20 [History] Metoprolol Succinate [Toprol XL] 25 mg PO DAILY 08/08/20 [History] Tiotropium [Spiriva HandiHaler] 18 mcg INH DAILY 08/08/20 [History] amLODIPine Besylate [Amlodipine Besylate] 10 mg PO DAILY 08/08/20 [History] atorvaSTATin Calcium [Atorvastatin Calcium] 20 mg PO DAILY 08/08/20 [History] hydroCHLOROthiazide [Hydrochlorothiazide] 12.5 mg PO DAILY 08/08/20 [History] sitaGLIPtin Phos/Metformin HCl [Janumet Xr 50-1,000 mg Tablet] 1 tab PO BID 08/08/20 [History] Albuterol Sulfate [Albuterol Sulfate HFA] 2 puff INH Q4H PRN 09/17/20 [History] - CURRENT (IN HOUSE) MEDS Current Meds: Current Medications Albuterol (Albuterol 0.083% 2.5 Mg/3 Ml Neb Soln) 2.5 mg NEB ONETIME SAY Stop: 09/18/20 16:00 Last Admin: 09/18/20 09:39 Dose: 2.5 mg Documented by: Lactated Ringer's (Ringers, Lactated) 1,000 mls @ 125 mls/hr IV ASDIRECTED SAY Stop: 09/18/20 23:00 Lidocaine/Sodium Bicarbonate (Lidocaine 1%/Sod Bicarbonate In Ns 8.4% 1 Ml Syringe) 0.25 ml IDERM ONETIME PRN PRN Reason: Prior to IV Start Stop: 09/18/20 18:00 Sodium Chloride (Sodium Chloride 0.9% 10 Ml Syringe) 10 ml FLUSH ASDIRECTED PRN PRN Reason: Keep Vein Open Stop: 09/18/20 18:00
[2020-09-18] MEDS ORDERED: Propofol 200 MG/20 ML SDV ONE ×4 (11:24→12:30)
--- NOTE | 2020-09-18 12:52 | PCM.PRNOTE ---
- Free Text/Narrative Note: Date: 09/18/2020 Procedure: diagnostic colonoscopy Indication: rectal bleeding, family history of colon cancer, last scope over 10 years ago Endoscopist: Omari Gaffney MD Findings: decent prep. Cecum reached. Challenging scope due to persistent looping of the endoscope and redundant colon. small rectal polyp. Minor diverticular disease. Internal hemorrhoids. Detailed Report: Patient was taken to the endoscopy suite and placed in left lateral decubitus position. Timeout was performed and monitored anesthesia care was initiated. Visual inspection of the anus revealed no abnormality. Digital rectal exam was unremarkable. The colonoscope was inserted and advanced to the sigmoid colon. Due to sharp turns and difficulty maintaining insufflation, the patient had to be positioned supine in order to navigate the sigmoid. Colonoscopy was challenging due to redundancy of the colon and persistent looping of the scope. With the patient repositioning and attempts at various abdominal maneuvers, the cecum was eventually reached. The ileocecal valve was well visualized and the scope was advanced beyond this to inspect the base of the cecum. Prep was overall pretty good. The scope was slowly withdrawn and mucosal surfaces carefully inspected. There were a few scattered diverticula in the sigmoid co ignacio. A small pedunculated polyp identified in the mid rectum was identified and removed using hot snare polypectomy technique. The specimen was successfully retrieved. On retroflexion, internal hemorrhoidal disease was appreciated. Air was suctioned from the distal colon and rectum prior to withdrawal of the scope. The patient tolerated the procedure well
--- NOTE | 2020-09-18 12:58 | PCM48HPAN ---
Post Anesthesia Note - EVALUATION WITHIN 48HRS OF ANESTHETIC Vital Signs in Normal Range: Yes Patient Participated in Evaluation: Yes Respiratory Function Stable: Yes Airway Patent: Yes Cardiovascular Function Stable: Yes Hydration Status Stable: Yes Pain Control Satisfactory: Yes Nausea and Vomiting Control Satisfactory: Yes Mental Status Recovered: Yes Vital Signs: Last Vital Signs Temp Pulse Resp BP Pulse Ox 95 09/18/20 09:40
[2020-09-18 16:30] VITALS: BP 145/62; PULSE 62
== END 2020-09-18 13:38 | disposition home or self-care (01) ==
LOC: JD.SDS 09:10
PROVIDERS: ATTEND Surgery
DX: K62.1 Rectal polyp (principal); K57.30 Diverticulosis of large intestine without perforation or abscess without bleeding; K64.8 Other hemorrhoids; J44.9 Chronic obstructive pulmonary disease, unspecified; E78.5 Hyperlipidemia, unspecified; I10 Essential (primary) hypertension; E11.9 Type 2 diabetes mellitus without complications; E66.9 Obesity, unspecified; Z68.34 Body mass index [BMI] 34.0-34.9, adult; Z88.0 Allergy status to penicillin; Z79.4 Long term (current) use of insulin; Z79.899 Other long term (current) drug therapy; Z86.16 Personal history of COVID-19; Z86.73 Personal history of transient ischemic attack (TIA), and cerebral infarction without residual deficits; Z87.891 Personal history of nicotine dependence; Z80.0 Family history of malignant neoplasm of digestive organs
CPT/HCPCS: 45385; 88305; 94640; J2704; J7120; 00811; 99100

== ENCOUNTER 2021-01-14 15:13 | Emergency (ER) | payer MEDICARE, OTHER ==
[2021-01-14 15:43] VITALS: BP 137/76; PULSE 87
[2021-01-14] MEDS ORDERED: Sodium Chloride 0.9% 10 ML Syringe FLUSH PRN (15:44)
--- NOTE | 2021-01-14 16:42 | EDM.PDOC ---
ED HPI GENERAL MEDICAL PROBLEM - General Chief Complaint: Respiratory Problem Stated Complaint: chills fever Time Seen by Provider: 01/14/21 15:33 Source of Information: Reports: Patient, RN Notes Reviewed History Limitations: Reports: No Limitations - History of Present Illness INITIAL COMMENTS - FREE TEXT/NARRATIVE: Patient is an 80-year-old male presenting to the emergency department with complaints of fatigue, weakness, chills, and decreased appetite. Symptoms began yesterday evening. He reports he does have a slight cough, but no worse than his normal, chronic cough. He feels like he may have had a fever at home, however he did not check his temperature. Denies any chest pain or shortness of breath. He has had no vomiting. Reports approximate 3 days ago he did have some diarrhea, however he has not had any since. Patient has a history of COPD. States he has oxygen equipment at home, however he is not wearing it at this time. He uses it as needed for COPD exacerbations. He does report a history of Covid in January of last year. He is also had a total of 3 Moderna vaccinations. - Related Data Allergies Allergy/AdvReac Type Severity Reaction Status Date / Time Penicillins Allergy Severe Swelling Verified 09/18/20 16:08 Home Meds: Home Meds Benazepril HCl 40 mg PO DAILY 08/08/20 [History] Dapagliflozin Propanediol [Farxiga] 10 mg PO DAILY 08/08/20 [History] Ergocalciferol (Vitamin D2) [Vitamin D2] 1.25 mg PO TUTH 08/08/20 [History] Ezetimibe 10 mg PO DAILY 08/08/20 [History] Fluticasone/Vilanterol [Breo Ellipta 200-25 MCG Inhalation Kit] 1 puff INH DAILY 08/08/20 [History] Insulin Degludec [Tresiba] 70 units SQ DAILY 08/08/20 [History] Metoprolol Succinate [Toprol XL] 25 mg PO DAILY 08/08/20 [History] Tiotropium [Spiriva HandiHaler] 18 mcg INH DAILY 08/08/20 [History] amLODIPine Besylate [Amlodipine Besylate] 10 mg PO DAILY 08/08/20 [History] atorvaSTATin Calcium [Atorvastatin Calcium] 20 mg PO DAILY 08/08/20 [History] hydroCHLOROthiazide [Hydrochlorothiazide] 12.5 mg PO DAILY 08/08/20 [History] sitaGLIPtin Phos/Metformin HCl [Janumet Xr 50-1,000 mg Tablet] 1 tab PO BID 08/08/20 [History] Albuterol Sulfate [Albuterol Sulfate HFA] 2 puff INH Q4H PRN 09/17/20 [History] levoFLOXacin [Levaquin] 750 mg PO Q48H 8 Days #4 tab 01/14/21 [Rx] Past Medical History HEENT History: Reports: Hard of Hearing, Impaired Vision Other HEENT History: Wears hearing aides bilaterally, and reading glasses Cardiovascular History: Reports: High Cholesterol, Hypertension, SOB on Exertion Respiratory History: Reports: COPD, Pneumonia, Recurrent Other Respiratory History: emphysema Gastrointestinal History: Reports: Chronic Constipation, GERD, Hemorrhoids, Other (See Below) Other Gastrointestinal History: bright red rectal bleeding Genitourinary History: Reports: Urinary Incontinence, Other (See Below) Other Genitourinary History: acute kidney injury, UTI, flank pain, prostate surgery PMO LEAD History: Reports: None Musculoskeletal History: Reports: Arthritis, Osteoarthritis Other Musculoskeletal History: Hx. fx ribs, shoulder blade, hairline cervical fx, rt. thumb & wrist (casted) & coccyx. Neurological History: Reports: CVA, Other (See Below) Other Neuro History: hosp. mar 2016 for CVA symptoms, [facility] ([place]) question whether TIA vs CVA Psychiatric History: Reports: Depression, Other (See Below) Other Psychiatric History: fatigue, ETOH abx Endocrine/Metabolic History: Reports: Diabetes, Type II, Obesity/BMI 30+, Vitamin D Deficiency Hematologic History: Reports: None Immunologic History: Reports: None Oncologic (Cancer) History: Reports: Prostate Dermatologic History: Reports: Other (See Below) Other Dermatologic History: thickened nails - Infectious Disease History Infectious Disease History: Reports: Chicken Pox, Novel Coronavirus, Other (See Below) Other Infectious Disease History: Covid-19 - Past Surgical History Head Surgeries/Procedures: Reports: None HEENT Surgical History: Reports: None Cardiovascular Surgical History: Reports: None Respiratory Surgical History: Reports: None GI Surgical History: Reports: Cholecystectomy Male Surgical History: Reports: None, Prostatectomy Endocrine Surgical History: Reports: None Neurological Surgical History: Reports: None Musculoskeletal Surgical History: Reports: None Oncologic Surgical History: Reports: None Other Oncologic Surgeries/Procedures: Prostatectomy Dermatological Surgical History: Reports: None Social & Family History - Family History Family Medical History: No Pertinent Family History - Tobacco Use Tobacco Use Status *Q: Former Tobacco User Used Tobacco, but Quit: Yes Month/Year Tobacco Last Used: 1989 - Caffeine Use Caffeine Use: Reports: None Other Caffeine Use: diet soda Caffeine Use Comment: 6-8 cups per day, 1-2 cans pop per dy - Recreational Drug Use Recreational Drug Use: No - Living Situation & Occupation Living situation: Reports: , with Spouse Occupation: Retired ED ROS GENERAL - Review of Systems Review Of Systems: See Below Constitutional: Reports: Fever, Chills, Weakness, Fatigue, Decreased Appetite HEENT: Reports: No Symptoms Respiratory: Reports: Cough (chronic). Denies: Shortness of Breath, Wheezing Cardiovascular: Reports: No Symptoms. Denies: Chest Pain, Lightheadedness, Palpitations Endocrine: Reports: No Symptoms GI/Abdominal: Reports: Diarrhea, Decreased Appetite. Denies: Abdominal Pain, Nausea, Vomiting : Reports: No Symptoms Musculoskeletal: Reports: No Symptoms Skin: Reports: No Symptoms Neurological: Reports: No Symptoms Psychiatric: Reports: No Symptoms Hematologic/Lymphatic: Reports: No Symptoms Immunologic: Reports: No Symptoms ED EXAM, GENERAL - Physical Exam Exam: See Below Exam Limited By: No Limitations General Appearance: Alert, WD/WN, No Apparent Distress Respiratory/Chest: No Respiratory Distress, No Accessory Muscle Use, Chest Non- Tender, Decreased Breath Sounds Cardiovascular: Normal Peripheral Pulses, Regular Rate, Rhythm, No Edema, No Gallop, No JVD, No Murmur, No Rub GI/Abdominal: Normal Bowel Sounds, Soft, Non-Tender, No Organomegaly, No Distention, No Abnormal Bruit, No Mass Neurological: Alert, Oriented, CN II-XII Intact, Normal Cognition, Normal Gait, Normal Reflexes, No Motor/Sensory Deficits Psychiatric: Normal Affect, Normal Mood Skin Exam: Warm, Dry, Intact, Normal Color, No Rash #1 Interpretation EKG Date: 01/14/21 Time: 17:28 Rhythm: NSR Rate (Beats/Min): 72 [place]: Normal P-Wave: Present QRS: Normal ST-T: Normal QT: Normal Course - Vital Signs Last Recorded V/S: Last Vital Signs Temp 98.6 F 01/14/21 15:32 Pulse 87 01/14/21 15:32 Resp 22 H 01/14/21 15:32 BP 137/76 01/14/21 15:32 Pulse Ox 88 L 01/14/21 15:32 - Orders/Labs/Meds Orders: Active Orders 24 hr Category Date Time Status BLOOD CULTURE [MREF] Stat Lab 01/14/21 16:00 Received BLOOD CULTURE [MREF] Stat Lab 01/14/21 16:19 Received Blood Culture x2 Reflex Set [OM.PC] Stat Oth 01/14/21 15:44 Ordered Saline Lock Insert [OM.PC] Stat Oth 01/14/21 15:44 Ordered EKG 12 Lead [EK] Stat Ther 01/14/21 15:44 Stop Req Labs: Laboratory Tests 01/14/21 01/14/21 01/14/21 Range/Units 15:45 16:00 16:00 WBC 18.23 H (4.23-9.07) K/mm3 RBC 4.77 (4.63-6.08) M/mm3 Hgb 14.1 (13.7-17.5) gm/dl Hct 43.7 (40.1-51.0) % MCV 91.6 (79.0-92.2) fl MCH 29.6 (25.7-32.2) pg MCHC 32.3 (32.2-35.5) g/dl RDW Std Deviation 48.2 H (35.1-43.9) fL Plt Count 190 (163-337) K/mm3 MPV 10.4 (9.4-12.3) fl Neutrophils % (Manual) 81 H (40-60) % Band Neutrophils % 3 (0-10) % Lymphocytes % (Manual) 13 L (20-40) % Atypical Lymphs % 0 % Monocytes % (Manual) 3 (2-10) % Eosinophils % (Manual) 0 L (0.8-7.0) % Basophils % (Manual) 0 L (0.2-1.2) Toxic Granulation Few Platelet Estimate Adequate RBC Morph Comment Normal PT (9.7-12.0) SECONDS INR APTT (21.7-31.4) SECONDS Sodium 137 (136-145) mEq/L Potassium 4.2 (3.5-5.1) mEq/L Chloride 102 (98-107) mEq/L Carbon Dioxide 23 (21-32) mEq/L Anion Gap 16.2 H (5-15) BUN 23 H (7-18) mg/dL Creatinine 1.7 H (0.7-1.3) mg/dL Est Cr Clr Drug Dosing 38.04 mL/min Estimated GFR (MDRD) 39 (>60) mL/min BUN/Creatinine Ratio 13.5 L (14-18) Glucose 150 H (70-99) mg/dL Lactic Acid (0.4-2.0) mmol/L Calcium 9.0 (8.5-10.1) mg/dL Total Bilirubin 0.8 (0.2-1.0) mg/dL AST 16 (15-37) U/L ALT 23 (16-63) U/L Alkaline Phosphatase 47 (46-116) U/L Troponin I < 0.017 (0.00-0.056) ng/mL C-Reactive Protein 14.7 H* (<1.0) mg/dL Total Protein 7.0 (6.4-8.2) g/dl Albumin 3.2 L (3.4-5.0) g/dl Globulin 3.8 gm/dL Albumin/Globulin Ratio 0.8 L (1-2) SARS-CoV-2 RNA (AGUSTIN) Negative (NEGATIVE) 01/14/21 01/14/21 Range/Units 16:00 16:19 WBC (4.23-9.07) K/mm3 RBC (4.63-6.08) M/mm3 Hgb (13.7-17.5) gm/dl Hct (40.1-51.0) % MCV (79.0-92.2) fl MCH (25.7-32.2) pg MCHC (32.2-35.5) g/dl RDW Std Deviation (35.1-43.9) fL Plt Count (163-337) K/mm3 MPV (9.4-12.3) fl Neutrophils % (Manual) (40-60) % Band Neutrophils % (0-10) % Lymphocytes % (Manual) (20-40) % Atypical Lymphs % % Monocytes % (Manual) (2-10) % Eosinophils % (Manual) (0.8-7.0) % Basophils % (Manual) (0.2-1.2) Toxic Granulation Platelet Estimate RBC Morph Comment PT 11.4 (9.7-12.0) SECONDS INR 1.03 APTT 28.9 (21.7-31.4) SECONDS Sodium (136-145) mEq/L Potassium (3.5-5.1) mEq/L Chloride (98-107) mEq/L Carbon Dioxide (21-32) mEq/L Anion Gap (5-15) BUN (7-18) mg/dL Creatinine (0.7-1.3) mg/dL Est Cr Clr Drug Dosing mL/min Estimated GFR (MDRD) (>60) mL/min BUN/Creatinine Ratio (14-18) Glucose (70-99) mg/dL Lactic Acid 1.3 (0.4-2.0) mmol/L Calcium (8.5-10.1) mg/dL Total Bilirubin (0.2-1.0) mg/dL AST (15-37) U/L ALT (16-63) U/L Alkaline Phosphatase (46-116) U/L Troponin I (0.00-0.056) ng/mL C-Reactive Protein (<1.0) mg/dL Total Protein (6.4-8.2) g/dl Albumin (3.4-5.0) g/dl Globulin gm/dL Albumin/Globulin Ratio (1-2) SARS-CoV-2 RNA (AGUSTIN) (NEGATIVE) Meds: Medications Discontinued Medications Generic Name Dose Route Start Last Admin Trade Name Freq PRN Reason Stop Dose Admin Levofloxacin 750 mg 01/14/21 17:24 01/14/21 18:01 Levofloxacin 750 Mg Tab PO 01/14/21 17:25 750 mg ONETIME ONE Administration Sodium Chloride 10 ml 01/14/21 15:44 01/14/21 16:43 Sodium Chloride 0.9% 10 Ml Syringe FLUSH 10 ml ASDIRECTED PRN Administration Keep Vein Open - Re-Assessments/Exams Free Text/Narrative Re-Assessment/Exam: Patient is an 80-year-old male presenting to the emergency department with complaints of a 1 day history of fatigue, weakness, chills, and subjective fever. He has a history of COPD and has chronic cough related to this. Does not feel that cough is any worse than his baseline. Denies significant shortness of breath. On arrival to ER, oxygen saturation was 88% on room air. He is currently on 1 L of oxygen saturating 90%. He denies any chest pain. On exam, lung sounds are significantly diminished to auscultation. There is no adventitious lung sounds. I have ordered septic work-up as well as Covid test. 01/14/21 17:29 Hematology is significant for WBC elevated at 18.23, anion gap 16.2, BUN 23, creatinine 1.7, CRP 14.7. Troponin is undetectably low. Covid is negative. Chest x-ray shows increased density within the left lung base likely representing pneumonia. EKG shows normal sinus rhythm at 72 with no evidence of acute ischemia. Results discussed with patient. He does not want to be admitted into the hospital. He has oxygen at home that he may use. Discussed that he should wear approximate 2 L of oxygen to keep his saturation above 90%. He has DuoNeb nebulizers at home as well. He will be started on Levaquin for treatment of community-acquired pneumonia. I will give him his first dose here. Given his creatinine clearance, his appropriate dosing is 750 mg every other day. Departure - Departure Time of Disposition: 17:43 Disposition: Home, Self-Care 01 Condition: Good Clinical Impression: Pneumonia - Discharge Information *PRESCRIPTION DRUG MONITORING PROGRAM REVIEWED*: No *COPY OF PRESCRIPTION DRUG MONITORING REPORT IN PATIENT BRANDYN: No Prescriptions: levoFLOXacin [Levaquin] 750 mg PO Q48H 8 Days #4 tab Instructions: Community-Acquired Pneumonia, Adult Referrals: Alena Singh MD [Primary Care Provider] - Forms: ED Department Discharge Additional Instructions: Wear your home oxygen to keep oxygen saturations above 90%. Take Levaquin as prescribed starting on January 16. You received your first dose in the ER tonight. Use DuoNeb breathing treatments that you have at home as needed for shortness of breath. If your symptoms should worsen in any way, please return to emergency department for reevaluation. Sepsis Event Note (ED) - Evaluation Sepsis Screening Result: No Definite Risk - Focused Exam Vital Signs: Vital Signs Temp Pulse Resp BP Pulse Ox 01/14/21 15:32 98.6 F 87 22 H 137/76 88 L - My Orders Last 24 Hours: My Active Orders 01/14/21 15:44 Blood Culture x2 Reflex Set [OM.PC] Stat Saline Lock Insert [OM.PC] Stat EKG 12 Lead [EK] Stat 01/14/21 16:00 BLOOD CULTURE [MREF] Stat 01/14/21 16:19 BLOOD CULTURE [MREF] Stat - Assessment/Plan Last 24 Hours: My Active Orders 01/14/21 15:44 Blood Culture x2 Reflex Set [OM.PC] Stat Saline Lock Insert [OM.PC] Stat EKG 12 Lead [EK] Stat 01/14/21 16:00 BLOOD CULTURE [MREF] Stat 01/14/21 16:19 BLOOD CULTURE [MREF] Stat
[2021-01-14] MEDS ORDERED: Levofloxacin 750 MG Tab PO ONE (17:24)
--- NOTE | 2021-01-14 17:43 | CR ---
Chest: Frontal view of the chest was obtained. Comparison: Prior chest x-ray of 08/08/20. Increased density is seen within the left lung base. Lungs otherwise are clear. Heart size and mediastinum are within normal limits. Mild scattered degenerative change is partially seen within the spine as well as within both acromioclavicular joints. Impression: 1. Increased density within the left lung base likely representing pneumonia. 2. Other chronic findings as noted above. Diagnostic code #3
== END 2021-01-14 18:15 | disposition home or self-care (01) ==
LOC: JD.ED 15:13
DX: J18.9 Pneumonia, unspecified organism (principal); E78.00 Pure hypercholesterolemia, unspecified; I10 Essential (primary) hypertension; J44.9 Chronic obstructive pulmonary disease, unspecified; E11.9 Type 2 diabetes mellitus without complications; E66.9 Obesity, unspecified; K21.9 Gastro-esophageal reflux disease without esophagitis; Z68.33 Body mass index [BMI] 33.0-33.9, adult; Z86.73 Personal history of transient ischemic attack (TIA), and cerebral infarction without residual deficits; Z88.0 Allergy status to penicillin; Z79.4 Long term (current) use of insulin; Z79.899 Other long term (current) drug therapy; Z87.891 Personal history of nicotine dependence; Z20.822 Contact with and (suspected) exposure to COVID-19; R06.02 Shortness of breath
CPT/HCPCS: 36415; 71045; 80053; 83605; 84484; 85007; 85027; 85610; 85730; 86140; 87040; 93005; 99285; A9270; U0002; 93010

== ENCOUNTER 2021-06-28 10:03 | Emergency (ER) | payer MEDICARE, OTHER ==
[2021-06-28 13:51] VITALS: BP 149/60; PULSE 59
== END 2021-06-28 17:11 | disposition home or self-care (01) ==
LOC: JD.ED 10:03
DX: R26.81 Unsteadiness on feet (principal); E78.00 Pure hypercholesterolemia, unspecified; I10 Essential (primary) hypertension; J44.9 Chronic obstructive pulmonary disease, unspecified; E11.9 Type 2 diabetes mellitus without complications; E66.9 Obesity, unspecified; Z68.34 Body mass index [BMI] 34.0-34.9, adult; Z86.16 Personal history of COVID-19; Z90.49 Acquired absence of other specified parts of digestive tract; Z79.899 Other long term (current) drug therapy; Z79.4 Long term (current) use of insulin; Z88.0 Allergy status to penicillin
CPT/HCPCS: 36415; 70450; 70450-26; 80053; 81001; 84484; 85025; 85610; 85730; 93005; 93010; 99283; 99284-25

== ENCOUNTER 2021-11-05 08:47 | Emergency (ER) | payer MEDICARE, OTHER ==
[2021-11-05] MEDS ORDERED: Albuterol/Ipratropium 3.0-0.5 MG/3 ML Neb Soln NEB ONE ×2 (09:39→10:31)
[2021-11-05] MEDS ORDERED: methylPREDNISolone Sodium Succinate 125 MG/2 ML SDV IVPUSH ONE (09:39)
[2021-11-05] MEDS ORDERED: Levofloxacin/Dextrose 5%-Water 750 MG in Premix Bag 1 BAG IV ONE (10:12)
[2021-11-05 10:47] VITALS: PULSE 68
[2021-11-05 11:23] VITALS: BP 157/89
[2021-11-05 11:33] LABS: CORONAVIRUS COVID-19 NAA POSITIVE (NEGATIVE)
== END 2021-11-05 11:10 | disposition left against medical advice (07) ==
LOC: JD.ED 08:47
DX: U07.1 COVID-19 (principal); J12.82 Pneumonia due to coronavirus disease 2019; J44.9 Chronic obstructive pulmonary disease, unspecified; E78.00 Pure hypercholesterolemia, unspecified; I10 Essential (primary) hypertension; E11.9 Type 2 diabetes mellitus without complications; E66.9 Obesity, unspecified; Z68.34 Body mass index [BMI] 34.0-34.9, adult; Z88.0 Allergy status to penicillin; Z79.899 Other long term (current) drug therapy; Z79.4 Long term (current) use of insulin; Z86.16 Personal history of COVID-19; Z90.49 Acquired absence of other specified parts of digestive tract
CPT/HCPCS: 0241U; 36415; 71045; 71045-26; 80053; 83605; 83735; 85025; 85610; 86140; 87040; 94640; 96374; 99284; 99285-25; J2930; J7620-GY

== ENCOUNTER 2022-01-20 11:24 | Emergency (ER) | payer MEDICARE, OTHER ==
[2022-01-20 11:43] VITALS: BP 126/52; PULSE 68
[2022-01-20] MEDS ORDERED: Sodium Chloride 0.9% 10 ML Syringe FLUSH PRN (11:53)
[2022-01-20 12:52] LABS: CORONAVIRUS COVID-19 NAA NEGATIVE (NEGATIVE)
[2022-01-20] MEDS ORDERED: Sodium Chloride 0.9% 1,000 ML IV ONE (13:14)
[2022-01-20] MEDS ORDERED: Levofloxacin/Dextrose 5%-Water 750 MG in Premix Bag 1 BAG IV ONE (14:09)
== END 2022-01-20 16:27 | disposition home or self-care (01) ==
LOC: JD.ED 11:24
DX: J44.1 Chronic obstructive pulmonary disease with (acute) exacerbation (principal); N30.01 Acute cystitis with hematuria; J10.1 Influenza due to other identified influenza virus with other respiratory manifestations; J44.9 Chronic obstructive pulmonary disease, unspecified; E78.00 Pure hypercholesterolemia, unspecified; I10 Essential (primary) hypertension; K21.9 Gastro-esophageal reflux disease without esophagitis; E11.9 Type 2 diabetes mellitus without complications; E66.9 Obesity, unspecified; Z86.73 Personal history of transient ischemic attack (TIA), and cerebral infarction without residual deficits; Z88.0 Allergy status to penicillin; Z79.899 Other long term (current) drug therapy; Z79.4 Long term (current) use of insulin; Z20.822 Contact with and (suspected) exposure to COVID-19; Z68.33 Body mass index [BMI] 33.0-33.9, adult
CPT/HCPCS: 0241U; 36415; 71046; 80053; 81001; 85025; 86140; 87086; 87088; 87186; 96365; 96366; 99285; J1956; J3490; J7030

== ENCOUNTER 2022-06-28 09:41 | Emergency (ER) | payer MEDICARE, OTHER ==
[2022-06-28 09:52] VITALS: BP 149/52; PULSE 64
[2022-06-28 12:14] LABS: BASOPHILS ABSOLUTE AUTO 0.02 K/mm3 (0.01-0.08); BASOPHILS PERCENT AUTO 0.2 % (0.1-1.2); EOSINOPHILS ABSOLUTE AUTO 0.08 K/mm3 (0.04-0.54); EOSINOPHILS PERCENT AUTO 0.7 (0.8-7.0); HEMATOCRIT 42.7 % (40.1-51.0); IMMATURE GRAN PERCENT AUTO 0.8 % (<=1.0); LYMPHOCYTES PERCENT AUTO 16.5 % (21.8-53.1); MEAN CORPUSCULAR HGB CONC 32.8 g/dl (32.2-35.5); MEAN CORPUSCULAR VOLUME 91.6 fl (79.0-92.2); MEAN PLATELET VOLUME 10.8 fl (9.4-12.3); MONOCYTES ABSOLUTE AUTO 0.59 K/mm3 (0.30-0.82); MONOCYTES PERCENT AUTO 4.9 % (5.3-12.2); NEUTROPHILS ABSOLUTE AUTO 9.34 K/mm3 (1.78-5.38); NEUTROPHILS PERCENT AUTO 76.9 % (34.0-67.9); PLATELET COUNT,PLT 178 K/mm3 (163-337); RED BLOOD CELL COUNT 4.66 M/mm3 (4.63-6.08); WHITE BLOOD CELL COUNT,WBC 12.13 K/mm3 (4.23-9.07)
[2022-06-28 12:36] LABS: APPEARANCE,URINE CLEAR (Clear); BILIRUBIN,URINE NEGATIVE (Negative); COLOR,URINE YELLOW (Yellow); GLUCOSE,URINE NEGATIVE (Negative); KETONES,URINE NEGATIVE (Negative); LEUKOCYTE ESTERASE,URINE TRACE (Negative); NITRITE,URINE NEGATIVE (Negative); OCCULT BLOOD,URINE NEGATIVE (Negative); PROTEIN,URINE TRACE (Negative); UROBILINOGEN,URINE 0.2 (0.2-1.0)
[2022-06-28 12:56] LABS: A/G RATIO 0.9 (1-2); ALBUMIN 3.2 g/dl (3.4-5.0); ANION GAP 14.8 (5-15); BILIRUBIN TOTAL 0.3 mg/dL (0.2-1.0); BUN/CREATININE RATIO 27.1 (14-18); CREATININE 1.4 mg/dL (0.7-1.3); EST CRCL DRUG DOSING (CG) 44.65 mL/min; POTASSIUM,K 4.8 mEq/L (3.5-5.1); PROTEIN TOTAL,TP 6.6 g/dl (6.4-8.2)
[2022-06-28 12:59] LABS: RBC,URINE 0-5 /hpf (0-5); SQUAMOUS EPITHELIAL CELLS,UR 0-5 /hpf (0-5)
[2022-06-28 13:00] LABS: BACTERIA,URINE FEW /hpf (FEW); MUCUS,URINE FEW /hpf (FEW)
== END 2022-06-28 15:29 | disposition home or self-care (01) ==
LOC: JD.ED 09:41
DX: E11.65 Type 2 diabetes mellitus with hyperglycemia (principal); N39.0 Urinary tract infection, site not specified; I10 Essential (primary) hypertension; E78.00 Pure hypercholesterolemia, unspecified; J43.9 Emphysema, unspecified; E66.9 Obesity, unspecified; Z68.33 Body mass index [BMI] 33.0-33.9, adult; Z86.16 Personal history of COVID-19; Z79.4 Long term (current) use of insulin; Z86.73 Personal history of transient ischemic attack (TIA), and cerebral infarction without residual deficits; Z79.899 Other long term (current) drug therapy; Z88.0 Allergy status to penicillin
CPT/HCPCS: 36415; 80053; 81001; 82947; 85025; 87086; 99283

== ENCOUNTER 2023-08-05 09:28 | Emergency (ER) | payer MEDICARE, OTHER ==
[2023-08-05] MEDS: Albuterol 0.083% 2.5 MG/3 ML Neb Soln NEB ONE (10:12)
[2023-08-05 10:47] LABS: BASOPHILS PERCENT AUTO 0.2 % (0.0-1.0); EOSINOPHILS PERCENT AUTO 0.1 % (0.0-6.0); HEMATOCRIT 39.2 % (42.0-52.0); IMMATURE GRAN PERCENT AUTO 0.6 % (0.0-0.4); LYMPHOCYTES ABSOLUTE AUTO 2.2 K/mm3 (1.0-4.8); LYMPHOCYTES PERCENT AUTO 12.3 % (24.0-44.0); MEAN CORPUSCULAR HEMOGLOBIN 29.2 pg (28.0-32.0); MEAN CORPUSCULAR HGB CONC 32.1 g/dl (32.0-36.0); MEAN CORPUSCULAR VOLUME 90.7 fl (83.0-99.0); MEAN PLATELET VOLUME 11.8 fl (9.4-12.4); MONOCYTES ABSOLUTE AUTO 1.2 K/mm3 (0.0-0.8); MONOCYTES PERCENT AUTO 6.6 % (0.0-8.0); NEUTROPHILS ABSOLUTE AUTO 14.2 K/mm3 (1.8-7.7); NEUTROPHILS PERCENT AUTO 80.2 % (41.0-71.0); PLATELET COUNT,PLT 162 K/mm3 (150-400); RED BLOOD CELL COUNT 4.32 M/mm3 (4.52-5.90); WHITE BLOOD CELL COUNT,WBC 17.69 K/mm3 (3.9-11.3)
[2023-08-05 10:50] LABS: HEMOGLOBIN 12.6 gm/dl (14.0-18.0)
[2023-08-05 11:17] LABS: A/G RATIO 0.8 (1-2); ALBUMIN 3.1 g/dl (3.4-5.0); ANION GAP 13.3 (5-15); BILIRUBIN TOTAL 0.7 mg/dL (0.2-1.0); CALCIUM 9.3 mg/dL (8.5-10.1); CREATININE 1.4 mg/dL (0.7-1.3); EST CRCL DRUG DOSING (CG) 43.88 mL/min; POTASSIUM,K 4.3 mEq/L (3.5-5.1)
[2023-08-05] MEDS: Albuterol/Ipratropium 3.0-0.5 MG/3 ML Neb Soln NEB ONE (11:58)
[2023-08-05] MEDS: cefTRIAXone 1 GM in Sodium Chloride 0.9% 100 ML IV ONE (12:12)
[2023-08-05] MEDS: Doxycycline Monohydrate 100 MG Cap PO ONE (12:12)
[2023-08-05 12:58] VITALS: BP 102/85; PULSE 72
== END 2023-08-05 12:50 | disposition home or self-care (01) ==
LOC: JD.ED 09:28
DX: J18.9 Pneumonia, unspecified organism (principal); J43.9 Emphysema, unspecified; I10 Essential (primary) hypertension; E78.00 Pure hypercholesterolemia, unspecified; J44.9 Chronic obstructive pulmonary disease, unspecified; K21.9 Gastro-esophageal reflux disease without esophagitis; E11.9 Type 2 diabetes mellitus without complications; Z88.0 Allergy status to penicillin; Z79.4 Long term (current) use of insulin; Z79.51 Long term (current) use of inhaled steroids; Z79.899 Other long term (current) drug therapy; Z86.16 Personal history of COVID-19; Z86.73 Personal history of transient ischemic attack (TIA), and cerebral infarction without residual deficits; Z90.49 Acquired absence of other specified parts of digestive tract
CPT/HCPCS: 36415; 71045; 80053; 84484; 85025; 87040; 93005; 94640; A9270; J0696; J3490; 96365; 99285-25; J7620-GY

== ENCOUNTER 2023-09-22 17:12 | Emergency (ER) | payer MEDICARE, OTHER ==
[2023-09-22 17:40] VITALS: BP 143/60; PULSE 80
[2023-09-22] MEDS ORDERED: Lidocaine 1% 10 ML MDV INJECT ONE (19:25)
== END 2023-09-22 20:13 | disposition home or self-care (01) ==
LOC: JD.ED 17:12
DX: H60.01 Abscess of right external ear (principal); I10 Essential (primary) hypertension; E78.00 Pure hypercholesterolemia, unspecified; J44.9 Chronic obstructive pulmonary disease, unspecified; E11.9 Type 2 diabetes mellitus without complications; E66.9 Obesity, unspecified; Z86.16 Personal history of COVID-19; Z90.49 Acquired absence of other specified parts of digestive tract; Z79.899 Other long term (current) drug therapy; Z79.4 Long term (current) use of insulin; Z88.0 Allergy status to penicillin
CPT/HCPCS: 10060; 99282-25

== ENCOUNTER 2023-12-06 12:25 | Emergency (ER) | payer MEDICARE, OTHER ==
[2023-12-06] MEDS: Albuterol/Ipratropium 3.0-0.5 MG/3 ML Neb Soln NEB ONE (13:03)
[2023-12-06 13:25] LABS: BASOPHILS PERCENT AUTO 0.4 % (0.0-1.0); EOSINOPHILS ABSOLUTE AUTO 0.1 K/mm3 (0.0-0.4); EOSINOPHILS PERCENT AUTO 1.4 % (0.0-6.0); HEMATOCRIT 38.1 % (42.0-52.0); HEMOGLOBIN 12.2 gm/dl (14.0-18.0); IMMATURE GRAN ABSOLUTE AUTO 0.04 K/mm3 (0.00-0.05); IMMATURE GRAN PERCENT AUTO 0.4 % (0.0-0.4); LYMPHOCYTES ABSOLUTE AUTO 1.8 K/mm3 (1.0-4.8); LYMPHOCYTES PERCENT AUTO 18.5 % (24.0-44.0); MEAN CORPUSCULAR HEMOGLOBIN 29.5 pg (28.0-32.0); MEAN PLATELET VOLUME 10.4 fl (9.4-12.4); MONOCYTES ABSOLUTE AUTO 0.7 K/mm3 (0.0-0.8); MONOCYTES PERCENT AUTO 7.8 % (0.0-8.0); NEUTROPHILS ABSOLUTE AUTO 6.8 K/mm3 (1.8-7.7); NEUTROPHILS PERCENT AUTO 71.5 % (41.0-71.0); PLATELET COUNT,PLT 157 K/mm3 (150-400); RED BLOOD CELL COUNT 4.14 M/mm3 (4.52-5.90); WHITE BLOOD CELL COUNT,WBC 9.51 K/mm3 (3.9-11.3)
[2023-12-06 13:46] LABS: ALBUMIN 3.3 g/dl (3.4-5.0); ANION GAP 12.1 (5-15); BILIRUBIN TOTAL 0.5 mg/dL (0.2-1.0); BUN/CREATININE RATIO 20.9 (14-18); C-REACTIVE PROTEIN 2.67 mg/dL (<0.30); CALCIUM 8.8 mg/dL (8.5-10.1); CREATININE 1.1 mg/dL (0.7-1.3); EST CRCL DRUG DOSING (CG) 55.85 mL/min; POTASSIUM,K 4.1 mEq/L (3.5-5.1); PROTEIN TOTAL,TP 6.7 g/dl (6.4-8.2)
[2023-12-06] MEDS: methylPREDNISolone Sodium Succinate 125 MG/2 ML SDV IVPUSH ONE (15:07)
[2023-12-06 15:26] LABS: CORONAVIRUS COVID-19 NAA NEGATIVE (NEGATIVE); INFLUENZA A NAA NEGATIVE (NEGATIVE); RESPIRATORY SYNCYTIAL VIR NAA NEGATIVE (NEGATIVE)
[2023-12-06 19:43] VITALS: BP 167/58; PULSE 69
== END 2023-12-06 16:00 | disposition home or self-care (01) ==
LOC: JD.ED 12:25
DX: J44.1 Chronic obstructive pulmonary disease with (acute) exacerbation (principal); R79.82 Elevated C-reactive protein (CRP); I10 Essential (primary) hypertension; E78.00 Pure hypercholesterolemia, unspecified; E11.9 Type 2 diabetes mellitus without complications; E66.9 Obesity, unspecified; Z68.35 Body mass index [BMI] 35.0-35.9, adult; Z90.49 Acquired absence of other specified parts of digestive tract; Z90.79 Acquired absence of other genital organ(s); Z86.16 Personal history of COVID-19; Z86.73 Personal history of transient ischemic attack (TIA), and cerebral infarction without residual deficits; Z88.0 Allergy status to penicillin; Z79.2 Long term (current) use of antibiotics; Z79.51 Long term (current) use of inhaled steroids; Z79.52 Long term (current) use of systemic steroids; Z79.4 Long term (current) use of insulin; Z79.84 Long term (current) use of oral hypoglycemic drugs; Z79.899 Other long term (current) drug therapy
CPT/HCPCS: 0241U; 36415; 71045; 80053; 85025; 86140; 94640; 96374; 99285; J2919; J7620-GY

== ENCOUNTER 2024-01-23 09:52 | Emergency (ER) | payer MEDICARE, OTHER ==
[2024-01-23 11:17] LABS: BASOPHILS ABSOLUTE AUTO 0.1 K/mm3 (0.0-0.2); BASOPHILS PERCENT AUTO 0.8 % (0.0-1.0); EOSINOPHILS ABSOLUTE AUTO 0.2 K/mm3 (0.0-0.4); EOSINOPHILS PERCENT AUTO 2.5 % (0.0-6.0); HEMATOCRIT 40.7 % (42.0-52.0); HEMOGLOBIN 12.9 gm/dl (14.0-18.0); IMMATURE GRAN ABSOLUTE AUTO 0.06 K/mm3 (0.00-0.05); IMMATURE GRAN PERCENT AUTO 0.7 % (0.0-0.4); LYMPHOCYTES ABSOLUTE AUTO 1.4 K/mm3 (1.0-4.8); LYMPHOCYTES PERCENT AUTO 17.2 % (24.0-44.0); MEAN CORPUSCULAR HGB CONC 31.7 g/dl (32.0-36.0); MEAN CORPUSCULAR VOLUME 91.5 fl (83.0-99.0); MEAN PLATELET VOLUME 11.3 fl (9.4-12.4); MONOCYTES ABSOLUTE AUTO 0.5 K/mm3 (0.0-0.8); MONOCYTES PERCENT AUTO 6.3 % (0.0-8.0); NEUTROPHILS ABSOLUTE AUTO 6.1 K/mm3 (1.8-7.7); NEUTROPHILS PERCENT AUTO 72.5 % (41.0-71.0); PLATELET COUNT,PLT 179 K/mm3 (150-400); RED BLOOD CELL COUNT 4.45 M/mm3 (4.52-5.90); WHITE BLOOD CELL COUNT,WBC 8.39 K/mm3 (3.9-11.3)
[2024-01-23] MEDS: methylPREDNISolone Sodium Succinate 125 MG/2 ML SDV IVPUSH ONE (11:17)
[2024-01-23] MEDS: Albuterol/Ipratropium 3.0-0.5 MG/3 ML Neb Soln NEB ONE ×2 (11:25→12:17)
[2024-01-23 11:27] LABS: A/G RATIO 0.9 (1-2); ALANINE AMINOTRANSFERASE,ALT 32 U/L (16-63); ALBUMIN 3.4 g/dl (3.4-5.0); ALKALINE PHOSPHATASE 60 U/L (46-116); ANION GAP 15.4 (5-15); ASPARTATE AMNIOTRANSFERASE,AST 19 U/L (15-37); BILIRUBIN TOTAL 0.5 mg/dL (0.2-1.0); BLOOD UREA NITROGEN,BUN 18 mg/dL (7-18); C-REACTIVE PROTEIN <0.05 mg/dL (<0.30); CARBON DIOXIDE,CO2 24 mEq/L (21-32); CHLORIDE,CL 107 mEq/L (98-107); CREATININE 1.2 mg/dL (0.7-1.3); EST CRCL DRUG DOSING (CG) 51.19 mL/min; ESTIMATED GFR 60 mL/min (>60); GLUCOSE RANDOM 106 mg/dL (70-99); POTASSIUM,K 4.4 mEq/L (3.5-5.1); SODIUM,NA 142 mEq/L (136-145)
[2024-01-23 13:30] VITALS: BP 148/60; PULSE 68
== END 2024-01-23 13:20 | disposition home or self-care (01) ==
LOC: JD.ED 09:52
DX: R06.02 Shortness of breath (principal); I10 Essential (primary) hypertension; E78.00 Pure hypercholesterolemia, unspecified; J44.9 Chronic obstructive pulmonary disease, unspecified; E11.9 Type 2 diabetes mellitus without complications; E66.9 Obesity, unspecified; Z86.73 Personal history of transient ischemic attack (TIA), and cerebral infarction without residual deficits; Z86.16 Personal history of COVID-19; Z90.49 Acquired absence of other specified parts of digestive tract; Z90.79 Acquired absence of other genital organ(s); Z87.891 Personal history of nicotine dependence; Z88.0 Allergy status to penicillin; Z79.4 Long term (current) use of insulin; Z79.51 Long term (current) use of inhaled steroids; Z79.52 Long term (current) use of systemic steroids; Z79.899 Other long term (current) drug therapy; Z68.35 Body mass index [BMI] 35.0-35.9, adult
CPT/HCPCS: 36415; 71045; 80053; 85025; 86140; 94640; 96374; 99285; J2919; J7620-GY

== ENCOUNTER 2024-03-15 09:33 | Emergency (ER) | payer MEDICARE, OTHER ==
[2024-03-15] MEDS ORDERED: Sodium Chloride 0.9% 10 ML Syringe FLUSH PRN (10:40)
[2024-03-15 11:35] LABS: BASOPHILS ABSOLUTE AUTO 0.1 K/mm3 (0.0-0.2); BASOPHILS PERCENT AUTO 0.6 % (0.0-1.0); EOSINOPHILS ABSOLUTE AUTO 0.2 K/mm3 (0.0-0.4); EOSINOPHILS PERCENT AUTO 2.5 % (0.0-6.0); HEMATOCRIT 40.6 % (42.0-52.0); IMMATURE GRAN ABSOLUTE AUTO 0.06 K/mm3 (0.00-0.05); IMMATURE GRAN PERCENT AUTO 0.8 % (0.0-0.4); LYMPHOCYTES ABSOLUTE AUTO 1.6 K/mm3 (1.0-4.8); LYMPHOCYTES PERCENT AUTO 20.1 % (24.0-44.0); MEAN CORPUSCULAR HEMOGLOBIN 29.1 pg (28.0-32.0); MEAN PLATELET VOLUME 11.1 fl (9.4-12.4); MONOCYTES ABSOLUTE AUTO 0.5 K/mm3 (0.0-0.8); MONOCYTES PERCENT AUTO 6.8 % (0.0-8.0); NEUTROPHILS ABSOLUTE AUTO 5.5 K/mm3 (1.8-7.7); NEUTROPHILS PERCENT AUTO 69.2 % (41.0-71.0); PLATELET COUNT,PLT 143 K/mm3 (150-400); RED BLOOD CELL COUNT 4.46 M/mm3 (4.52-5.90); WHITE BLOOD CELL COUNT,WBC 7.96 K/mm3 (3.9-11.3)
[2024-03-15 12:08] LABS: A/G RATIO 1.1 (1-2); ALBUMIN 3.5 g/dl (3.4-5.0); ANION GAP 12.7 (5-15); BILIRUBIN TOTAL 0.3 mg/dL (0.2-1.0); BUN/CREATININE RATIO 19.2 (14-18); CALCIUM 9.1 mg/dL (8.5-10.1); CREATININE 1.2 mg/dL (0.7-1.3); EST CRCL DRUG DOSING (CG) 50.3 mL/min; MAGNESIUM 2.1 mg/dL (1.8-2.4); POTASSIUM,K 4.7 mEq/L (3.5-5.1); PROTEIN TOTAL,TP 6.7 g/dl (6.4-8.2)
[2024-03-15] MEDS: Meclizine 25 MG Tab PO ONE (12:22)
[2024-03-15 12:39] LABS: APPEARANCE,URINE CLEAR (Clear); BILIRUBIN,URINE NEGATIVE (Negative); COLOR,URINE YELLOW (Yellow); GLUCOSE,URINE 2+ (Negative); KETONES,URINE NEGATIVE (Negative); LEUKOCYTE ESTERASE,URINE NEGATIVE (Negative); NITRITE,URINE NEGATIVE (Negative); OCCULT BLOOD,URINE NEGATIVE (Negative); PH,URINE 5.5 (5.0-8.0); PROTEIN,URINE 1+ (Negative); UROBILINOGEN,URINE 0.2 (0.2-1.0)
[2024-03-15 13:56] VITALS: BP 138/72; PULSE 64
[2024-03-15 14:02] LABS: BACTERIA,URINE RARE /hpf (FEW); MUCUS,URINE FEW /hpf (FEW); RBC,URINE 0-5 /hpf (0-5); SQUAMOUS EPITHELIAL CELLS,UR NOT SEEN /hpf (0-5); WBC,URINE 0-5 /hpf (0-5)
== END 2024-03-15 13:40 | disposition home or self-care (01) ==
LOC: JD.ED 09:33
DX: J06.9 Acute upper respiratory infection, unspecified (principal); B97.89 Other viral agents as the cause of diseases classified elsewhere; R42 Dizziness and giddiness; I10 Essential (primary) hypertension; E78.00 Pure hypercholesterolemia, unspecified; J44.9 Chronic obstructive pulmonary disease, unspecified; E11.9 Type 2 diabetes mellitus without complications; E66.9 Obesity, unspecified; Z86.73 Personal history of transient ischemic attack (TIA), and cerebral infarction without residual deficits; Z86.16 Personal history of COVID-19; Z90.49 Acquired absence of other specified parts of digestive tract; Z88.0 Allergy status to penicillin; Z79.4 Long term (current) use of insulin; Z79.51 Long term (current) use of inhaled steroids; Z79.52 Long term (current) use of systemic steroids; Z79.899 Other long term (current) drug therapy
CPT/HCPCS: 36415; 70450; 80053; 81001; 83735; 84484; 85025; 87428; 93005; 99285; A9270

== ENCOUNTER 2024-04-18 11:09 | Emergency (ER) | payer MEDICARE, OTHER ==
[2024-04-18 14:37] VITALS: BP 114/40; PULSE 66
== END 2024-04-18 14:05 | disposition home or self-care (01) ==
LOC: JD.ED 11:09
DX: R42 Dizziness and giddiness (principal); I10 Essential (primary) hypertension; E78.00 Pure hypercholesterolemia, unspecified; J44.9 Chronic obstructive pulmonary disease, unspecified; E11.9 Type 2 diabetes mellitus without complications; E66.9 Obesity, unspecified; Z86.16 Personal history of COVID-19; Z90.49 Acquired absence of other specified parts of digestive tract; Z79.899 Other long term (current) drug therapy; Z79.84 Long term (current) use of oral hypoglycemic drugs; Z79.4 Long term (current) use of insulin; Z88.0 Allergy status to penicillin; Z79.51 Long term (current) use of inhaled steroids; Z68.35 Body mass index [BMI] 35.0-35.9, adult
CPT/HCPCS: 93005; 99283; 99284

== ENCOUNTER 2024-04-28 10:37 | Emergency (ER) | payer MEDICARE, OTHER ==
[2024-04-28 11:13] LABS: APPEARANCE,URINE CLOUDY (Clear); BILIRUBIN,URINE NEGATIVE (Negative); COLOR,URINE YELLOW (Yellow); GLUCOSE,URINE 3+ (Negative); KETONES,URINE NEGATIVE (Negative); LEUKOCYTE ESTERASE,URINE 2+ (Negative); NITRITE,URINE POSITIVE (Negative); OCCULT BLOOD,URINE 2+ (Negative); PROTEIN,URINE 2+ (Negative); UROBILINOGEN,URINE 0.2 (0.2-1.0)
[2024-04-28 11:27] LABS: BASOPHILS ABSOLUTE AUTO 0.1 K/mm3 (0.0-0.2); BASOPHILS PERCENT AUTO 0.4 % (0.0-1.0); EOSINOPHILS ABSOLUTE AUTO 0.2 K/mm3 (0.0-0.4); EOSINOPHILS PERCENT AUTO 1.2 % (0.0-6.0); HEMATOCRIT 41.6 % (42.0-52.0); HEMOGLOBIN 13.4 gm/dl (14.0-18.0); IMMATURE GRAN ABSOLUTE AUTO 0.06 K/mm3 (0.00-0.05); IMMATURE GRAN PERCENT AUTO 0.4 % (0.0-0.4); LYMPHOCYTES ABSOLUTE AUTO 1.9 K/mm3 (1.0-4.8); LYMPHOCYTES PERCENT AUTO 13.7 % (24.0-44.0); MEAN CORPUSCULAR HEMOGLOBIN 29.5 pg (28.0-32.0); MEAN CORPUSCULAR HGB CONC 32.2 g/dl (32.0-36.0); MEAN CORPUSCULAR VOLUME 91.4 fl (83.0-99.0); MEAN PLATELET VOLUME 10.7 fl (9.4-12.4); MONOCYTES ABSOLUTE AUTO 0.7 K/mm3 (0.0-0.8); MONOCYTES PERCENT AUTO 5.3 % (0.0-8.0); NEUTROPHILS ABSOLUTE AUTO 10.8 K/mm3 (1.8-7.7); PLATELET COUNT,PLT 170 K/mm3 (150-400); RED BLOOD CELL COUNT 4.55 M/mm3 (4.52-5.90); WHITE BLOOD CELL COUNT,WBC 13.61 K/mm3 (3.9-11.3)
[2024-04-28 11:30] LABS: RBC,URINE 0-5 /hpf (0-5); WBC,URINE >100 /hpf (0-5)
[2024-04-28 11:31] LABS: BACTERIA,URINE MODERATE /hpf (FEW); EPITHELIAL CELLS,URINE 0-5 /hpf (0-5); MUCUS,URINE FEW /hpf (FEW); WBC CLUMPS,URINE FEW /hpf (NOT SEEN)
[2024-04-28 11:47] LABS: ALBUMIN 3.4 g/dl (3.4-5.0); ANION GAP 12.3 (5-15); BILIRUBIN TOTAL 0.4 mg/dL (0.2-1.0); BUN/CREATININE RATIO 15.7 (14-18); C-REACTIVE PROTEIN 1.02 mg/dL (<0.30); CALCIUM 9.1 mg/dL (8.5-10.1); CREATININE 1.4 mg/dL (0.7-1.3); EST CRCL DRUG DOSING (CG) 43.11 mL/min; POTASSIUM,K 4.3 mEq/L (3.5-5.1); PROTEIN TOTAL,TP 6.8 g/dl (6.4-8.2)
[2024-04-28] MEDS: Albuterol/Ipratropium 3.0-0.5 MG/3 ML Neb Soln NEB ONE (12:05)
[2024-04-28 12:16] LABS: CORONAVIRUS COVID-19 NAA NEGATIVE (NEGATIVE); INFLUENZA A NAA NEGATIVE (NEGATIVE); RESPIRATORY SYNCYTIAL VIR NAA NEGATIVE (NEGATIVE)
[2024-04-28] MEDS: Levofloxacin/Dextrose 5%-Water 750 MG in Premix Bag 1 BAG IV ONE (12:56)
[2024-04-28 14:23] VITALS: BP 146/92; PULSE 75
== END 2024-04-28 14:35 | disposition home or self-care (01) ==
LOC: JD.ED 10:37
DX: N39.0 Urinary tract infection, site not specified (principal); J18.9 Pneumonia, unspecified organism; E11.9 Type 2 diabetes mellitus without complications; E78.00 Pure hypercholesterolemia, unspecified; I10 Essential (primary) hypertension; J44.9 Chronic obstructive pulmonary disease, unspecified; E66.9 Obesity, unspecified; K21.9 Gastro-esophageal reflux disease without esophagitis; Z86.16 Personal history of COVID-19; Z86.73 Personal history of transient ischemic attack (TIA), and cerebral infarction without residual deficits; Z79.84 Long term (current) use of oral hypoglycemic drugs; Z79.4 Long term (current) use of insulin; Z79.899 Other long term (current) drug therapy; Z88.0 Allergy status to penicillin; Z68.35 Body mass index [BMI] 35.0-35.9, adult
CPT/HCPCS: 0241U; 36415; 71046; 80053; 81001; 85025; 86140; 87086; 94640; 96365; 96366; 99284; A9270; J1956; 87088; 87186

== ENCOUNTER 2024-05-10 10:00 | Emergency (ER) | payer MEDICARE, OTHER ==
[2024-05-10 10:22] VITALS: PULSE 66
[2024-05-10] MEDS ORDERED: Sodium Chloride 0.9% 10 ML Syringe FLUSH PRN (10:42)
[2024-05-10 11:16] LABS: BASOPHILS ABSOLUTE AUTO 0.1 K/mm3 (0.0-0.2); BASOPHILS PERCENT AUTO 0.5 % (0.0-1.0); EOSINOPHILS ABSOLUTE AUTO 0.2 K/mm3 (0.0-0.4); EOSINOPHILS PERCENT AUTO 1.2 % (0.0-6.0); HEMATOCRIT 40.8 % (42.0-52.0); HEMOGLOBIN 13.2 gm/dl (14.0-18.0); IMMATURE GRAN ABSOLUTE AUTO 0.58 K/mm3 (0.00-0.05); IMMATURE GRAN PERCENT AUTO 4.2 % (0.0-0.4); LYMPHOCYTES PERCENT AUTO 14.4 % (24.0-44.0); MEAN CORPUSCULAR HGB CONC 32.4 g/dl (32.0-36.0); MEAN CORPUSCULAR VOLUME 89.7 fl (83.0-99.0); MEAN PLATELET VOLUME 10.3 fl (9.4-12.4); MONOCYTES ABSOLUTE AUTO 0.7 K/mm3 (0.0-0.8); MONOCYTES PERCENT AUTO 4.9 % (0.0-8.0); NEUTROPHILS ABSOLUTE AUTO 10.3 K/mm3 (1.8-7.7); NEUTROPHILS PERCENT AUTO 74.8 % (41.0-71.0); PLATELET COUNT,PLT 190 K/mm3 (150-400); RED BLOOD CELL COUNT 4.55 M/mm3 (4.52-5.90); WHITE BLOOD CELL COUNT,WBC 13.77 K/mm3 (3.9-11.3)
[2024-05-10] MEDS: Albuterol/Ipratropium 3.0-0.5 MG/3 ML Neb Soln NEB ONE (11:17)
[2024-05-10] MEDS: predniSONE 10 MG Tab PO ONE (11:18)
[2024-05-10 11:27] LABS: APPEARANCE,URINE CLEAR (Clear); BILIRUBIN,URINE NEGATIVE (Negative); COLOR,URINE YELLOW (Yellow); GLUCOSE,URINE 2+ (Negative); KETONES,URINE NEGATIVE (Negative); LEUKOCYTE ESTERASE,URINE 1+ (Negative); NITRITE,URINE NEGATIVE (Negative); OCCULT BLOOD,URINE 1+ (Negative); PROTEIN,URINE 1+ (Negative); UROBILINOGEN,URINE 0.2 (0.2-1.0)
[2024-05-10 11:37] LABS: A/G RATIO 0.9 (1-2); ANION GAP 11.1 (5-15); BILIRUBIN TOTAL 0.4 mg/dL (0.2-1.0); BUN/CREATININE RATIO 28.3 (14-18); C-REACTIVE PROTEIN 0.43 mg/dL (<0.30); CALCIUM 8.8 mg/dL (8.5-10.1); CREATININE 1.2 mg/dL (0.7-1.3); EST CRCL DRUG DOSING (CG) 50.3 mL/min; MAGNESIUM 1.7 mg/dL (1.8-2.4); POTASSIUM,K 4.1 mEq/L (3.5-5.1); PROTEIN TOTAL,TP 6.3 g/dl (6.4-8.2)
[2024-05-10 11:41] LABS: EPITHELIAL CELLS,URINE 0-5 /hpf (0-5)
[2024-05-10 11:42] LABS: BACTERIA,URINE FEW /hpf (FEW); MUCUS,URINE NOT SEEN /hpf (FEW)
[2024-05-10] MEDS: Nystatin Crm 30 GM Tube TOP ONE (12:28)
[2024-05-10 12:36] LABS: SLIDE REVIEW ABNORMAL SMEAR
[2024-05-10 13:34] VITALS: BP 154/51
== END 2024-05-10 13:11 | disposition home or self-care (01) ==
LOC: JD.ED 10:00
DX: J44.1 Chronic obstructive pulmonary disease with (acute) exacerbation (principal); B37.49 Other urogenital candidiasis; I10 Essential (primary) hypertension; E78.00 Pure hypercholesterolemia, unspecified; E66.9 Obesity, unspecified; E11.9 Type 2 diabetes mellitus without complications; Z88.0 Allergy status to penicillin; Z79.4 Long term (current) use of insulin; Z79.899 Other long term (current) drug therapy; Z86.16 Personal history of COVID-19; Z68.34 Body mass index [BMI] 34.0-34.9, adult
CPT/HCPCS: 36415; 71045; 71045-26; 80053; 81001; 83735; 84484; 85025; 86140; 93005; 93010; 94640; 99283; 99285; A9270-GY; J7512

== ENCOUNTER 2024-07-29 09:47 | Emergency (ER) | payer MEDICARE, OTHER ==
[2024-07-29 10:21] LABS: BASOPHILS ABSOLUTE AUTO 0.1 K/mm3 (0.0-0.2); BASOPHILS PERCENT AUTO 0.6 % (0.0-1.0); EOSINOPHILS ABSOLUTE AUTO 0.4 K/mm3 (0.0-0.4); EOSINOPHILS PERCENT AUTO 3.3 % (0.0-6.0); HEMATOCRIT 41.5 % (42.0-52.0); HEMOGLOBIN 13.2 gm/dl (14.0-18.0); IMMATURE GRAN ABSOLUTE AUTO 0.07 K/mm3 (0.00-0.05); IMMATURE GRAN PERCENT AUTO 0.6 % (0.0-0.4); LYMPHOCYTES ABSOLUTE AUTO 1.5 K/mm3 (1.0-4.8); LYMPHOCYTES PERCENT AUTO 13.6 % (24.0-44.0); MEAN CORPUSCULAR HEMOGLOBIN 28.8 pg (28.0-32.0); MEAN CORPUSCULAR HGB CONC 31.8 g/dl (32.0-36.0); MEAN CORPUSCULAR VOLUME 90.6 fl (83.0-99.0); MEAN PLATELET VOLUME 10.8 fl (9.4-12.4); MONOCYTES ABSOLUTE AUTO 0.6 K/mm3 (0.0-0.8); MONOCYTES PERCENT AUTO 5.2 % (0.0-8.0); NEUTROPHILS ABSOLUTE AUTO 8.5 K/mm3 (1.8-7.7); NEUTROPHILS PERCENT AUTO 76.7 % (41.0-71.0); PLATELET COUNT,PLT 224 K/mm3 (150-400); RED BLOOD CELL COUNT 4.58 M/mm3 (4.52-5.90); WHITE BLOOD CELL COUNT,WBC 11.02 K/mm3 (3.9-11.3)
[2024-07-29 10:43] LABS: ALBUMIN 3.5 g/dl (3.4-5.0); ANION GAP 13.7 (5-15); BILIRUBIN TOTAL 0.4 mg/dL (0.2-1.0); BUN/CREATININE RATIO 21.9 (14-18); CALCIUM 9.9 mg/dL (8.5-10.1); CREATININE 1.6 mg/dL (0.7-1.3); EST CRCL DRUG DOSING (CG) 37.72 mL/min; MAGNESIUM 1.9 mg/dL (1.8-2.4); POTASSIUM,K 4.7 mEq/L (3.5-5.1); PROTEIN TOTAL,TP 7.1 g/dl (6.4-8.2)
[2024-07-29] MEDS: Furosemide 40 MG/4 ML VIAL IVPUSH ONE (11:15)
[2024-07-29] MEDS: Iopamidol 755 Mg/ML 100 ML Bottle IVPUSH ONE (12:52)
[2024-07-29] MEDS: Sodium Chloride 0.9% 10 ML Syringe FLUSH PRN (12:57)
[2024-07-29] MEDS: Sodium Chloride 0.9% 100 ML IV SCH (12:57)
[2024-07-29] MEDS: Albuterol/Ipratropium 3.0-0.5 MG/3 ML Neb Soln NEB ONE (15:15)
[2024-07-29 15:48] VITALS: BP 142/52; PULSE 78
== END 2024-07-29 15:16 | disposition home or self-care (01) ==
LOC: JD.ED 09:47
DX: R06.02 Shortness of breath (principal); R60.0 Localized edema; I25.10 Atherosclerotic heart disease of native coronary artery without angina pectoris; J44.9 Chronic obstructive pulmonary disease, unspecified; E78.00 Pure hypercholesterolemia, unspecified; E11.9 Type 2 diabetes mellitus without complications; E66.9 Obesity, unspecified; K21.9 Gastro-esophageal reflux disease without esophagitis; Z86.16 Personal history of COVID-19; Z79.899 Other long term (current) drug therapy; Z79.4 Long term (current) use of insulin; Z79.84 Long term (current) use of oral hypoglycemic drugs; Z88.0 Allergy status to penicillin; Z86.73 Personal history of transient ischemic attack (TIA), and cerebral infarction without residual deficits; Z68.34 Body mass index [BMI] 34.0-34.9, adult
CPT/HCPCS: 36415; 71046; 71275; 80053; 83735; 83880; 84484; 85025; 93005; 96374; 99285; J1938; Q9967; 93010; 99284

== ENCOUNTER 2024-09-02 09:25 | Emergency (ER) | payer MEDICARE, OTHER ==
[2024-09-02] MEDS ORDERED: Sodium Chloride 0.9% 10 ML Syringe FLUSH PRN (10:20)
[2024-09-02 10:31] LABS: BASOPHILS ABSOLUTE AUTO 0.1 K/mm3 (0.0-0.2); BASOPHILS PERCENT AUTO 0.7 % (0.0-1.0); EOSINOPHILS ABSOLUTE AUTO 0.1 K/mm3 (0.0-0.4); EOSINOPHILS PERCENT AUTO 1.2 % (0.0-6.0); IMMATURE GRAN ABSOLUTE AUTO 0.04 K/mm3 (0.00-0.05); IMMATURE GRAN PERCENT AUTO 0.4 % (0.0-0.4); LYMPHOCYTES ABSOLUTE AUTO 1.7 K/mm3 (1.0-4.8); LYMPHOCYTES PERCENT AUTO 16.8 % (24.0-44.0); MEAN PLATELET VOLUME 10.9 fl (9.4-12.4); MONOCYTES ABSOLUTE AUTO 0.6 K/mm3 (0.0-0.8); MONOCYTES PERCENT AUTO 6.2 % (0.0-8.0); NEUTROPHILS ABSOLUTE AUTO 7.4 K/mm3 (1.8-7.7); NEUTROPHILS PERCENT AUTO 74.7 % (41.0-71.0); NRBC ABSOLUTE 0.00 (0.00-0.02); NRBC PERCENT 0.0 % (0.0-0.2); PLATELET COUNT,PLT 205 K/mm3 (150-400); RED BLOOD CELL COUNT 4.31 M/mm3 (4.52-5.90); WHITE BLOOD CELL COUNT,WBC 9.88 K/mm3 (3.9-11.3)
[2024-09-02] MEDS: Bumetanide 1 MG/4 ML MDV IVPUSH ONE (10:37)
[2024-09-02 10:40] LABS: A/G RATIO 1.0 (1-2); ALANINE AMINOTRANSFERASE,ALT 28.0 U/L (16-63); ASPARTATE AMNIOTRANSFERASE,AST 26.0 U/L (15-37); BILIRUBIN TOTAL 0.3 mg/dL (0.2-1.0); BLOOD UREA NITROGEN,BUN 34.0 mg/dL (7-18); CARBON DIOXIDE,CO2 30.0 mEq/L (21-32); CHLORIDE,CL 104.0 mEq/L (98-107); CREATININE 1.2 mg/dL (0.7-1.3); EST CRCL DRUG DOSING (CG) 50.3 mL/min; ESTIMATED GFR 60.0 mL/min (>60); GLUCOSE RANDOM 68.0 mg/dL (70-99); POTASSIUM,K 4.8 mEq/L (3.5-5.1); PROTEIN TOTAL,TP 7.5 g/dl (6.4-8.2); SODIUM,NA 142.0 mEq/L (136-145)
[2024-09-02 11:05] LABS: APPEARANCE,URINE CLEAR (Clear); GLUCOSE,URINE NEGATIVE (Negative); OCCULT BLOOD,URINE NEGATIVE (Negative)
[2024-09-02 11:12] LABS: EPITHELIAL CELLS,URINE 0-5 /hpf (0-5)
[2024-09-02] MEDS: 50% Dextrose in Water 50 ML Syringe IVPUSH ONE (12:46)
[2024-09-02 13:13] VITALS: BP 162/58; PULSE 80
== END 2024-09-02 13:12 | disposition home or self-care (01) ==
LOC: JD.ED 09:25
DX: M54.50 Low back pain, unspecified (principal); R19.7 Diarrhea, unspecified; E11.649 Type 2 diabetes mellitus with hypoglycemia without coma; R60.9 Edema, unspecified; I10 Essential (primary) hypertension; E78.00 Pure hypercholesterolemia, unspecified; E66.9 Obesity, unspecified; Z88.0 Allergy status to penicillin; Z79.4 Long term (current) use of insulin; Z79.899 Other long term (current) drug therapy; Z86.16 Personal history of COVID-19; Z90.49 Acquired absence of other specified parts of digestive tract; Z68.34 Body mass index [BMI] 34.0-34.9, adult
CPT/HCPCS: 36415; 80053; 81001; 85025; 96374; 96375; 99284; J2270; J3490; 99283

== ENCOUNTER 2024-09-19 00:02 | Inpatient (IN) | payer MEDICARE, OTHER ==
[2024-09-19] MEDS ORDERED: Sodium Chloride 0.9% 10 ML Syringe FLUSH PRN (00:25)
[2024-09-19 00:51] LABS: BASOPHILS ABSOLUTE AUTO 0.1 K/mm3 (0.0-0.2); BASOPHILS PERCENT AUTO 0.5 % (0.0-1.0); EOSINOPHILS ABSOLUTE AUTO 0.2 K/mm3 (0.0-0.4); EOSINOPHILS PERCENT AUTO 1.4 % (0.0-6.0); IMMATURE GRAN ABSOLUTE AUTO 0.07 K/mm3 (0.00-0.05); IMMATURE GRAN PERCENT AUTO 0.5 % (0.0-0.4); LYMPHOCYTES ABSOLUTE AUTO 2.4 K/mm3 (1.0-4.8); LYMPHOCYTES PERCENT AUTO 17.4 % (24.0-44.0); MEAN PLATELET VOLUME 11.3 fl (9.4-12.4); MONOCYTES ABSOLUTE AUTO 0.8 K/mm3 (0.0-0.8); MONOCYTES PERCENT AUTO 6.0 % (0.0-8.0); NEUTROPHILS ABSOLUTE AUTO 10.2 K/mm3 (1.8-7.7); NEUTROPHILS PERCENT AUTO 74.2 % (41.0-71.0); NRBC ABSOLUTE 0.00 (0.00-0.02); NRBC PERCENT 0.0 % (0.0-0.2); PLATELET COUNT,PLT 179 K/mm3 (150-400); RED BLOOD CELL COUNT 3.65 M/mm3 (4.52-5.90); WHITE BLOOD CELL COUNT,WBC 13.70 K/mm3 (3.9-11.3)
[2024-09-19 01:43] LABS: A/G RATIO 1.0 (1-2); ALANINE AMINOTRANSFERASE,ALT 28.0 U/L (16-63); ASPARTATE AMNIOTRANSFERASE,AST 25.0 U/L (15-37); BILIRUBIN TOTAL 0.3 mg/dL (0.2-1.0); BLOOD UREA NITROGEN,BUN 52.0 mg/dL (7-18); CARBON DIOXIDE,CO2 26.0 mEq/L (21-32); CHLORIDE,CL 103.0 mEq/L (98-107); CREATININE 1.9 mg/dL (0.7-1.3); EST CRCL DRUG DOSING (CG) 31.77 mL/min; ESTIMATED GFR 34.0 mL/min (>60); GLUCOSE RANDOM 204.0 mg/dL (70-99); POTASSIUM,K 4.3 mEq/L (3.5-5.1); PROTEIN TOTAL,TP 6.7 g/dl (6.4-8.2); SODIUM,NA 139.0 mEq/L (136-145)
[2024-09-19 01:51] LABS: LACTIC ACID 2.2 mmol/L (0.4-2.0)
[2024-09-19] MEDS: Magnesium Sulfate 2 GM/50 mL 2 GM in Premix Bag 1 BAG IV ONE (02:18)
[2024-09-19] MEDS: Levofloxacin/Dextrose 5%-Water 750 MG in Premix Bag 1 BAG IV ONE (02:20)
[2024-09-19] MEDS: Iopamidol 755 Mg/ML 100 ML Bottle IVPUSH ONE (02:59)
[2024-09-19] MEDS ORDERED: Acetaminophen/oxyCODONE 325-5 MG Tab PO PRN (04:12)
[2024-09-19 05:37] LABS: A/G RATIO 0.9 (1-2); ALANINE AMINOTRANSFERASE,ALT 24.0 U/L (16-63); ASPARTATE AMNIOTRANSFERASE,AST 21.0 U/L (15-37); BILIRUBIN TOTAL 0.4 mg/dL (0.2-1.0); BLOOD UREA NITROGEN,BUN 48.0 mg/dL (7-18); CARBON DIOXIDE,CO2 26.0 mEq/L (21-32); CHLORIDE,CL 104.0 mEq/L (98-107); CREATININE 1.7 mg/dL (0.7-1.3); EST CRCL DRUG DOSING (CG) 35.5 mL/min; ESTIMATED GFR 39.0 mL/min (>60); GLUCOSE RANDOM 80.0 mg/dL (70-99); POTASSIUM,K 4.2 mEq/L (3.5-5.1); PROTEIN TOTAL,TP 6.1 g/dl (6.4-8.2); SODIUM,NA 139.0 mEq/L (136-145)
[2024-09-19 05:49] LABS: BASOPHILS ABSOLUTE AUTO 0.1 K/mm3 (0.0-0.2); BASOPHILS PERCENT AUTO 0.4 % (0.0-1.0); EOSINOPHILS ABSOLUTE AUTO 0.1 K/mm3 (0.0-0.4); EOSINOPHILS PERCENT AUTO 0.7 % (0.0-6.0); IMMATURE GRAN ABSOLUTE AUTO 0.06 K/mm3 (0.00-0.05); IMMATURE GRAN PERCENT AUTO 0.4 % (0.0-0.4); LYMPHOCYTES ABSOLUTE AUTO 1.5 K/mm3 (1.0-4.8); LYMPHOCYTES PERCENT AUTO 11.0 % (24.0-44.0); MEAN PLATELET VOLUME 11.8 fl (9.4-12.4); MONOCYTES ABSOLUTE AUTO 0.9 K/mm3 (0.0-0.8); MONOCYTES PERCENT AUTO 6.8 % (0.0-8.0); NEUTROPHILS ABSOLUTE AUTO 11.1 K/mm3 (1.8-7.7); NEUTROPHILS PERCENT AUTO 80.7 % (41.0-71.0); NRBC ABSOLUTE 0.00 (0.00-0.02); NRBC PERCENT 0.0 % (0.0-0.2); PLATELET COUNT,PLT 160 K/mm3 (150-400); RED BLOOD CELL COUNT 3.52 M/mm3 (4.52-5.90); WHITE BLOOD CELL COUNT,WBC 13.74 K/mm3 (3.9-11.3)
[2024-09-19] MEDS: Furosemide 40 MG/4 ML VIAL IVPUSH ONE ×2 (06:54→07:00)
[2024-09-19] MEDS ORDERED: Ondansetron 4 MG/2 ML SDV IV PRN (08:31)
[2024-09-19] MEDS: Insulin Lispro 100 Unit/ML 3 ML KwikPen SUBCUT SCH (11:38)
[2024-09-19] MEDS: ACYCLOVIR 400 MG PO SCH (12:57)
[2024-09-19] MEDS: Albuterol 0.083% 2.5 MG/3 ML Neb Soln NEB PRN (13:34)
[2024-09-20 04:09] LABS: BASOPHILS ABSOLUTE AUTO 0.0 K/mm3 (0.0-0.2); BASOPHILS PERCENT AUTO 0.4 % (0.0-1.0); EOSINOPHILS ABSOLUTE AUTO 0.1 K/mm3 (0.0-0.4); EOSINOPHILS PERCENT AUTO 1.6 % (0.0-6.0); IMMATURE GRAN ABSOLUTE AUTO 0.03 K/mm3 (0.00-0.05); IMMATURE GRAN PERCENT AUTO 0.3 % (0.0-0.4); LYMPHOCYTES ABSOLUTE AUTO 1.6 K/mm3 (1.0-4.8); LYMPHOCYTES PERCENT AUTO 17.8 % (24.0-44.0); MEAN PLATELET VOLUME 11.3 fl (9.4-12.4); MONOCYTES ABSOLUTE AUTO 0.7 K/mm3 (0.0-0.8); MONOCYTES PERCENT AUTO 7.5 % (0.0-8.0); NEUTROPHILS ABSOLUTE AUTO 6.4 K/mm3 (1.8-7.7); NEUTROPHILS PERCENT AUTO 72.4 % (41.0-71.0); NRBC ABSOLUTE 0.00 (0.00-0.02); NRBC PERCENT 0.0 % (0.0-0.2); PLATELET COUNT,PLT 135 K/mm3 (150-400); RED BLOOD CELL COUNT 3.60 M/mm3 (4.52-5.90); WHITE BLOOD CELL COUNT,WBC 8.91 K/mm3 (3.9-11.3)
[2024-09-20 04:31] LABS: A/G RATIO 0.8 (1-2); ALANINE AMINOTRANSFERASE,ALT 20.0 U/L (16-63); ASPARTATE AMNIOTRANSFERASE,AST 20.0 U/L (15-37); BILIRUBIN TOTAL 0.3 mg/dL (0.2-1.0); BLOOD UREA NITROGEN,BUN 33.0 mg/dL (7-18); CARBON DIOXIDE,CO2 27.0 mEq/L (21-32); CHLORIDE,CL 106.0 mEq/L (98-107); CREATININE 1.2 mg/dL (0.7-1.3); EST CRCL DRUG DOSING (CG) 50.3 mL/min; ESTIMATED GFR 60.0 mL/min (>60); POTASSIUM,K 4.0 mEq/L (3.5-5.1); PROTEIN TOTAL,TP 5.9 g/dl (6.4-8.2); SODIUM,NA 141.0 mEq/L (136-145)
[2024-09-20 04:36] LABS: GLUCOSE RANDOM 51.0 mg/dL (70-99)
[2024-09-20] MEDS: Heparin Sodium 5,000 Units/ML Vial SUBCUT SCH (08:50)
[2024-09-20] MEDS: Formoterol/Mometasone 200-5 MCG 8.8 GM Inhaler INH SCH (09:26)
[2024-09-20] MEDS: Tiotropium Bromide 4 GM Inhalation Spray (2.5mcg/1 dose; 10 doses) INH SCH (09:26)
[2024-09-20] MEDS: Levofloxacin/Dextrose 5%-Water 750 MG in Premix Bag 1 BAG IV SCH (11:03)
[2024-09-20] MEDS: methylPREDNISolone Sodium Succinate 125 MG/2 ML SDV IVPUSH ONE (11:03)
[2024-09-21] MEDS ORDERED: Levofloxacin/Dextrose 5%-Water 750 MG in Premix Bag 1 BAG IV SCH (02:00)
[2024-09-21 05:44] LABS: BASOPHILS ABSOLUTE AUTO 0.0 K/mm3 (0.0-0.2); BASOPHILS PERCENT AUTO 0.1 % (0.0-1.0); EOSINOPHILS ABSOLUTE AUTO 0.0 K/mm3 (0.0-0.4); EOSINOPHILS PERCENT AUTO 0.0 % (0.0-6.0); IMMATURE GRAN ABSOLUTE AUTO 0.04 K/mm3 (0.00-0.05); IMMATURE GRAN PERCENT AUTO 0.5 % (0.0-0.4); LYMPHOCYTES ABSOLUTE AUTO 0.9 K/mm3 (1.0-4.8); LYMPHOCYTES PERCENT AUTO 11.3 % (24.0-44.0); MEAN PLATELET VOLUME 11.9 fl (9.4-12.4); MONOCYTES ABSOLUTE AUTO 0.4 K/mm3 (0.0-0.8); MONOCYTES PERCENT AUTO 5.0 % (0.0-8.0); NEUTROPHILS ABSOLUTE AUTO 6.5 K/mm3 (1.8-7.7); NEUTROPHILS PERCENT AUTO 83.1 % (41.0-71.0); NRBC ABSOLUTE 0.00 (0.00-0.02); NRBC PERCENT 0.0 % (0.0-0.2); PLATELET COUNT,PLT 144 K/mm3 (150-400); RED BLOOD CELL COUNT 3.51 M/mm3 (4.52-5.90); WHITE BLOOD CELL COUNT,WBC 7.87 K/mm3 (3.9-11.3)
[2024-09-21 05:58] LABS: A/G RATIO 0.8 (1-2); ALANINE AMINOTRANSFERASE,ALT 21.0 U/L (16-63); ASPARTATE AMNIOTRANSFERASE,AST 19.0 U/L (15-37); BILIRUBIN TOTAL 0.3 mg/dL (0.2-1.0); BLOOD UREA NITROGEN,BUN 36.0 mg/dL (7-18); CARBON DIOXIDE,CO2 25.0 mEq/L (21-32); CHLORIDE,CL 102.0 mEq/L (98-107); CREATININE 1.5 mg/dL (0.7-1.3); EST CRCL DRUG DOSING (CG) 40.24 mL/min; ESTIMATED GFR 46.0 mL/min (>60); GLUCOSE RANDOM 219.0 mg/dL (70-99); POTASSIUM,K 4.5 mEq/L (3.5-5.1); PROTEIN TOTAL,TP 6.2 g/dl (6.4-8.2); SODIUM,NA 136.0 mEq/L (136-145)
[2024-09-21 13:13] VITALS: BP 163/56; PULSE 105
== END 2024-09-21 13:05 | disposition home or self-care (01) | DRG 871 ==
LOC: JD.ED 00:02 → JD.MS 04:12
PROVIDERS: ADMIT Family Medicine; ATTEND Family Medicine
DX: A41.9 Sepsis, unspecified organism (principal); J96.00 Acute respiratory failure, unspecified whether with hypoxia or hypercapnia; J18.9 Pneumonia, unspecified organism; J96.21 Acute and chronic respiratory failure with hypoxia; I10 Essential (primary) hypertension; E87.20 Acidosis, unspecified; N17.9 Acute kidney failure, unspecified; J44.0 Chronic obstructive pulmonary disease with (acute) lower respiratory infection; G72.81 Critical illness myopathy; L03.115 Cellulitis of right lower limb; J44.1 Chronic obstructive pulmonary disease with (acute) exacerbation; H91.90 Unspecified hearing loss, unspecified ear; H54.7 Unspecified visual loss; Z79.51 Long term (current) use of inhaled steroids; E78.00 Pure hypercholesterolemia, unspecified; G47.30 Sleep apnea, unspecified; K21.9 Gastro-esophageal reflux disease without esophagitis; M19.90 Unspecified osteoarthritis, unspecified site; R65.20 Severe sepsis without septic shock; E11.69 Type 2 diabetes mellitus with other specified complication; F32.A Depression, unspecified; E66.9 Obesity, unspecified; E83.42 Hypomagnesemia; I50.9 Heart failure, unspecified; I11.0 Hypertensive heart disease with heart failure; J43.9 Emphysema, unspecified; M71.21 Synovial cyst of popliteal space [Baker], right knee; Z86.73 Personal history of transient ischemic attack (TIA), and cerebral infarction without residual deficits; Z68.32 Body mass index [BMI] 32.0-32.9, adult; Z88.0 Allergy status to penicillin; Z79.899 Other long term (current) drug therapy; Z79.4 Long term (current) use of insulin; Z79.52 Long term (current) use of systemic steroids; Z79.84 Long term (current) use of oral hypoglycemic drugs; Z85.72 Personal history of non-Hodgkin lymphomas; Z87.891 Personal history of nicotine dependence; Z85.46 Personal history of malignant neoplasm of prostate; Z86.16 Personal history of COVID-19; Z90.49 Acquired absence of other specified parts of digestive tract; Z90.79 Acquired absence of other genital organ(s)
CPT/HCPCS: 36415; 71045; 71275; 80053; 83605 ×2; 83735; 83880; 85025; 85379; 87040; 93005; 96365; 96366; 96368; 99285; J1956; J3475; Q9967; 29580-GP; 82947; 86140; 93010; 93970; 93970-26; 94640; 94667; 94668; 94761; 97110-GP; 97116-GP; 97161-GP; 97166-GO; 97530-GO; 97530-GP; A9270-GY; J1644; J1650; J1938; J2919; J7030; J7512

== ENCOUNTER 2024-10-04 16:14 | Inpatient (IN) | payer MEDICARE, OTHER ==
[2024-10-04] MEDS ORDERED: Sodium Chloride 0.9% 10 ML Syringe FLUSH PRN (17:03)
[2024-10-04] MEDS ORDERED: Ondansetron 4 MG/2 ML SDV IV PRN (18:36)
[2024-10-04] MEDS ORDERED: 50% Dextrose in Water 50 ML Syringe IVPUSH PRN (18:46)
[2024-10-04] MEDS: Magnesium Sulfate 2 GM/50 mL 2 GM in Premix Bag 1 BAG IV ONE (20:01)
[2024-10-04] MEDS: Insulin Lispro 100 Unit/ML 3 ML KwikPen SUBCUT SCH (21:44)
[2024-10-05 04:27] LABS: BASOPHILS ABSOLUTE AUTO 0.0 K/mm3 (0.0-0.2); BASOPHILS PERCENT AUTO 0.2 % (0.0-1.0); EOSINOPHILS ABSOLUTE AUTO 0.1 K/mm3 (0.0-0.4); EOSINOPHILS PERCENT AUTO 0.7 % (0.0-6.0); IMMATURE GRAN ABSOLUTE AUTO 0.05 K/mm3 (0.00-0.05); IMMATURE GRAN PERCENT AUTO 0.4 % (0.0-0.4); LYMPHOCYTES ABSOLUTE AUTO 2.2 K/mm3 (1.0-4.8); LYMPHOCYTES PERCENT AUTO 17.9 % (24.0-44.0); MEAN PLATELET VOLUME 11.4 fl (9.4-12.4); MONOCYTES ABSOLUTE AUTO 0.8 K/mm3 (0.0-0.8); MONOCYTES PERCENT AUTO 6.3 % (0.0-8.0); NEUTROPHILS ABSOLUTE AUTO 9.1 K/mm3 (1.8-7.7); NEUTROPHILS PERCENT AUTO 74.5 % (41.0-71.0); NRBC ABSOLUTE 0.00 (0.00-0.02); NRBC PERCENT 0.0 % (0.0-0.2); PLATELET COUNT,PLT 123 K/mm3 (150-400); RED BLOOD CELL COUNT 3.37 M/mm3 (4.52-5.90); WHITE BLOOD CELL COUNT,WBC 12.22 K/mm3 (3.9-11.3)
[2024-10-05 04:57] LABS: A/G RATIO 0.9 (1-2); ALANINE AMINOTRANSFERASE,ALT 25.0 U/L (16-63); ASPARTATE AMNIOTRANSFERASE,AST 17.0 U/L (15-37); BILIRUBIN TOTAL 0.4 mg/dL (0.2-1.0); BLOOD UREA NITROGEN,BUN 40.0 mg/dL (7-18); CARBON DIOXIDE,CO2 23.0 mEq/L (21-32); CHLORIDE,CL 109.0 mEq/L (98-107); CREATININE 1.7 mg/dL (0.7-1.3); EST CRCL DRUG DOSING (CG) 35.5 mL/min; ESTIMATED GFR 39.0 mL/min (>60); GLUCOSE RANDOM 89.0 mg/dL (70-99); POTASSIUM,K 4.6 mEq/L (3.5-5.1); PROTEIN TOTAL,TP 5.2 g/dl (6.4-8.2); SODIUM,NA 141.0 mEq/L (136-145)
[2024-10-05 18:15] LABS: APPEARANCE,URINE CLEAR (Clear); GLUCOSE,URINE 2+ (Negative); OCCULT BLOOD,URINE NEGATIVE (Negative)
[2024-10-05 18:30] LABS: SQUAMOUS EPITHELIAL CELLS,UR 0-5 /hpf (0-5)
[2024-10-06 05:42] LABS: BASOPHILS ABSOLUTE AUTO 0.1 K/mm3 (0.0-0.2); BASOPHILS PERCENT AUTO 0.6 % (0.0-1.0); EOSINOPHILS ABSOLUTE AUTO 0.1 K/mm3 (0.0-0.4); EOSINOPHILS PERCENT AUTO 1.2 % (0.0-6.0); IMMATURE GRAN ABSOLUTE AUTO 0.03 K/mm3 (0.00-0.05); IMMATURE GRAN PERCENT AUTO 0.4 % (0.0-0.4); LYMPHOCYTES ABSOLUTE AUTO 2.0 K/mm3 (1.0-4.8); LYMPHOCYTES PERCENT AUTO 23.6 % (24.0-44.0); MEAN PLATELET VOLUME 11.7 fl (9.4-12.4); MONOCYTES ABSOLUTE AUTO 0.5 K/mm3 (0.0-0.8); MONOCYTES PERCENT AUTO 5.9 % (0.0-8.0); NEUTROPHILS ABSOLUTE AUTO 5.7 K/mm3 (1.8-7.7); NEUTROPHILS PERCENT AUTO 68.3 % (41.0-71.0); NRBC ABSOLUTE 0.00 (0.00-0.02); NRBC PERCENT 0.0 % (0.0-0.2); PLATELET COUNT,PLT 128 K/mm3 (150-400); RED BLOOD CELL COUNT 3.50 M/mm3 (4.52-5.90); WHITE BLOOD CELL COUNT,WBC 8.34 K/mm3 (3.9-11.3)
[2024-10-06 06:08] LABS: A/G RATIO 0.7 (1-2); ALANINE AMINOTRANSFERASE,ALT 30.0 U/L (16-63); ASPARTATE AMNIOTRANSFERASE,AST 21.0 U/L (15-37); BILIRUBIN TOTAL 0.3 mg/dL (0.2-1.0); BLOOD UREA NITROGEN,BUN 29.0 mg/dL (7-18); CARBON DIOXIDE,CO2 24.0 mEq/L (21-32); CHLORIDE,CL 111.0 mEq/L (98-107); CREATININE 1.1 mg/dL (0.7-1.3); EST CRCL DRUG DOSING (CG) 54.87 mL/min; ESTIMATED GFR 66.0 mL/min (>60); GLUCOSE RANDOM 95.0 mg/dL (70-99); POTASSIUM,K 4.5 mEq/L (3.5-5.1); PROTEIN TOTAL,TP 5.4 g/dl (6.4-8.2); SODIUM,NA 140.0 mEq/L (136-145)
[2024-10-06] MEDS: Lactated Ringers 1,000 ML IV SCH (10:58)
[2024-10-07 06:18] LABS: BLOOD UREA NITROGEN,BUN 24.0 mg/dL (7-18); CARBON DIOXIDE,CO2 24.0 mEq/L (21-32); CHLORIDE,CL 108.0 mEq/L (98-107); CREATININE 1.0 mg/dL (0.7-1.3); EST CRCL DRUG DOSING (CG) 60.36 mL/min; ESTIMATED GFR 74.0 mL/min (>60); GLUCOSE RANDOM 111.0 mg/dL (70-99); PHOSPHORUS 2.6 mg/dL (2.6-4.7); POTASSIUM,K 4.0 mEq/L (3.5-5.1); SODIUM,NA 141.0 mEq/L (136-145)
[2024-10-07 16:11] VITALS: BP 120/68; PULSE 70
== END 2024-10-07 14:06 | disposition home or self-care (01) | DRG 392 ==
LOC: JD.ED 16:14 → JD.MS 18:16
PROVIDERS: ADMIT Family Medicine; ATTEND Student in an Organized Health Care Education/Training Program
DX: A09 Infectious gastroenteritis and colitis, unspecified (principal); J96.01 Acute respiratory failure with hypoxia; N17.9 Acute kidney failure, unspecified; E86.0 Dehydration; J43.9 Emphysema, unspecified; G47.33 Obstructive sleep apnea (adult) (pediatric); H91.90 Unspecified hearing loss, unspecified ear; I12.9 Hypertensive chronic kidney disease with stage 1 through stage 4 chronic kidney disease, or unspecified chronic kidney disease; H54.7 Unspecified visual loss; E83.42 Hypomagnesemia; E11.22 Type 2 diabetes mellitus with diabetic chronic kidney disease; M19.90 Unspecified osteoarthritis, unspecified site; K21.9 Gastro-esophageal reflux disease without esophagitis; E78.00 Pure hypercholesterolemia, unspecified; N18.9 Chronic kidney disease, unspecified; F32.A Depression, unspecified; I10 Essential (primary) hypertension; E66.9 Obesity, unspecified; E55.9 Vitamin D deficiency, unspecified; Z85.46 Personal history of malignant neoplasm of prostate; Z90.49 Acquired absence of other specified parts of digestive tract; Z86.73 Personal history of transient ischemic attack (TIA), and cerebral infarction without residual deficits; Z68.32 Body mass index [BMI] 32.0-32.9, adult; Z86.16 Personal history of COVID-19; Z90.79 Acquired absence of other genital organ(s); Z88.0 Allergy status to penicillin; Z79.4 Long term (current) use of insulin; Z79.51 Long term (current) use of inhaled steroids; Z79.899 Other long term (current) drug therapy; Z87.891 Personal history of nicotine dependence
CPT/HCPCS: 71046; 96360; 99285; J7030; 36415; 80048; 80053; 81001; 82947; 83540; 83735; 84100; 85014; 85018; 85025; 86140; 87045; 87046; 87899; 93005; 93010; 94760; 94761; 94762; 99214; 99223; 99232; 99239; A9270-GY; J0456; J1650; J3475; J3490; J7050; J7120

== ENCOUNTER 2024-11-19 11:57 | Emergency (ER) | payer MEDICARE, OTHER ==
[2024-11-19 13:33] LABS: BASOPHILS ABSOLUTE AUTO 0.1 K/mm3 (0.0-0.2); BASOPHILS PERCENT AUTO 0.6 % (0.0-1.0); EOSINOPHILS ABSOLUTE AUTO 0.1 K/mm3 (0.0-0.4); EOSINOPHILS PERCENT AUTO 0.8 % (0.0-6.0); IMMATURE GRAN ABSOLUTE AUTO 0.09 K/mm3 (0.00-0.05); IMMATURE GRAN PERCENT AUTO 0.9 % (0.0-0.4); LYMPHOCYTES ABSOLUTE AUTO 1.0 K/mm3 (1.0-4.8); LYMPHOCYTES PERCENT AUTO 10.9 % (24.0-44.0); MEAN PLATELET VOLUME 11.7 fl (9.4-12.4); MONOCYTES ABSOLUTE AUTO 0.5 K/mm3 (0.0-0.8); MONOCYTES PERCENT AUTO 5.2 % (0.0-8.0); NEUTROPHILS ABSOLUTE AUTO 7.7 K/mm3 (1.8-7.7); NEUTROPHILS PERCENT AUTO 81.6 % (41.0-71.0); NRBC ABSOLUTE 0.00 (0.00-0.02); NRBC PERCENT 0.0 % (0.0-0.2); RED BLOOD CELL COUNT 3.95 M/mm3 (4.52-5.90); WHITE BLOOD CELL COUNT,WBC 9.50 K/mm3 (3.9-11.3)
[2024-11-19 13:34] LABS: PLATELET COUNT,PLT 156 K/mm3 (150-400)
[2024-11-19 13:55] LABS: A/G RATIO 0.8 (1-2); ALANINE AMINOTRANSFERASE,ALT 39.0 U/L (16-63); ASPARTATE AMNIOTRANSFERASE,AST 22.0 U/L (15-37); BILIRUBIN TOTAL 0.5 mg/dL (0.2-1.0); BLOOD UREA NITROGEN,BUN 16.0 mg/dL (7-18); CARBON DIOXIDE,CO2 25.0 mEq/L (21-32); CHLORIDE,CL 106.0 mEq/L (98-107); CREATININE 1.4 mg/dL (0.7-1.3); EST CRCL DRUG DOSING (CG) 43.11 mL/min; ESTIMATED GFR 50.0 mL/min (>60); GLUCOSE RANDOM 137.0 mg/dL (70-99); POTASSIUM,K 3.7 mEq/L (3.5-5.1); PROTEIN TOTAL,TP 6.2 g/dl (6.4-8.2); SODIUM,NA 142.0 mEq/L (136-145); TROPONIN I HIGH SENSITIVITY 28.0 pg/mL (<=76)
[2024-11-19] MEDS ORDERED: Sodium Chloride 0.9% 10 ML Syringe FLUSH PRN (13:56)
[2024-11-19] MEDS: Labetalol 100 MG/20 ML MDV IVPUSH ONE (14:02)
[2024-11-19] MEDS: Sodium Chloride 0.9% 10 ML Syringe FLUSH PRN (14:04)
[2024-11-19] MEDS: Iopamidol 755 Mg/ML 100 ML Bottle IVPUSH ONE (14:14)
[2024-11-19 17:24] VITALS: BP 139/52; PULSE 94
== END 2024-11-19 17:20 | disposition left against medical advice (07) ==
LOC: JD.ED 11:57
DX: R07.89 Other chest pain (principal); I10 Essential (primary) hypertension; R51.9 Headache, unspecified; Z53.29 Procedure and treatment not carried out because of patient's decision for other reasons; E66.9 Obesity, unspecified; E11.9 Type 2 diabetes mellitus without complications; Z88.0 Allergy status to penicillin; Z79.4 Long term (current) use of insulin; Z79.899 Other long term (current) drug therapy; Z90.49 Acquired absence of other specified parts of digestive tract; Z68.30 Body mass index [BMI] 30.0-30.9, adult; W19.XXXA Unspecified fall, initial encounter
CPT/HCPCS: 36415; 70450; 71045; 71275; 72125; 80053; 83735; 83880; 84484; 85025; 93005; 96361; 96374; 99285; A9270; J1920; J7030; Q9967; 93010; 99284